=== PATIENT | female | born 1940 | race Caucasian/White ===

== ENCOUNTER → 2017-10-06 16:12 | Outpatient (CLI) | payer MEDICARE, OTHER, SELFPAY ==
[2017-10-06 17:30] LABS: Absolute Lymphocyte Count 1.69 X10^3/ul (0.83-4.51); Absolute Neutrophil Count 3.6 X10^3/uL (2.0-7.7); Basophil# 0.01 X10^3/uL; Basophil% 0.2 % (0-1); Eosinophil# 0.07 X10^3/uL; Eosinophils% 1.2 % (0-5); Hematocrit 36.6 % (37-47); Hemoglobin 11.8 g/dl (12.0-15.0); Lymphocyte # 1.69 X10^3/ul (4.0); Lymphocyte % 28.7 % (19-41); Mean Corp Hgb Conc 32.2 g/gl (32-36); Mean Corpuscular Hgb 29.9 pg (27.0-32.0); Mean Corpuscular Volume 92.9 fL (81-99); Mean Platelet Vol. 11.9 fl (6.2-12.0); Monocyte# 0.53 X10^3/uL; Neutrophil # 3.57 X10^3/uL (2.7-7.7); Neutrophil % 60.7 % (47-70); Platelet Count 210 K/mm3 (150-450); RBC Distribution Width CV 14.5 % (11.6-14.6); RBC Distribution Width SD 47.7 fl (35.1-43.9); Red Blood Count 3.94 M/mm3 (4.2-5.4); White Blood Count 5.9 K/mm3 (4.4-11.0)
[2017-10-06 17:39] LABS: POSITIVE COUNT NO; POSITIVE DIFFERENTIAL NO; POSITIVE MORPHOLOGY NO
[2017-10-06 18:29] LABS: ALB/GLOB Ratio 1.1 RATIO (0.9-2.4); AST(SGOT) 21 U/L (15-37); Alanine Aminotransfer ALT/SGPT 29 U/L (13-56); Albumin, Serum 3.9 g/dL (3.2-5.0); Alkaline Phosphatase 64 U/L (45-117); Anion Gap 10 (5-15); BUN 15 mg/dL (7-18); BUN/Creat Ratio 23.5 RATIO (10-20); Calcium,Total 8.7 mg/dL (8.5-10.1); Chloride 103 mmol/L (98-107); Cholesterol 186 mg/dL (200); Creatinine, Serum 0.64 mg/dL (0.55-1.02); EST Glomerular Filtration Rate 97 mL/min (>60); Est Glom Filt Rate - Afr Amer 117 mL/min (>60); Globulin 3.5 g/dL (2.2-4.2); Glucose 97 mg/dL (74-106); High Density Lipoprotein 33 mg/dL; Potassium 4.2 mmol/L (3.5-5.1); Protein, Total 7.4 g/dL (6.4-8.2); Sodium Level 138 mmol/L (136-145); Thyroid Stim Hormone (TSH) 1.83 uIU/mL (0.358-3.74); Triglycerides 417 mg/dL
[2017-10-06 19:58] LABS: Vitamin D,25 Hydroxy 18.4 ng/mL (19.95-100.01)
== END ==
PROVIDERS: Family Provider Family Medicine Geriatric Medicine; PCP Family Medicine Geriatric Medicine; Visit Provider Family Medicine Geriatric Medicine
DX: I10 Essential (primary) hypertension (principal); E78.4 Other hyperlipidemia; E55.9 Vitamin D deficiency, unspecified
CPT/HCPCS: 36415; 80053; 80061; 82306; 84443; 85025

== ENCOUNTER → 2017-12-08 14:32 | Outpatient (CLI) | payer MEDICARE, OTHER, SELFPAY | PROVIDERS: Family Provider Family Medicine Geriatric Medicine; PCP Family Medicine Geriatric Medicine; Visit Provider Family Medicine Geriatric Medicine | DX: R68.83 Chills (without fever) (principal) | CPT/HCPCS: 87633 ==

== ENCOUNTER → 2017-12-12 10:09 | Outpatient (CLI) | payer MEDICARE, OTHER, SELFPAY ==
--- NOTE | 2017-12-12 10:13 | ECHOD_ITS ---
Reason For Study: Aortic valve disease Procedure This was a 2D Doppler, Color Flow transthoracic echocardiogram. The exam was of adequate technical quality. Exam performed in department. Left Ventricle Normal LV size. Left ventricular systolic function is normal. The estimated ejection fraction is 60 %. Transmitral diastolic flow velocities suggest moderate (stage 2) diastolic dysfunction (pseudonormal pattern). No regional wall motion abnormalities noted. Right Ventricle Normal RV size. Normal systolic function. Atria The left atrium is mildly enlarged. Normal right atrium. No doppler evidence for ASD. Mitral Valve There is no mitral annular calcification. Mild diffuse mitral valve thickening. Trivial mitral valve insufficiency. Tricuspid Valve Normal tricuspid valve. Trivial tricuspid valve insufficiency. Right ventricular systolic pressure estimated to be 43 mmHg. Aortic Valve Trisinus/trileaflet aortic valve. Mild diffuse aortic valve thickening. Mild focal aortic valve calcification. Aortic scelerosis / mild aortic valve stenosis. Trivial aortic valve insufficiency. Pulmonic Valve The pulmonic valve is not well visualized. Trivial pulmonic valve insufficiency. Great Vessels Normal sized aortic root. Pericardium/Pleural No pericardial effusion. MMode/2D Measurements & Calculations LVIDd: 4.3 cm IVSd: 1.2 cm LVOT diam: 1.9 cm LVIDs: 2.7 cm LVPWd: 1.2 cm LVOT area: 2.9 cm2 RVDd: 3.7 cm FS: 36.5 % Ao root diam: 3.1 cm LAV(MOD-bp): 53.0 ml EDV(MOD-sp4): 77.3 ml LAV(MOD-bp) Indexed: 29.2 ml/m2 ESV(MOD-sp4): 36.4 ml LAV(MOD-sp2): 58.1 ml EF(MOD-sp4): 52.8 % LAV(MOD-sp4): 45.1 ml EDV(MOD-sp2): 65.2 ml SV(MOD-sp4): 40.8 ml SV(MOD-sp2): 32.0 ml EF(MOD-sp2): 49.1 % LA A4 area: 16.6 cm2 RA A4 area: 10.7 cm2 Doppler Measurements & Calculations MV E max deniz: 73.3 cm/sec Lat Peak E' Deniz: 6.7 cm/sec Med Peak E' Deniz: 4.4 cm/sec MV A max deniz: 92.9 cm/sec E/E' lat: 10.9 E/E' med: 16.7 MV E/A: 0.79 Ao V2 max: 153.6 cm/sec LV V1 max: 95.2 cm/sec SV(LVOT): 66.6 ml Ao max P.4 mmHg LV V1 max P.6 mmHg Ao V2 mean: 106.9 cm/sec LV V1 mean P.0 mmHg Ao mean P.1 mmHg LV V1 mean: 65.6 cm/sec Ao V2 VTI: 39.6 cm LV V1 VTI: 22.9 cm JACOBO(I,D): 1.7 cm2 JACOBO(V,D): 1.8 cm2 PA V2 max: 83.7 cm/sec TR max deniz: 315.2 cm/sec TR max P.7 mmHg Interpretation Summary Left ventricular systolic function is normal. The estimated ejection fraction is 60 %. The left atrium is mildly enlarged. Mild diffuse mitral valve thickening. Trivial mitral valve insufficiency. Trivial tricuspid valve insufficiency. Aortic scelerosis / mild aortic valve stenosis. Trivial aortic valve insufficiency. Trivial pulmonic valve insufficiency. Right ventricular systolic pressure estimated to be 43 mmHg. Transmitral diastolic flow velocities suggest diastolic dysfunction. Compared with the previous TTE of 05/24/2016 the previous small mobile echodensity on the aortic aspect of the aortic valve appearing is not visualized at this time. Ordering Physician: Huan Mathis Referring Physician: Marco Antonio Arevalo Chi Performed By: Yessi Thomas RDCS
== END ==
PROVIDERS: Family Provider Family Medicine Geriatric Medicine; PCP Family Medicine Geriatric Medicine; Visit Provider Internal Medicine Cardiovascular Disease
DX: I47.1 Supraventricular tachycardia (principal); R01.1 Cardiac murmur, unspecified; I35.8 Other nonrheumatic aortic valve disorders; I10 Essential (primary) hypertension
CPT/HCPCS: 93306

== ENCOUNTER → 2018-01-05 16:13 | Outpatient (CLI) | payer MEDICARE, OTHER, SELFPAY ==
[2018-01-05 17:47] LABS: Absolute Lymphocyte Count 1.47 X10^3/ul (0.83-4.51); Absolute Neutrophil Count 4.2 X10^3/uL (2.0-7.7); Basophil# 0.01 X10^3/uL; Basophil% 0.2 % (0-1); Eosinophil# 0.27 X10^3/uL; Eosinophils% 4.1 % (0-5); Hematocrit 36.1 % (37-47); Hemoglobin 11.6 g/dl (12.0-15.0); Lymphocyte # 1.47 X10^3/ul (4.0); Lymphocyte % 22.2 % (19-41); Mean Corp Hgb Conc 32.1 g/gl (32-36); Mean Corpuscular Hgb 30.6 pg (27.0-32.0); Mean Corpuscular Volume 95.3 fL (81-99); Mean Platelet Vol. 10.7 fl (6.2-12.0); Monocyte# 0.64 X10^3/uL; Monocyte% 9.7 % (0-10); Neutrophil # 4.22 X10^3/uL (2.7-7.7); Neutrophil % 63.6 % (47-70); POSITIVE COUNT NO; POSITIVE DIFFERENTIAL NO; POSITIVE MORPHOLOGY NO; Platelet Count 248 K/mm3 (150-450); RBC Distribution Width CV 16.7 % (11.6-14.6); Red Blood Count 3.79 M/mm3 (4.2-5.4); White Blood Count 6.6 K/mm3 (4.4-11.0)
[2018-01-05 17:54] LABS: ALB/GLOB Ratio 0.9 RATIO (0.9-2.4); AST(SGOT) 26 U/L (15-37); Alanine Aminotransfer ALT/SGPT 30 U/L (13-56); Albumin, Serum 3.5 g/dL (3.2-5.0); Alkaline Phosphatase 56 U/L (45-117); Anion Gap 6 (5-15); BUN 19 mg/dL (7-18); BUN/Creat Ratio 26.8 RATIO (10-20); Calcium,Total 8.6 mg/dL (8.5-10.1); Chloride 105 mmol/L (98-107); Cholesterol 192 mg/dL (200); Creatinine, Serum 0.71 mg/dL (0.55-1.02); EST Glomerular Filtration Rate 85 mL/min (>60); Est Glom Filt Rate - Afr Amer 103 mL/min (>60); Glucose 96 mg/dL (74-106); High Density Lipoprotein 46 mg/dL; Potassium 3.8 mmol/L (3.5-5.1); Protein, Total 7.5 g/dL (6.4-8.2); Sodium Level 140 mmol/L (136-145); Thyroid Stim Hormone (TSH) 1.47 uIU/mL (0.358-3.74); Triglycerides 161 mg/dL; Very Low Density Lipoprotein 32 mg/dL (5-40)
[2018-01-05 17:58] LABS: Vitamin D,25 Hydroxy 45.5 ng/mL (29.95-100.01)
== END ==
PROVIDERS: Family Provider Family Medicine Geriatric Medicine; PCP Family Medicine Geriatric Medicine; Visit Provider Family Medicine Geriatric Medicine
DX: I10 Essential (primary) hypertension (principal); E55.9 Vitamin D deficiency, unspecified
CPT/HCPCS: 36415; 80053; 80061; 82306; 84443; 85025

== ENCOUNTER → 2018-01-12 09:00 | Outpatient (CLI) | payer MEDICARE, OTHER, SELFPAY ==
[2018-01-12 10:40] LABS: AST(SGOT) 25 U/L (15-37); Alanine Aminotransfer ALT/SGPT 26 U/L (13-56); Albumin, Serum 3.6 g/dL (3.2-5.0); Alkaline Phosphatase 53 U/L (45-117); Bilirubin, Direct 0.09 mg/dL (0.00-0.30); Cholesterol 184 mg/dL (200); Globulin 3.8 g/dL (2.2-4.2); High Density Lipoprotein 48 mg/dL; Protein, Total 7.4 g/dL (6.4-8.2); Triglycerides 120 mg/dL
[2018-01-12 10:41] LABS: Very Low Density Lipoprotein 24 mg/dL (5-40)
== END ==
PROVIDERS: Family Provider Family Medicine Geriatric Medicine; PCP Family Medicine Geriatric Medicine; Visit Provider Physician Assistant Medical
DX: I10 Essential (primary) hypertension (principal); E78.1 Pure hyperglyceridemia
CPT/HCPCS: 36415; 80061; 80076

== ENCOUNTER → 2018-04-08 11:15 | Outpatient (CLI) | payer MEDICARE, OTHER, SELFPAY ==
[2018-04-08 12:31] LABS: Absolute Neutrophil Count 4.4 X10^3/uL (2.0-7.7); Basophil# 0.02 X10^3/uL; Basophil% 0.3 % (0-1); Eosinophil# 0.09 X10^3/uL; Eosinophils% 1.3 % (0-5); Hematocrit 38.8 % (37-47); Hemoglobin 12.2 g/dl (12.0-15.0); Lymphocyte % 25.7 % (19-41); Mean Corp Hgb Conc 31.4 g/gl (32-36); Mean Corpuscular Hgb 29.3 pg (27.0-32.0); Monocyte# 0.72 X10^3/uL; Monocyte% 10.3 % (0-10); Neutrophil # 4.37 X10^3/uL (2.7-7.7); Neutrophil % 62.3 % (47-70); Platelet Count 239 K/mm3 (150-450); RBC Distribution Width CV 15.6 % (11.6-14.6); RBC Distribution Width SD 51.2 fl (35.1-43.9); Red Blood Count 4.17 M/mm3 (4.2-5.4)
[2018-04-08 12:40] LABS: POSITIVE COUNT NO; POSITIVE DIFFERENTIAL NO; POSITIVE MORPHOLOGY NO
[2018-04-08 12:53] LABS: ALB/GLOB Ratio 1.1 RATIO (0.9-2.4); AST(SGOT) 25 U/L (15-37); Alanine Aminotransfer ALT/SGPT 33 U/L (13-56); Albumin, Serum 3.8 g/dL (3.2-5.0); Alkaline Phosphatase 54 U/L (45-117); Anion Gap 10 (5-15); BUN 19 mg/dL (7-18); BUN/Creat Ratio 24.9 RATIO (10-20); Calcium,Total 8.8 mg/dL (8.5-10.1); Chloride 105 mmol/L (98-107); Cholesterol 194 mg/dL (200); Creatinine, Serum 0.76 mg/dL (0.55-1.02); EST Glomerular Filtration Rate 78 mL/min (>60); Est Glom Filt Rate - Afr Amer 95 mL/min (>60); Globulin 3.6 g/dL (2.2-4.2); Glucose 103 mg/dL (74-106); High Density Lipoprotein 43 mg/dL; Potassium 4.4 mmol/L (3.5-5.1); Protein, Total 7.4 g/dL (6.4-8.2); Sodium Level 143 mmol/L (136-145); Thyroid Stim Hormone (TSH) 1.69 uIU/mL (0.358-3.74); Triglycerides 181 mg/dL; Very Low Density Lipoprotein 36 mg/dL (5-40)
== END ==
PROVIDERS: Family Provider Family Medicine Geriatric Medicine; PCP Family Medicine Geriatric Medicine; Visit Provider Family Medicine Geriatric Medicine
DX: E55.9 Vitamin D deficiency, unspecified (principal); E78.4 Other hyperlipidemia; I10 Essential (primary) hypertension
CPT/HCPCS: 36415; 80053; 80061; 82306; 84443; 85025

== ENCOUNTER → 2018-04-13 15:18 | Outpatient (CLI) | payer MEDICARE, OTHER, SELFPAY | PROVIDERS: Family Provider Family Medicine Geriatric Medicine; PCP Family Medicine Geriatric Medicine; Visit Provider Obstetrics & Gynecology | DX: Z12.31 Encounter for screening mammogram for malignant neoplasm of breast (principal) | CPT/HCPCS: 77063; 77067 ==

== ENCOUNTER → 2018-04-15 13:42 | Outpatient (CLI) | payer MEDICARE, OTHER, SELFPAY | PROVIDERS: Family Provider Family Medicine Geriatric Medicine; PCP Family Medicine Geriatric Medicine; Visit Provider Obstetrics & Gynecology | DX: R92.8 Other abnormal and inconclusive findings on diagnostic imaging of breast (principal) | CPT/HCPCS: 76642 ==

== ENCOUNTER → 2018-04-29 15:04 | Outpatient (CLI) | payer MEDICARE, OTHER, SELFPAY ==
--- NOTE | 2018-04-29 | IMM_PTH ---
PATIENT: ANABELA CAMARA LOC: [facility] U#:[id number] AGE/SX: 84/F ROOM: RE04/29/[address]: Dr. Terry Santana MD : 1940 BED: DIS: SPEC #: [id number] RECD: 05/01/18 11:36 STATUS: XIMENA REQ #: [id number] NIKA: 04/29/18 00:[address]: Terry Santana DEPT: IMMUNOHISTOCHEMISTRY RECD BY: Tayla Medrano ENTERED: 05/01/18 11:39 SP TYPE: IMMUNO OTHR DR: Dr. Marco Antonio Arevalo MD Tissues: Left breast, NOS Procedures: CALPONIN-1 (add) CK5-6 (add) CK8 (add) E-CAD (add) HER2 PARAG (add) KI-67 (add) P53 (add) IN (add) P40 (add) ER (initial) PHYSICIAN & INSTITUTION [facility] [id number] SPECIMEN INFORMATION: Tissue Source: Left breast Clinical Info: Abnormal mammogram left breast Specimen Number: [id number] CPT code: 46133, 10061 x6, 86506 x3 METHODOLOGY: Deparaffinized sections of prefer/formalin-fixed tissue or PAP/DQ stained slides are incubated with monoclonal/polyclonal antibodies/oligonucleotide probes. Localization is made via biotin free immunoperoxidase method. Appropriate controls are performed and reacted as expected. Results on target cell population are indicated in the following table: RESULTS: ANTIBODY / CLONE RESULT P53 (DO-7) positive, 90% Ki-67 (30-9) positive, low CK8 ([id number]) positive CK5-6 (D5 & 1684) negative Calponin-1 (EB876F) negative P40 (BC28) negative E-Cad (ECH-6) positive MORPHOMETRIC ANALYSIS ER (clone 6F11) >95% IN (clone 16/1E2) 0% Her-2Neu (clone CB11) 0 The prognostic test for HER2 is performed on formalin-fixed paraffin embedded tissue. A 3+ (positive) staining pattern is defined as intense, homogeneous, complete, circumferential membranous staining in >10% of contiguous tumor cells. A similar weak (2+) staining pattern is interpreted as equivocal. MARSHA follow-up testing is recommended for all equivocal cases. Positivity/negativity for ER/IN is reported if > or < 1% of the tumor cells are immuno- reactive, respectively. The ASCO/CAP criteria is used for scoring. Reference: Journal of Clinical Oncology, 2013; 31:9147-6264 & 2010; 16:1762-4617. Duration of fixation: 29.5 Hrs; Sample Adequate: Yes. These assays have not been validated on decalcified tissues. Results should be interpreted with caution given the likelihood of false negativity on decalcified specimens. These tests were developed and their performance characteristics determined by [facility]. They may not have been cleared or approved by the U.S. Food and Drug Administration. The FDA has determined that such clearance or approval is not necessary. INTERPRETATION: Left breast, core biopsy: Invasive ductal carcinoma, nuclear grade 2. Positive for estrogen receptors (favorable prognostic indicator). Negative for progesterone receptors (unfavorable prognostic indicator). Negative for overexpression of YMU6fdd. AM:wojciech 05/04/18
--- NOTE | 2018-04-29 13:00 | BRBX_PTH ---
PATIENT: ANABELA CAMARA LOC: [facility] U#:[id number] AGE/SX: 84/F ROOM: RE04/29/[address]: Dr. Terry Santana MD : 1940 BED: DIS: SPEC #: [id number] RECD: 04/29/18 14:48 STATUS: XIMENA MING #: [id number] NIKA: 04/29/18 13:[address]: Terry Santana DEPT: SURGICAL PATHOLOGY RECD BY: Tayla Medrano ENTERED: 04/30/18 15:40 SP TYPE: BREAST BX OTHR DR: MD Dr. Marco Antonio Johnson Chi, MD Tissues: Left breast, NOS Procedures: Surgery Specimen Level IV HEADER OPERATION: Ultrasound-guided mammotome left breast biopsy PRE-OP DIAGNOSIS: Abnormal mammogram left breast R92.8 TISSUE SUBMITTED: Mammotome biopsy left breast ISCHEMIC TIME: <1 minute FIXATION TIME: 29.5 hours MICROSCOPIC DIAGNOSIS Left breast, ultrasound-guided mammotome biopsy: Invasive ductal carcinoma. Nuclear grade ? 2/3 Maximal length ? 5 mm AM:wojciech 05/01/18 COMMENT ER/WI/Sfy5jvg studies are being performed on sections of tumor and the results from this study will be reported separately ([id number]). MICROSCOPIC DESCRIPTION Slides are reviewed. GROSS DESCRIPTION Received in fixative is one container labeled with the patient's name and designated left breast biopsy. The specimen consists of multiple elongated fragments of good-yellow fibroadipose tissue that in aggregate measure 2.5 x 1 x 0.1 cm. The entire specimen is submitted in one cassette. / SJ:wojciech 04/30/18 TC:0 CPT: 02133
== END ==
PROVIDERS: Family Provider Family Medicine Geriatric Medicine; PCP Family Medicine Geriatric Medicine; Visit Provider Surgery
DX: C50.912 Malignant neoplasm of unspecified site of left female breast (principal)
CPT/HCPCS: 88305; 88341; 88342

== ENCOUNTER 2018-05-29 09:17 | Day surgery (SDC) | payer MEDICARE, OTHER, SELFPAY ==
[2018-05-29] VITALS (10 sets, daily range): BP systolic 123–176; BP diastolic 57–78; PULSE 61–79; RESP 14–18; TEMP 36.1–36.9; O2SAT 93–99; BMI 28.8
--- NOTE | 2018-05-29 10:00 | NM_ITS ---
CLINICAL: Female, 77 years old. LEFT BREAST CANCER NUCLEAR MEDICINE LYMPHOSCINTIGRAPHY TECHNIQUE: After infiltration of the skin and subcutaneous soft tissues with 10 mL lidocaine 1% in the periareolar region, Intradermal administration of 1.1 mCi of Tc sulfur colloid, in the periareolar region in the affected breast is performed. COMPARISON STUDIES : NM - None. CR - Not available for review at this time. CT - Not available for review at this time. MR - Not available for review at this time. US - Not available for review at this time. FINDINGS: The patient was sent to the OR no images were obtained. NM/Lymph Node Injection Only IMPRESSION: Successful lymphoscintigraphy. Electronically Signed: Don Torres MD at 12:25 EDT Tel , Service support ,
[2018-05-29] MEDS: Cefazolin 2 GM in 0.9% Normal Saline 100 ML IV (11:16)
--- NOTE | 2018-05-29 11:23 | PCM.OPRPT ---
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 Z17.0 estrogen receptor positive Post-Operative Diagnosis: Same Surgery/Procedure Performed:: 1. Injection of 5 cc of Lymphazurin blue. 2. Ultrasound-guided wire localization left breast cancer. 3. Left-sided partial mastectomy. 4. Left-sided deep sentinel lymph node biopsy Type of Anesthesia:: General Anesthesiologist: Oscar Rodriguez Specimen's removed: left breast Drains: none Estimated Blood Loss (mL): < 50 cc Fluids Replaced: 600 cc lr Description of Procedure: Patient was brought into the operating room. Placed in the supine position. Under excellent LMA general anesthetic I ultrasound the left breast in the upper outer quadrant. Lesion was identified. Prepped the skin with alcohol. I placed a Kopan's wire directly through the malignancy. The breast was then cleaned off with alcohol. I injected 5 cc of Lymphazurin blue circumareolar the on the left side and massaged the breast for 5 minutes. The left breast was then sterilely prepped and draped in the usual fashion. An incision was made in the upper outer quadrant of the breast and elliptically around the previous biopsy site. I used electrocautery to do a partial upper quadrant mastectomy with the wire as my guide. The specimen was marked with the wire and skin laterally single long superiorly double long medially and double short posterior on the chest wall. I irrigated out the wound I had good hemostasis I then went along the lateral border of the pectoralis major muscle and entered the clavipectoral fascia and entered the deep axillary area I used the neoprobe identified a very hot area did gentle dissecting in this area and identified it a and extremely blue lymph node. I used the harmonic dissector and took this as well as a few lymph nodes around the area out. Readings were in the 500 intraoperatively and not quite as high with the lymph node being out. These were sent to pathology for frozen section which confirmed lymph nodes with no obvious metastatic disease. I used irrigation in this area. The wound was then brought together with deep dermal stitches of 3-0 Vicryl in a running 4-0 Monocryl. Dermabond was applied. Fluffs and a protection bra was applied. The patient tolerated the procedure well. - Admit VTE Documentation VTE Present on Admission: No VTE Mechan Device Prophylaxis: SCD's VTE Pharm Prophylaxis ordered?: No Reason prophylaxis not ordered:: Treatment Not Indicated
[2018-05-29] MEDS: Isosulfan Blue 1% 5 ML Vial (11:31)
--- NOTE | 2018-05-29 11:59 | BI_ITS ---
SURGICAL BREAST SPECIMEN RADIOGRAPH CLINICAL: Document presence of mass in biopsy specimen. FINDINGS: Specimen shows presence of spiculated mass and biopsy clip and localizing wire Pathology is pending and an addendum to the biopsy report will be performed after the final pathologic diagnosis is rendered. Electronically Signed: Don Torres MD at 13:16 EDT Tel , Service support , BI/Breast Biopsy Specimen
[2018-05-29] MEDS: Bupivacaine Mpf 0.5% 30 ML VIAL (12:28)
[2018-05-29] MEDS: oxyCODONE 5 MG Tablet PO (13:26)
[2018-05-29] MEDS: Lactated Ringers 1,000 ML 70 ML IV (18:05)
[2018-05-29] MEDS: Fenofibrate 48 MG Tablet PO (21:52)
[2018-05-29] MEDS: Cefazolin 1 GM/50 ML BAG IV (21:52)
[2018-05-29] MEDS: Metoprolol Tartrate 25 MG Tablet PO (21:52)
[2018-05-29] MEDS: Latanoprost 0.005% 1 Bottle 1 DRP EACH EYE (21:53)
[2018-05-30 02:40] VITALS: BP 113/52; PULSE 61; RESP 16; TEMP 36.6; O2SAT 97
[2018-05-30] MEDS: Cefazolin 1 GM/50 ML BAG IV (06:03)
[2018-05-30] MEDS: oxyCODONE 5 MG Tablet PO (06:06)
[2018-05-30 08:08] VITALS: BP 126/54; PULSE 55; RESP 18; TEMP 36.6; O2SAT 92
[2018-05-30] MEDS: Timolol 0.5% 5ML OPTH.BTL 1 DRP EACH EYE (08:12)
[2018-05-30] MEDS: HYDROCHLOROTHIAZIDE 12.5 MG CAPSULE PO (08:12)
[2018-05-30 09:33] VITALS: PULSE 63; O2SAT 95
[2018-05-30 09:35] VITALS: BP 126/54; PULSE 63
[2018-05-30] MEDS: Metoprolol Tartrate 25 MG Tablet PO (09:35)
[2018-05-30] MEDS: amLODIPine 5 MG Tablet PO (09:35)
[2018-05-30] MEDS: Losartan Potassium 100 MG Tablet PO (09:36)
--- NOTE | 2018-05-30 11:08 | DCINST_ITS ---
Discharge Diet: No Restrictions Discharge Activity: May Not Drive - for 2-3 days or while taking narcotic pain meds. May shower in (days): 1 Lifting Restrictions: 10 pounds for 1 week. Call your doctor if your incision/area has: Continuous Slow Oozing, Sudden In creased Bleeding Call your doctor if you observe: Fever of 101 or Higher Suture Line Care: Avoid Pulling/Pushing, Avoid Pinching/Bending Remove Dressing in (days):: 1 - Remove bulky dressing tomorrow. May leave any opsite dressing for 3-4 days. Keep dressing in place until your follow-up appointment. Additional Dressing/Incision Instructions:: Remove bulky dressing tomorrow. May leave any opsite dressing for 3-4 days. Keep dressing in place until your follow-up appointment. Allergies/Adverse Reactions: Allergies No Known Allergies Allergy (Verified 05/22/18 13:02) Medications to take at Discharge Losartan Potassium [Cozaar] 100 mg PO DAILY 11/30/13 Potassium Chloride [Klor-Con M10] 10 meq PO DAILY 11/30/13 Latanoprost 0.005% [Xalatan Opthalmic] 1 drp EACH EYE QHS 06/13/16 Timolol Maleate [Timoptic-XE 0.5%] 1 drp EACH EYE DAILY 06/13/16 hydrochlorothiazide 12.5 mg tablet 12.5 mg PO DAILY 30 Days #30 12/12/17 amlodipine 5 mg tablet 5 mg PO DAILY tab 04/21/18 metoprolol tartrate 25 mg tablet 25 mg PO BID #180 tab 05/05/18 Acetaminophen [Tylenol Arthritis] 650 mg PO DAILY 05/22/18 Aspirin E.C. [Ecotrin] 81 mg PO DAILY@0800 05/22/18 Fenofibrate,Micronized [Fenofibrate] 67 mg PO QHS 05/22/18 Oxycodone HCl/Acetaminophen [Percocet 5/325] 1 - 2 tab PO Q4H PRN PRN 5 Days #30 tab 05/30/18 The following prescriptions were given: Oxycodone HCl/Acetaminophen [Percocet 5/325] 1 - 2 tab PO Q4H PRN PRN 5 Days #30 tab PRN Reason: Pain Primary Care Physician: Marco Antonio Arevalo Chi, MD [Primary Care Provider] -
[2018-05-30 11:23] VITALS: BP 124/58; PULSE 60; RESP 18; TEMP 36.8; O2SAT 93
[2018-06-01 11:49] LABS: Bedside Glucose 122 mg/dL (70-110)
[2018-06-01 12:02] LABS: Bedside Glucose 148 mg/dL (70-110)
== END 2018-05-30 12:05 | disposition home or self-care (01) ==
LOC: SDC 09:18 → AC 09:18 → MS3 13:22
PROVIDERS: Family Provider Family Medicine Geriatric Medicine; PCP Family Medicine Geriatric Medicine; Referring Provider Surgery
PROC: (CPT 19301; principal; 2018-05-29 11:45)
DX: C50.412 Malignant neoplasm of upper-outer quadrant of left female breast (principal); Z17.0 Estrogen receptor positive status [ER+]; E78.00 Pure hypercholesterolemia, unspecified; E11.9 Type 2 diabetes mellitus without complications; I10 Essential (primary) hypertension; I27.20 Pulmonary hypertension, unspecified; Z23 Encounter for immunization
CPT/HCPCS: 00400; 19301; 38525; 38792; 76098; 82962; 88305; 88307; 88331; 88332; 88341; 88342; A9541; G0008; J7120; 90686; J2405; Q9968

== ENCOUNTER → 2018-07-08 11:43 | Outpatient (CLI) | payer MEDICARE, OTHER, SELFPAY ==
[2018-06-18 09:52] VITALS: BMI 29.3
[2018-07-08 11:05] VITALS: BMI 29.2
[2018-07-08 12:41] LABS: Absolute Lymphocyte Count 1.98 X10^3/ul (0.83-4.51); Absolute Neutrophil Count 6.9 X10^3/uL (2.0-7.7); Basophil# 0.01 X10^3/uL; Basophil% 0.1 % (0-1); Eosinophil# 0.01 X10^3/uL; Eosinophils% 0.1 % (0-5); Hematocrit 39.6 % (37-47); Hemoglobin 12.7 g/dl (12.0-15.0); Lymphocyte # 1.98 X10^3/ul (4.0); Lymphocyte % 20.3 % (19-41); Mean Corp Hgb Conc 32.1 g/gl (32-36); Mean Corpuscular Hgb 29.7 pg (27.0-32.0); Mean Corpuscular Volume 92.5 fL (81-99); Mean Platelet Vol. 11.8 fl (6.2-12.0); Monocyte# 0.82 X10^3/uL; Monocyte% 8.4 % (0-10); Neutrophil # 6.91 X10^3/uL (2.7-7.7); Neutrophil % 70.8 % (47-70); Platelet Count 264 K/mm3 (150-450); RBC Distribution Width CV 15.6 % (11.6-14.6); RBC Distribution Width SD 51.5 fl (35.1-43.9); Red Blood Count 4.28 M/mm3 (4.2-5.4); White Blood Count 9.8 K/mm3 (4.4-11.0)
[2018-07-08 12:50] LABS: POSITIVE COUNT NO; POSITIVE DIFFERENTIAL NO; POSITIVE MORPHOLOGY NO
[2018-07-08 12:56] LABS: Vitamin D,25 Hydroxy 23.1 ng/mL (29.95-100.01)
[2018-07-08 13:08] LABS: ALB/GLOB Ratio 1.1 RATIO (0.9-2.4); AST(SGOT) 23 U/L (15-37); Alanine Aminotransfer ALT/SGPT 30 U/L (13-56); Albumin, Serum 4.2 g/dL (3.2-5.0); Alkaline Phosphatase 60 U/L (45-117); Anion Gap 10 (5-15); BUN 20 mg/dL (7-18); BUN/Creat Ratio 24.4 RATIO (10-20); Calcium,Total 8.9 mg/dL (8.5-10.1); Chloride 104 mmol/L (98-107); Cholesterol 212 mg/dL (200); Creatinine, Serum 0.82 mg/dL (0.55-1.02); EST Glomerular Filtration Rate 72 mL/min (>60); Est Glom Filt Rate - Afr Amer 87 mL/min (>60); Globulin 3.7 g/dL (2.2-4.2); Glucose 93 mg/dL (74-106); High Density Lipoprotein 51 mg/dL; Potassium 4.2 mmol/L (3.5-5.1); Protein, Total 7.9 g/dL (6.4-8.2); Sodium Level 141 mmol/L (136-145); Thyroid Stim Hormone (TSH) 2.07 uIU/mL (0.358-3.74); Triglycerides 217 mg/dL; Very Low Density Lipoprotein 43 mg/dL (5-40)
== END ==
PROVIDERS: Family Provider Family Medicine Geriatric Medicine; PCP Family Medicine Geriatric Medicine; Visit Provider Family Medicine Geriatric Medicine
DX: I10 Essential (primary) hypertension (principal); E56.9 Vitamin deficiency, unspecified; R53.83 Other fatigue
CPT/HCPCS: 36415; 77387; 77412; 80053; 80061; 82306; 84443; 85025

== ENCOUNTER → 2018-07-31 11:51 | Outpatient (CLI) | payer MEDICARE, OTHER, SELFPAY ==
[2018-06-18 09:52] VITALS: BMI 29.3
[2018-07-08 11:05] VITALS: BMI 29.2
--- NOTE | 2018-07-31 11:58 | RAD_ITS ---
STUDY: X-RAY CHEST REASON FOR EXAM: Female, 77 years old. Left breast cancer. Recently finished 16 radiation treatments. Additional history of aortic valve replacement. TECHNIQUE: PA and lateral views of the chest. COMPARISON: PA and lateral chest x-ray October 20, 2014 FINDINGS: Moderate elevation of the anterior right diaphragm as well as some stable separation of the right diaphragmatic leaflets. There is minor crowding in the anterior right lung base. Chronic interstitial changes in the inferior left base unchanged. There is no demonstrated pleural abnormality. Heart size is upper normal.. Sternal cerclage wires are now present from a sternotomy in the interval since previous study. Normal mediastinum and porfirio. Normal visualized pulmonary arteries. There is stable mild atherosclerotic calcification of the aortic arch with some tortuosity of the descending thoracic segment. There are stable multilevel degenerative changes of the visualized thoracic spine. Stable rounded ossific density projecting just below the coracoid process of the right scapula on the frontal view. Otherwise, normal visualized ribs, clavicles, and shoulders. The left breast shadow is mildly smaller than the right. There is no demonstrated abnormality of the visualized soft tissue structures of the upper abdomen. RAD/Chest PA and Lateral IMPRESSION: 1. Patient has undergone median sternotomy since prior study. Heart size upper normal. No CHF. 2. Stable tortuosity of the descending thoracic aorta and mild calcification of the thoracic aortic arch. 3. Minor subsegmental volume loss in the anterior right lung base. Mild chronic interstitial change noted in the left base. Electronically Signed: Jose Angel Rhodes MD at 14:50 EST , Service support ,
== END ==
PROVIDERS: Family Provider Family Medicine Geriatric Medicine; PCP Family Medicine Geriatric Medicine; Referring Provider Internal Medicine Medical Oncology; Visit Provider Internal Medicine Medical Oncology
DX: C50.412 Malignant neoplasm of upper-outer quadrant of left female breast (principal)
CPT/HCPCS: 71046

== ENCOUNTER → 2018-09-16 07:27 | Outpatient (CLI) | payer MEDICARE, OTHER, SELFPAY ==
[2018-06-18 09:52] VITALS: BMI 29.3
[2018-08-03 10:37] VITALS: BMI 29.1
--- NOTE | 2018-09-16 07:29 | CT_ITS ---
STUDY: CT CHEST WITH CONTRAST REASON FOR EXAM: Female, 77 years old. Partial left mastectomy. Breast cancer. RADIATION DOSAGE (If Supplied By Facility): CTDIvol = ( 15.01 ) mGy, DLP = ( 1375.11 ) mGycm TECHNIQUE: Transaxial imaging was performed following intravenous administration of 100 ml of Isovue 300 contrast material. Multiplanar coronal and sagittal images were reformatted. Individualized dose optimization techniques were used for this CT. COMPARISON: None. FINDINGS: Mild enlargement of the left lobe of the thyroid gland with several hypodense nodules suggestive of goiter as change. Small hypodense nodule in the lower pole of the right thyroid lobe. Skin thickening of the left breast. Increased interstitial markings at the lung bases with areas of confluence suggestive of a bibasilar scarring. There is no demonstrated pleural abnormality. Sternal cerclage wires and vascular clips are present from a prior sternotomy and coronary artery bypass graft procedure (CABG). Normal mediastinum. Normal hilar regions. Normal enhanced pulmonary arteries. There is atherosclerotic calcification of the aortic arch with tortuosity and elongation of the aortic arch and descending thoracic aorta. There are multi-level degenerative changes of the thoracic spine. There is no demonstrated abnormality of the visualized upper abdomen. CT/Chest WITH Contrast IMPRESSION: Findings suggestive of bibasilar scarring. In homogeneous enlargement of the thyroid gland slightly worse on the left side. Electronically Signed: Bryce Graham MD at 14:39 EST , Service support ,
--- NOTE | 2018-09-16 07:29 | CT_ITS ---
STUDY: CT ABDOMEN AND PELVIS WITH CONTRAST REASON FOR EXAM: Female, 77 years old. Follow-up for breast cancer. RADIATION DOSAGE (If Supplied By Facility): CTDIvol = ( 15.01 ) mGy, DLP = ( 1375.11 ) mGycm TECHNIQUE: Transaxial images were obtained from the dome of the diaphragm to the symphysis pubis with oral contrast. 100 ml of Isovue 300 contrast was administered. Sagittal and coronal images were reconstructed. Individualized dose optimization techniques were used for this CT. COMPARISON: None. FINDINGS: The patient is status post partial left mastectomy with resultant thickening of the skin of the left breast. Mild increased markings at the lung bases suggest some mild scarring. Prior CABG. Coronary artery calcification. Normal liver. Normal gallbladder and extrahepatic biliary system. Normal spleen. Normal pancreas. Normal bilateral adrenal glands. Findings suggestive of a mild degree of bilateral hydronephrosis versus bilateral parapelvic cysts. There is a small hiatal hernia. Normal small intestine. Moderate amount of fecal material is seen in the colon. The appendix is visualized and appears normal. There is diffuse atherosclerotic calcification of the abdominal aorta, without a demonstrated aneurysm. Normal inferior vena cava. Normal retroperitoneum. Normal urinary bladder. There is absence of the uterus consistent with a prior hysterectomy. Normal abdominal wall. There are diffuse degenerative changes of the visualized lumbar spine. Prior bilateral hip replacement. CT/Abdomen/Pelvis WITH Contrast IMPRESSION: Findings suggestive of either mild bilateral hydronephrosis versus bilateral parapelvic cysts. Electronically Signed: Bryce Graham MD at 14:04 EST , Service support ,
--- OUTSIDE RECORDS SUMMARY | 2018-11-18 01:58 | XMS RPT_ITS ---
:1940 Author Organization OHIP Support Name Relationship Address Phone R Unavailable Unavailable Unavailable PATEL, AGUILAR Unavailable [address] + [place] [address] PATEL, IONA Unavailable [address] + [place] [address] R Unavailable Unavailable Unavailable PATEL, AGUILAR Unavailable [address] + [place] [address] PATEL, GALO Unavailable Unavailable + R Unavailable Unavailable Unavailable PATEL, AGUILAR Unavailable [address] + [place] [address] PATEL, GALO Unavailable Unavailable + R Unavailable Unavailable Unavailable PATEL, AGUILAR Unavailable [address] + [place] [address] PATEL, GALO Unavailable Unavailable + R Unavailable Unavailable Unavailable PATEL, AGUILAR Unavailable [address] + [place] [address] PATEL, GALO Unavailable Unavailable + [place] [address] R Unavailable Unavailable Unavailable PATEL, AGUILAR Unavailable [address] + [place] [address] PATEL, GALO Unavailable Unavailable + R Unavailable Unavailable Unavailable PATEL, AGUILAR Unavailable [address] + [place] [address] PATEL, GALO Unavailable Unavailable + R Unavailable Unavailable Unavailable PATEL, AGUILAR Unavailable [address] + [place] [address] PATEL, GALO Unavailable Unavailable + R Unavailable Unavailable Unavailable PATEL, AGUILAR Unavailable [address] + [place] [address] PATEL, GALO Unavailable Unavailable + R Unavailable Unavailable Unavailable PATEL, AGUILAR Unavailable [address] + [place] [address] PATEL, GALO Unavailable Unavailable + R Unavailable Unavailable Unavailable PTAEL, AGUILAR Unavailable [address] + [place] [address] PATEL, GALO Unavailable Unavailable + R Unavailable Unavailable Unavailable PATEL, AGUILAR Unavailable [address] + [place] [address] PATEL, GALO Unavailable Unavailable + R Unavailable Unavailable Unavailable PATEL, AGUILAR Unavailable [address] + [place] [address] PATEL, GALO Unavailable Unavailable + R Unavailable Unavailable Unavailable PATEL, AGUILAR Unavailable [address] + [place] [address] PATEL, GALO Unavailable Unavailable + R Unavailable Unavailable Unavailable PATEL, AGUILAR Unavailable [address] + [place] [address] PATEL, GALO Unavailable Unavailable + R Unavailable Unavailable Unavailable PATEL, AGUILAR Unavailable [address] + [place] [address] PATEL, GALO Unavailable Unavailable + R Unavailable Unavailable Unavailable PATEL, AGUILAR Unavailable [address] + [place] [address] PATEL, GALO Unavailable Unavailable + R Unavailable Unavailable Unavailable PATEL, AGUILAR Unavailable [address] + [place] [address] PATEL, GALO Unavailable . + [place] [address] R Unavailable Unavailable Unavailable PATEL, AGUILAR Unavailable [address] + [place] [address] PATEL, GALO Unavailable . + [place] [address] R Unavailable Unavailable Unavailable PATEL, AGUILAR Unavailable [address] + [place] [address] PATEL, GALO Unavailable Unavailable + [place] [address] R Unavailable Unavailable Unavailable PATEL, AGUILAR Unavailable [address] + [place] [address] PATEL, GALO Unavailable Unavailable + [place] [address] R Unavailable Unavailable Unavailable PATEL, AGUILAR Unavailable [address] + [place] [address] R Unavailable Unavailable Unavailable PATEL, AGUILAR Unavailable [address] + [place] [address] R Unavailable Unavailable Unavailable PATEL, AGUILAR Unavailable [address] + [place] [address] R Unavailable Unavailable Unavailable PATEL, AGUILAR Unavailable [address] + [place] [address] R Unavailable Unavailable Unavailable PATEL, AGUILAR Unavailable [address] + [place] [address] R Unavailable Unavailable Unavailable PATEL, AGUILAR Unavailable [address] + [place] [address] R Unavailable Unavailable Unavailable PATEL, AGUILAR Unavailable [address] + [place] [address] R Unavailable Unavailable Unavailable PATEL, AGUILAR Unavailable [address] + [place] [address] R Unavailable Unavailable Unavailable PATEL, AGUILAR Unavailable [address] [phone] [place] [address] R Unavailable Unavailable Unavailable PATEL, AGUILAR Unavailable [address] [phone] [place] [address] R Unavailable Unavailable Unavailable R Unavailable Unavailable Unavailable PATEL, AGUILAR Unavailable [address] [phone] [place] [address] R Unavailable Unavailable Unavailable R Unavailable Unavailable Unavailable PATEL, AGUILAR Unavailable [address] [phone] [place] [address] CAMARA, CLETIS Unavailable [address] + [place] [address] R Unavailable Unavailable Unavailable PATEL, AGUILAR Unavailable [address] [phone] [place] [address] CAMARA, CLETIS Unavailable [address] + [place] [address] R Unavailable Unavailable Unavailable PATEL, AGUILAR Unavailable [address] [phone] [place] [address] CAMARA, CLETIS Unavailable [address] + [place] [address] R Unavailable Unavailable Unavailable PATEL, AGUILAR Unavailable [address] [phone] [place] [address] CAMARA, PIPERBANDAR Unavailable [address] + [place] [address] R Unavailable Unavailable Unavailable AGUILAR PATEL Unavailable [address] [phone] [place] [address] Care Team Providers Name Role Phone Jarrod Drew Attending Unavailable [place], Terry Referring Unavailable Mickey, Marco Antonio Chi Primary Care Unavailable Jarrod Drew Consulting Unavailable Glen Diaz Attending Unavailable Esther, Terry Referring Unavailable Mickey, Marco Antonio Chi Primary Care Unavailable Jarrod Drew Consulting Unavailable Jarrod Drew Attending Unavailable Jarrod Drew Referring Unavailable Mickey, Marco Antonio Chi Primary Care Unavailable Mickey, Marco Antonio Chi Attending Unavailable Mickey, Marco Antonio Chi Primary Care Unavailable Makayla Gr Attending Unavailable Huan Mathis Attending Unavailable Mickey, Marco Antonio Chi Primary Care Unavailable Mickey, Marco Antonio Chi Attending Unavailable Mickey, Marco Antonio Chi Primary Care Unavailable Fany You Attending Unavailable Abena Artis Attending Unavailable Mickey, Marco Antonio Chi Referring Unavailable Mickey, Marco Antonio Chi Primary Care Unavailable Mickey, Marco Antonio Chi Attending Unavailable Mickey, Marco Antonio Chi Primary Care Unavailable Abena Artis Attending Unavailable Abena Artis Referring Unavailable Mickey, Marco Antonio Chi Primary Care Unavailable Mickey, Marco Antonio Chi Attending Unavailable Mickey, Marco Antonio Chi Primary Care Unavailable Gabe Matthews Attending Unavailable Gabe Matthews Referring Unavailable Mickey, Marco Antonio Chi Primary Care Unavailable Gabe Matthews Attending Unavailable Mickey, Marco Antonio Chi Primary Care Unavailable Terry Santana Attending Unavailable Gabe Matthews Referring Unavailable Mickey, Marco Antonio Chi Primary Care Unavailable Terry Santana Attending Unavailable Mickey, Marco Antonio Chi Referring Unavailable Mickey, Marco Antonio Chi Primary Care Unavailable Terry Santana Attending Unavailable Esther, Terry Referring Unavailable Mickey, Marco Antonio Chi Primary Care Unavailable Terry Santana Attending Unavailable Mickey, Marco Antonio Chi Referring Unavailable Mickey, Marco Antonio Chi Primary Care Unavailable Terry Santana Attending Unavailable Esther, Terry Referring Unavailable Mickey, Marco Antonio Chi Primary Care Unavailable Esther, Terry Referring Unavailable Mickey, Marco Antonio Chi Primary Care Unavailable SOLA DELACRUZ Attending Unavailable Terry Santana Attending Unavailable Esther, Terry Referring Unavailable Mickey, Marco Antonio Chi Primary Care Unavailable SOLA DELACRUZ Consulting Unavailable Renee Sin PA-C Attending Unavailable Mickey, Marco Antonio Chi Referring Unavailable Esther, Terry Attending Unavailable Mickey, Marco Antonio Chi Referring Unavailable Prah, Jarrod Attending Unavailable Mickey, Marco Antonio Chi Primary Care Unavailable Esther, Terry Referring Unavailable Prah, Jarrod Attending Unavailable Esther, Terry Referring Unavailable Mickey, Marco Antonio Chi Primary Care Unavailable Prah, Jarrod Consulting Unavailable Joe, Glen Attending Unavailable [place], Terry Referring Unavailable Mickey, Marco Antonio Chi Primary Care Unavailable Prah, Jarrod Consulting Unavailable Prah, Jarrod Attending Unavailable [place], Terry Referring Unavailable Mickey, Marco Antonio Chi Primary Care Unavailable Prah, Jarrod Consulting Unavailable Joe, Glen Attending Unavailable Joe, Glen Referring Unavailable Mickey, Marco Antonio Chi Attending Unavailable Mickey, Marco Antonio Chi Primary Care Unavailable Joe, Glen Attending Unavailable [place], Terry Referring Unavailable Mickey, Marco Antonio Chi Primary Care Unavailable Prah, Jarrod Consulting Unavailable Joe, Glen Attending Unavailable Esther, Terry Referring Unavailable Mickey, Marco Antonio Chi Primary Care Unavailable Prah, Jarrod Consulting Unavailable Joe, Glen Attending Unavailable Joe, Glen Referring Unavailable Joe, Glen Attending Unavailable Joe, Glen Referring Unavailable Joe, Glen Attending Unavailable Joe, Glen Referring Unavailable Joe, Glen Attending Unavailable Esther, Terry Referring Unavailable Mickey, Marco Antonio Chi Primary Care Unavailable Prah, Jarrod Consulting Unavailable Joe, Glen Attending Unavailable [place], Terry Referring Unavailable Mickey, Marco Antonio Chi Primary Care Unavailable Prah, Jarrod Consulting Unavailable Prah, Jarrod Attending Unavailable Prah, Jarrod Referring Unavailable Mickey, Marco Antonio Chi Primary Care Unavailable PROBLEMS PROBLEMS DATE TYPE CONDITION / CODE ATTENDING STATUS SOURCE 08/27/2018 Unknown C50.412 - Malignant Jarrod Drew Active [place] [facility] of [facility] of left female breast Repository / C50.412(ICD-10) 07/14/2018 Unknown C50.912 - Malignant Glen Diaz Active [place] [facility] unspecified site of Hospital left female breast / Repository C50.912(ICD-10) 06/05/2018 Unknown Z51.89 - Encounter for Esther, Active [place] other specified [facility] aftercare / Hospital Z51.89(ICD-10) Repository 06/01/2018 Unknown C50.212 - Malignant SOLA DELACRUZ Active [place] neoplasm of [facility] of left female breast Repository / C50.212(ICD-10) 05/12/2018 Unknown Z17.0 - Estrogen Esther, Active [place] receptor positive [facility] status [ER+] / Hospital Z17.0(ICD-10) Repository 04/29/2018 Unknown R92.8 - Other abnormal [place], Active [place] and inconclusive [facility] findings on diagnostic Hospital imaging of breast / Repository R92.8(ICD-10) 01/12/2018 Unknown E78.1 - Pure Artis, Active [place] hyperglyceridemia / [facility] E78.1(ICD-10) Hospital Repository 12/12/2017 Unknown I10 - Essential Artis, Active [place] (primary) hypertension [facility] / I10(ICD-10) Hospital Repository 10/07/2017 Unknown E55.9 - Vitamin D Mickey, Marco Antonio Chi Active [place] deficiency, [facility] unspecified / Hospital E55.9(ICD-10) Repository 10/07/2017 Unknown E78.4 - Other Mickey, Marco Antonio Chi Active [place] hyperlipidemia / [facility] E78.4(ICD-10) Hospital Repository PROCEDURES PROCEDURES No Procedure Records FoundRESULTS RESULTS CREATININE FINGERSTICK Collected: 09/16/2018 Status: F Source: [place] 7:47 AM [facility] [place] [facility] TYPE CODE TESTS RESULT OUT OF RANGE REFERENCE UNITS LAB L9100.0210 0.55-1.02 mg/dL Normal CREATININE WB 1.0 Performed By: #### L9100.0200 #### [facility] Point of Care [address] [employer] [facility] [place] [address] ABDOMEN/PELVIS WITH Observed: 09/16/2018 Status: F Source: [place] CONTRAST 7:29 AM [facility] [place] [facility] Imaging Services [address] [place] [address] Abdomen/Pelvis WITH Contrast MR#: [id number] Acct: [id number] Name: ANABELA CAMARA Rep #: [id number] : 1940 F 77 From: Bryce Graham MD PCP: Mickey SLAUGHTER,Marco Antonio Jacobsen Status: REG CLI Study: Abdomen/Pelvis WITH Contrast Date of Exam: 09/16/18 Exam# [id number] Ordering Dr: Jarrod Drew MD STUDY: CT ABDOMEN AND PELVIS WITH CONTRAST REASON FOR EXAM: Female, 77 years old. Follow-up for breast cancer. RADIATION DOSAGE (If Supplied By Facility): CTDIvol = ( 15.01 ) mGy, DLP = ( 1375.11 ) mGycm TECHNIQUE: Transaxial images were obtained from the dome of the diaphragm to the symphysis pubis with oral contrast. 100 ml of Isovue 300 contrast was administered. Sagittal and coronal images were reconstructed. Individualized dose optimization techniques were used for this CT. COMPARISON: None. FINDINGS: The patient is status post partial left mastectomy with resultant thickening of the skin of the left breast. Mild increased markings at the lung bases suggest some mild scarring. Prior CABG. Coronary artery calcification. Normal liver. Normal gallbladder and extrahepatic biliary system. Normal spleen. Normal pancreas. Normal bilateral adrenal glands. Findings suggestive of a mild degree of bilateral hydronephrosis versus bilateral parapelvic cysts. There is a small hiatal hernia. Normal small intestine. Moderate amount of fecal material is seen in the colon. The appendix is visualized and appears normal. There is diffuse atherosclerotic calcification of the abdominal aorta, without a demonstrated aneurysm. Normal inferior vena cava. Normal retroperitoneum. Normal urinary bladder. There is absence of the uterus consistent with a prior hysterectomy. Normal abdominal wall. There are diffuse degenerative changes of the visualized lumbar spine. Prior bilateral hip replacement. CT/Abdomen/Pelvis WITH Contrast IMPRESSION: Findings suggestive of either mild bilateral hydronephrosis versus bilateral parapelvic cysts. Electronically Signed: Bryce Graham MD at 14:04 EST , Service support , CC: Jarrod Drew MD; Marco Antonio Arevalo MD Audit Clerk: Signed CHEST WITH CONTRAST Observed: 09/16/2018 Status: F Source: [place] 7:29 AM [facility] [place] [facility] Imaging Services [address] [place] [id number] Chest WITH Contrast MR#: [id number] Acct: [id number] Name: ANABELA CAMARA Rep #: [id number] : 1940 F 77 From: Bryce Graham MD PCP: Mickey SLAUGHTER,Marco Antonio Jacobsen Status: REG CLI Study: Chest WITH Contrast Date of Exam: 09/16/18 Exam# [id number] Ordering Dr: Jarrod Drew MD STUDY: CT CHEST WITH CONTRAST REASON FOR EXAM: Female, 77 years old. Partial left mastectomy. Breast cancer. RADIATION DOSAGE (If Supplied By Facility): CTDIvol = ( 15.01 ) mGy, DLP = ( 1375.11 ) mGycm TECHNIQUE: Transaxial imaging was performed following intravenous administration of 100 ml of Isovue 300 contrast material. Multiplanar coronal and sagittal images were reformatted. Individualized dose optimization techniques were used for this CT. COMPARISON: None. FINDINGS: Mild enlargement of the left lobe of the thyroid gland with several hypodense nodules suggestive of goiter as change. Small hypodense nodule in the lower pole of the right thyroid lobe. Skin thickening of the left breast. Increased interstitial markings at the lung bases with areas of confluence suggestive of a bibasilar scarring. There is no demonstrated pleural abnormality. Sternal cerclage wires and vascular clips are present from a prior sternotomy and coronary artery bypass graft procedure (CABG). Normal mediastinum. Normal hilar regions. Normal enhanced pulmonary arteries. There is atherosclerotic calcification of the aortic arch with tortuosity and elongation of the aortic arch and descending thoracic aorta. There are multi-level degenerative changes of the thoracic spine. There is no demonstrated abnormality of the visualized upper abdomen. CT/Chest WITH Contrast IMPRESSION: Findings suggestive of bibasilar scarring. In homogeneous enlargement of the thyroid gland slightly worse on the left side. Electronically Signed: Bryce Graham MD at 14:39 EST , Service support , CC: Jarrod Drew MD; Marco Antonio Arevalo MD Audit Clerk: Signed ONCOLOGY FOLLOW-UP Observed: 08/27/2018 Status: F Source: [place] VISIT 11:30 AM [facility] [place] [facility] Medical Records Department [address] [place] [address] Oncology Follow-Up Visit 08/27/18 1120 MR#: [id number] Acct: [id number] Name: ANABELA CAMARA Rep #: [id number] : 1940 77 From: Glen Diaz DO PCP: Marco Antonio Arevalo MD, Chi Status: REG RCR Y Location: [facility] Date of Service: 06/29/18 Last Clinic Visit: 06/18/18 Diagnosis: Anabela Camara is a 77-year-old postmenopausal female diagnosed with pathologic stage IA (pT1c pN0 (sn) 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 Oncotype Dx was found to be 25 (intermediate). From 07/07/18 - 07/29/18 she received 4256 cGy in 16 fractions to the left breast. History of Present Illness: 04/13/2018: Bilateral screening mammography was performed which demonstrated evidence of a 1 x 0.9 cm ill-defined nodule in the deep upper lateral aspect of the left breast which was not seen on the prior study. Correlation with ultrasound is recommended. Stable benign-appearing bilateral axillary lymph nodes are noted. BI-RADS Category 0. 04/15/2018: Left breast ultrasound demonstrated evidence for a 7 x 4 x 4 mm hypoechoic nodule in the post with with posterior acoustic shadowing noted at the 2 o'clock position at 10 cm from the nipple which corresponds to the mammographic findings. There is also evidence of a 4 x 6 x 4 mm well-defined hypoechoic nodule with echogenic hilum at the 3 o'clock position approximately 2 cm from the nipple which most likely represent a small lymph node. BI-RADS Category 4 recommend biopsy for the 2:00 lesion. 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 pT1c N0 (sn). 06/10/2018: Patient was evaluated by medical oncology for consideration of chemotherapy and hormone therapy. Oncotype DX was ordered to make recommendations about chemotherapy. Oncotype Dx was found to be 25 (intermediate). 07/07/18 - 07/29/18: received 4256 cGy in 16 fractions to the left breast. 08/03/18: Patient elected to initiate tamoxifen after discussion with medical oncology. Radiation Treatment History: 1) 07/07/18 - 07/29/18: received 4256 cGy in 16 fractions to the left breast. Interval History: Patient returns for follow-up 1 month after completing adjuvant radiation therapy to the left breast. She reports healing very well and had mild erythema for about 1-2 weeks after treatment before this resolved and now she has residual tanning without desquamation. She also reported having increased fatigue during the last week of treatment and the following week but this has gradually improved as well. She continues to use lotion on her breast twice per day. She denies having breast pain, muscle pain, reduced arm range of motion, discharge, swelling, or arm swelling. She initiated tamoxifen about 2 weeks ago and denies having any complaints related to this. She denies headaches, double vision, ataxia, weakness/numbness, bone pain, unexpected weight loss or change in appetite. She remains active in her daily life and completes all activities of daily living without any difficulty. She denies having any other problems or concerns at this time. I have reviewed the medical, surgical, and other pertinent history in details and have updated medication and allergy information in the electronic medical record. Review of Systems: A 12-point review of systems was completed and was negative except for what is noted in the HPI/Interval History and by the nurse. Height/Weight/BMI: Height: 5 ft 4 in Weight: 170.2 lbs Vital Signs Temperature 98.9 F 08/27/18 10:49 Temperature Source Oral 08/27/18 10:49 Pulse Rate 63 08/27/18 10:49 Physical Exam: ECO [place] SCORE: 100% CONSTITUTIONAL: Well-developed, well-nourished, and in no apparent distress. HEENT: Mucous membranes moist. No evidence of thrush or lesions within the visualized oropharynx or oral cavity. No trismus. Pupils are equal, round, and reactive to light and accommodation. Extraocular movements are intact. Sclerae are anicteric. NECK: Supple,with no thyromegaly, and non-tender. Trachea midline. No cervical or supraclavicular adenopathy noted. CARDIAC: Regular rate and rhythm. Normal S1, S2. No murmurs, rubs, or gallops. PULMONARY/CHEST: Lungs are clear to auscultation and percussion bilaterally. No wheezes, rhonchi, or crackles noted. No increased work of breathing. ABDOMINAL: Abdomen soft, non-tender, non-distended. No hepatomegaly. Normoactive bowel sounds in all four quadrants. No guarding, rebound. BACK: Straight and aligned. No CVA tenderness. Axial skeleton non-tender to percussion. BREAST: Bilateral breasts were examined in the seated and supine position. Breasts appear symmetrical. There is a 5-6 cm well-healed incision in the upper outer quadrant of the left breast with some evidence of mild swelling beneath. Incision is healed without evidence of oozing or wound dehiscence. There is mild residual tanning involving the left breast. There are no palpable lesions in either breast or axilla. EXTREMITIES: Full range of motion in all four extremities, with normal strength equally and symmetrically. No evidence of edema. No clubbing. NEUROLOGICAL EXAM: Alert and oriented x 3. Cranial nerves II through XII are grossly intact. No focal neurological deficit. Speech is fluent. There is no upper or lower extremity sensory deficit or motor deficit. Muscle strength is 5/5 in all muscle groups. Gait and posture are steady. PSYCHIATRIC: Appropriate mood and affect for the clinical situation. 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 Oncotype Dx was found to be 25 (intermediate). From 07/07/18 - 07/29/18 she received 4256 cGy in 16 fractions to the left breast. Patient returns for a one-month follow-up after completing radiation therapy to the left breast. Clinically she is doing very well and all radiation related toxicity appears to have resolved other than a mild residual amount of breast tanning and a mild amount of fatigue. I reviewed the likely time course of these symptoms. I also reviewed skin care recommendations including daily lotion use and sun protection over the treated area. I also recommended pursuing breast exam every 3-4 months during the first year and resuming annual mammography in March 2019. I discussed my recommendations for a moderate exercise routine with 30 minutes of moderate exercise at least 5 days/week and also discussed the importance of a healthy well-balanced diet that is plant-based to optimize nutrition and minimize chronic disease. I discussed my recommendation to continue tamoxifen for 5-10 years. I will tentatively have her scheduled for follow-up in 3 months but she may see her surgeon in October 2018 in which case I would push our visit back to alternate with him. She was instructed to call with any further questions or concerns in the interim. Glen Diaz DO, MS Meat Service Team Member, Department of Radiation Oncology [place] [facility] 08/27/18 2064 <Electronically signed by Glen Diaz DO> Date Glen Diaz DO CC: Terry Santana MD; Jarrod Drew MD Signed ONCOLOGY VISIT REPORT Observed: 08/03/2018 Status: F Source: [place] 5:04 PM [facility] [place] [facility] [facility] [place] [address] OFFICE VISIT Date of Service: 08/03/18 1647 MR#: [id number] Acct: [id number] Name: ANABELA CAMARA Rep #: [id number] : 1940 From: Jarrod Drew MD Age/Sex: 77/F Location: [facility]MD Status: Signed Subjective - Date of Service Date of Service:: 08/03/18 - Chief Complaint F/U for Left breast cancer management. - History of Present Illness 77y.o.woman had an abnormal mammogram on 04/13/2018. Left breast ultrasound on 04/15/2018 showed suspicious nodule at 2 o'clock position. 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 She had left breast lumpectomy on left axillary sentinel node biopsy on 05/29/2018. She was referred for further management. Oncotype DX was 25, intermediate Risk so she elected Hormonal therapy. She received adjuvant Radiation to Left breast from 07/07/18 to 07/29/18. Comes in for follow up. Has erythema of the left breast. - Past Medical/Social History Past Medical History Cancer: Breast cancer Social History Social History: No changes Smoking Status Never smoker Review of Systems Constitutional:: Denies: Fever, Sweats, Weight loss, Appetite change, Chills Cardiovascular:: Denies: Chest pain, Palpitations, Dyspnea on exertion, Orthopnea, PND, Shortness of breath Respiratory: Denies: Cough, Hemoptysis, Shortness of Breath, Wheezing Gastrointestinal:: Denies: Abdominal pain, Nausea, Vomiting, Diarrhea, Constipation, Hematochezia Genitourinary: Denies: Dysuria, Hematuria, 15, Flank pain Musculoskeletal:: Denies: Back pain, Myalgia, Arthralgia Skin: Reports: - - + redness L breast.. Denies: Rash, Skin Changes, Wounds Neurological:: Denies: Headache, Dizziness, Visual changes, Tinnitus, Hearing loss Psychiatric: Denies: Anxiety, Depression, Homicidal Ideations, Suicidal Ideations Vital Signs Height 5 ft 4 in Weight: 77.02 kg Weight in Pounds 169.8 lbs BMI 29.3 Pulse Ox 98 - Physical Exam General: Alert, Oriented x3, No apparent distress Skin:: - - + erythema L breast. Laboratory Data: Laboratory Tests WBC 5.2 (4.4-11.0) K/mm3 RBC 4.13 L (4.2-5.4) M/mm3 Hgb 12.3 (12.0-15.0) g/dl Assessment and Plan Left Breast cancer stage IA (pT1c pN0(sn) M0), ER positive, CA negative, HER2 negative. S/P Left lumpectomy and axillary sentinel node biopsy. Post-menopausal. Oncotype DX recurrence score 25, intermediate Risk. Finished adjuvant Radiation therapy. Bone density on 07/09/2017 shows osteopenia. Discussed adjuvant therapy with Tamoxifen vs Anastrozole, risks, benefits and side effects. Pt elected Tamoxifen. Worried that she has metastatic disease. Plan is to start Tamoxifen 20mg PO daily. Obtain CT c/a/p, bone scan to evaluate for metastatic disease. RTC 8 weeks with CBC/CMP. Primary Care Provider: Marco Antonio Arevalo Referring Provider: Terry Santana - Problem List (1) Cancer of left breast Status: Chronic Qualifiers: Breast location: upper outer quadrant of breast Estrogen receptor status: positive Patient sex: female Qualified Code(s): C50.412 - Malignant neoplasm of upper-outer quadrant of left female breast; Z17.0 - Estrogen receptor positive status [ER+] Code Visit Office Visits / Consults: [id number] OV L4 Est 08/03/18 1704 <Electronically signed by Jarrod Drew MD> Date Jarrod Drew MD Cosigner Signature: Date (if applicable) CC: CBC W/DIFF, AUTOMATED Collected: 08/03/2018 Status: F Source: [place] 9:44 AM [facility] [place] Order Comment: Reason for Laboratory Test . TYPE CODE TESTS RESULT OUT OF RANGE REFERENCE UNITS LAB L100.1000 4.4-11.0 K/mm3 Normal WBC 5.2 LAB L100.1200 4.2-5.4 M/mm3 Low RBC 4.13 LAB L100.1300 12.0-15.0 g/dl Normal HGB 12.3 LAB L100.1400 37-47 % Normal HCT 38.2 LAB L100.1500 81-99 fL Normal MCV 92.5 LAB L100.1600 27.0-32.0 pg Normal MCH 29.8 LAB L100.1700 32-36 g/gl Normal MCHC 32.2 LAB L100.1810 11.6-14.6 % High RDW CV 15.6 LAB L100.1820 35.1-43.9 fl High RDW SD 52.2 LAB L100.1900 150-450 K/mm3 Normal PLT 194 LAB L100.2000 6.2-12.0 fl Normal MPV 10.6 LAB L100.2100 47-70 % Normal NEUT% 69.4 LAB L100.2200 19-41 % Low LY% 15.9 LAB L100.2300 0-10 % High MONO% 11.6 LAB L100.2400 0-5 % Normal EO% 2.7 LAB L100.2500 0-1 % Normal BASO% 0.2 LAB L100.2550 0.0-0.9 % Normal IM GRAN % 0.200 Result Comment: IG% - Immature Granulocytes (promyelocytes, myelocytes and metamyelocytes) > 1% indicates that a LEFT SHIFT is Present. LAB L100.2620 2.0-7.7 X10 3/uL Normal Absolute Neut 3.6 LAB L100.2720 0.83-4.51 X10 3/ul Low Absolute Lymph 0.82 Performed By: #### L100.0100 #### [facility] [address] [place], [address] COMPREHENSIVE METABOLIC Collected: 08/03/2018 Status: F Source: [facility] 9:44 AM [facility] [place] [facility] Order Comment: Reason for Laboratory Test . TYPE CODE TESTS RESULT OUT OF RANGE REFERENCE UNITS LAB L501.0100 74-106 mg/dL Normal GLU 89 Result Comment: Please note revised GLUCOSE reference range effective 2017. LAB L501.1000 7-18 mg/dL High BUN 21 LAB L501.1100 0.55-1.02 mg/dL Normal CREAT,SERUM 0.80 Result Comment: The validity of the calculated GFR AND GFRAA in patients over 70 years has not been determined. Clinical correlation is essential. LAB L501.1110 >60 mL/min Normal EST GFR 74 Result Comment: Non- GFR Calc LAB L501.1115 >60 mL/min Normal EST GFR - AA 90 Result Comment: GFR Calc LAB L501.1255 ml/min Normal Estimated CRCL 51.66 LAB L501.1300 10-20 RATIO High BUN/CRE 26.4 LAB L501.1500 6.4-8. g/dL Normal 2 T PROT 7.3 LAB L501.1800 3.2-5. g/dL Normal 0 ALB 3.6 LAB L501.1950 2.2-4. g/dL Normal 2 GLOB 3.7 LAB L501.2000 0.9-2. RATIO Normal 4 A/G 1.0 LAB L501.2200 8.5-10 mg/dL Normal .1 CA 8.9 LAB L501.4100 15-37 U/L Normal AST 22 LAB L501.4305 45-117 U/L Normal ALK P 52 LAB L501.4405 13-56 U/L Normal ALT 26 LAB L501.4600 0.20-1 mg/dL Normal .00 T BILI 0.40 LAB L501.5300 136-14 mmol/L Normal 5 NA 143 LAB L501.5600 3.5-5. mmol/L Normal 1 K 3.9 LAB L501.5900 98-107 mmol/L Normal CL 106 LAB L501.6100 21.0-3 mmol/L Normal 2.0 CO2 31.0 LAB L501.6200 5-15 Normal GAP 6 Performed By: #### L500.4050 #### [facility] [address] [facility] [place], [address] CHEST PA AND LATERAL Observed: 07/31/2018 Status: F Source: [place] 11:55 AM [facility] [place] [facility] Imaging Services [address] [place] [address] Chest PA and Lateral MR#: [id number] Acct: [id number] Name: ANABELA CAMARA Rep #: [id number] : 1940 F 77 From: Mekhi Rhodes MD PCP: Mickey SLAUGHTER,Marco Antonio Chi Status: REG CLI Study: Chest PA and Lateral Date of Exam: 07/31/18 Exam# [id number] Ordering Dr: Jarrod Drew MD STUDY: X-RAY CHEST REASON FOR EXAM: Female, 77 years old. Left breast cancer. Recently finished 16 radiation treatments. Additional history of aortic valve replacement. TECHNIQUE: PA and lateral views of the chest. COMPARISON: PA and lateral chest x-ray October 20, 2014 FINDINGS: Moderate elevation of the anterior right diaphragm as well as some stable separation of the right diaphragmatic leaflets. There is minor crowding in the anterior right lung base. Chronic interstitial changes in the inferior left base unchanged. There is no demonstrated pleural abnormality. Heart size is upper normal.. Sternal cerclage wires are now present from a sternotomy in the interval since previous study. Normal mediastinum and porfirio. Normal visualized pulmonary arteries. There is stable mild atherosclerotic calcification of the aortic arch with some tortuosity of the descending thoracic segment. There are stable multilevel degenerative changes of the visualized thoracic spine. Stable rounded ossific density projecting just below the coracoid process of the right scapula on the frontal view. Otherwise, normal visualized ribs, clavicles, and shoulders. The left breast shadow is mildly smaller than the right. There is no demonstrated abnormality of the visualized soft tissue structures of the upper abdomen. RAD/Chest PA and Lateral IMPRESSION: 1. Patient has undergone median sternotomy since prior study. Heart size upper normal. No CHF. 2. Stable tortuosity of the descending thoracic aorta and mild calcification of the thoracic aortic arch. 3. Minor subsegmental volume loss in the anterior right lung base. Mild chronic interstitial change noted in the left base. Electronically Signed: Jose Angel Rhodes MD at 14:50 EST , Service support , CC: Jarrod Drew MD; Marco Antonio Arvealo MD Audit Clerk: Signed END OF TREATMENT Observed: 07/29/2018 Status: F Source: [place] SUMMARY 4:03 PM [facility] [place] [facility] [place] [address] End of Treatment Summary Date of Service: 07/29/18 1557 MR#: [id number] Acct: [id number] Name: ANABELA CAMARA Rep #: [id number] : 1940 From: Glen Diaz DO Age/Sex: 77/F Location: OMD Status: Signed End of Treatment Summary: Diagnosis: Anabela Camara is a 77-year-old postmenopausal female diagnosed with pathologic stage IA (pT1c pN0 (sn) 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 Oncotype Dx was found to be 25 (intermediate). Oncologic History: 04/13/2018: Bilateral screening mammography was performed which demonstrated evidence of a 1 x 0.9 cm ill-defined nodule in the deep upper lateral aspect of the left breast which was not seen on the prior study. Correlation with ultrasound is recommended. Stable benign-appearing bilateral axillary lymph nodes are noted. BI-RADS Category 0. 04/15/2018: Left breast ultrasound demonstrated evidence for a 7 x 4 x 4 mm hypoechoic nodule in the post with with posterior acoustic shadowing noted at the 2 o'clock position at 10 cm from the nipple which corresponds to the mammographic findings. There is also evidence of a 4 x 6 x 4 mm well-defined hypoechoic nodule with echogenic hilum at the 3 o'clock position approximately 2 cm from the nipple which most likely represent a small lymph node. BI-RADS Category 4 recommend biopsy for the 2:00 lesion. 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 pT1c N0 (sn). 06/10/2018: Patient was evaluated by medical oncology for consideration of chemotherapy and hormone therapy. Oncotype DX was ordered to make recommendations about chemotherapy. Oncotype Dx was found to be 25 (intermediate). The patient completed a course of external beam radiotherapy in our department. This treatment was delivered for curative intent. Treatment was given according to the following parameters: ANABELA CAMARA received 4256 cGy of 6 and 10 MV photons in 16 fractions to the left breast with a 3D conformal technique consisting of LPO and VALLE hall using field in field for improved dose homogeneity. She was treated in the prone position to provide improved cardiac avoidance. The patient did not receive concurrent chemotherapy. Date of First Treatment: 07/07/18 Date of Last Treatment: 07/29/18 Total Elapsed Days (including weekend and holidays): 22 Missed Treatments: none Response and Tolerance: The patient tolerated this course of radiotherapy well overall. The following radiation related toxicities developed during the course of radiation therapy: * Grade 1 skin erythema without desquamation which was treated with Remedy lotion bid * Grade 1 fatigue Disposition: The patient tolerated the planned course of radiation therapy well without unexpected toxicity in an appropriate time course. I will have the patient follow- up in 4 weeks for a routine visit to assess resolution of radiation toxicity. The patient will maintain scheduled follow-up visits with the other providers. She will see medical oncology next week to further discuss hormone therapy. Patient was instructed to call with any further questions or concerns in the interim. If we can provide any further information on this patient's course of care, please do not hesitate to ask. We would like to thank you very much for allowing us to participate in the care of this patient. Sincerely, Glen Diaz DO, MS Meat Service Team Member, Department of Radiation Oncology [facility] 07/29/18 7677 <Electronically signed by Glen Diaz DO> Date Glen Diaz DO Cosigner Signature: Date (if applicable) CC: Terry Santana MD; Marco Antonio Arevalo MD RADIATION ONCOLOGY Observed: 07/29/2018 Status: F Source: [place] VISIT 1:29 PM [facility] [place] [facility] [place] [address] OFFICE VISIT Date of Service: 07/29/18 1327 MR#: [id number] Acct: [id number] Name: ANABELA CAMARA Rep #: [id number] : 1940 From: Glen Diaz Age/Sex: 77/F Location: OMD Status: Signed Date of Service: 07/29/18 Diagnosis: Anabela Camara is a 77-year-old postmenopausal female diagnosed with pathologic stage IA (pT1c pN0 (sn) 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 Oncotype Dx was found to be 25 (intermediate). Plan was made to complete adjuvant radiation therapy to the left breast consisting of 4256 cGy delivered in 16 fractions. Patient treated in the prone position for reduced cardiac dose. Treatment Data: Treatment Site: Left breast Current total dose/Total dose planned: 4256 cGy / 4256 cGy Fraction number: Chemotherapy: none Subjective: Tolerating radiation therapy well overall Skin: mild erythema. No rash or desquamation. using remedy bid Pain: 0 / 10 Breast: no swelling Fatigue: none Height/Weight/BMI: Height: 5 ft 4 in Weight: 170.6 lbs Vital Signs Temperature 97.8 F 07/29/18 11:09 Temperature Source Oral 07/29/18 11:09 Objective: Gen: NAD Breast: very mild erythema. No desquamation or rash Assessment: Tolerating radiation therapy well overall. All treatment related imaging has been reviewed and approved. No treatment related toxicity noted at this time. Plan: Continue treatment as planned Reviewed potential toxicities and timing Skin management reviewed Follow-up in one month or sooner if needed. Thank you for allowing me to participate in the management and care of your patient. If I may answer any questions in the interim, please do not hesitate to contact me at any time. Glen Diaz DO, MS Meat Service Team Member, Department of Radiation Oncology [facility] 07/29/18 1329 <Electronically signed by Glen Diaz DO> Date Glen Diaz DO Cosigner Signature: Date (if applicable) CC: RADIATION ONCOLOGY Observed: 07/22/2018 Status: F Source: [place] VISIT 1:15 PM [facility] [place] [facility] [address] [place] [address]. 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 Oncotype Dx was found to be 25 (intermediate). Plan was made to complete adjuvant radiation therapy to the left breast consisting of 4256 cGy delivered in 16 fractions. Patient treated in the prone position for reduced cardiac dose. Treatment Data: Treatment Site: Left breast Current total dose/Total dose planned: 2926 cGy / 4256 cGy Fraction number: Chemotherapy: none Subjective: Tolerating radiation therapy well overall Skin: no erythema, rash, or desquamation. using remedy bid Pain: 0 / 10 Breast: no swelling Fatigue: none Height/Weight/BMI: Height: 5 ft 4 in Weight: 170.6 lbs Vital Signs Temperature 98.5 F 07/22/18 12:00 Temperature Source Oral 07/22/18 12:00 Objective: Gen: NAD Breast: very mild erythema, desquamation, or rash Assessment: Tolerating radiation therapy well overall. All treatment related imaging has been reviewed and approved. No treatment related toxicity noted at this time. Plan: Continue treatment as planned Reviewed potential toxicities and timing Skin management reviewed Follow-up next week or sooner if needed. Thank you for allowing me to participate in the management and care of your patient. If I may answer any questions in the interim, please do not hesitate to contact me at any time. Glen iDaz DO, MS Meat Service Team Member, Department of Radiation Oncology [facility] 07/22/18 1315 <Electronically signed by Glen Diaz DO> Date Glen Diaz DO Cosign Signature: Date (if applicable) CC: RADIATION ONCOLOGY Observed: 07/14/2018 Status: F Source: [place] VISIT 12:16 PM [facility] [place] [facility] [address] [place] [address] OFFICE VISIT Date of Service: 07/14/18 1215 MR#: [id number] Acct: [id number] Name: ANABELA CAMARA Rep #: [id number] : 1940 From: Glen Diaz DO Age/Sex: 77/F Location: [facility] Status: Signed Date of Service: 07/14/18 Diagnosis: Anabela Camara is a 77-year-old postmenopausal female diagnosed with pathologic stage IA (pT1c pN0 (sn) 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 Oncotype Dx was found to be 25 (intermediate). Plan was made to complete adjuvant radiation therapy to the left breast consisting of 4256 cGy delivered in 16 fractions. Patient treated in the prone position for reduced cardiac dose. Treatment Data: Treatment Site: Left breast Current total dose/Total dose planned: 1862 cGy / 4256 cGy Fraction number: Chemotherapy: none Subjective: Tolerating radiation therapy well overall Skin: no erythema, rash, or desquamation. using remedy bid Pain: 0 / 10 Breast: no swelling Fatigue: none Height/Weight/BMI: Height: 5 ft 4 in Weight: 170.6 lbs Vital Signs Temperature 97.7 F L 07/14/18 11:43 Temperature Source Oral 07/14/18 11:43 Objective: Gen: NAD Breast: no erythema, desquamation, or rash Assessment: Tolerating radiation therapy well overall. All treatment related imaging has been reviewed and approved. No treatment related toxicity noted at this time. Plan: Continue treatment as planned Reviewed potential toxicities and timing Follow-up next week or sooner if needed. Thank you for allowing me to participate in the management and care of your patient. If I may answer any questions in the interim, please do not hesitate to contact me at any time. Glen Diaz DO, MS Meat Service Team Member, Department of Radiation Oncology [facility] 07/14/18 1216 <Electronically signed by Glen Diaz DO> Date Glen Diaz DO Cosigner Signature: Date (if applicable) CC: RADIATION ONCOLOGY Observed: 07/08/2018 Status: F Source: [place] VISIT 1:22 PM [facility] [place] [facility] [address] 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 Oncotype Dx was found to be 25 (intermediate). Plan was made to complete adjuvant radiation therapy to the left breast consisting of 4256 cGy delivered in 16 fractions. Patient treated in the prone position for reduced cardiac dose. Treatment Data: Treatment Site: Left breast Current total dose/Total dose planned: 532 cGy / 4256 cGy Fraction number: Chemotherapy: none Subjective: Tolerating radiation therapy well overall Skin: no erythema, rash, or desquamation Pain: 0 / 10 Breast: no swelling Fatigue: none Height/Weight/BMI: Height: 5 ft 4 in Weight: 170.6 lbs Vital Signs Temperature 97.7 F L 07/08/18 11:05 Temperature Source Oral 07/08/18 11:05 Pulse Rate 62 07/08/18 11:05 Objective: Gen: NAD Breast: no erythema, desquamation, or rash Assessment: Tolerating radiation therapy well overall. All treatment related imaging has been reviewed and approved. No treatment related toxicity noted at this time. Plan: Continue treatment as planned Reviewed potential toxicities and timing Follow-up next week or sooner if needed. Thank you for allowing me to participate in the management and care of your patient. If I may answer any questions in the interim, please do not hesitate to contact me at any time. Glen Diaz DO, MS Meat Service Team Member, Department of Radiation Oncology [facility] 07/08/18 2326 <Electronically signed by Glen Diaz DO> Date Glen Bello Signature: Date (if applicable) CC: CBC W/DIFF, AUTOMATED Collected: 07/08/2018 Status: F Source: [place] 11:45 AM [facility] [place] TYPE CODE TESTS RESULT OUT OF RANGE REFERENCE UNITS LAB L100.1000 4.4-11.0 K/mm3 Normal WBC 9.8 LAB L100.1200 4.2-5.4 M/mm3 Normal RBC 4.28 LAB L100.1300 12.0-15.0 g/dl Normal HGB 12.7 LAB L100.1400 37-47 % Normal HCT 39.6 LAB L100.1500 81-99 fL Normal MCV 92.5 LAB L100.1600 27.0-32.0 pg Normal MCH 29.7 LAB L100.1700 32-36 g/gl Normal MCHC 32.1 LAB L100.1810 11.6-14.6 % High RDW CV 15.6 LAB L100.1820 35.1-43.9 fl High RDW SD 51.5 LAB L100.1900 150-450 K/mm3 Normal PLT 264 LAB L100.2000 6.2-12.0 fl Normal MPV 11.8 LAB L100.2100 47-70 % High NEUT% 70.8 LAB L100.2200 19-41 % Normal LY% 20.3 LAB L100.2300 0-10 % Normal MONO% 8.4 LAB L100.2400 0-5 % Normal EO% 0.1 LAB L100.2500 0-1 % Normal BASO% 0.1 LAB L100.2550 0.0-0.9 % Normal IM GRAN % 0.300 Result Comment: IG% - Immature Granulocytes (promyelocytes, myelocytes and metamyelocytes) > 1% indicates that a LEFT SHIFT is Present. LAB L100.2620 2.0-7.7 X10 3/uL Normal Absolute Neut 6.9 LAB L100.2720 0.83-4.51 X10 3/ul Normal Absolute Lymph 1.98 Performed By: #### L100.0100 #### [facility] [address] [place], [address] VITAMIN D,25 HYDROXY Collected: 07/08/2018 Status: F Source: [place] 11:45 AM [facility] [place] [facility] TYPE CODE TESTS RESULT OUT OF REFERENCE UNITS RANGE LAB L506.1000 29.95-100.01 ng/mL Low Vitamin D 23.1 25-OH Result Comment: Vitamin D 25(OH) Status Range Deficiency <20 ng/mL (50nmol/L) Insuffciency 20 - 30 ng/mL (50 - 75 nmol/L) Sufficiency 30 - 100 ng/mL (75 - 250 nmol/L) Toxicity >100 ng/mL (>250 nmol/L) Performed By: #### L506.1000 #### [facility] [address] [place], [address] COMPREHENSIVE METABOLIC Collected: 07/08/2018 Status: F [facility] AM [facility] [place] [facility] TYPE CODE TESTS RESULT OUT OF RANGE REFERENCE UNITS LAB L501.0100 74-106 mg/dL Normal GLU 93 Result Comment: Please note revised GLUCOSE reference range effective 2017. LAB L501.1000 7-18 mg/dL High BUN 20 LAB L501.1100 0.55-1.02 mg/dL Normal CREAT,SERUM 0.82 Result Comment: The validity of the calculated GFR AND GFRAA in patients over 70 years has not been determined. Clinical correlation is essential. LAB L501.1110 >60 mL/min Normal EST GFR 72 Result Comment: Non- GFR Calc LAB L501.1115 >60 mL/min Normal EST GFR - AA 87 Result Comment: GFR Calc LAB L501.1300 10-20 RATIO High BUN/CRE 24.4 LAB L501.1500 6.4-8.2 g/dL T Normal PROT 7.9 LAB L501.1800 3.2-5.0 g/dL Normal ALB 4.2 LAB L501.1950 2.2-4.2 g/dL Normal GLOB 3.7 LAB L501.2000 0.9-2.4 RATIO Normal A/G 1.1 LAB L501.2200 8.5-10.1 mg/dL CA Normal 8.9 LAB L501.4100 15-37 U/L Normal AST 23 LAB L501.4305 45-117 U/L Normal ALK P 60 LAB L501.4405 13-56 U/L Normal ALT 30 LAB L501.4600 0.20-1.00 mg/dL T Normal BILI 0.60 LAB L501.5300 136-145 mmol/L NA Normal 141 LAB L501.5600 3.5-5.1 mmol/L K Normal 4.2 LAB L501.5900 98-107 mmol/L CL Normal 104 LAB L501.6100 21.0-32.0 mmol/L Normal CO2 27.0 LAB L501.6200 5-15 Normal GAP 10 Performed By: #### L500.4050, L500.4100, L501.9520 #### [facility] [address] [place], [place], [id number] LIPID PROFILE Collected: 07/08/2018 Status: F Source: [place] 11:45 AM [facility] [place] TYPE CODE TESTS RESULT OUT OF RANGE REFERENCE UNITS LAB L501.4900 200 mg/dL High CHOL 212 Result Comment: <200 mg/dL Desirable 200-240 mg/dL Borderline >240 mg/dL High Risk LAB L501.5000 mg/dL High TRIG 217 Result Comment: The drugs N-Acetylcysteine and Metamizole may falsely depress this assay. Serum Triglycerides Reference Interval Normal <150 mg/dL Borderline high 150 - 199 mg/dL High 200 - 499 mg/dL Very High > or = 500 mg/dL LAB L501.6400 mg/dL Normal HDL 51 Result Comment: The drugs N-Acetylcysteine and Metamizole may falsely depress this assay. Reference Range HDL <40 mg/dL Low HDL Cholesterol HDL >or= 60 mg/dL High HDL Cholesterol LAB L501.6500 0-130 mg/dL Normal LDL 118 LAB L501.6600 5-40 mg/dL High VLDL 43 Performed By: #### L500.4050, L500.4100, L501.9520 #### [facility] [address] [place], [place], [id number] THYROID STIM HORMONE Collected: 07/08/2018 Status: F Source: [place] ([facility]) 11:45 AM [facility] [place] TYPE CODE TESTS RESULT OUT OF RANGE REFERENCE UNITS LAB L501.9520 0.358-3.74 uIU/mL Normal TSH 2.07 Performed By: #### L500.4050, L500.4100, L501.9520 #### [facility] [address] [place], [address] ONCOLOGY VISIT REPORT Observed: 06/29/2018 Status: F Source: [place] 5:02 PM [facility] [place] [facility] [address] [place] [address] OFFICE VISIT Date of Service: 06/29/18 1133 MR#: [id number] Acct: [id number] Name: ANABELA CAMARA Rep #: [id number] : 1940 From: Jarrod Drew MD Age/Sex: 77/F Location: [place] Status: Signed Subjective - Date of Service Date of Service:: 06/29/18 - Chief Complaint Referred for Left breast cancer. - History of Present Illness 77y.o.woman had an abnormal mammogram on 04/13/2018. Left breast ultrasound on 04/15/2018 showed suspicious nodule at 2 o'clock position. 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 She had left breast lumpectomy on left axillary sentinel node biopsy on 05/29/2018. She is now referred for further management. Oncotype DX was requested. Comes in for follow up. - Past Medical/Social History Past Medical History Cancer: Breast cancer Social History Social History: No changes Smoking Status Never smoker Review of Systems Constitutional:: Denies: Fever, Sweats, Weight loss, Appetite change, Chills Cardiovascular:: Denies: Chest pain, Palpitations, Dyspnea on exertion, Orthopnea, PND, Shortness of breath Respiratory: Denies: Cough, Hemoptysis, Shortness of Breath, Wheezing Gastrointestinal:: Denies: Abdominal pain, Nausea, Vomiting, Diarrhea, Constipation, Hematochezia Genitourinary: Denies: Dysuria, Hematuria, 15, Flank pain Musculoskeletal:: Denies: Back pain, Myalgia, Arthralgia Skin: Denies: Rash, Skin Changes, Wounds Neurological:: Denies: Headache, Dizziness, Visual changes, Tinnitus, Hearing loss Psychiatric: Denies: Anxiety, Depression, Homicidal Ideations, Suicidal Ideations Vital Signs Height 5 ft 4 in Weight: 77.111 kg Weight in Pounds 170.0 lbs BMI 29.3 Pulse Ox 95 - Physical Exam General: Alert, Oriented x3, No apparent distress Breast:: - - L breast UOQ scar. Laboratory Data: Laboratory Tests WBC 8.2 (4.4-11.0) K/mm3 RBC 4.17 L (4.2-5.4) M/mm3 Hgb 12.4 (12.0-15.0) g/dl Pathology Data: 04/29/2018 biopsy reviewed, Left breast, core biopsy: Invasive ductal carcinoma, nuclear grade 2. Positive for estrogen receptors (favorable prognostic indicator). Negative for progesterone receptors (unfavorable prognostic indicator). Negative for overexpression of [id number]. 05/29/2018 L Breast lumpectomy and axillary sentinel node biopsy reviewed. MICROSCOPIC DIAGNOSIS A. 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 Please see cancer summary below. B. Left axillary sentinel lymph node tissue, biopsy: Four out of four lymph nodes, negative for metastatic carcinoma. See comment. INVASIVE BREAST CANCER SUMMARY: (Including specimen A AND B) Specimen partial breast Procedure excision with wire-guided localization Lymph node sampling sentinel lymph nodes Specimen integrity single intact specimen Specimen size 11 x 10 x 4 cm Specimen laterality - left Tumor site upper outer quadrant as per clinical information Tumor size 1.3 x 0.7 x 0.5 cm. See comment. Tumor focality single focus of invasive carcinoma Macroscopic and Microscopic extent of tumor: Skin invasive carcinoma does not invade into the dermis or epidermis. Nipple not applicable Skeletal muscle no skeletal muscle present. Ductal carcinoma in situ (DCIS) DCIS is present. Extensive intraductal component (EIC) - negative Estimated size (extent) of DCIS the DCIS comprises <5% of the total tumor volume. Number of blocks with DCIS - 2 Number of blocks examined - 10 Architectural patterns cribriform Nuclear grade grade 3 (high) Necrosis present, focal (small foci of necrosis) Lobular carcinoma in situ (LCIS) not identified Histologic type of invasive carcinoma invasive ductal carcinoma (no special type) Histologic Grade ([place] grade): Glandular/tubular differentiation - score 3 Nuclear pleomorphism - score 3 Mitotic count score 1 Overall grade - 2 (score of 7) Margins - Margins uninvolved by invasive carcinoma and ductal carcinoma in situ. Invasive carcinoma and ductal carcinoma in situ are 2 cm away from the closest posterior margin. Treatment effect: Response to presurgical (neoadjuvant) therapy - no known presurgical therapy. Lymph-Vascular invasion not identified Dermal lymph-vascular invasion - not identified Lymph nodes: Number of sentinel lymph nodes examined - 4 Total number of lymph nodes examined (sentinel and nonsentinel) - 4 Number of lymph nodes with macrometastases, micrometastases and isolated tumor cells - 0 Method of evaluation of sentinel lymph nodes - H AND E, multiple levels and IHC. Distant metastasis not applicable Additional pathologic findings skin dermal fibrosis, consistent with scar and chronic inflammation. - Fatty breast tissue with focal fibrosis. Ancillary studies - previously performed on section of tumor ([id number] / [id number]). ER positive (>95%) CA negative (0%) Her2 toby - negative (0) Microcalcifications not identified Clinical history - Please make reference to previous specimen ([id number]) left breast, ultrasound-guided mammotome biopsy with diagnosis of invasive ductal carcinoma. PATHOLOGIC STAGE: pT1c pN0(sn) Mx Oncotype DX recurrence score 25, intermediate risk. Assessment and Plan Left Breast cancer stage IA (pT1c pN0(sn) M0), ER positive, CA negative, HER2 negative. S/P Left lumpectomy and axillary sentinel node biopsy. Post-menopausal. Oncotype DX recurrence score 25, intermediate Risk. Discussed risks, benefits of adjuvant chemotherapy and hormonal therapy. Pt will prefer Hormonal therapy alone. Plan is to obtain bone density to help guide hormonal therapy. Will start Hormonal therapy after she finishes adjuvant Radiation therapy. RTC 5 weeks with CBC/CMP/CXR. Primary Care Provider: Maroc Antonio Arevalo Referring Provider: Terry Santana - Problem List (1) Cancer of left breast Status: Chronic Qualifiers: Breast location: upper outer quadrant of breast Estrogen receptor status: positive Patient sex: female Qualified Code(s): C50.412 - Malignant neoplasm of upper-outer quadrant of left female breast; Z17.0 - Estrogen receptor positive status [ER+] Code Visit Office Visits / Consults: [id number] OV L4 Est 06/29/18 1702 <Electronically signed by Jarrod Drew MD> Date [facility]rod Drew [facility] Signature: Date (if applicable) CC: ONCOLOGY FOLLOW-UP Observed: 06/29/2018 Status: F Source: [place] VISIT 1:06 PM [facility] [place] [facility] Medical Records Department [address] [place] [address] Oncology Follow-Up Visit 06/29/18 1258 MR#: [id number] Acct: [id number] Name: ANABELA CAMARA Rep #: [id number] : 1940 77 From: Glen Diaz DO PCP: Marco Antonio Arevalo MD, Chi Status: REG RCR Y Location: [facility] Date of Service: 06/29/18 Last Clinic Visit: 06/18/18 Diagnosis: Anabela Camara is a 77-year-old postmenopausal female diagnosed with pathologic stage IA (pT1c pN0 (sn) 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 Oncotype Dx was found to be 25 (intermediate). History of Present Illness: 04/13/2018: Bilateral screening mammography was performed which demonstrated evidence of a 1 x 0.9 cm ill-defined nodule in the deep upper lateral aspect of the left breast which was not seen on the prior study. Correlation with ultrasound is recommended. Stable benign-appearing bilateral axillary lymph nodes are noted. BI-RADS Category 0. 04/15/2018: Left breast ultrasound demonstrated evidence for a 7 x 4 x 4 mm hypoechoic nodule in the post with with posterior acoustic shadowing noted at the 2 o'clock position at 10 cm from the nipple which corresponds to the mammographic findings. There is also evidence of a 4 x 6 x 4 mm well-defined hypoechoic nodule with echogenic hilum at the 3 o'clock position approximately 2 cm from the nipple which most likely represent a small lymph node. BI-RADS Category 4 recommend biopsy for the 2:00 lesion. 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 pT1c N0 (sn). 06/10/2018: Patient was evaluated by medical oncology for consideration of chemotherapy and hormone therapy. Oncotype DX was ordered to make recommendations about chemotherapy. Oncotype Dx was found to be 25 (intermediate). Radiation Treatment History: No previous history of radiation therapy. No pacemaker or diagnosis of collagen vascular disease. Interval History: Patient returns to discuss Oncotype results and to further discuss radiation therapy in preparation for CT simulation. She denies having any new problems or concerns since her last visit 10 days ago. I have reviewed the medical, surgical, and other pertinent history in details and have updated medication and allergy information in the electronic medical record. Review of Systems: A 12-point review of systems was completed and was negative except for what is noted in the HPI/Interval History and by the nurse. Height/Weight/BMI: Height: 5 ft 4 in Weight: 170 lbs Vital Signs Temperature 97.7 F L 06/29/18 11:01 Temperature Source Temporal Artery 06/29/18 11:01 Physical Exam: ECO [place]AR[place]KY SCORE: 100% CONSTITUTIONAL: Well-developed, well-nourished, and in no apparent distress. HEENT: Mucous membranes moist. No evidence of thrush or lesions within the visualized oropharynx or oral cavity. No trismus. Pupils are equal, round, and reactive to light and accommodation. Extraocular movements are intact. Sclerae are anicteric. NECK: Supple,with no thyromegaly, and non-tender. Trachea midline. No cervical or supraclavicular adenopathy noted. CARDIAC: Regular rate and rhythm. Normal S1, S2. No murmurs, rubs, or gallops. PULMONARY/CHEST: Lungs are clear to auscultation and percussion bilaterally. No wheezes, rhonchi, or crackles noted. No increased work of breathing. ABDOMINAL: Abdomen soft, non-tender, non-distended. No hepatomegaly. Normoactive bowel sounds in all four quadrants. No guarding, rebound. BACK: Straight and aligned. No CVA tenderness. Axial skeleton non-tender to percussion. BREAST: Bilateral breasts are examined in the seated and supine position. Breasts appear symmetrical. There is a 5-6 cm well-healed incision in the upper outer quadrant of the left breast with some evidence of mild swelling beneath. Incision appears to be mostly well-healed without evidence of oozing or wound dehiscence. There are no palpable lesions in either breast or axilla. EXTREMITIES: Full range of motion in all four extremities, with normal strength equally and symmetrically. No evidence of edema. No clubbing. NEUROLOGICAL EXAM: Alert and oriented x 3. Cranial nerves II through XII are grossly intact. No focal neurological deficit. Speech is fluent. There is no upper or lower extremity sensory deficit or motor deficit. Muscle strength is 5/5 in all muscle groups. Gait and posture are steady. PSYCHIATRIC: Appropriate mood and affect for the clinical situation. Imaging: As per HPI Laboratory Data: no new labs to review Assessment: Anabela Camara is a 77-year-old postmenopausal female diagnosed with pathologic stage IA (pT1c pN0 (sn) 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 Oncotype Dx was found to be 25 (intermediate). Oncotype score was 25 and the patient will not receive any chemotherapy. I again discussed options of hormone therapy with or without adjuvant radiation therapy. Refer to consult dated 06/18/2018 for full discussion. Patient decided to pursue adjuvant radiation therapy to maximally reduce the risk of disease recurrence within the left breast. Following our discussion of the risks, benefits, and potential acute and chronic toxicities to radiation therapy informed consent was obtained and CT simulation was completed successfully. We will plan to initiate radiation therapy within 7-10 days and she will then start hormone therapy following radiation therapy. The patient was instructed to call with any further questions or concerns in the interim. Glen Diaz DO, MS Meat Service Team Member, Department of Radiation Oncology [facility] 06/29/18 1306 <Electronically signed by Glen Diaz DO> Date Glen Diaz DO CC: Terry Santana MD; Jarrod Drew MD Signed CBC W/DIFF, AUTOMATED Collected: 06/29/2018 Status: F Source: [place] 10:20 AM [facility] [place] Order Comment: Reason for Laboratory Test . TYPE CODE TESTS RESULT OUT OF RANGE REFERENCE UNITS LAB L100.1000 4.4-11.0 K/mm3 Normal WBC 8.2 LAB L100.1200 4.2-5.4 M/mm3 Low RBC 4.17 LAB L100.1300 12.0-15.0 g/dl Normal HGB 12.4 LAB L100.1400 37-47 % Normal HCT 38.7 LAB L100.1500 81-99 fL Normal MCV 92.8 LAB L100.1600 27.0-32.0 pg Normal MCH 29.7 LAB L100.1700 32-36 g/gl Normal MCHC 32.0 LAB L100.1810 11.6-14.6 % High RDW CV 15.8 LAB L100.1820 35.1-43.9 fl High RDW SD 53.1 LAB L100.1900 150-450 K/mm3 Normal PLT 206 LAB L100.2000 6.2-12.0 fl Normal MPV 11.0 LAB L100.2100 47-70 % Normal NEUT% 66.7 LAB L100.2200 19-41 % Normal LY% 22.4 LAB L100.2300 0-10 % Normal MONO% 8.7 LAB L100.2400 0-5 % Normal EO% 2.0 LAB L100.2500 0-1 % Normal BASO% 0.1 LAB L100.2550 0.0-0.9 % Normal IM GRAN % 0.100 Result Comment: IG% - Immature Granulocytes (promyelocytes, myelocytes and metamyelocytes) > 1% indicates that a LEFT SHIFT is Present. LAB L100.2620 2.0-7.7 X10 3/uL Normal Absolute Neut 5.5 LAB L100.2720 0.83-4.51 X10 3/ul Normal Absolute Lymph 1.83 Performed By: #### L100.0100 #### [facility] [address] [place], [address] COMPREHENSIVE METABOLIC Collected: 06/29/2018 Status: F Source: [place] [facility] 10:20 AM [facility] [place] Order Comment: Reason for Laboratory Test . TYPE CODE TESTS RESULT OUT OF RANGE REFERENCE UNITS LAB L501.0100 74-106 mg/dL Normal GLU 96 Result Comment: Please note revised GLUCOSE reference range effective 2017. LAB L501.1000 7-18 mg/dL Normal BUN 16 LAB L501.1100 0.55-1.02 mg/dL Normal CREAT,SERUM 0.72 Result Comment: The validity of the calculated GFR AND GFRAA in patients over 70 years has not been determined. Clinical correlation is essential. LAB L501.1110 >60 mL/min Normal EST GFR 84 Result Comment: Non- GFR Calc LAB L501.1115 >60 mL/min Normal EST GFR - AA 102 Result Comment: GFR Calc LAB L501.1255 ml/min Normal Estimated CRCL 41.33 LAB L501.1300 10-20 RATIO High BUN/CRE 22.3 LAB L501.1500 6.4-8. g/dL Normal 2 T PROT 7.5 LAB L501.1800 3.2-5. g/dL Normal 0 ALB 3.8 LAB L501.1950 2.2-4. g/dL Normal 2 GLOB 3.7 LAB L501.2000 0.9-2. RATIO Normal 4 A/G 1.0 LAB L501.2200 8.5-10 mg/dL Normal .1 CA 8.8 LAB L501.4100 15-37 U/L Normal AST 20 LAB L501.4305 45-117 U/L Normal ALK P 58 LAB L501.4405 13-56 U/L Normal ALT 25 LAB L501.4600 0.20-1 mg/dL Normal .00 T BILI 0.40 LAB L501.5300 136-14 mmol/L Normal 5 NA 139 LAB L501.5600 3.5-5. mmol/L Normal 1 K 3.9 LAB L501.5900 98-107 mmol/L Normal CL 105 LAB L501.6100 21.0-3 mmol/L Normal 2.0 CO2 28.0 LAB L501.6200 5-15 Normal GAP 6 Performed By: #### L500.4050 #### [facility] [address] [place], [address] CONSULTATION Observed: 06/18/2018 Status: F Source: [place] 1:24 PM [facility] [place] [facility] Medical Records Department [address] [place] [address] Consultation 06/18/18 1055 MR#: [id number] Acct: [id number] Name: ANABELA CAMARA Rep #: [id number] : 1940 77 From: Glen Diaz DO PCP: Marco Antonio Arevalo MD, Chi Status: REG RCR Y Location: [facility] Date of Service: 06/18/18 Referring Provider: Jarrod Drew Diagnosis: Anabela Camara is a 77-year-old postmenopausal female diagnosed with pathologic stage IA (pT1c pN0 (sn) 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 History of Present Illness: 04/13/2018: Bilateral screening mammography was performed which demonstrated evidence of a 1 x 0.9 cm ill-defined nodule in the deep upper lateral aspect of the left breast which was not seen on the prior study. Correlation with ultrasound is recommended. Stable benign-appearing bilateral axillary lymph nodes are noted. BI-RADS Category 0. 04/15/2018: Left breast ultrasound demonstrated evidence for a 7 x 4 x 4 mm hypoechoic nodule in the post with with posterior acoustic shadowing noted at the 2 o'clock position at 10 cm from the nipple which corresponds to the mammographic findings. There is also evidence of a 4 x 6 x 4 mm well-defined hypoechoic nodule with echogenic hilum at the 3 o'clock position approximately 2 cm from the nipple which most likely represent a small lymph node. BI-RADS Category 4 recommend biopsy for the 2:00 lesion. 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 pT1c N0 (sn). 06/10/2018: Patient was evaluated by medical oncology for consideration of chemotherapy and hormone therapy. Oncotype DX was ordered in order to make recommendations about chemotherapy. Radiation Treatment History: No previous history of radiation therapy. Denies having a pacemaker or diagnosis of collagen vascular disease. Interval History: Patient presents for initial consultation. Patient reports that she was not able to palpate any lesions in her left breast. She denied having any skin erythema, bruising, breast information, or nipple discharge at diagnosis. Since completing surgery she reports healing very well denies having any pain. She reports a normal range of motion and denies any new swelling in her breast or axilla/arm. Patient had a aortic valve replacement in September 2016 and she denies having any shortness of breath on exertion, chest pain, or cough. She remains active at home and is able to complete all activities of daily living without any difficulty. She was previously diagnosed with diabetes but has this very well controlled with no medications. She denies headaches, nausea/vomiting, bone pain, change in appetite, unexpected weight loss, fatigue, or other problems at this time. Family History (Last Reviewed 06/18/18 @ 09:51 by Anette Rangel) Brother CAD (coronary artery disease) Brother Diabetes Mother Diabetes Hypertension Father Hypertension CVA (cerebral vascular accident) Sister Breast cancer Medical History (Last Reviewed 06/18/18 @ 09:51 by Anette Rangel) Cardiac murmur (Chronic) Pulmonary hypertension (Chronic) Abnormal findings on diagnostic imaging of heart and coronary circulation (Chronic) Aortic valve disease (Chronic) Paroxysmal supraventricular tachycardia by electrocardiogram (ECG) (Chronic) H/O: hysterectomy (Resolved) 10/10/2014 Supraventricular tachycardia (Chronic) Acquired left ventricular hypertrophy (Chronic) Hypertension (Chronic) Diabetes 1.5, managed as type 2 (Chronic) Breast cancer, left (Acute) Surgical History (Last Reviewed 06/18/18 @ 09:51 by Anette Rangel) H/O aortic valve replacement (Resolved) 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 History of hip replacement (Resolved) right THR 2013, left hip 2016 Status post left breast lumpectomy (Acute) 06/11 Social History - Tobacco Smoking Status Never smoker Smokeless tobacco usage: Never Passive smoke exposure: No Social History - Substance Drug use: No Caffeine use [drinks/day]: 2 Alcohol use: No Social History - Living Arrangements Patients Living Arrangements With Significant Other Home Medications Medication Instructions Recorded Allergy/AdvReac Type Severity Reaction Status Date / Time Gynecological History Age at first period: 15 Hx Age of Menopause 53 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 Hx Control No Hx Hormone Therapy No Obstetrical History Number of pregnancies: 3 Number of children: 3 Have you ever breastfed in the No past? Breast Health Monthly breast self-exams Yes performed? Do you have regular clinical Yes breast examinations? Date of last mammogram: 04/13/18 Have you ever had an abnormal Yes mammogram? Health Maintenance Do you regularly see your Yes primary care physician? Have you ever had a Yes colonoscopy? Date of last colonoscopy: 08/25/14 I have reviewed the medical, surgical, and other pertinent history in details and have updated medication and allergy information in the electronic medical record. Review of Systems: A 12-point review of systems was completed and was negative except for what is noted in the HPI/Interval History and by the nurse. Height/Weight/BMI: Height: 5 ft 4 in Weight: 77.655 kg BMI: 29.3 Vital Signs Temperature 97.8 F 06/18/18 09:52 Temperature Source Oral 06/18/18 09:52 Physical Exam: ECO KARNOFSKY SCORE: 90% CONSTITUTIONAL: Well-developed, well-nourished, and in no apparent distress. HEENT: Mucous membranes moist. No evidence of thrush or lesions within the visualized oropharynx or oral cavity. No trismus. Pupils are equal, round, and reactive to light and accommodation. Extraocular movements are intact. Sclerae are anicteric. NECK: Supple,with no thyromegaly, and non-tender. Trachea midline. No cervical or supraclavicular adenopathy noted. CARDIAC: Regular rate and rhythm. Normal S1, S2. No murmurs, rubs, or gallops. PULMONARY/CHEST: Lungs are clear to auscultation and percussion bilaterally. No wheezes, rhonchi, or crackles noted. No increased work of breathing. ABDOMINAL: Abdomen soft, non-tender, non-distended. No hepatomegaly. Normoactive bowel sounds in all four quadrants. No guarding, rebound. BREAST: Bilateral breasts are examined in the seated and supine position. Breasts appear symmetrical. There is a 5-6 cm well-healed incision in the upper outer quadrant of the left breast with some evidence of mild swelling beneath. Incision appears to be mostly well-healed without evidence of oozing or wound dehiscence. There are no palpable lesions in either breast or axilla. BACK: Straight and aligned. No CVA tenderness. Axial skeleton non-tender to percussion. EXTREMITIES: Full range of motion in all four extremities, with normal strength equally and symmetrically. No evidence of edema. No clubbing. NEUROLOGICAL EXAM: Alert and oriented x 3. Cranial nerves II through XII are grossly intact. No focal neurological deficit. Speech is fluent. There is no upper or lower extremity sensory deficit or motor deficit. Muscle strength is 5/5 in all muscle groups. Gait and posture are steady. PSYCHIATRIC: Appropriate mood and affect for the clinical situation. Imaging: As per HPI Laboratory Data: no recent labs to review Assessment: Anabela Camara is a 77-year-old postmenopausal female diagnosed with pathologic stage IA (pT1c pN0 (sn) 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 Clinically the patient is a very high functioning 77-year-old with very few comorbidities and has a high performance status. I had a detailed discussion with the patient about the diagnosis of early stage breast cancer and treatment options. I explained to her that in general, based on meta-analysis data, the general 5-yr risk of a local recurrence is on the order of 26% and that radiation reduces this risk to around 7%. I also explained to her that the magnitude of this risk reduction translates into an overall survival benefit at 15 yrs. However, we also fully discussed that risks of recurrence may be lower in certain subgroups of women, particularly those that are older and have more favorable pathologic features. The CALGB 9343 study randomized women 70 yrs or older with clinical T1 tumors and clinically negative axilla to lumpectomy alone versus lumpectomy+radiation (the majority of women received anti- endocrine therapy in that group). Risks of local recurrence at 10 yrs were approximately 2% in the radiation group and 8% in the lumpectomy alone group. Furthermore, the (PRIME-2) examined the exact same question in women that were 65 years or older with pathologic stage I- II (up to 3 cm), ER+, pathologically node negative (on SLNBx) invasive breast cancers. This study has shorter follow-up (5 yrs), but shows that the risk of local recurrence is 1.3% with radiation and 4.1% with lumpectomy alone this data is very similar to the 5 yr data from the CALGB 9343 study. In both studies, there was no difference in overall survival between the two groups. Therefore, while radiation significantly reduces the risk of a local recurrence, the absolute risk of recurrence in this population of women (older women, smaller tumors, ER+) is much lower than the general risk for younger women or those with higher risk features, and there is no survival advantage. I explained that if she decided to complete adjuvant radiation therapy that it would consist of a hypofractionated course of 4256 cGy in 16 fractions without a lumpectomy cavity boost. I also introduced the idea of completing accelerated partial breast irradiation which would allow treatment to be given twice per day over 5 days and that this has a similar control to whole breast radiation for select groups of patients. I explained what a course of breast radiation entails. Radiation proceeds over several week times and is delivered Friday through Friday, 5 days per week. The process for planning a radiation course including the need for CT simulation, placement of tattoos, generation of a virtual 3 dimensional conformal radiation therapy plan from the acquired CT images, and the need for verification of the computer generated plan prior to beginning treatment was explained. I discussed the rationale, risks and benefits of radiation therapy with the patient. The acute risks include, but are not limited to: fatigue, skin irritation including desquamation particularly along skin folds, breast pain or discomfort, and breast swelling. The long-term risks include, but are not limited to: residual hyperpigmentation or hypopigmentation (10%); skin telangectasias; radiation pneumonitis (<0.5%); lung scarring/fibrosis; breast fibrosis and change in breast contour with a 15-20% risk of poor cosmetic outcome; radiation-induced heart disease, particularly for left-sided breast cancers; shoulder stiffness or reduced ROM; lymphedema (1-2% increased risk above surgical risk); rib fracture (<1%); remote-risk of radiation-induced malignancy. I discussed that we would pursue options to maximally reduce heart dose including prone positioning and potentially DIBH if needed. At the end of the discussion, the patient had many questions all of which were thoroughly answered. Patient still waiting for her Oncotype score to return to make final determination about chemotherapy. After our full discussion regarding the risks and benefits she would like to complete adjuvant radiation therapy. I will have her return for CT simulation once a decision about chemotherapy is finalized with a goal to initiate adjuvant XRT by 8 weeks post op. The patient was in agreement with our plan and instructed to call with any further questions or concerns in the interim. Thank you for allowing me to participate in the management and care of your patient. If I may answer any questions in the interim, please do not hesitate to contact me at any time. Glen Diaz DO, MS Meat Service Team Member, Department of Radiation Oncology [facility] 06/18/18 0825 <Electronically signed by Glen Diaz DO> Date Glen Diaz DO Cosigner Signature (if applicable): Date CC: Terry Santana MD; Jarrod Drew MD; Marco Antonio Arevalo MD Signed ONCOLOGY CONSULTATION Observed: 06/10/2018 Status: F Source: [place] 3:44 PM [facility] [address] [place] [id number] Oncology Consultation Date of Service: 06/10/18 1439 MR#: [id number] Acct: [id number] Name: ANABELA CAMARA Rep #: [id number] : 1940 From: Jarrod Drew MD Age/Sex: 77/F Location: [facility] Status: Signed Consult Referring Physician: Dr. Reinaldo Santana Consult Results: Left Breast Cancer. Subjective Date of Service:: 06/10/18 Chief Complaint: Referred for Left breast cancer. History of Present Illness: 77y.o.woman had an abnormal mammogram on 04/13/2018. Left breast ultrasound on 04/15/2018 showed suspicious nodule at 2 o'clock position. 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 She had left breast lumpectomy on left axillary sentinel node biopsy on 05/29/2018. She is now referred for further management. Power of Consumer Services Consultant: Yes Living Will: Yes Health History: Past Medical History Cancer: Breast cancer Past Medical History (Last Reviewed 06/10/18 @ 14:16 by Anette Rangel) Cardiac murmur (Chronic) Pulmonary hypertension (Chronic) Abnormal findings on diagnostic imaging of heart and coronary circulation (Chronic) Aortic valve disease (Chronic) Paroxysmal supraventricular tachycardia by electrocardiogram (ECG) (Chronic) H/O: hysterectomy (Resolved) Supraventricular tachycardia (Chronic) Acquired left ventricular hypertrophy (Chronic) Hypertension (Chronic) Diabetes 1.5, managed as type 2 (Chronic) Breast cancer, left (Acute) Past Surgical History (Last Reviewed 06/10/18 @ 14:16 by Anette Rangel) H/O aortic valve replacement (Resolved) History of hip replacement (Resolved) Status post left breast lumpectomy (Acute) Family History (Last Reviewed 06/10/18 @ 14:16 by Anette Rangel) Brother CAD (coronary artery disease) Brother Diabetes Mother Diabetes Hypertension Father Hypertension CVA (cerebral vascular accident) Sister Breast cancer Allergies/Adverse Reactions: Allergy/AdvReac Type Severity Reaction Status Date / Time Review of Systems Constitutional:: Denies: Fever, Sweats, Weight loss, Appetite change, Chills Cardiovascular:: Denies: Chest pain, Palpitations, Dyspnea on exertion, Orthopnea, PND, Shortness of breath Respiratory: Denies: Cough, Hemoptysis, Shortness of Breath, Wheezing Gastrointestinal:: Denies: Abdominal pain, Nausea, Vomiting, Diarrhea, Constipation, Hematochezia Genitourinary: Denies: Dysuria, Hematuria, 15, Flank pain Musculoskeletal:: Denies: Back pain, Myalgia, Arthralgia Skin: Denies: Rash, Skin Changes, Wounds Neurological:: Denies: Headache, Dizziness, Visual changes, Tinnitus, Hearing loss Psychiatric: Denies: Anxiety, Depression, Homicidal Ideations, Suicidal Ideations Vital Signs Height 5 ft 4 in Weight: 77.02 kg Weight in Pounds 169.8 lbs Pulse Ox 95 - Physical Exam General: Alert, Oriented x3, No apparent distress HEENT: Atraumatic, PERRLA, EOMI, Normocephalic Oropharynx:: Dry mucosa Neck:: Supple, Trachea midline. Negative for: JVD, bilateral Cardiac:: Regular rate, Regular rhythm, Normal S1, Normal S2. Negative for: Murmur Lungs: Clear to auscultation, Excusion symmetrical. Negative for: Rhonchi, Wheezes Abdomen:: Bowel sounds x 4, Soft, Non-tender, Non-distended. Negative for: Hepatosplenomegaly Extremities:: Negative for: Cyanosis, Edema Neurological: Neuro grossly intact Skin:: Negative for: Lesions, Rash, Petechiae, Ecchymosis Psychiatric:: Appropriate affect, Euthymic Lymphatics:: Negative for: Cervical lymphadenopathy, Supraclavicular lymphadenopathy, Axillary lymphadenopathy Breast:: - - Left Breast-scar UO quadrant. Pathology Data: 04/29/2018 biopsy reviewed, Left breast, core biopsy: Invasive ductal carcinoma, nuclear grade 2. Positive for estrogen receptors (favorable prognostic indicator). Negative for progesterone receptors (unfavorable prognostic indicator). Negative for overexpression of PIT6pak. 05/29/2018 L Breast lumpectomy and axillary sentinel node biopsy reviewed. MICROSCOPIC DIAGNOSIS A. 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 Please see cancer summary below. B. Left axillary sentinel lymph node tissue, biopsy: Four out of four lymph nodes, negative for metastatic carcinoma. See comment. INVASIVE BREAST CANCER SUMMARY: (Including specimen A AND B) Specimen partial breast Procedure excision with wire-guided localization Lymph node sampling sentinel lymph nodes Specimen integrity single intact specimen Specimen size 11 x 10 x 4 cm Specimen laterality - left Tumor site upper outer quadrant as per clinical information Tumor size 1.3 x 0.7 x 0.5 cm. See comment. Tumor focality single focus of invasive carcinoma Macroscopic and Microscopic extent of tumor: Skin invasive carcinoma does not invade into the dermis or epidermis. Nipple not applicable Skeletal muscle no skeletal muscle present. Ductal carcinoma in situ (DCIS) DCIS is present. Extensive intraductal component (EIC) - negative Estimated size (extent) of DCIS the DCIS comprises <5% of the total tumor volume. Number of blocks with DCIS - 2 Number of blocks examined - 10 Architectural patterns cribriform Nuclear grade grade 3 (high) Necrosis present, focal (small foci of necrosis) Lobular carcinoma in situ (LCIS) not identified Histologic type of invasive carcinoma invasive ductal carcinoma (no special type) Histologic Grade (Chuck grade): Glandular/tubular differentiation - score 3 Nuclear pleomorphism - score 3 Mitotic count score 1 Overall grade - 2 (score of 7) Margins - Margins uninvolved by invasive carcinoma and ductal carcinoma in situ. Invasive carcinoma and ductal carcinoma in situ are 2 cm away from the closest posterior margin. Treatment effect: Response to presurgical (neoadjuvant) therapy - no known presurgical therapy. Lymph-Vascular invasion not identified Dermal lymph-vascular invasion - not identified Lymph nodes: Number of sentinel lymph nodes examined - 4 Total number of lymph nodes examined (sentinel and nonsentinel) - 4 Number of lymph nodes with macrometastases, micrometastases and isolated tumor cells - 0 Method of evaluation of sentinel lymph nodes - H AND E, multiple levels and IHC. Distant metastasis not applicable Additional pathologic findings skin dermal fibrosis, consistent with scar and chronic inflammation. - Fatty breast tissue with focal fibrosis. Ancillary studies - previously performed on section of tumor ([id number] / [id number]). ER positive (>95%) CA negative (0%) Her2 toby - negative (0) Microcalcifications not identified Clinical history - Please make reference to previous specimen ([id number]) left breast, ultrasound-guided mammotome biopsy with diagnosis of invasive ductal carcinoma. PATHOLOGIC STAGE: pT1c pN0(sn) Mx Assessment and Plan Left Breast cancer stage IA (pT1c pN0(sn) M0), ER positive, CA negative, HER2 negative. S/P Left lumpectomy and axillary sentinel node biopsy. Post-menopausal. Discussed disease status, the need for adjuvant therapy to decrease recurrence and distant metastases, role of Oncotype DX in determining the type of systemic therapy to use. Pt agrees to proceed. Plan is to obtain Oncotype DX. RTC 2-3 weeks with CBC/CMP. Primary Care Provider: Marco Antonio Arevalo Referring Provider: Terry Santana - Problem List (1) Cancer of left breast Status: Chronic Qualifiers: Breast location: upper outer quadrant of breast Estrogen receptor status: positive Patient sex: female Qualified Code(s): C50.412 - Malignant neoplasm of upper-outer quadrant of left female breast; Z17.0 - Estrogen receptor positive status [ER+] Code Visit Office Visits / Consults: [id number] OP Consult L5 06/10/18 1544 <Electronically signed by Jarrod Drew MD> Date Jarrod Drew MD Cosigner Signature: Date (if applicable) CC: Terry Santana MD; Marco Antonio Arevalo MD SURGERY VISIT REPORT Observed: 06/05/2018 Status: F Source: [place] 9:26 AM [facility] [address] [place] [address] [address] [place] [address] OFFICE VISIT Date of Service: 06/05/18 MR#: [id number] Acct: [id number] Name: ANABELA CAMARA Rep #: [id number] : 1940 Provider: Terry Santana MD Age/Sex: 77/F Location: [facility] Status: Signed Intake Intake Visit Reasons: Lumpectomy 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 Required: No Is patient in pain?: No Allergies acetaminophen [From Percocet] Allergy (Mild, Verified 06/05/18 09:19) Itching oxycodone [From Percocet] Allergy (Mild, Verified 06/05/18 09:19) Itching Medications Losartan Potassium [Cozaar] 100 mg PO DAILY 11/30/13 [History Confirmed 06/05/18] Potassium Chloride [Klor-Con M10] 10 meq PO DAILY 11/30/13 [History Confirmed 06/05/18] Latanoprost 0.005% [Xalatan Opthalmic] 1 drp EACH EYE QHS 06/13/16 [History Confirmed 06/05/18] Timolol Maleate [Timoptic-XE 0.5%] 1 drp EACH EYE DAILY 06/13/16 [History Confirmed 06/05/18] hydrochlorothiazide 12.5 mg tablet 12.5 mg PO DAILY 30 Days #30 12/12/17 [History Confirmed 06/05/18] amlodipine 5 mg tablet 5 mg PO DAILY tab 04/21/18 [History Confirmed 06/05/18] metoprolol tartrate 25 mg tablet 25 mg PO BID #180 tab 05/05/18 [Rx Confirmed 06/05/18] Acetaminophen [Tylenol Arthritis] 650 mg PO DAILY 05/22/18 [History Confirmed 06/05/18] Aspirin E.C. [Ecotrin] 81 mg PO DAILY@0800 05/22/18 [History Confirmed 06/05/18] Fenofibrate,Micronized [Fenofibrate] 67 mg PO QHS 05/22/18 [History Confirmed 06/05/18] Subjective Details: Patient is status post a left-sided lumpectomy and sentinel lymph node biopsy on 05/29/2018. Patient was noted to have an infiltrating ductal carcinoma measuring 1.3 cm in greatest diameter. I took 4 lymph nodes out all of which were negative. Her ER receptors were positive her CA receptors were negative her HER-2/toby was negative. Her pathologic stage was T1c, N0, MX. Objective Details: Incision is healing nicely there is no signs of any. There is no signs of any infections Assessment AND Plan Problems 1. Aftercare Z51.89 Plan We will refer the patient onto oncology. I will see her back when her radiation cycle is completed Coding Level of Care Code Global Post Op Diagnoses Aftercare Z51.89 06/05/18 09 <Electronically signed by Terry Santana MD> Date Terry López Signature: Date (if applicable) CC: Gabe Matthews MD; Marco Antonio Arevalo MD SURGERY VISIT REPORT Observed: 06/03/2018 Status: F Source: [place] 10:13 AM [facility] 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 Required: No Is patient in pain?: No Allergies acetaminophen [From Percocet] Allergy (Mild, Verified 06/03/18 08:48) Itching oxycodone [From Percocet] Allergy (Mild, Verified 06/03/18 08:48) Itching Medications Losartan Potassium [Cozaar] 100 mg PO DAILY 11/30/13 [History Confirmed 06/03/18] Potassium Chloride [Klor-Con M10] 10 meq PO DAILY 11/30/13 [History Confirmed 06/03/18] Latanoprost 0.005% [Xalatan Opthalmic] 1 drp EACH EYE QHS 06/13/16 [History Confirmed 06/03/18] Timolol Maleate [Timoptic-XE 0.5%] 1 drp EACH EYE DAILY 06/13/16 [History Confirmed 06/03/18] hydrochlorothiazide 12.5 mg tablet 12.5 mg PO DAILY 30 Days #30 12/12/17 [History Confirmed 06/03/18] amlodipine 5 mg tablet 5 mg PO DAILY tab 04/21/18 [History Confirmed 06/03/18] metoprolol tartrate 25 mg tablet 25 mg PO BID #180 tab 05/05/18 [Rx Confirmed 06/03/18] Acetaminophen [Tylenol Arthritis] 650 mg PO DAILY 05/22/18 [History Confirmed 06/03/18] Aspirin E.C. [Ecotrin] 81 mg PO DAILY@0800 05/22/18 [History Confirmed 06/03/18] Fenofibrate,Micronized [Fenofibrate] 67 mg PO QHS 05/22/18 [History Confirmed 06/03/18] Subjective Details: Patient is a 77 y/o female I am following for left breast cancer. Dr. Santana performed a left partial mastectomy and sentinel lymph node biopsy on 05/29/2018. Pathology is pending. Patient tolerated the procedure well. Patient denies nausea, vomiting. Patient denies pain/discomfort. She notes bruising at the incision site and most of the lateral portion of her breast. Objective Details: Left breast- incision c/d/i. Moderate amount of ecchymosis. minimal amount of swelling noted. Assessment AND Plan Problems 1. Malignant neoplasm of upper-outer quadrant of left breast in female, estrogen receptor positive C50.412 Plan - May drive at 1 week - Follow-up on Friday with Dr. Santana for pathology results. Coding Level of Care Code Global Post Op Diagnoses Malignant neoplasm of upper-outer quadrant of left breast in female, estrogen receptor positive C50.412 Estrogen receptor status: positive 06/03/18 1013 <Electronically signed by Renee Sin PA-C> Date Renee Sin PA-C Cosigner Signature: Date (if applicable) CC: DISCHARGE INSTRUCTION Observed: 05/30/2018 Status: F Source: [place] 11:08 AM [facility] Medical Records Department [address] [place] [address] Instructions for Home/Discharge Instructions 05/30/18 1107 MR#: [id number] Acct: [id number] Name: ANABELA CAMARA Rep #: [id number] : 1940 77 From: Terry Santana MD PCP: Mickey SLAUGHTER,Marco Antonio Jacobsen Status: [facility] Discharge Diet: No Restrictions Discharge Activity: May Not Drive - for 2-3 days or while taking narcotic pain meds. May shower in (days): 1 Lifting Restrictions: 10 pounds for 1 week. Call your doctor if your incision/area has: Continuous Slow Oozing, Sudden Increased Bleeding Call your doctor if you observe: Fever of 101 or Higher Suture Line Care: Avoid Pulling/Pushing, Avoid Pinching/Bending Remove Dressing in (days):: 1 - Remove bulky dressing tomorrow. May leave any opsite dressing for 3-4 days[address] Keep dressing in place until your follow-up appointment. Additional Dressing/Incision Instructions:: Remove bulky dressing tomorrow. May leave any opsite dressing for 3-4 days. Keep dressing in place until your follow-up appointment. Allergies/Adverse Reactions: Allergies No Known Allergies Allergy (Verified 05/22/18 13:02) Medications to take at Discharge Losartan Potassium [Cozaar] 100 mg PO DAILY 11/30/13 Potassium Chloride [Klor-Con M10] 10 meq PO DAILY 11/30/13 Latanoprost 0.005% [Xalatan Opthalmic] 1 drp EACH EYE QHS 06/13/16 Timolol Maleate [Timoptic-XE 0.5%] 1 drp EACH EYE DAILY 06/13/16 hydrochlorothiazide 12.5 mg tablet 12.5 mg PO DAILY 30 Days #30 12/12/17 amlodipine 5 mg tablet 5 mg PO DAILY tab 04/21/18 metoprolol tartrate 25 mg tablet 25 mg PO BID #180 tab 05/05/18 Acetaminophen [Tylenol Arthritis] 650 mg PO DAILY 05/22/18 Aspirin E.C. [Ecotrin] 81 mg PO DAILY@0800 05/22/18 Fenofibrate,Micronized [Fenofibrate] 67 mg PO QHS 05/22/18 Oxycodone HCl/Acetaminophen [Percocet 5/325] 1 - 2 tab PO Q4H PRN PRN 5 Days #30 tab 05/30/18 The following prescriptions were given: Oxycodone HCl/Acetaminophen [Percocet 5/325] 1 - 2 tab PO Q4H PRN PRN 5 Days #30 tab PRN Reason: Pain Primary Care Physician: Marco Antonio Arevalo Chi, MD [Primary Care Provider] - 05/30/18 1108 <Electronically signed by Terry Santana MD> Date Terry Santana MD CC: Marco Antonio Arevalo MD BEDSIDE GLUCOSE Collected: 05/29/2018 Status: F Source: [place] 4:19 PM [facility] Order Comment: ENTERED AND RESULTED MANUALLY DUE TO INVALID PROVIDER MNEMONIC TYPE CODE TESTS RESULT OUT OF REFERENCE UNITS RANGE LAB L501.080 70-110 mg/dL High BEDSIDE GLU 148 Result Comment: MANAGEMENT OF PATIENT CARE PER NURSING PROTOCOL Performed By: #### L501.080 #### [facility] Point of Care [address] [place] [address] OPERATIVE REPORT Observed: 05/29/2018 Status: F Source: [place] 1:58 PM [facility] Medical Records Department [address] [place] [address] Operative Report 05/29/18 1123 MR#: [id number] Acct: [id number] Name: ANABELA CAMARA Rep #: [id number] : 1940 77 From: Terry Santana MD PCP: Marco Antonio Arevalo MD, Chi Status: [facility] Y Location: [place] [address] 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 Z17.0 estrogen receptor positive Post-Operative Diagnosis: Same Surgery/Procedure Performed:: 1. Injection of 5 cc of Lymphazurin blue. 2. Ultrasound-guided wire localization left breast cancer. 3. Left-sided partial mastectomy. 4. Left-sided deep sentinel lymph node biopsy Type of Anesthesia:: General Anesthesiologist: Oscar Rodriguez Specimen's removed: left breast Drains: none Estimated Blood Loss (mL): < 50 cc Fluids Replaced: 600 cc lr Description of Procedure: Patient was brought into the operating room. Placed in the supine position. Under excellent LMA general anesthetic I ultrasound the left breast in the upper outer quadrant. Lesion was identified. Prepped the skin with alcohol. I placed a Kopan's wire directly through the malignancy. The breast was then cleaned off with alcohol. I injected 5 cc of Lymphazurin blue circumareolar the on the left side and massaged the breast for 5 minutes. The left breast was then sterilely prepped and draped in the usual fashion. An incision was made in the upper outer quadrant of the breast and elliptically around the previous biopsy site. I used electrocautery to do a partial upper quadrant mastectomy with the wire as my guide. The specimen was marked with the wire and skin laterally single long superiorly double long medially and double short posterior on the chest wall. I irrigated out the wound I had good hemostasis I then went along the lateral border of the pectoralis major muscle and entered the clavipectoral fascia and entered the deep axillary area I used the neoprobe identified a very hot area did gentle dissecting in this area and identified it a and extremely blue lymph node. I used the harmonic dissector and took this as well as a few lymph nodes around the area out. Readings were in the 500 intraoperatively and not quite as high with the lymph node being out. These were sent to pathology for frozen section which confirmed lymph nodes with no obvious metastatic disease. I used irrigation in this area. The wound was then brought together with deep dermal stitches of 3-0 Vicryl in a running 4-0 Monocryl. Dermabond was applied. Fluffs and a protection bra was applied. The patient tolerated the procedure well. - Admit VTE Documentation VTE Present on Admission: No VTE Mechan Device Prophylaxis: SCD's VTE Pharm Prophylaxis ordered?: No Reason prophylaxis not ordered:: Treatment Not Indicated 05/29/18 7864 <Electronically signed by Terry Santana MD> Date Terry Santana MD CC: Terry Santana MD; Gabe Matthews MD; Marco Antonio Arevalo MD Signed BEDSIDE GLUCOSE Collected: 05/29/2018 Status: F Source: [place] 1:07 PM [facility] [place] [facility] Order Comment: ENTERED AND RESULTED MANUALLY DUE TO INVALID PROVIDER MNEMONIC TYPE CODE TESTS RESULT OUT OF REFERENCE UNITS RANGE LAB L501.080 70-110 mg/dL High BEDSIDE GLU 122 Result Comment: MANAGEMENT OF PATIENT CARE PER NURSING PROTOCOL Performed By: #### L501.080 #### [facility] Point of Care [address] [facility] [address] [place] [address] BREAST BIOPSY Observed: 05/29/2018 Status: F Source: [place] SPECIMEN 11:59 AM [facility] [place] [facility] Imaging Services [address] [place] [address] Breast Biopsy Specimen MR#: [id number] Acct: [id number] Name: JAXANABELA S Rep #: [id number] : 1940 F 77 From: Don Torres MD PCP: Mickey SLAUGHTER,Marco Antonio Jacobsen Status: [facility] Study: Breast Biopsy Specimen Date of Exam: 05/29/18 Exam# [id number] Ordering Dr: Terry Santana MD SURGICAL BREAST SPECIMEN RADIOGRAPH CLINICAL: Document presence of mass in biopsy specimen. FINDINGS: Specimen shows presence of spiculated mass and biopsy clip and localizing wire Pathology is pending and an addendum to the biopsy report will be performed after the final pathologic diagnosis is rendered. Electronically Signed: Don Torres MD at 13:16 EDT Tel , Service support , BI/Breast Biopsy Specimen CC: Terry Santana MD; Marco Antonio Arevalo MD Audit Clerk: Signed LYMPH NODE INJECTION Observed: 05/29/2018 Status: F Source: [place] ONLY 8:19 AM [facility] [place] [facility] Imaging Services [address] [place] [address] Lymph Node Injection Only MR#: [id number] Acct: [id number] Name: ANABELA CAMARA Rep #: [id number] : 1940 F 77 From: Don Torres MD PCP: Marco Antonio Arevalo MD, Chi Status: REG [facility] Study: Lymph Node Injection Only Date of Exam: 05/29/18 Exam# [id number] Ordering Dr: Terry Santana MD CLINICAL: Female, 77 years old. LEFT BREAST CANCER NUCLEAR MEDICINE LYMPHOSCINTIGRAPHY TECHNIQUE: After infiltration of the skin and subcutaneous soft tissues with 10 mL lidocaine 1% in the periareolar region, Intradermal administration of 1.1 mCi of Tc sulfur colloid, in the periareolar region in the affected breast is performed. COMPARISON STUDIES : NM - None. CR - Not available for review at this time. CT - Not available for review at this time. MR - Not available for review at this time. US - Not available for review at this time. FINDINGS: The patient was sent to the OR no images were obtained. NM/Lymph Node Injection Only IMPRESSION: Successful lymphoscintigraphy. Electronically Signed: Don Torres MD at 12:25 EDT Tel , Service support , CC: Terry Santana MD; OUT OF TOWN DOCTOR; Marco Antonio Arevalo MD Audit Clerk: Signed BREAST BIOPSY Observed: 05/29/2018 Status: F Source: [place] (CHOOSE SITE) 12:00 AM [facility] [place] [facility] Patient: ANABELA CAMARA : 1940 (77/F) Acct Num: [id number] Phys: OUT OF TOWN DOCTOR Unit Num: [id number] Loc: [facility] Specimen: [id number] Received: 05/29/18 - 1206 Spec Type: BREAST BX TISSUES 1 TISSUES: A. Left breast, NOS B. Axillary lymph node, NOS ADDENDUM Addendum Number 1 An order for Oncotype testing was received from Dr. Drew. This necessitated case review, block and slide selection by pathologist at [facility]. Breast Cancer Recurrence Score = 25 Results of the complete Oncotype testing (Foods You Can report) are viewable in EMR under: Reports - Pathology - Lab Pathology Report, Scanned. Addendum Signed Tony Petersonin 06/24/18 <signature on file> COMMENT A. The tumor size is greater than grossly measured size. Tumor is measured microscopically. B. The lymph nodes are negative for metastatic carcinoma on multiple H AND E levels and immunohisto-chemical stains for cytokeratins ([id number]). FROZEN SECTION DIAGNOSIS B. Left axillary sentinel lymph node tissue, biopsy: Four out of four lymph nodes, negative for metastatic carcinoma. SJ:wojciech 05/29/18 GROSS DESCRIPTION A - Received fresh for intraoperative consultation labeled with the patient's name is a specimen designated left breast lumpectomy tissue. The specimen consists of a piece of fibroadipose tissue with wire localization measuring 11 x 10 x 4 cm. Skin is noted measuring 1 x 0.3 cm. The specimen is oriented as follows: single stitch - superior, double short stitch - posterior on chest wall, double stitch - medial. The specimen is inked as follows: anterior - yellow, posterior - black, superior - blue, inferior - green, medial - red and lateral - orange. The specimen is serially sectioned from superior to inferior margin. Sections reveal a good, indurated tumor mass measuring 1 x 0.5 x 0.5 cm. This mass is 2 cm away from the closest posterior margin. Sections of the rest of the specimen reveal good-yellow adipose cut surfaces with scant fibrous areas. The distance of the tumor from the closest margin is conveyed to the surgeon in person. Steel Tester sections are submitted in 10 cassettes as follows: 1 - skin, perpendicular superior, inferior and lateral margins, 2 - perpendicular anterior margin, posterior margin and medial margin, 3 AND 4 - entire tumor with surrounding tissue, 5 AND 6 - professional healthcare representative sections adjacent to the tissue, 7-10 - professional healthcare representative sections away from the tumor. Sections are submitted after additional fixation. / :rg 06/01/18 B - Received fresh for frozen section diagnosis labeled with the patient's name is a specimen designated left axillary sentinel lymph node tissue. The specimen consists of two pieces of yellow adipose tissue containing nodule consistent with lymph node that in aggregate measure 4.5 x 4 x 2 cm. A smaller detached piece of tissue also contains a lymph node measuring 1 cm in greatest dimension. The largest piece of tissue shows three lymph nodes measuring 0.3 to 2 cm in greatest dimension. The lymph nodes are submitted in entirety for frozen section diagnosis as follows: 1 - one lymph node, bisected, present in the separate piece of tissue, 2 AND 3 - each cassette containing one bisected lymph node, 4 - one lymph node (1-4 - frozen section). 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 MICROSCOPIC DIAGNOSIS A. 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 Please see cancer summary below. B. Left axillary sentinel lymph node tissue, biopsy: Four out of four lymph nodes, negative for metastatic carcinoma. See comment. INVASIVE BREAST CANCER SUMMARY: (Including specimen A AND B) Specimen - partial breast Procedure - excision with wire-guided localization Lymph node sampling - sentinel lymph nodes Specimen integrity - single intact specimen Specimen size - 11 x 10 x 4 cm Specimen laterality - left Tumor site - upper outer quadrant as per clinical information Tumor size - 1.3 x 0.7 x 0.5 cm. See comment. Tumor focality - single focus of invasive carcinoma Macroscopic and Microscopic extent of tumor: Skin - invasive carcinoma does not invade into the dermis or epidermis. Nipple - not applicable Skeletal muscle - no skeletal muscle present. Ductal carcinoma in situ (DCIS) - DCIS is present. Extensive intraductal component (EIC) - negative Estimated size (extent) of DCIS - the DCIS comprises <5% of the total tumor volume. Number of blocks with DCIS - 2 Number of blocks examined - 10 Architectural patterns - cribriform Nuclear grade - grade 3 (high) Necrosis - present, focal (small foci of necrosis) Lobular carcinoma in situ (LCIS) - not identified Histologic type of invasive carcinoma - invasive ductal carcinoma (no special type) Histologic Grade ([place] grade): Glandular/tubular differentiation - score 3 Nuclear pleomorphism - score 3 Mitotic count - score 1 Overall grade - 2 (score of 7) Margins - Margins uninvolved by invasive carcinoma and ductal carcinoma in situ. Invasive carcinoma and ductal carcinoma in situ are 2 cm away from the closest posterior margin. Treatment effect: Response to presurgical (neoadjuvant) therapy - no known presurgical therapy. Lymph-Vascular invasion - not identified Dermal lymph-vascular invasion - not identified Lymph nodes: Number of sentinel lymph nodes examined - 4 Total number of lymph nodes examined (sentinel and nonsentinel) - 4 Number of lymph nodes with macrometastases, micrometastases and isolated tumor cells - 0 Method of evaluation of sentinel lymph nodes - H AND E, multiple levels and IHC. Distant metastasis - not applicable Additional pathologic findings - skin dermal fibrosis, consistent with scar and chronic inflammation. - Fatty breast tissue with focal fibrosis. Ancillary studies - previously performed on section of tumor ([id number] / [id number]). ER - positive (>95%) CA - negative (0%) Her2 toby - negative (0) Microcalcifications - not identified Clinical history - Please make reference to previous specimen ([id number]) left breast, ultrasound-guided mammotome biopsy with diagnosis of invasive ductal carcinoma. PATHOLOGIC STAGE: pT1c pN0(sn) Mx The above summary is in compliance with [employer] [place] [employer] (CAP) Cancer Protocols Checklist and [place] Joint Committee on Cancer (AJCC), Staging Manual, 8th Ed. SJ:wojciech 06/03/18 Signed Tony Guzmán 06/03/18 <signature on file> Performed By: #### PBRBX #### [facility] [address] [place], [address] IMMUNOHISTOCHEMISTRY Observed: 05/29/2018 Status: F Source: [place] 12:00 AM [facility] [place] [facility] Patient: ANABELA CAMARA : 1940 (77/F) Acct Num: [id number] Phys: OUT OF TOWN DOCTOR Unit Num: [id number] Loc: [facility] [place] Specimen: [id number] Received: 06/03/18 - 1316 Spec Type: IMMUNO TISSUES 1 TISSUES: B. Axillary lymph node, NOS - 1-4 SPECIMEN INFORMATION: Tissue Source: B - Left axillary sentinel lymph node tissue Clinical Info: Malignant neoplasm Specimen Number: [id number] B1-4 CPT code: 32832, 78822 x7 METHODOLOGY: Deparaffinized sections of prefer/formalin-fixed tissue or PAP/DQ stained slides are incubated with monoclonal/polyclonal antibodies/oligonucleotide probes. Localization is made via biotin free immunoperoxidase method. Appropriate controls are performed and reacted as expected. Results on target cell population are indicated in the following table: RESULTS: ANTIBODY / CLONE RESULT Block B1 AE1-3 (AE1/AE3/PCK26) negative CK7 (OV-TL12/30) negative Block B2 AE1-3 (AE1/AE3/PCK26) negative CK7 (OV-TL12/30) negative Block B3 AE1-3 (AE1/AE3/PCK26) negative CK7 (OV-TL12/30) negative Block B4 AE1-3 (AE1/AE3/PCK26) negative CK7 (OV-TL12/30) negative These tests were developed and their performance characteristics determined by [facility]. They may not have been cleared or approved by the U.S. Food and Drug Administration. The FDA has determined that such clearance or approval is not necessary. INTERPRETATION: B. Left axillary sentinel lymph node tissue, biopsy: Four out of four lymph nodes, negative for metastatic carcinoma. SJ:wojciech 06/03/18 [facility] [address] [address] Signed Tony Guzmán 06/03/18 <signature on file> Performed By: #### PIMM #### [facility] [address] [place], [address] SURGERY VISIT REPORT Observed: 05/12/2018 Status: F Source: [place] 8:23 AM [facility] [place] [facility] [address] [place] [address] OFFICE VISIT Date of Service: 05/12/18 MR#: [id number] Acct: [id number] Name: ANABELA CAMARA Rep #: [id number] : 1940 Provider: Terry Santana MD Age/Sex: 77/F Location: [facility] Status: Signed Intake Intake Visit Reasons: 1 WK FU Discuss surgery options Chief Complaint: LT ANTERIOR TOTAL HIP Clipper Machine Required: No Is patient in pain?: No Allergies No Known Allergies Allergy (Verified 05/12/18 08:04) Medications Losartan Potassium [Cozaar] 100 mg PO DAILY 11/30/13 [History Confirmed 05/12/18] Potassium Chloride [Klor-Con M10] 10 meq PO DAILY 11/30/13 [History Confirmed 05/12/18] Latanoprost 0.005% [Xalatan Opthalmic] 1 drp EACH EYE QHS 06/13/16 [History Confirmed 05/12/18] Timolol Maleate [Timoptic-XE 0.5%] 1 drp EACH EYE DAILY 06/13/16 [History Confirmed 05/12/18] aspirin 325 mg tablet 81 mg PO QDAY tab 12/12/17 [History Confirmed 05/12/18] hydrochlorothiazide 12.5 mg tablet PO 30 Days #30 12/12/17 [History Confirmed 05/12/18] amlodipine 5 mg tablet 5 mg PO DAILY tab 04/21/18 [History Confirmed 05/12/18] ergocalciferol (vitamin D2) 50,000 unit capsule 50,000 unit PO QWEEK 04/21/18 [History Confirmed 05/12/18] metoprolol tartrate 25 mg tablet 25 mg PO BID #180 tab 05/05/18 [Rx Confirmed 05/12/18] PFSH Medical History Cardiac murmur (Chronic) Pulmonary hypertension (Chronic) Abnormal findings on diagnostic imaging of heart and coronary circulation (Chronic) Aortic valve disease (Chronic) Paroxysmal supraventricular tachycardia by electrocardiogram (ECG) (Chronic) Supraventricular tachycardia (Chronic) Acquired left ventricular hypertrophy (Chronic) Hypertension (Chronic) Diabetes 1.5, managed as type 2 (Chronic) Breast cancer, left (Acute) Surgical History H/O aortic valve replacement (Resolved) H/O: hysterectomy (Resolved) History of hip replacement (Resolved) Family History Brother CAD (coronary artery disease) Brother Diabetes Mother Diabetes Hypertension Father Hypertension CVA (cerebral vascular accident) Sister Breast cancer Social History Smoking Status: Never smoker alcohol intake: never substance use type: does not use caffeine: Yes Type: coffee Number of servings: 1 what type of physical activity do you participate in: none seatbelt use: always do you feel safe at home: Yes HPI HPI HPI: ANABELA CAMARA, is a 77 F who presents to the office today for discussion after an ultrasound-guided hand-held mammotome breast biopsy of her left breast on 04/29/2018. This was done in the upper outer quadrant of her left breast. Pathology report came back as invasive ductal carcinoma ER receptors were positive CA receptors were negative and HER-2/toby was 0. We sat down and had a discussion with regards to her pathology report treatment options. All of her questions that were asked were answered. She is electing to undergo a ultrasound-guided wire localization left breast lumpectomy and sentinel lymph node biopsy. Exam Const General: well developed, no acute distress, well hydrated Orientation: oriented to person, oriented to place, oriented to time [facility] Head: normocephalic, atraumatic Ears: external ears normal Mouth: moist mucous membranes Eyes Sclera: sclerae normal Pupils: normal by confrontation Neck Neck: no lymphadenopathy noted Neck mass: No Thyroid: symmetrical, thyroid normal Chest Chest palpation AND inspection: normal inspection of the chest Breast inspection: normal inspection of the breasts Breast Palpation: No change in skin, Yes normal palpation of the breasts, Yes normal palpation of the axillae Other: Palpation of the left breast reveals moderate amount of bruising in the upper outer quadrant of her breast.. Axillary exam demonstrates no suspicious masses in either the left or right axilla. Resp Effort AND Inspection: normal respiratory effort Auscultation: clear to auscultation bilaterally Percussion: percussion normal Cardio Rate: regular rate Rhythm: regular rhythm GI Palpation: soft, nontender, no masses, no hepatosplenomegaly Rectal Exam: other Other: Rectal exam deferred. Extrem General: no clubbing, cyanosis or edema, normal to inspection Assessment AND Plan Problems 1. Malignant neoplasm of upper-outer quadrant of left breast in female, estrogen receptor positive C50.412; Z17.0 Plan I have given the patient options for initial surgical treatment. Options are the following: lumpectomy followed by radiation therapy vs. mastectomy vs. mastectomy followed by immediate reconstruction. I have described the procedures to the patient. I have described the advantages and disadvantages of the options, but I have told the patient that among the options, the survival rate for breast cancer is the same. I have told the patient that with all the surgeries that a sentinel lymph node biopsy is required. I have described the procedure of sentinel lymph node biopsy to the patient. I have told the patient that if the biopsy is positive for metastatic disease, then a full axillary lymph node dissection is required. I have told the patient that adjuvant chemotherapy will be required should the lymph nodes reveal metastatic disease. Also, a full lymph node dissection will increase the risk for lymphedema, especially if there are 4 or more lymph nodes positive for metastatic disease and radiation to the axilla is also required. I have told the patient the risks of surgery, including but not limited to: infection, bleeding, scar tissue, seroma and persistent seroma, lymph leak, injury to any blood vessels, injury to any nerves (particularly the long thoracic, the thoracodorsal, and the second intercostal brachial and the resultant sequelae), lymphedema, cosmetic deformity, dysesthesias, wound infections, further surgery (especially if margins are not clear), complications of anesthesia, etc. the patient understands. The patient will think about the options and discuss it further with the family. The patient will contact me in the next few days when she decides what the patient wishes to do. I have answered all the patient s questions at this point to her satisfaction and she has no further questions. Patient is electing an ultrasound-guided wire localization left breast lumpectomy with sentinel lymph node biopsy. Coding Level of Care Code Off vis,est,level 3 Diagnoses Malignant neoplasm of upper-outer quadrant of left breast in female, estrogen receptor positive C50.412; Z17.0 Breast location: upper outer quadrant of breast Estrogen receptor status: positive Patient sex: female Laterality: left 05/12/18 0823 <Electronically signed by Terry Santana MD> Date Terry Santana MD Cosigner Signature: Date (if applicable) CC: Gabe Matthews MD; Marco Antonio Arevalo MD SURGERY VISIT REPORT Observed: 05/06/2018 Status: F Source: [place] 8:14 AM [facility] [address] [place] [address] [address] [place] [address] OFFICE VISIT Date of Service: 05/06/18 MR#: [id number] Acct: [id number] Name: ANABELA CAMARA Rep #: [id number] : 1940 Provider: Terry Santana MD Age/Sex: 77/F Location: [facility] Status: Signed Intake Intake Visit Reasons: 1 WK FU US Guided Mammotone Bx Lt Breast Chief Complaint: LT ANTERIOR TOTAL HIP Is patient in pain?: No Allergies No Known Allergies Allergy (Verified 05/06/18 07:51) Medications Losartan Potassium [Cozaar] 100 mg PO DAILY 11/30/13 [History Confirmed 05/06/18] Potassium Chloride [Klor-Con M10] 10 meq PO DAILY 11/30/13 [History Confirmed 05/06/18] Latanoprost 0.005% [Xalatan Opthalmic] 1 drp EACH EYE QHS 06/13/16 [History Confirmed 05/06/18] Timolol Maleate [Timoptic-XE 0.5%] 1 drp EACH EYE DAILY 06/13/16 [History Confirmed 05/06/18] aspirin 325 mg tablet 81 mg PO QDAY tab 12/12/17 [History Confirmed 05/06/18] hydrochlorothiazide 12.5 mg tablet PO 30 Days #30 12/12/17 [History Confirmed 05/06/18] amlodipine 5 mg tablet 5 mg PO DAILY tab 04/21/18 [History Confirmed 05/06/18] ergocalciferol (vitamin D2) 50,000 unit capsule 50,000 unit PO QWEEK 04/21/18 [History Confirmed 05/06/18] metoprolol tartrate 25 mg tablet 25 mg PO BID #180 tab 05/05/18 [Rx Confirmed 05/06/18] PFSH Medical History Cardiac murmur (Chronic) Pulmonary hypertension (Chronic) Abnormal findings on diagnostic imaging of heart and coronary circulation (Chronic) Aortic valve disease (Chronic) Paroxysmal supraventricular tachycardia by electrocardiogram (ECG) (Chronic) Supraventricular tachycardia (Chronic) Acquired left ventricular hypertrophy (Chronic) Hypertension (Chronic) Diabetes 1.5, managed as type 2 (Chronic) Breast cancer, left (Acute) Surgical History H/O aortic valve replacement (Resolved) H/O: hysterectomy (Resolved) History of hip replacement (Resolved) Family History Brother CAD (coronary artery disease) Brother Diabetes Mother Diabetes Hypertension Father Hypertension CVA (cerebral vascular accident) Sister Breast cancer Social History Smoking Status: Never smoker alcohol intake: never substance use type: does not use caffeine: Yes Type: coffee Number of servings: 1 what type of physical activity do you participate in: none seatbelt use: always do you feel safe at home: Yes HPI HPI HPI: ANABELA CAMARA, is a 77 F who presents to the office today for from an ultrasound-guided hand-held left breast biopsy on 04/29/2018. She underwent the procedure the pathology came back as invasive ductal carcinoma ER receptors were positive and CA receptors were negative HER-2/toby was 0. Exam Skin Other: Patchy side in the upper outer quadrant is clean moderate amount of bruising is identified no signs of cellulitis Assessment AND Plan Problems 1. Malignant neoplasm of upper-outer quadrant of left breast in female, estrogen receptor positive C50.412; Z17.0 Plan I said down I discussed the pathology report with her I gave her a copy of her path report as well. We discussed using either breast conserving therapy with a wire local lumpectomy and sentinel lymph node biopsy versus a mastectomy and sentinel lymph node biopsy. Patient is going to go home to do her due diligence and then make a follow- up appointment scheduled surgery. Coding Level of Care Code Off vis,est,level 2 Diagnoses Malignant neoplasm of upper-outer quadrant of left breast in female, estrogen receptor positive C50.412; Z17.0 Breast location: upper outer quadrant of breast Estrogen receptor status: positive Patient sex: female Laterality: left 05/06/18813 <Electronically signed by Terry Santana MD> Date Terry Santana MD Cosigner Signature: Date (if applicable) CC: Gabe Matthews MD; Marco Antonio Arevalo MD SURGERY VISIT REPORT Observed: 05/06/2018 Status: F Source: [place] 8:05 AM [facility] [address] [place] [address] [address] [place] [address] OFFICE VISIT Date of Service: 04/29/18 MR#: [id number] Acct: [id number] Name: ANABELA CAMARA Rep #: [id number] : 1940 Provider: Terry Santana MD Age/Sex: 77/F Location: [facility] Status: Signed Intake Intake Visit Reasons: US Guided Mammotone Bx Lt Breast Clipper Machine Required: No Is patient in pain?: No Allergies No Known Allergies Allergy (Verified 05/06/18 07:51) Medications Losartan Potassium [Cozaar] 100 mg PO DAILY 11/30/13 [History Confirmed 05/06/18] Potassium Chloride [Klor-Con M10] 10 meq PO DAILY 11/30/13 [History Confirmed 05/06/18] Latanoprost 0.005% [Xalatan Opthalmic] 1 drp EACH EYE QHS 06/13/16 [History Confirmed 05/06/18] Timolol Maleate [Timoptic-XE 0.5%] 1 drp EACH EYE DAILY 06/13/16 [History Confirmed 05/06/18] aspirin 325 mg tablet 81 mg PO QDAY tab 12/12/17 [History Confirmed 05/06/18] hydrochlorothiazide 12.5 mg tablet PO 30 Days #30 12/12/17 [History Confirmed 05/06/18] amlodipine 5 mg tablet 5 mg PO DAILY tab 04/21/18 [History Confirmed 05/06/18] ergocalciferol (vitamin D2) 50,000 unit capsule 50,000 unit PO QWEEK 04/21/18 [History Confirmed 05/06/18] metoprolol tartrate 25 mg tablet 25 mg PO BID #180 tab 05/05/18 [Rx Confirmed 05/06/18] PFSH Medical History Cardiac murmur (Chronic) Pulmonary hypertension (Chronic) Abnormal findings on diagnostic imaging of heart and coronary circulation (Chronic) Aortic valve disease (Chronic) Paroxysmal supraventricular tachycardia by electrocardiogram (ECG) (Chronic) Supraventricular tachycardia (Chronic) Acquired left ventricular hypertrophy (Chronic) Hypertension (Chronic) Diabetes 1.5, managed as type 2 (Chronic) Surgical History H/O aortic valve replacement (Resolved) H/O: hysterectomy (Resolved) History of hip replacement (Resolved) Family History Brother CAD (coronary artery disease) Brother Diabetes Mother Diabetes Hypertension Father Hypertension CVA (cerebral vascular accident) Sister Breast cancer Social History Smoking Status: Never smoker alcohol intake: never substance use type: does not use caffeine: Yes Type: coffee Number of servings: 1 what type of physical activity do you participate in: none seatbelt use: always do you feel safe at home: Yes HPI HPI HPI: ANABELA CAMARA, is a 77 F who presents to the office today for Office Procedures Biopsy Provider Documentation Preoperative diagnosis: Abnormal mammogram/ultrasound to the left breast Postoperative diagnosis: The same Procedure: Ultrasound-guided hand-held mammotome needle core biopsy of left breast Surgeon: Esther Procedure: Breast was ultrasound of the upper outer quadrant of the breast. Lesion was identified. The skin was prepped with Betadine. 1% lidocaine plain was injected. Local was injected posterior to the lesion. Skin narinder was made. Under ultrasound guidance the needle was directed posterior to the lesion. Numerous biopsies were obtained. Under ultrasound guidance a small titanium clip was placed. Sterile dressings were applied. The patient tolerated the procedure Alert Manny Yes Biopsy Breast Biopsy: 05546 US Guidance Procedure Time Out Time Out Informed consent given: Yes Consent signed: Yes Time out checklist: patient, procedure, site marked/identified, positioning of patient, supplies available, allergies confirmed, team agrees on procedure Time out staff in room: Yes Time out verified: Yes Time out date: 04/29/18 Time out time: 12:55 Assessment AND Plan Orders Orders: Medications Discontinued: Coding Level of Care Code Attention Director Of Hemophilia Additional Codes Biopsy - Breast Biopsy: 76049 US Guidance (29169) 05/06/18 0805 <Electronically signed by Terry Santana MD> Date Terry Santana MD Cosigner Signature: Date (if applicable) CC: BREAST BIOPSY Observed: 04/29/2018 Status: F Source: [place] ([place]OO[place]) 1:00 PM [facility] [place] [facility] Patient: ANABELA CAMARA : 1940 (77/F) Acct Num: [id number] Phys: Terry Santana MD Unit Num: [id number] Loc: [facility]SPEC Specimen: [id number] Received: 04/29/18 1445 Spec Type: BREAST BX TISSUES TISSUES: Left breast, NOS COMMENT ER/CA/Nfq2mib studies are being performed on sections of tumor and the results from this study will be reported separately ([id number]). GROSS DESCRIPTION Received in fixative is one container labeled with the patient's name and designated left breast biopsy. The specimen consists of multiple elongated fragments of good-yellow fibroadipose tissue that in aggregate measure 2.5 x 1 x 0.1 cm. The entire specimen is submitted in one cassette. / SJ:wojciech 04/30/18 TC: 0 CPT: 99031 HEADER OPERATION: Ultrasound-guided mammotome left breast biopsy PRE-OP DIAGNOSIS: Abnormal mammogram left breast R92.8 TISSUE SUBMITTED: Mammotome biopsy left breast ISCHEMIC TIME: <1 minute FIXATION TIME: 29.5 hours MICROSCOPIC DESCRIPTION Slides are reviewed. 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 [place], [address] IMMUNOHISTOCHEMISTRY Observed: 04/29/2018 Status: F Source: [place] 12:00 AM [facility] [place] [facility] Patient: ANABELA CAMARA : 1940 (77/F) Acct Num: [id number] Phys: Terry Santana MD Unit Num: [id number] Loc: LABSPEC Specimen: [id number] Received: 05/01/18 - 1136 Spec Type: IMMUNO TISSUES TISSUES: Left breast, NOS SPECIMEN INFORMATION: Tissue Source: Left breast Clinical Info: Abnormal mammogram left breast Specimen Number: [id number] CPT code: 45046, 06939 x6, 59271 x3 METHODOLOGY: Deparaffinized sections of prefer/formalin-fixed tissue or PAP/DQ stained slides are incubated with monoclonal/polyclonal antibodies/oligonucleotide probes. Localization is made via biotin free immunoperoxidase method. Appropriate controls are performed and reacted as expected. Results on target cell population are indicated in the following table: RESULTS: ANTIBODY / CLONE RESULT P53 (DO-7) positive, 90% Ki-67 (30-9) positive, low CK8 (99brbxJ45) positive CK5-6 (D5 AND 1684) negative Calponin-1 (QJ257S) negative P40 (BC28) negative E-Cad (ECH-6) positive MORPHOMETRIC ANALYSIS ER (clone 6F11) >95% CA (clone 16/1E2) 0% Her-2Neu (clone CB11) 0 The prognostic test for HER2 is performed on formalin-fixed paraffin embedded tissue. A 3+ (positive) staining pattern is defined as intense, homogeneous, complete, circumferential membranous staining in >10% of contiguous tumor cells. A similar weak (2+) staining pattern is interpreted as equivocal. MARSHA follow- up testing is recommended for all equivocal cases. Positivity/negativity for ER/ CA is reported if > or < 1% of the tumor cells are immuno- reactive, respectively. The ASCO/CAP criteria is used for scoring. Reference: Journal of Clinical Oncology, 2013; 31:5610-9538 AND 2010; 16:2784- 2795. Duration of fixation : 29.5 Hrs; Sample Adequate: Yes. These assays have not been validated on decalcified tissues. Results should be interpreted with caution given the likelihood of false negativity on decalcified specimens. These tests were developed and their performance characteristics determined by [facility]. They may not have been cleared or approved by the U.S. Food and Drug Administration. The FDA has determined that such clearance or approval is not necessary. INTERPRETATION: Left breast, core biopsy: Invasive ductal carcinoma, nuclear grade 2. Positive for estrogen receptors (favorable prognostic indicator). Negative for progesterone receptors (unfavorable prognostic indicator). Negative for overexpression of HMH7fuw. AM:wojciech 05/04/18 PHYSICIAN AND INSTITUTION [address] [address] Signed [facility] 05/04/18 <signature on file> Performed By: #### PIMM #### [facility] [address] [place] [address], [id number] SURGERY VISIT REPORT Observed: 04/21/2018 Status: F Source: [place] 9:05 AM [facility] [place] [facility] [address] [place] [address] [address] [place] [address] OFFICE VISIT Date of Service: 04/21/18 MR#: [id number] Acct: [id number] Name: ANABELA CAMARA Rep #: [id number] : 1940 Provider: Terry Santana MD Age/Sex: 77/F Location: [facility] Status: Signed Intake Vital Signs04/21/18 Height 5 ft 4 in 04/21/18 Weight: 170 lb Intake Visit Reasons: Irregular Nodule Lt Breat US 04/15 Mammo 04/13 Chief Complaint: LT ANTERIOR TOTAL HIP Allergies No Known Allergies Allergy (Verified 04/21/18 09:01) Medications Losartan Potassium [Cozaar] 100 mg PO DAILY 11/30/13 [History Confirmed 12/12/17] Potassium Chloride [Klor-Con M10] 10 meq PO DAILY 11/30/13 [History Confirmed 12/12/17] Latanoprost 0.005% [Xalatan Opthalmic] 1 drp EACH EYE QHS 06/13/16 [History Confirmed 12/12/17] Timolol Maleate [Timoptic-XE 0.5%] 1 drp EACH EYE DAILY 06/13/16 [History Confirmed 12/12/17] Metoprolol Tartrate [Lopressor (beta sheila)] 25 mg PO BID 07/01/17 [History Confirmed 12/12/17] Famotidine [Pepcid] 20 mg PO DAILY #30 tab 07/17/17 [Rx Confirmed 12/12/17] aspirin 325 mg tablet 81 mg PO QDAY tab 12/12/17 [History] fenofibrate micronized 67 mg capsule 67 mg PO QPM #90 cap 12/12/17 [Rx Confirmed 12/12/17] hydrochlorothiazide 12.5 mg tablet PO 30 Days #30 12/12/17 [History Confirmed 12/12/17] amlodipine 5 mg tablet 5 mg PO DAILY tab 04/21/18 [History Confirmed 04/21/18] ergocalciferol (vitamin D2) 50,000 unit capsule 50,000 unit PO QWEEK 04/21/18 [History Confirmed 04/21/18] [facility] Medical History Cardiac murmur (Chronic) Pulmonary hypertension (Chronic) Abnormal findings on diagnostic imaging of heart and coronary circulation (Chronic) Aortic valve disease (Chronic) Paroxysmal supraventricular tachycardia by electrocardiogram (ECG) (Chronic) Supraventricular tachycardia (Chronic) Acquired left ventricular hypertrophy (Chronic) Hypertension (Chronic) Diabetes 1.5, managed as type 2 (Chronic) Surgical History H/O aortic valve replacement (Resolved) H/O: hysterectomy (Resolved) History of hip replacement (Resolved) Family History Brother CAD (coronary artery disease) Brother Diabetes Mother Diabetes Hypertension Father Hypertension CVA (cerebral vascular accident) Sister Breast cancer Social History Smoking Status: Never smoker alcohol intake: never substance use type: does not use caffeine: Yes Type: coffee Number of servings: 1 what type of physical activity do you participate in: none seatbelt use: always do you feel safe at home: Yes HPI HPI HPI: ANABELA CAMARA, is a 77 F who presents to the office today for evaluation of an abnormal mammogram and ultrasound done to her left breast. Patient had a mammogram and ultrasound completed at [facility] on 04/15/2018. This showed at the 2 o'clock position approximately 10 cm from the nipple there to be a 7 mm hypoechoic irregular density with posterior acoustic shadowing. Patient has not felt this herself. She has had no breast pain. She has had no trauma to the breast. ROS General General: No weight change, appetite, fatigue, colon cancer, breast cancer or weakness HEENT HEENT: No difficulty swallowing, eye injury, eye surgery, swollen glands or hoarseness Endo Endocrine: Yes diabetes mellitus; no thyroid disease, thyroid cancer, Hair loss, heat intolerance or cold intolerance Skin Skin: No rash or changing moles Breast Breast: No left breast lump, right breast lump, nipple discharge, breast pain, abnormal mammogram, abnormal US or breast enlargement Musc Musculoskeletal: Yes arthritis; no back problems, rheumatoid arthritis, gout or joint pain Cardio Cardiovascular: Yes murmur and high blood pressure; no pacemaker, heart disease, atrial fibrillation, heart attack, heart stent, palpitations, shortness of breat with exertion or chest pain Psych Psychiatric: No depression, anxiety or hearing voices Resp Respiratory: No shortness of breath, No sleep apnea, No cough, No COPD, No asthma, No emphysema, No wheezing Gastro Gastrointestinal: No abdominal pain, No nausea or vomiting, No diarrhea, No constipation, No blood in stool, No acid reflux, No hemorrhoids, No ulcers, No gallbladder problem, No black,tarry stools Jean Hematologic: No blood thinners, No blood disorders, No bleeding, No anemia, No blood clots Neuro Neurologic: No system reviewed and no additional complaints, except as docu, No as per HPI, No abnormal walking, No abnormal hearing, No abnormal movements, No abnormal speech, No behavioral changes, No burning sensations, No confusion, No seizure-like activity, No unsteadiness, No dizziness, No localized weakness, No frequent falls, No headache(s), No lack of coordination, No loss of vision, No memory loss, No numbness, No other visual disturbances, No radiating pain, No restless legs, No sensory deficit, No fainting, No tingling, No tremor(s), No weakness, No other Exam HENMT Head: normal to inspection, normocephalic, atraumatic Mouth: moist mucous membranes, oropharynx normal Eyes General: appearance normal, both eyes and all related structures Sclera: sclerae normal Neck Neck: no lymphadenopathy noted, trachea midline Neck mass: No Thyroid: thyroid normal Lymphatic: no lymphadenopathy noted Chest Breast inspection: normal inspection of the breasts Breast Palpation: No nipple discharge Other: No hard palpable nodules are identified. She has very lumpy bumpy breast symmetrically bilaterally in the upper outer quadrant. Resp Other: Respiratory Exam: Deferred Cardio Heart Sounds: murmur Other: Cardiac Exam: Deferred GI Other: GI Exam: Deferred Other: Rectal Exam: Deferred Extrem Other: Extremity Exam: Deferred Assessment AND Plan Problems 1. Abnormal mammogram of left breast R92.8 Plan I have discussed above with the patient. I have recommended ultrasound guided needle core breast biopsy with vacuum assistance. I have described the procedure to the patient. I have discussed with the patient that sometimes the ultrasound lesion may be artifact and is user dependent and therefore prior to undergoing the procedure, the patient will have a definitive US to ensure that the lesion is truly present and is not artifact. A marker clip will be placed to identify the location. Patient has been counseled to the risks/benefits of the procedure. I have explained the risks of the surgery, including but not limited to: infection, bleeding, injury to any blood vessels/nerves, scar tissue, missing the lesion, further surgery, etc. - the patient understands and agrees to proceed. I have answered all of the patient's questions to her satisfaction and she has no further questions. Coding Level of Care Code Off vis,new,level 3 Diagnoses Abnormal mammogram of left breast R92.8 04/21/18 0905 <Electronically signed by Terry Santana MD> Date Terry Santana MD Cosigner Signature: Date (if applicable) CC: Gabe Matthews MD; Marco Antonio Arevalo MD BREAST LIMITED Observed: 04/15/2018 Status: F Source: [place] 1:44 PM [facility] [place] [facility] Imaging Services [address] [place] [address] Breast Limited Unilateral MR#: [id number] Acct: [id number] Name: ANABELA CAMARA Rep #: [id number] : 1940 F 77 From: Bryce Graham MD PCP: Marco Antonio Arevalo MD, Chi Status: REG CLI Study: Breast Limited Unilateral Date of Exam: 04/15/18 Exam# [id number] Ordering Dr: Gabe Matthews MD STUDY: ULTRASOUND BREAST - LEFT REASON FOR EXAM: Female, 77 years old. Abnormal screening mammogram. TECHNIQUE: Axial and longitudinal images of the LEFT breast were performed with a high resolution ultrasound transducer. COMPARISON: Comparison is made with prior mammogram dated April 13, 2018. FINDINGS: LEFT Breast: There is a 7 mm x 4 mm x 4 mm hypoechoic irregular nodular density with posterior acoustical shadowing. This is at the 2:00 position breast at 10 cm from nipple. This corresponds to the mammographic findings. A biopsy is recommended for further evaluation. There is also evidence of a 4 mm x 6 mm x 4 mm well-defined hypoechoic nodule with echogenic hilum at the 3:00 position approximately 2 cm from the nipple. This most likely presents a small lymph node. US/Breast Limited Unilateral IMPRESSION: Suspicious 7 mm x 4 mm x 4 mm hypoechoic irregular nodule at the 2:00 position breast at 10 cm from nipple. A biopsy is recommended. ASSESSMENT CATEGORY: BIRADS Category 4: Suspicious - Biopsy Should Be Considered. A letter regarding these results will be sent to the patient by the facility within 30 days. Electronically Signed: Bryce Graham MD at 15:32 EDT Tel [phone], Service support , CC: Gabe Matthews MD; Marco Antonio Arevalo MD Audit Clerk: Signed SCREENING MAMM (CAD), Observed: 04/13/2018 Status: F Source: [facility] 3:21 PM [facility] [place] [facility] Imaging Services [address] [place] [address] SCREENING MAMM (CAD), BILAT MR#: [id number] Acct: [id number] Name: ANABELA CAMARA Rep #: [id number] : 1940 F 77 From: Bryce Graham MD PCP: Marco Antonio Arevalo MD, Chi Status: REG CL Study: SCREENING MAMM (CAD), BILAT Date of Exam: 04/13/18 Exam# [id number] Ordering Dr: Gabe Matthews MD MAMMOGRAPHY - BILATERAL SCREENING REASON FOR EXAM: Female, 77 years old. Routine annual screening examination. PERTINENT HISTORY: Sisters with breast cancer. TECHNIQUE: Digital bilateral breast jimmy (3D mammographic acquisition) in the CC and MLO projections. 2-D mediolateral oblique (MLO) and craniocaudad (CC) views of both breasts were obtained. CAD: Full Field Digital Mammography with Computer Added Detection was performed. COMPARISON: Comparison is made with prior study dated September 20, 2015 and March 16, 2015. FINDINGS: Breast Composition: There are scattered areas of fibroglandular density. There now is evidence of a 1 cm x 0.9 cm ill-defined nodule in the deep upper lateral aspect of the left breast. This was not seen on prior study. Correlation with ultrasound is recommended. Stable benign-appearing bilateral axillary lymph nodes. No other significant abnormalities are identified. BI/SCREENING MAMM (CAD), BILAT IMPRESSION: New 1 cm x 0.9 cm ill-defined nodule in the deep upper lateral aspect of the left breast as described. Correlation with ultrasound is recommended. ASSESSMENT CATEGORY: BIRADS Category 0: Incomplete. Need additional imaging evaluation. A letter regarding these results will be sent to the patient by the facility within 30 days. Approximately 10% of breast cancers are not detected by mammography. A normal mammogram should not delay biopsy of a clinically suspicious abnormality. [id number] Electronically Signed: Bryce Graham MD at 8:42 EDT Tel [phone], Service support , CC: Gabe Matthews MD; Marco Antonio Arevalo MD Audit Clerk: Signed CBC W/DIFF, AUTOMATED Collected: 04/08/2018 Status: F Source: [place] 11:16 AM [facility] [place] [facility] TYPE CODE TESTS RESULT OUT OF RANGE REFERENCE UNITS LAB L100.1000 4.4-11.0 K/mm3 Normal WBC 7.0 LAB L100.1200 4.2-5.4 M/mm3 Low RBC 4.17 LAB L100.1300 12.0-15.0 g/dl Normal HGB 12.2 LAB L100.1400 37-47 % Normal HCT 38.8 LAB L100.1500 81-99 fL Normal MCV 93.0 LAB L100.1600 27.0-32.0 pg Normal MCH 29.3 LAB L100.1700 32-36 g/gl Low MCHC 31.4 LAB L100.1810 11.6-14.6 % High RDW CV 15.6 LAB L100.1820 35.1-43.9 fl High RDW SD 51.2 LAB L100.1900 150-450 K/mm3 Normal PLT 239 LAB L100.2000 6.2-12.0 fl Normal MPV 11.0 LAB L100.2100 47-70 % Normal NEUT% 62.3 LAB L100.2200 19-41 % Normal LY% 25.7 LAB L100.2300 0-10 % High MONO% 10.3 LAB L100.2400 0-5 % Normal EO% 1.3 LAB L100.2500 0-1 % Normal BASO% 0.3 LAB L100.2550 0.0-0.9 % Normal IM GRAN % 0.100 Result Comment: IG% - Immature Granulocytes (promyelocytes, myelocytes and metamyelocytes) > 1% indicates that a LEFT SHIFT is Present. LAB L100.2620 2.0-7.7 X10 3/uL Normal Absolute Neut 4.4 LAB L100.2720 0.83-4.51 X10 3/ul Normal Absolute Lymph 1.80 Performed By: #### L100.0100 #### [facility] [address] [place], [place], [address] VITAMIN D,25 HYDROXY Collected: 04/08/2018 Status: F Source: [place] 11:16 AM [facility] [place] [facility] TYPE CODE TESTS RESULT OUT OF RANGE REFERENCE UNITS LAB L506.1000 29.95-100.01 ng/mL Normal Vitamin D 52.0 25-OH Result Comment: Vitamin D 25(OH) Status Range Deficiency <20 ng/mL (50nmol/L) Insuffciency 20 - 30 ng/mL (50 - 75 nmol/L) Sufficiency 30 - 100 ng/mL (75 - 250 nmol/L) Toxicity >100 ng/mL (>250 nmol/L) Performed By: #### L506.1000 #### [facility] [address] [place], [address] COMPREHENSIVE METABOLIC Collected: 04/08/2018 Status: F Source: [place] 11:16 AM [facility] [place] [facility] TYPE CODE TESTS RESULT OUT OF RANGE REFERENCE UNITS LAB L501.0100 74-106 mg/dL Normal GLU 103 Result Comment: Fasting Glucose result from 100 to 125 mg/dL suggests IMPAIRED HOMEOSTASIS per A.D.A. criteria. Please note revised GLUCOSE reference range effective 2017. LAB L501.1000 7-18 mg/dL High BUN 19 LAB L501.1100 0.55-1.02 mg/dL Normal CREAT,SERUM 0.76 Result Comment: The validity of the calculated GFR AND GFRAA in patients over 70 years has not been determined. Clinical correlation is essential. LAB L501.1110 >60 mL/min Normal EST GFR 78 Result Comment: Non- GFR Calc LAB L501.1115 >60 mL/min Normal EST GFR - AA 95 Result Comment: GFR Calc LAB L501.1300 10-20 RATIO High BUN/CRE 24.9 LAB L501.1500 6.4-8.2 g/dL T Normal PROT 7.4 LAB L501.1800 3.2-5.0 g/dL Normal ALB 3.8 LAB L501.1950 2.2-4.2 g/dL Normal GLOB 3.6 LAB L501.2000 0.9-2.4 RATIO Normal A/G 1.1 LAB L501.2200 8.5-10.1 mg/dL CA Normal 8.8 LAB L501.4100 15-37 U/L Normal AST 25 LAB L501.4305 45-117 U/L Normal ALK P 54 LAB L501.4405 13-56 U/L Normal ALT 33 LAB L501.4600 0.20-1.00 mg/dL T Normal BILI 0.50 LAB L501.5300 136-145 mmol/L NA Normal 143 LAB L501.5600 3.5-5.1 mmol/L K Normal 4.4 LAB L501.5900 98-107 mmol/L CL Normal 105 LAB L501.6100 21.0-32.0 mmol/L Normal CO2 28.0 LAB L501.6200 5-15 Normal GAP 10 Performed By: #### L500.4050, L500.4100, L501.9520 #### [facility] [address] [place], [place], [address] LIPID PROFILE Collected: 04/08/2018 Status: F Source: [place] 11:16 AM [facility] [place] [facility] TYPE CODE TESTS RESULT OUT OF RANGE REFERENCE UNITS LAB L501.4900 200 mg/dL Normal CHOL 194 Result Comment: <200 mg/dL Desirable 200-240 mg/dL Borderline >240 mg/dL High Risk LAB L501.5000 mg/dL Normal TRIG 181 Result Comment: The drugs N-Acetylcysteine and Metamizole may falsely depress this assay. Serum Triglycerides Reference Interval Normal <150 mg/dL Borderline high 150 - 199 mg/dL High 200 - 499 mg/dL Very High > or = 500 mg/dL LAB L501.6400 mg/dL Normal HDL 43 Result Comment: The drugs N-Acetylcysteine and Metamizole may falsely depress this assay. Reference Range HDL <40 mg/dL Low HDL Cholesterol HDL >or= 60 mg/dL High HDL Cholesterol LAB L501.6500 0-130 mg/dL Normal LDL 115 LAB L501.6600 5-40 mg/dL Normal VLDL 36 Performed By: #### L500.4050, L500.4100, L501.9520 #### [facility] [address] [place], [place], [address] THYROID STIM HORMONE Collected: 04/08/2018 Status: F Source: [place] (TSH) 11:16 AM [facility] [place] TYPE CODE TESTS RESULT OUT OF RANGE REFERENCE UNITS LAB L501.9520 0.358-3.74 uIU/mL Normal TSH 1.69 Performed By: #### L500.4050, L500.4100, L501.9520 #### [facility] [address] [place], [place], [address] LIVER PROFILE Collected: 01/12/2018 Status: F Source: [place] 9:06 AM [facility] [place] TYPE CODE TESTS RESULT OUT OF RANGE REFERENCE UNITS LAB L501.1500 6.4-8.2 g/dL Normal T PROT 7.4 LAB L501.1800 3.2-5.0 g/dL Normal ALB 3.6 LAB L501.1950 2.2-4.2 g/dL Normal GLOB 3.8 LAB L501.4100 15-37 U/L Normal AST 25 LAB L501.4305 45-117 U/L Normal ALK P 53 LAB L501.4405 13-56 U/L Normal ALT 26 LAB L501.4600 0.20-1.00 mg/dL Normal T BILI 0.40 LAB L501.4700 0.00-0.30 mg/dL Normal D BILI 0.09 Performed By: #### L500.3400, L500.4100 #### [facility] [address] [place], [place], [address] LIPID PROFILE Collected: 01/12/2018 Status: F Source: [place] 9:06 AM [facility] [place] TYPE CODE TESTS RESULT OUT OF RANGE REFERENCE UNITS LAB L501.4900 200 mg/dL Normal CHOL 184 Result Comment: <200 mg/dL Desirable 200-240 mg/dL Borderline >240 mg/dL High Risk LAB L501.5000 mg/dL Normal TRIG 120 Result Comment: The drugs N-Acetylcysteine and Metamizole may falsely depress this assay. Serum Triglycerides Reference Interval Normal <150 mg/dL Borderline high 150 - 199 mg/dL High 200 - 499 mg/dL Very High > or = 500 mg/dL LAB L501.6400 mg/dL Normal HDL 48 Result Comment: The drugs N-Acetylcysteine and Metamizole may falsely depress this assay. Reference Range HDL <40 mg/dL Low HDL Cholesterol HDL >or= 60 mg/dL High HDL Cholesterol LAB L501.6500 0-130 mg/dL Normal LDL 112 LAB L501.6600 5-40 mg/dL Normal VLDL 24 Performed By: #### L500.3400, L500.4100 #### [facility] [address] [place], [place], [id number] CBC W/DIFF, AUTOMATED Collected: 01/05/2018 Status: F Source: [place] 4:21 PM [facility] [place] TYPE CODE TESTS RESULT OUT OF RANGE REFERENCE UNITS LAB L100.1000 4.4-11.0 K/mm3 Normal WBC 6.6 LAB L100.1200 4.2-5.4 M/mm3 Low RBC 3.79 LAB L100.1300 12.0-15.0 g/dl Low HGB 11.6 LAB L100.1400 37-47 % Low HCT 36.1 LAB L100.1500 81-99 fL Normal MCV 95.3 LAB L100.1600 27.0-32.0 pg Normal MCH 30.6 LAB L100.1700 32-36 g/gl Normal MCHC 32.1 LAB L100.1810 11.6-14.6 % High RDW CV 16.7 LAB L100.1820 35.1-43.9 fl High RDW SD 56.0 LAB L100.1900 150-450 K/mm3 Normal PLT 248 LAB L100.2000 6.2-12.0 fl Normal MPV 10.7 LAB L100.2100 47-70 % Normal NEUT% 63.6 LAB L100.2200 19-41 % Normal LY% 22.2 LAB L100.2300 0-10 % Normal MONO% 9.7 LAB L100.2400 0-5 % Normal EO% 4.1 LAB L100.2500 0-1 % Normal BASO% 0.2 LAB L100.2550 0.0-0.9 % Normal IM GRAN % 0.200 Result Comment: IG% - Immature Granulocytes (promyelocytes, myelocytes and metamyelocytes) > 1% indicates that a LEFT SHIFT is Present. LAB L100.2620 2.0-7.7 X10 3/uL Normal Absolute Neut 4.2 LAB L100.2720 0.83-4.51 X10 3/ul Normal Absolute Lymph 1.47 Performed By: #### L100.0100 #### [facility] [place], [address] COMPREHENSIVE METABOLIC Collected: 01/05/2018 Status: F Source: [facility] 4:21 PM [facility] [place] TYPE CODE TESTS RESULT OUT OF RANGE REFERENCE UNITS LAB L501.0100 74-106 mg/dL Normal GLU 96 Result Comment: Please note revised GLUCOSE reference range effective 2017. LAB L501.1000 7-18 mg/dL High BUN 19 LAB L501.1100 0.55-1.02 mg/dL Normal CREAT,SERUM 0.71 Result Comment: The validity of the calculated GFR AND GFRAA in patients over 70 years has not been determined. Clinical correlation is essential. LAB L501.1110 >60 mL/min Normal EST GFR 85 Result Comment: Non- GFR Calc LAB L501.1115 >60 mL/min Normal EST GFR - AA 103 Result Comment: GFR Calc LAB L501.1300 10-20 RATIO High BUN/CRE 26.8 LAB L501.1500 6.4-8.2 g/dL T Normal PROT 7.5 LAB L501.1800 3.2-5.0 g/dL Normal ALB 3.5 LAB L501.1950 2.2-4.2 g/dL Normal GLOB 4.0 LAB L501.2000 0.9-2.4 RATIO Normal A/G 0.9 LAB L501.2200 8.5-10.1 mg/dL CA Normal 8.6 LAB L501.4100 15-37 U/L Normal AST 26 LAB L501.4305 45-117 U/L Normal ALK P 56 LAB L501.4405 13-56 U/L Normal ALT 30 LAB L501.4600 0.20-1.00 mg/dL T Normal BILI 0.30 LAB L501.5300 136-145 mmol/L NA Normal 140 LAB L501.5600 3.5-5.1 mmol/L K Normal 3.8 LAB L501.5900 98-107 mmol/L CL Normal 105 LAB L501.6100 21.0-32.0 mmol/L Normal CO2 29.0 LAB L501.6200 5-15 Normal GAP 6 Performed By: #### L500.4050, L500.4100, L501.9520 #### [facility] [address] [place], [address] LIPID PROFILE Collected: 01/05/2018 Status: F Source: [place] 4:21 PM [facility] [place] TYPE CODE TESTS RESULT OUT OF RANGE REFERENCE UNITS LAB L501.4900 200 mg/dL Normal CHOL 192 Result Comment: <200 mg/dL Desirable 200-240 mg/dL Borderline >240 mg/dL High Risk LAB L501.5000 mg/dL Normal TRIG 161 Result Comment: The drugs N-Acetylcysteine and Metamizole may falsely depress this assay. Serum Triglycerides Reference Interval Normal <150 mg/dL Borderline high 150 - 199 mg/dL High 200 - 499 mg/dL Very High > or = 500 mg/dL LAB L501.6400 mg/dL Normal HDL 46 Result Comment: The drugs N-Acetylcysteine and Metamizole may falsely depress this assay. Reference Range HDL <40 mg/dL Low HDL Cholesterol HDL >or= 60 mg/dL High HDL Cholesterol LAB L501.6500 0-130 mg/dL Normal LDL 114 LAB L501.6600 5-40 mg/dL Normal VLDL 32 Performed By: #### L500.4050, L500.4100, L501.9520 #### [facility] [address] [place], [address] THYROID STIM HORMONE Collected: 01/05/2018 Status: F Source: [place] (TSH) 4:21 PM [facility] [place] TYPE CODE TESTS RESULT OUT OF RANGE REFERENCE UNITS LAB L501.9520 0.358-3.74 uIU/mL Normal TSH 1.47 Performed By: #### L500.4050, L500.4100, L501.9520 #### [facility] [address] [place], [address] VITAMIN D,25 HYDROXY Collected: 01/05/2018 Status: F Source: [place] 4:21 PM [facility] [place] TYPE CODE TESTS RESULT OUT OF RANGE REFERENCE UNITS LAB L506.1000 29.95-100.01 ng/mL Normal Vitamin D 45.5 25-OH Result Comment: Vitamin D 25(OH) Status Range Deficiency <20 ng/mL (50nmol/L) Insuffciency 20 - 30 ng/mL (50 - 75 nmol/L) Sufficiency 30 - 100 ng/mL (75 - 250 nmol/L) Toxicity >100 ng/mL (>250 nmol/L) Performed By: #### L506.1000 #### [facility] [address] [place], [address] ECHOCARDIOGRAM COMPLETE Observed: 12/12/2017 Status: F Source: [place] 3:29 PM [facility] [place] [facility] Cardiovascular Services [address] [place] [address] Echo Complete 12/12/17 [facility] MR#: [id number] Acct: [id number] Name: ANABELA CAMARA Rep #: [id number] : 1940 77 From: Huan Mathis MD Attending Dr: Huan Mathis MD Status: REG CLI Ordering Dr: Huan Mathis MD Date: 12/12/17 Location: [facility] Sex: F C Admitted: Reason For Study: Aortic valve disease Procedure This was a 2D Doppler, Color Flow transthoracic echocardiogram. The exam was of adequate technical quality. Exam performed in department. Left Ventricle Normal LV size. Left ventricular systolic function is normal. The estimated ejection fraction is 60 %. Transmitral diastolic flow velocities suggest moderate (stage 2) diastolic dysfunction (pseudonormal pattern). No regional wall motion abnormalities noted. Right Ventricle Normal RV size. Normal systolic function. Atria The left atrium is mildly enlarged. Normal right atrium. No doppler evidence for ASD. Mitral Valve There is no mitral annular calcification. Mild diffuse mitral valve thickening. Trivial mitral valve insufficiency. Tricuspid Valve Normal tricuspid valve. Trivial tricuspid valve insufficiency. Right ventricular systolic pressure estimated to be 43 mmHg. Aortic Valve Trisinus/trileaflet aortic valve. Mild diffuse aortic valve thickening. Mild focal aortic valve calcification. Aortic scelerosis / mild aortic valve stenosis. Trivial aortic valve insufficiency. Pulmonic Valve The pulmonic valve is not well visualized. Trivial pulmonic valve insufficiency. Great Vessels Normal sized aortic root. Pericardium/Pleural No pericardial effusion. MMode/2D Measurements AND Calculations LVIDd: 4.3 cm IVSd: 1.2 cm LVOT diam: 1.9 cm LVIDs: 2.7 cm LVPWd: 1.2 cm LVOT area: 2.9 cm2 RVDd: 3.7 cm FS: 36.5 % Ao root diam: 3.1 cm LAV(MOD-bp): 53.0 ml EDV(MOD-sp4): 77.3 ml LAV(MOD-bp) Indexed: 29.2 ml/m2 ESV(MOD-sp4): 36.4 ml LAV(MOD-sp2): 58.1 ml EF(MOD-sp4): 52.8 % LAV(MOD-sp4): 45.1 ml EDV(MOD-sp2): 65.2 ml SV(MOD-sp4): 40.8 ml SV(MOD-sp2): 32.0 ml EF(MOD-sp2): 49.1 % LA A4 area: 16.6 cm2 RA A4 area: 10.7 cm2 Doppler Measurements AND Calculations MV E max deniz: 73.3 cm/sec Lat Peak E' Deniz: 6.7 cm/sec Med Peak E' Deniz: 4.4 cm/sec MV A max deniz: 92.9 cm/sec E/E' lat: 10.9 E/E' med: 16.7 MV E/A: 0.79 Ao V2 max: 153.6 cm/sec LV V1 max: 95.2 cm/sec SV(LVOT): 66.6 ml Ao max P.4 mmHg LV V1 max P.6 mmHg Ao V2 mean: 106.9 cm/sec LV V1 mean P.0 mmHg Ao mean P.1 mmHg LV V1 mean: 65.6 cm/sec Ao V2 VTI: 39.6 cm LV V1 VTI: 22.9 cm JACOBO(I,D): 1.7 cm2 JACOBO(V,D): 1.8 cm2 PA V2 max: 83.7 cm/sec TR max deniz: 315.2 cm/sec TR max P.7 mmHg Interpretation Summary Left ventricular systolic function is normal. The estimated ejection fraction is 60 %. The left atrium is mildly enlarged. Mild diffuse mitral valve thickening. Trivial mitral valve insufficiency. Trivial tricuspid valve insufficiency. Aortic scelerosis / mild aortic valve stenosis. Trivial aortic valve insufficiency. Trivial pulmonic valve insufficiency. Right ventricular systolic pressure estimated to be 43 mmHg. Transmitral diastolic flow velocities suggest diastolic dysfunction. Compared with the previous TTE of 05/24/2016 the previous small mobile echodensity on the aortic aspect of the aortic valve appearing is not visualized at this time. Ordering Physician: Huan Mathis Referring Physician: Marco Antonio Arevalo Chi Performed By: Yessi Thomas RDCS 12/12/17 1528 Date Huan Mathis MD CC: Huan Mathis MD; Marco Antonio Arevalo MD Date Dictated: 12/12/17 1016 Date Transcribed: 12/12/17 1528 Audit Clerk: Signed CARDIOLOGY VISIT Observed: 12/12/2017 Status: F Source: [place] REPORT 11:00 AM [facility] [place] [facility] [address] [place] [address] OFFICE VISIT Date of Service: 12/12/17 MR#: [id number] Acct: [id number] Name: ANABELA CAMARA Rep #: [id number] : 1940 Provider: Abena Artis Age/Sex: 77/F Location: [facility] Status: Signed HPI HPI Details: ANABELA CAMARA, is a 77 F who presents to the office today for for cardiovascular follow-up. 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 She also has a history of PSVT and hypertension. From a cardiac standpoint, patient is doing well. She does not have any chest discomfort/heaviness/tightness. Her exercise tolerance is stable for her age. She does not have any worsening symptoms of shortness of breath. She does not have any orthopnea. She denies PND. She does not have any symptoms of congestive heart failure. She does not have any palpitations that she is aware of. She does not have any lightheadedness or dizziness. She does not have any near-syncope or syncope. She does not have any lower extremity edema. She does not have any symptoms of claudication. Intake Vital Signs12/12/17 Height 5 ft 4 in 12/12/17 Weight: 168 lb 12/12/17 Body Mass Index (BMI) 28.8 12/12/17 Blood Pressure 142/84 Intake Visit Reasons: 6 M Clipper Machine Required: No Accompanied by: none Is patient in pain?: No Allergies No Known Allergies Allergy (Verified 12/12/17 09:38) Medications Amlodipine [Norvasc] 2.5 mg PO DAILY 11/30/13 [History Confirmed 12/12/17] Losartan Potassium [Cozaar] 100 mg PO DAILY 11/30/13 [History Confirmed 12/12/17] Potassium Chloride [Klor-Con M10] 10 meq PO DAILY 11/30/13 [History Confirmed 12/12/17] Latanoprost 0.005% [Xalatan Opthalmic] 1 drp EACH EYE QHS 06/13/16 [History Confirmed 12/12/17] Timolol Maleate [Timoptic-XE 0.5%] 1 drp EACH EYE DAILY 06/13/16 [History Confirmed 12/12/17] Metoprolol Tartrate [Lopressor (beta sheila)] 25 mg PO BID 07/01/17 [History Confirmed 12/12/17] Famotidine [Pepcid] 20 mg PO DAILY #30 tab 07/17/17 [Rx Confirmed 12/12/17] aspirin 325 mg tablet 81 mg PO QDAY tab 12/12/17 [History] fenofibrate micronized 67 mg capsule 67 mg PO QPM #90 cap 12/12/17 [Rx Confirmed 12/12/17] hydrochlorothiazide 12.5 mg tablet PO 30 Days #30 12/12/17 [History Confirmed 12/12/17] hydrocodone 5 mg-acetaminophen 325 mg tablet PO 8 Days #60 12/12/17 [History Confirmed 12/12/17] PFSH Medical History Pulmonary hypertension (Chronic) Aortic valve disease (Chronic) Paroxysmal supraventricular tachycardia by electrocardiogram (ECG) (Chronic) Hypertension (Chronic) Diabetes 1.5, managed as type 2 (Chronic) Surgical History H/O aortic valve replacement (Resolved) H/O: hysterectomy (Resolved) History of hip replacement (Resolved) Family History Brother CAD (coronary artery disease) Brother Diabetes Mother Diabetes Hypertension Father Hypertension Social History Smoking Status: Never smoker alcohol intake: never substance use type: does not use caffeine: Yes Type: coffee Number of servings: 1 what type of physical activity do you participate in: none seatbelt use: always do you feel safe at home: Yes ROS Const Const: Negative for weakness, fatigue, fever(s) or headache(s) Eyes Eyes: Negative for blind spots, loss of peripheral vision or transient loss of vision ENT ENT: Negative for headache(s), dizziness, tinnitus or Nosebleed/epistaxis Cardio Chest Pain: No Palpitations: No Edema: None Muscle aches with walking: None Resp Respiratory: Negative for SOB with activity, SOB at rest, SOB orthopnea\SOB lying down or Cough GI GI: Negative nausea, vomiting, heartburn or vomiting blood/hematemesis : Negative for hematuria Musc Musc: Negative for muscle aches/ myalgia Neuro Neuro: Negative for weakness, headache(s), dizziness, near syncope, syncope, lightheadedness or orthostatic symptoms Jean Hematologic/Lymphatic: Negative for easy bleeding Endo Endo: Negative for fatigue Cardiology Exam Const Appearance: cooperative, no acute distress and well developed Orientation: alert, awake and oriented x3 Head Head: normocephalic and atraumatic Mouth: moist mucous membranes Eyes General: appearance normal, both eyes and all related structures Conjunctivae: conjunctivae normal Pupils: PERRL EOM: EOM intact bilaterally Neck Neck: normal visual inspection, no lymphadenopathy and no JVD Carotids: Negative bruit Neck Mass: Negative Neck mass Chest Chest inspection: normal inspection of the chest and symmetric chest movement Auscultation: Bilateral: Clear to Auscultation Cardio Palpation: normal PMI Rate: regular rate Rhythm: regular rhythm Heart sounds: S1 normal and S2 normal; negative rub, gallop or murmur GI GI: normal to inspection, soft, no hepatosplenomegaly and bowel sounds present; negative tender Neuro General: alert, awake, oriented x3, CN's II-XI intact bilaterally and moves all extremities Extremities Pulses: Normal: Right Posterior Tibial Pulse, Left Posterior Tibial Pulse, Right Radial Pulse, Left Radial Pulse Lower Extremity Edema: None: Bilateral Psych Psychological: normal affect Assessment AND Plan 1. Aortic valve disease I35.9 Plan Stable, will continue to monitor aortic valve repair with echocardiograms as deemed appropriate. 2. Paroxysmal supraventricular tachycardia by electrocardiogram (ECG) I47.1 Plan Patient has not had any further symptoms. We will continue to monitor. 3. Essential hypertension I10 Plan Blood pressure is well controlled on current medications, we do not recommend any changes at this time. Orders Orders: 4. Hypertriglyceridemia E78.1 Plan Recent lipid profile demonstrates a total cholesterol of 186, HDL 33 unable to calculate LDL due to triglycerides being elevated. Will start patient on TriCor. She will repeat her blood work in 6-8 weeks. We will continue to monitor. Orders Orders: Plan Detail Other Medications New: Discontinued: acetaminophen Discontinued Reason: Updating EMR/Pt no l1,000 mg (2 x 500 mg) PO Q8 onger on Additional Comments Thank you for allowing us to participate in patient's plan of care, if you have any questions please do not hesitate to call. This note was generated using a voice recognition system and there may be incorrect words, spelling or punctuation errors that were not noted when reviewing the office note prior to saving. Follow Up 9 Months (PFM) Coding Level of Care Code Off vis,est,level 3 Diagnoses Aortic valve disease I35.9 Paroxysmal supraventricular tachycardia by electrocardiogram (ECG) I47.1 Essential hypertension I10 Hypertension type: essential hypertension Hypertriglyceridemia E78.1 Coding Level of Care Code Off vis,est,level 3 Diagnoses Aortic valve disease I35.9 Paroxysmal supraventricular tachycardia by electrocardiogram (ECG) I47.1 Essential hypertension I10 Hypertension type: essential hypertension Hypertriglyceridemia E78.1 12/12/17 1100 <Electronically signed by Abena WHITE> Date Abena WHITE Cosigner Signature: Date (if applicable) CC: Marco Antonio Arevalo MD Observed: 12/08/2017 Status: F Source: [place] RESPIRATORY PANEL 2:37 PM [facility] [place] [facility] RP PANEL Normal Reference Range = Not Detected Copy of report sent to Infection Control Printer [id number] 12/09/17 8754 [place]. RESULTS CALLED TO NURSE LINE 12/09/17 7422 Alexandra Arana. ADENOVIRUS Not Detected HUMAN METAPHNEUMO Positive for HUMAN METAPHNEUMO VIRUS by NAAT technology INFLUENZA A Not Detected INFLUENZA A (SUBTYPE H1) Not Detected INFLUENZA A (SUBTYPE H3) Not Detected INFLUENZA B Not Detected PARAINFLUENZA 1 Not Detected PARAINFLUENZA 2 Not Detected PARAINFLUENZA 3 Not Detected PARAINFLUENZA 4 Not Detected RHINOVIRUS Not Detected RSV A Not Detected RSV B Not Detected NAAT METHOD Testing was performed using nucleic acid amplification ORGANISM 1: HUMAN META Performed By: #### M100.638 #### [facility] [address] [place], [place], [id number] CBC W/DIFF, AUTOMATED Collected: 10/06/2017 Status: F Source: [place] 4:14 PM [facility] [place] TYPE CODE TESTS RESULT OUT OF RANGE REFERENCE UNITS LAB L100.1000 4.4-11.0 K/mm3 Normal WBC 5.9 LAB L100.1200 4.2-5.4 M/mm3 Low RBC 3.94 LAB L100.1300 12.0-15.0 g/dl Low HGB 11.8 LAB L100.1400 37-47 % Low HCT 36.6 LAB L100.1500 81-99 fL Normal MCV 92.9 LAB L100.1600 27.0-32.0 pg Normal MCH 29.9 LAB L100.1700 32-36 g/gl Normal MCHC 32.2 LAB L100.1810 11.6-14.6 % Normal RDW CV 14.5 LAB L100.1820 35.1-43.9 fl High RDW SD 47.7 LAB L100.1900 150-450 K/mm3 Normal PLT 210 LAB L100.2000 6.2-12.0 fl Normal MPV 11.9 LAB L100.2100 47-70 % Normal NEUT% 60.7 LAB L100.2200 19-41 % Normal LY% 28.7 LAB L100.2300 0-10 % Normal MONO% 9.0 LAB L100.2400 0-5 % Normal EO% 1.2 LAB L100.2500 0-1 % Normal BASO% 0.2 LAB L100.2550 0.0-0.9 % Normal IM GRAN % 0.200 Result Comment: IG% - Immature Granulocytes (promyelocytes, myelocytes and metamyelocytes) > 1% indicates that a LEFT SHIFT is Present. LAB L100.2620 2.0-7.7 X10 3/uL Normal Absolute Neut 3.6 LAB L100.2720 0.83-4.51 X10 3/ul Normal Absolute Lymph 1.69 Performed By: #### L100.0100 #### [facility] [address] [place], [place], [address] COMPREHENSIVE METABOLIC Collected: 10/06/2017 Status: F Source: [place] [facility] 4:14 PM [facility] [place] TYPE CODE TESTS RESULT OUT OF RANGE REFERENCE UNITS LAB L501.0100 74-106 mg/dL Normal GLU 97 Result Comment: Please note revised GLUCOSE reference range effective 2017. LAB L501.1000 7-18 mg/dL Normal BUN 15 LAB L501.1100 0.55-1.02 mg/dL Normal CREAT,SERUM 0.64 Result Comment: The validity of the calculated GFR AND GFRAA in patients over 70 years has not been determined. Clinical correlation is essential. LAB L501.1110 >60 mL/min Normal EST GFR 97 Result Comment: Non- GFR Calc LAB L501.1115 >60 mL/min Normal EST GFR - AA 117 Result Comment: GFR Calc LAB L501.1300 10-20 [place] High BUN/CRE 23.5 LAB L501.1500 6.4-8.2 g/dL T Normal PROT 7.4 LAB L501.1800 3.2-5.0 g/dL Normal ALB 3.9 LAB L501.1950 2.2-4.2 g/dL Normal GLOB 3.5 LAB L501.2000 0.9-2.4 RATIO Normal A/G 1.1 LAB L501.2200 8.5-10.1 mg/dL CA Normal 8.7 LAB L501.4100 15-37 U/L Normal AST 21 LAB L501.4305 45-117 U/L Normal ALK P 64 LAB L501.4405 13-56 U/L Normal ALT 29 Result Comment: Please note revised ALT reference range effective 2017. LAB L501.4600 0.20-1.00 mg/dL Normal T BILI 0.40 LAB L501.5300 136-145 mmol/L Normal NA 138 LAB L501.5600 3.5-5.1 mmol/L Normal K 4.2 LAB L501.5900 98-107 mmol/L Normal CL 103 LAB L501.6100 21.0-32.0 mmol/L Normal CO2 25.0 LAB L501.6200 5-15 Normal GAP 10 Performed By: #### L500.4050, L500.4100, L501.9520 #### [facility] [address] [place], [address] LIPID PROFILE Collected: 10/06/2017 Status: F Source: [place] 4:14 PM [facility] [place] TYPE CODE TESTS RESULT OUT OF RANGE REFERENCE UNITS LAB L501.4900 200 mg/dL Normal CHOL 186 Result Comment: <200 mg/dL Desirable 200-240 mg/dL Borderline >240 mg/dL High Risk LAB L501.5000 mg/dL High TRIG 417 Result Comment: The drugs N-Acetylcysteine and Metamizole may falsely depress this assay. TRIGLYCERIDE IS GREATER THAN 400 mg/dL. LDL RESULT IS INVALID AND WILL NOT BE REPORTED. Serum Triglycerides Reference Interval Normal <150 mg/dL Borderline high 150 - 199 mg/dL High 200 - 499 mg/dL Very High > or = 500 mg/dL LAB L501.6400 mg/dL Low HDL 33 Result Comment: The drugs N-Acetylcysteine and Metamizole may falsely depress this assay. Reference Range HDL <40 mg/dL Low HDL Cholesterol HDL >or= 60 mg/dL High HDL Cholesterol LAB L501.6500 0-130 mg/dL Test Normal not performed LDL LAB L501.6600 5-40 mg/dL Test Normal not performed VLDL Performed By: #### L500.4050, L500.4100, L501.9520 #### [facility] [address] [place], [place], [id number] THYROID STIM HORMONE Collected: 10/06/2017 Status: F Source: [place] (TSH) 4:14 PM [facility] [place] TYPE CODE TESTS RESULT OUT OF RANGE REFERENCE UNITS LAB L501.9520 0.358-3.74 uIU/mL Normal TSH 1.83 Performed By: #### L500.4050, L500.4100, L501.9520 #### [facility] [address] [place], [address] VITAMIN D,25 HYDROXY Collected: 10/06/2017 Status: F Source: [place] 4:14 PM [facility] [place] TYPE CODE TESTS RESULT OUT OF REFERENCE UNITS RANGE LAB L506.1000 19.95-100.01 ng/mL Low Vitamin D 18.4 25-OH Result Comment: Vitamin D 25(OH) Status Range Deficiency <20 ng/mL (50nmol/L) Insuffciency 20 - 30 ng/mL (50 - 75 nmol/L) Sufficiency 30 - 100 ng/mL (75 - 250 nmol/L) Toxicity >100 ng/mL (>250 nmol/L) Performed By: #### L506.1000 #### [facility] [address] [place], [address] ALLERGIES ALLERGIES DATE TYPE / CODE NAME / CODE REACTION SEVERITY SOURCE 08/27/2018 Drug oxycodone/F00 Itching [facility] Allergy/4160 [id number]([facility] [address](SNOMED M) Repository CT) 08/27/2018 Drug acetaminophen Itching [facility] Allergy/4160 /[id number]( Hospital 13319(SNOMED XNORM) Repository CT) 05/22/2018 Drug No Known Unknown [facility] Allergy/4160 Allergies/F00 Hospital 50746(SNOMED [id number](RXNOR Repository CT) M) ENCOUNTERS ENCOUNTERS ADMIT/DISCHARGE ACCOUNT ADMITTING ENCOUNTER LOCATION SOURCE NUMBER CLASS 09/16/2018 [id number] Ambulatory [address] ing:CT Repository 08/27/2018 [id number] Ambulatory BMSBuilding:B [place] 4 [place] Repository 08/27/2018 [id number] Ambulatory [address] ing:OMD Repository 08/03/2018 [id number] Ambulatory BMSBuilding:B [place] 0 [place] Repository 07/31/2018 [id number] Ambulatory [address] ing:RAD Repository 07/29/2018 [id number] Ambulatory BMSBuilding:B [place] 3 [facility] Repository 07/22/2018 [id number] Ambulatory BMSBuilding:B [place] 9 [facility] Repository 07/14/2018 [id number] Ambulatory BMSBuilding:B [place] 1 [facility] Repository 07/08/2018 [id number] Ambulatory [address] ing:POLAB3 Repository 07/08/2018 [id number] Ambulatory BMSBuilding:B [place] 2 [facility] Repository 07/06/2018 [id number] Ambulatory BMSBuilding:W [place] 5 [facility] Repository 07/03/2018 [id number] Ambulatory BMSBuilding:W [place] 2 [facility] Hospital Repository 07/02/2018 [id number] Ambulatory BMSBuilding:W [place] 8 [facility] Hospital Repository 06/29/2018 [id number] Ambulatory BMSBuilding:B [place] 6 [facility] Repository 06/29/2018 [id number] Ambulatory BMSBuilding:[place] [facility] Repository 06/18/2018 [id number] Ambulatory BMSBuilding:B [place] 7 [facility] Repository 06/10/2018 [id number] Ambulatory BMSBuilding:B [place] 5 [facility] Repository 06/05/2018/ [id number] Ambulatory BMSBuilding:B [place] 8 9 [facility] Repository 06/03/2018/ [id number] Ambulatory BMSBuilding:B [place] 8 2 [facility] Repository 05/29/2018 [id number] Ambulatory BMSBuilding:B [place] 0 [facility] Repository 05/29/2018/ [id number] Ambulatory [place] 8 9 [facility] ing:SDCRoom: Repository MS323 05/12/2018/ [id number] Ambulatory BMSBuilding:B [place] 8 3 [facility] Hospital Repository 05/06/2018/ [id number] Ambulatory BMSBuilding:B [place] 8 1 [facility] Hospital Repository 04/29/2018 [id number] Ambulatory [place] 3 [facility] ing:LABSPEC Repository 04/29/2018/ [id number] Ambulatory BMSBuilding:B [place] 8 8 [facility] Hospital Repository 04/21/2018/ [id number] Ambulatory BMSBuilding:B [place] 8 3 [facility] Repository 04/15/2018 [id number] Ambulatory [place] 0 [facility] Hospital ing:OPUS Repository 04/13/2018 [id number] Ambulatory [place] [address] [facility] ing:OPBI Repository 04/08/2018 [id number] Ambulatory [place] 7 [facility] ing:POLAB3 Repository 01/12/2018 [id number] Ambulatory [place] [address] [facility] ing:MTLAB Repository 01/05/2018 [id number] Ambulatory [place] [address] [facility] ing:POLAB3 Repository 12/12/2017 [id number] Ambulatory [place] [address] [facility] ing:CVS Repository 12/12/2017/ [id number] Ambulatory BMSBuilding:B [place] 8 2 [facility] Repository 12/09/2017 [id number] Ambulatory BMS [place] 4 [facility] Repository 12/08/2017 [id number] Ambulatory [place] [address] [facility] ing:PSN Repository 12/05/2017 [id number] Ambulatory BMSBuilding:B [place] 0 [facility] Repository 10/06/2017 [id number] Ambulatory [place] [address] [facility] ing:POLAB3 Repository PAYERS PAYERS ENCOUNTER GUARANTOR PAYER SUBSCRIBER SOURCE 09/16/2018 ANABELA S Primary ANABELA S [place] [id number] Insurance:HUMANA ADKINSDOB: Community [facility] PPOPolicy [id number] Number[place] Repository [address]Nko: (046) [id number] [phone] () Date:7301-50-34EI [address] [place] [address]PO: 09/16/2018 Secondary ANABELA S [place] Insurance:MEDICAL ADKINSDOB: [facility] [id number] Hospital Number: Repository [id number] Date:4242-52-77LN [address] [place] [address]QO: 09/16/2018 Tertiary NOT GIVENUNK [place] Insurance:SELF PAY [facility] Number: Effective Repository Date:2018-08-03 08/27/2018 ANABELA S Primary ANABELA S [place] [id number] Insurance:HUMANA ADKINSDOB: Community [facility] PPOPolicy [id number] Number: Repository [address]Dmt: (330 [id number] [phone] (HP) Date:9503-30-08HT [address] [address]MU: 08/27/2018 Secondary ANABELA S [place] Insurance:MEDICAL ADKINSDOB: [facility] [id number] Hospital Number: Repository [id number] Date:9300-02-93CN [address] [address]SU: 08/27/2018 Tertiary NOT GIVENUNK [place] Insurance:SELF PAY [facility] Number: Effective Repository Date:2018-08-27 08/27/2018 ANABELA S Primary ANABELA S [place] [id number] Insurance:HUMANA ADKINSDOB: Community [facility] PPOPolicy [id number] [place] Number[place] Repository [address]Xjf: (330 [id number] [phone] (HP) Date:3097-11-77QO [address] [address]VS: 08/27/2018 Secondary ANABELA S [place] Insurance:MEDICAL ADKINSDOB: [facility] [id number] Hospital Number: Repository [id number] Date:7299-44-27OM [address] [address]EU: 08/27/2018 Tertiary NOT GIVENUNK [place] Insurance:SELF PAY [facility] Number: Effective Repository Date:2018-06-09 08/03/2018 ANABELA S Primary ANABELA S [place] [id number] Insurance:HUMANA ADKINSDOB: Community [facility] PPOPolicy [id number] [place] Number: Repository [address]Gco: (330 [id number] [phone] (HP) Date:5453-57-42IK [address] [address]HP: 08/03/2018 Secondary ANABELA S [place] Insurance:MEDICAL ADKINSDOB: [facility] [id number] Hospital Number: Repository [id number] Date:9673-85-54ZD [address] [place] [address]LA: 08/03/2018 Tertiary NOT GIVENUNK [place] Insurance:SELF PAY [facility] Number: Effective Repository Date:2018-08-03 07/31/2018 ANABELA S Primary ANABELA S [place] [id number] Insurance:HUMANA ADKINSDOB: Community [facility] PPOPolicy [id number] [place] Number: Repository [address]Qta: 330 [id number] [phone] () Date:6015-66-73SX [address] [address]WE: 07/31/2018 Secondary ANABELA S [place] Insurance:MEDICAL ADKINSDOB: [facility] [id number] Hospital Number: Repository [id number] Date:0835-96-78FB[address] [address]BH: 07/31/2018 Tertiary NOT GIVENUNK [place] Insurance:SELF PAY [facility] Number: Effective Repository Date:2018-07-31 07/29/2018 ANABELA S Primary ANABELA S [place] [id number] Insurance:HUMANA ADKINSDOB: Community [facility] PPOPolicy [id number] [place] Number[place] Repository [address]Wym: 330 [id number] [phone] (HP) Date:9758-00-40HQ [address] [place] [address]NR: 07/29/2018 Secondary ANABELA S [place] Insurance:MEDICAL ADKINSDOB: [facility] [id number] Hospital Number: Repository [id number] Date:5675-08-41WZ [address] [address]PY: 07/29/2018 Tertiary NOT GIVENUNK [place] Insurance:SELF PAY [facility] Number: Effective Repository Date:2018-07-29 07/22/2018 ANABELA S Primary ANAEBLA S [place] [id number] Insurance:HUMANA ADKINSDOB: [facility] OPolicy [id number] [place] Number: Repository [address]Haz: 330 [id number] [phone] () Date:8061-65-95YF [address] [place] [address]YE: 07/22/2018 Secondary ANABELA S [place] Insurance:MEDICAL ADKINSDOB: [facility] [id number] Hospital Number: Repository [id number] Date:3792-20-40WN[address] [address]DJ: 07/22/2018 Tertiary NOT GIVENUNK [place] Insurance:SELF PAY [facility] Hospital Number: Effective Repository Date:2018-07-22 07/14/2018 ANABELA S Primary ANABELA S [place] [id number] Insurance:HUMANA ADKINSDOB: [facility] MEDICARE OPolicy [id number] [place] Number: Repository [address]Ibc: 330 [id number] [phone] () Date:9557-69-13ET[address] [address]RZ: 07/14/2018 Secondary ANABELA S [place] Insurance:MEDICAL ADKINSDOB: [facility] [id number] Hospital Number: Repository [id number] Date:2792-07-85CV[address] [address]CF: 07/14/2018 Tertiary NOT GIVENUNK [place] Insurance:SELF PAY [facility] Hospital Number: Effective Repository Date:2018-07-14 07/08/2018 ANABELA S Primary ANABELA S [place] [id number] Insurance:HUMANA ADKINSDOB: [facility] PPOPolicy [id number] [place] Number: Repository 330[address]Zhl: 330 [id number] [phone] (HP) Date:6239-53-79SX [address] [address]SD: 07/08/2018 Secondary ANABELA S [place] Insurance:MEDICAL ADKINSDOB: [facility] [id number] Hospital Number: Repository [id number] Date:7667-51-40YV [address] [address]GK: 07/08/2018 Tertiary NOT GIVENUNK [place] Insurance:SELF PAY [facility] Number: Effective Repository Date:2018-07-08 07/08/2018 ANABELA S Primary ANABELA S [place] [id number] Insurance:HUMANA ADKINSDOB: Community [facility] PPOPolicy [id number] [place] Repository [address]Afz: (330 [id number] [phone] (HP) Date:3748-01-44ZM [address] [address]GF: 07/08/2018 Secondary ANABELA S [place] Insurance:MEDICAL ADKINSDOB: [facility] [id number] Hospital Number: Repository [id number] Date:7215-01-80TV [address] [address]UD: 07/08/2018 Tertiary NOT GIVENUNK [place] Insurance:SELF PAY [facility] Number: Effective Repository Date:2018-07-08 07/06/2018 ANABELA S Primary ANABELA S [place] [id number] Insurance:HUMANA ADKINSDOB: Community [facility] MED[facility] PPOPolicy [id number] [place] Number: Repository [address]Wpy: 330 [id number] [phone] (HP) Date:6094-81-07RY [address] [address]GI: 07/06/2018 Secondary ANABELA S [place] Insurance:MEDICAL ADKINSDOB: [facility] [id number] Hospital Number: Repository [id number] Date:4625-54-40AA [address] [place] [address]JH: 07/06/2018 Tertiary NOT GIVENUNK [place] Insurance:SELF PAY [facility] Number: Effective Repository Date:2018-07-06 07/03/2018 ANBAELA S Primary ANABELA S [place] [id number] Insurance:HUMANA ADKINSDOB: Community [facility] MED[facility] PPOPolicy [id number] Repository [address]Pij: 330 [id number] [phone] () Date:9608-84-93XD [address] [address]PG: 07/03/2018 Secondary ANABELA S [place] Insurance:MEDICAL ADKINSDOB: [facility] [id number] Hospital Number: Repository [id number] Date:6696-53-13ZJ [address] [address]RN: 07/03/2018 Tertiary NOT GIVENUNK [place] Insurance:SELF PAY [facility] Number: Effective Repository Date:2018-07-03 07/02/2018 ANABELA S Primary ANABELA S [place] [id number] Insurance:HUMANA ADKINSDOB: Community [facility] MEDIC[facility] PPOPolicy [id number] [place] Number: Repository 36[address]Xqj: 330 [id number] [phone] (HP) Date:0669-74-46EQ [address] [place] [address]WJ: 07/02/2018 Secondary ANABELA S [place] Insurance:MEDICAL ADKINSDOB: [facility] [id number] Hospital Number: Repository [id number] Date:2725-93-57LN [address] [address]PQ: 07/02/2018 Tertiary NOT GIVENUNK [place] Insurance:SELF PAY [facility] Number: Effective Repository Date:2018-07-02 06/29/2018 ANABELA S Primary ANABELA S [place] [id number] Insurance:HUMANA ADKINSDOB: [facility] MEDICARE [facility] [id number] [place] Number: Repository [address]Euu: 330 [id number] [phone] () Date:1654-35-55QQ [address] [place] [address]HK: 06/29/2018 Secondary ANABELA S [place] Insurance:MEDICAL ADKINSDOB: [facility] [id number] Hospital Number: Repository [id number] Date:8983-17-50RI[address] [address]EQ: 06/29/2018 Tertiary NOT GIVENUNK [place] Insurance:SELF PAY [facility] Number: Effective Repository Date:2018-06-29 06/29/2018 ANABELA S Primary ANABELA S [place] [id number] Insurance:HUMANA ADKINSDOB: Community [facility] MEDIC[facility] PPOPolicy [id number] [place] Number[place] Repository [address]Hil: 330 [id number] [phone] () Date:3216-68-60HD[address] [address]XL: 06/29/2018 Secondary ANABELA S [place] Insurance:MEDICAL ADKINSDOB: [facility] [id number] Hospital Number: Repository [id number] Date:3444-32-38UA[address] [address]RQ: 06/29/2018 Tertiary NOT GIVENUNK [place] Insurance:SELF PAY [facility] Number: Effective Repository Date:2018-06-29 06/18/2018 ANABELA S Primary ANABELA S [place] [id number] Insurance:HUMANA ADKINSDOB: [facility] PPOPolicy [id number] [place] Repository [address]Sfj: 330 [id number] [phone] (HP) Date:1752-64-55BT[address] [address]CK: 06/18/2018 Secondary ANABELA S [place] Insurance:MEDICAL ADKINSDOB: [facility] [id number] Hospital Number: Repository [id number] Date:7706-38-41LD[address] [address]JU: 06/18/2018 Tertiary NOT GIVENUNK [place] Insurance:SELF PAY [facility] Number: Effective Repository Date:2018-06-18 06/10/2018 ANABELA S Primary ANABELA S [place] [id number] Insurance:HUMANA ADKINSDOB: Community [facility] MED[facility] PPOPolicy [id number] [place] Repository [address]Aeo: (330 [id number] [phone] (HP) Date:6663-42-20YM[address] [address]IU: 06/10/2018 Secondary ANABELA S [place] Insurance:MEDICAL ADKINSDOB: [facility] [id number] Hospital Number: Repository [id number] Date:3118-15-47UN[address] [address]SW: 06/10/2018 Tertiary NOT GIVENUNK [place] Insurance:SELF PAY [facility] Number: Effective Repository Date:2018-06-10 06/05/2018 ANABELA S Primary ANABELA S [place] [id number] Insurance:HUMANA ADKINSDOB: [facility] PPOPolicy [id number] [place]ository [address]Kfy: (330 [id number] [phone] (HP) Date:8371-56-30RM[address] [address]UO: 06/05/2018 Secondary ANABELA S [place] Insurance:MEDICAL ADKINSDOB: [facility] [id number] Hospital Number: Repository [id number] Date:4618-60-34CR[address] [address]KM: 06/05/2018 Tertiary NOT GIVENUNK [place] Insurance:SELF PAY [facility] Hospital Number: Effective Repository Date:2018-06-05 06/03/2018 ANABELA S Primary ANABELA S [place] [id number] Insurance:HUMANA ADKINSDOB: Community [facility] MEDIC[facility] PPOPolicy [id number] Repository [address]Oxy: 330 [id number] [phone] () Date:9056-75-76AJ [address] [address]XE: 06/03/2018 Secondary ANABELA S [place] Insurance:MEDICAL ADKINSDOB: [facility] [id number] Hospital Number: Repository [id number] Date:4367-67-97FH[address] [address]PS: 06/03/2018 Tertiary NOT GIVENUNK [place] Insurance:SELF PAY [facility] Number: Effective Repository Date:2018-06-03 05/29/2018 ANABELA S Primary ANABELA S [place] [id number] Insurance:HUMANA ADKINSDOB: Community [facility] MED[facility] PPOPolicy [id number] [place] Number[place] Repository [address]Urr: (330 [id number] [phone] () Date:6220-04-43JJ [address] [address]FM: 05/29/2018 Secondary ANABELA S [place] Insurance:MEDICAL ADKINSDOB: [facility] [id number] Hospital Number: Repository [id number] Date:1578-68-49KL[address] [address]PN: 05/29/2018 Tertiary NOT GIVENUNK [place] Insurance:SELF PAY [facility] Hospital Number: Effective Repository Date:2018-05-29 05/29/2018 ANABELA S Primary ANABELA S [place] [id number] Insurance:HUMANA ADKINSDOB: [facility] PPOPolicy [id number] [place] Number: Repository [address]Yta: 330 [id number] [phone] () Date:7684-04-28JH[address] [address]UX: 05/29/2018 Secondary ANABELA S [place] Insurance:MEDICAL ADKINSDOB: [facility] [id number] Hospital Number: Repository [id number] Date:1144-15-85TW[address] [address]HK: 05/29/2018 Tertiary NOT GIVENUNK [place] Insurance:SELF PAY [facility] Number: Effective Repository Date:2018-05-13 05/12/2018 ANABELA S Primary ANABELA S [place] [id number] Insurance:HUMANA ADKINSDOB: Community [facility] MEDIC[facility] PPOPolicy [id number] [place]ository [address]Ory: 330 [id number] [phone] () Date:3350-90-26VJ [address] [address]GM: 05/12/2018 Secondary ANABELA S [place] Insurance:MEDICAL ADKINSDOB: [facility] [id number] Hospital Number: Repository [id number] Date:3668-73-80TB [address] [address]PE: 05/12/2018 Tertiary NOT GIVENUNK [place] Insurance:SELF PAY [facility] Number: Effective Repository Date:2018-05-06 05/06/2018 ANABELA S Primary ANABELA S [place] [id number] Insurance:HUMANA ADKINSDOB: [facility] PPOPolicy [id number] [place]ository [address]Yyb: (330 [id number] [phone]) Date:3048-13-11RK [address] [address]TB: 05/06/2018 Secondary ANABELA S [place] Insurance:MEDICAL ADKINSDOB: [facility] [id number] Hospital Number: Repository [id number] Date:6623-06-28PH [address] [address]FP: 05/06/2018 Tertiary NOT GIVENUNK [place] Insurance:SELF PAY [facility] Hospital Number: Effective Repository Date:2018-05-06 04/29/2018 ANABELA S Primary ANABELA S [place] [id number] Insurance:HUMANA ADKINSDOB: Community [facility] MEDICARE PPOPolicy [id number] [place]ository [address]Onl: (330 [id number] [phone] Date:6940-49-87OE [address]4601WP: 04/29/2018 Secondary ANABELA S [place] Insurance:MEDICAL ADKINSDOB: [facility] [id number] Hospital Number: Repository [id number] Date:2666-41-51AV [address] [address]YR: 04/29/2018 Tertiary NOT GIVENUNK [place] Insurance:SELF PAY [facility] Hospital Number: Effective Repository Date:2018-04-29 04/29/2018 ANABELA S Primary ANABELA S [place] [id number] Insurance:HUMANA ADKINSDOB: Community [facility] MEDICARE PPOPolicy [id number] [place]ository [id number]: (330 [id number] [phone]) Date:8173-41-56XG [address] [address]HD: 04/29/2018 Secondary ANABELA S [place] Insurance:MEDICAL ADKINSDOB: [facility] [id number] Hospital Number: Repository [id number] Date:9621-86-05FV [address] [place] [address]IT: 04/29/2018 Tertiary NOT GIVENUNK [place] Insurance:SELF PAY [facility] Number: Effective Repository Date:2018-04-29 04/21/2018 ANABELA S Primary ANABELA S [place] [id number] Insurance:HUMANA ADKINSDOB: Community [facility] MEDIC[facility] PPOPolicy [id number] [place] Number[place]ository [address]Dbd: 330 [id number] [phone] () Date:2392-65-96GC [address] [place] [address]SA: 04/21/2018 Secondary ANABELA S [place] Insurance:MEDICAL ADKINSDOB: [facility] [id number] Hospital Number: Repository [id number] Date:5687-27-13SI [address] [address]PR: 04/21/2018 Tertiary NOT GIVENUNK [place] Insurance:SELF PAY [facility] Number: Effective Repository Date:2018-04-16 04/15/2018 ANABELA S Primary ANABELA S [place] [id number] Insurance:HUMANA ADKINSDOB: Community [facility] MED[facility] PPOPolicy [id number] [place]ository [address]Ubw: 330 [id number] [phone] () Date:5229-75-63WX [address] [place] [address]HG: 04/15/2018 Secondary ANABELA S [place] Insurance:MEDICAL ADKINSDOB: [facility] [id number] Hospital Number: Repository [id number] Date:6894-20-57TO [address] [address]ZD: 04/15/2018 Tertiary NOT GIVENUNK [place] Insurance:SELF PAY [facility] Number: Effective Repository Date:2018-04-14 04/13/2018 ANABELA S Primary ANABELA S [place] [id number] Insurance:HUMANA ADKINSDOB: Community [facility] MED[facility] PPOPolicy [id number] [place]ository [address]Ync: 330 [id number] [phone] (HP) Date:7476-53-48MD [address] [place] [address]DG: 04/13/2018 Secondary ANABELA S [place] Insurance:MEDICAL ADKINSDOB: [facility] [id number] Hospital Number: Repository [id number] Date:6794-84-45KX [address] [place] [address]VO: 04/13/2018 Tertiary NOT GIVENUNK [place] Insurance:SELF PAY [facility] Number: Effective Repository Date:2018-03-27 04/08/2018 ANABELA S Primary ANABELA S [place] [id number] Insurance:HUMANA ADKINSDOB: [facility] MEDIC[facility] PPOPolicy [id number] [place] Number[place] Repository [address]Cpu: 330 [id number] [phone] () Date:[id number] [address] [place] [id number]: 04/08/2018 Secondary ANABELA S [place] Insurance:MEDICAL ADKINSDOB: [facility] [id number] Number: Repository [id number] Date:[id number] [address] [id number]: 04/08/2018 Tertiary NOT GIVENUNK [place] Insurance:SELF PAY [facility] Number: Effective Repository Date:2018-04-08 01/12/2018 ANABELA S Primary ANABELA S [place] [id number] Insurance:HUMANA ADKINSDOB: Community [facility] PPOPolicy [id number]: Repository [id number]: [id number] [phone] Date:6934-32-04YS [address] (HP) [id number] [place] [address]WQ: 01/12/2018 Secondary ANABELA S [place] Insurance:MEDICAL ADKINSDOB: [facility] [id number] Hospital Number: Repository [id number] Date:1565-43-07PZ [address] [place] [address]OG: 01/12/2018 Tertiary NOT GIVENUNK [place] Insurance:SELF PAY [facility] Number: Effective Repository Date:2018-01-12 01/05/2018 ANABELA S Primary ANABELA S [place] [id number] Insurance:HUMANA ADKINSDOB: [facility] MEDICARE PPOPolicy [id number] Number[place] Repository [id number]: [id number] [phone] Date:8239-82-16OY [address] -[address] () [address] [place] [address]NQ: 01/05/2018 Secondary ANABELA S [place] Insurance:MEDICAL ADKINSDOB: [facility] 1993-06-15MPW Hospital Number: Repository [id number] Date:4992-25-14VE [address] [address]ZH: 01/05/2018 Tertiary NOT GIVENUNK [place] Insurance:SELF PAY [facility] Number: Effective Repository Date:2018-01-05 12/12/2017 ANABELA S Primary ANABELA S [place] [id number] Insurance:HUMANA ADKINSDOB: [facility] MEDICARE PPOPolicy [id number] Number[place] Repository [id number]: [id number] [phone] Date:5400-23-03UU [address] (HP) [id number] [place] [address]TY: 12/12/2017 Secondary ANABELA S [place] Insurance:MEDICAL ADKINSDOB: [facility] [id number] Hospital Number: Repository [id number] Date:0421-60-64NL [address] [address]KU: 12/12/2017 Tertiary NOT GIVENUNK [place] Insurance:SELF PAY [facility] Number: Effective Repository Date:2017-06-13 12/12/2017 ANABELA S Primary ANABELA S [place] [id number] Insurance:HUMANA ADKINSDOB: [facility] MEDICARE PPOPolicy [id number] Repository [id number]: [id number] [phone] Date:8235-76-18RG B[address] -[address] () [address] [place] [address]WS: 12/12/2017 Secondary ANABELA S [place] Insurance:MEDICAL ADKINSDOB: [facility] [id number] Hospital Number: Repository [id number] Date:9960-05-49FB[address] [address]TS: 12/12/2017 Tertiary NOT GIVENUNK [place] Insurance:SELF PAY [facility] Number: Effective Repository Date:2017-08-04 12/09/2017 Anabela S Primary Anabela S [place] [id number] Insurance:HUMANA AdkinsDOB: [facility] MEDICARE PPOPolicy [id number] Number[place] Repository [address]Ntw: [id number] [phone] Date:7773-13-40YN B[address] -[address] () [id number] [place] [address]TI: 12/09/2017 Secondary Anabela S [place] Insurance:MEDICAL AdkinsDOB: [facility] [id number] Hospital Number: Repository [id number] Date:3399-14-77TM [address] [address]TG: 12/09/2017 Tertiary NOT GIVENUNK [place] Insurance:SELF PAY [facility] Number: Effective Repository Date:2017-12-09 12/08/2017 Anabela S Primary Anabela S [place] [id number] Insurance:HUMANA AdkinsDOB: [facility] MEDICARE PPOPolicy [id number] Number[place] Repository [id number]: [id number] [phone] Date:9318-36-91VX B[address] -[address] () [address] [place] [address]TE: 12/08/2017 Secondary Anabela S [place] Insurance:MEDICAL AdkinsDOB: [facility] [id number] Hospital Number: Repository [id number] Date:8472-03-20VO [address] [address]OS: 12/08/2017 Tertiary NOT GIVENUNK [place] Insurance:SELF PAY [facility] Number: Effective Repository Date:2017-12-08 12/05/2017 Anabela S Primary Anabela S [place] [id number] Insurance:HUMANA AdkinsDOB: [facility] MEDICARE PPOPolicy [id number] Number: Repository [id number]: [id number] [phone] Date:7831-66-84ST B[address] -[address] () [address] [place] [address]XR: 12/05/2017 Secondary Anabela S [place] Insurance:MEDICAL AdkinsDOB: [facility] [id number] Hospital Number: Repository [id number] Date:1031-38-66PN [address] [address]ZE: 12/05/2017 Tertiary NOT GIVENUNK [place] Insurance:SELF PAY [facility] Number: Effective Repository Date:2017-12-05 10/06/2017 Anabela S Primary Anabela S [place] [id number] Insurance:HUMANA AdkinsDOB: [facility] MEDICARE PPOPolicy [id number] Number[place] Repository [phone]: [id number] [phone] Date:4853-29-60YT B[address] -[address] ) [place], [place] [address]AD: 10/06/2017 Secondary Anabela S [place] Insurance:MEDICAL AdkinsDOB: [facility] [id number] Hospital Number: Repository [id number] Date:5717-97-50[address], [place] [address]AD: 10/06/2017 Tertiary NOT GIVENUNK [place] Insurance:SELF PAY [facility] Number: Effective Repository Date:2017-10-06
== END ==
PROVIDERS: Family Provider Family Medicine Geriatric Medicine; PCP Family Medicine Geriatric Medicine; Referring Provider Internal Medicine Medical Oncology; Visit Provider Internal Medicine Medical Oncology
DX: Z01.812 Encounter for preprocedural laboratory examination (principal); C50.412 Malignant neoplasm of upper-outer quadrant of left female breast
CPT/HCPCS: 71260; 74177; Q9967

== ENCOUNTER → 2018-09-23 07:58 | Outpatient (CLI) | payer MEDICARE, OTHER, SELFPAY ==
[2018-06-18 09:52] VITALS: BMI 29.3
[2018-08-03 10:37] VITALS: BMI 29.1
--- NOTE | 2018-09-23 07:59 | NM_ITS ---
CLINICAL: 77-year-old female with reported history of carcinoma of the breast. WHOLE BODY 99m Tc MDP RADIONUCLIDE BONE SCINTIGRAPHY COMPARISON: CT of the chest, abdomen and pelvis reports 09/16/2018 FINDINGS: Following the intravenous administration of 25.6 mCi of 99m Tc MDP, whole body bone images reveal: 1. Increased radiopharmaceutical concentration is identified in the 12th thoracic vertebra posteriorly, mid cervical spine posteriorly on the right, lower cervical spine posteriorly on the left, seventh thoracic vertebra posteriorly on the left and right, left elbow, second-fifth lumbar vertebra, left wrist, bilateral hands, the knees bilaterally, the left midfoot and right forefoot. 3. The remaining skeletal structures are scintigraphically unremarkable with normal-appearing renal images and urinary bladder activity identified. An increase in tracer concentration appears evident in the trochanteric and distal femoral components of the bilateral (L > R) presumably asymptomatic hip arthroplasties, most consistent with normal postsurgical change. NM/Bone Scan Whole Body IMPRESSION: 1. The increase in radiopharmaceutical concentration identified in the cervical, thoracic and lumbar spine, left elbow, left wrist, right-left hands, both the articulations, the left midfoot and right forefoot. 2. There is no definitive typical scintigraphic evidence of skeletal metastatic disease on the current examination. Electronically Signed: Clement Peters DO at 10:20 EST Tel , Service support ,
== END ==
PROVIDERS: Family Provider Family Medicine Geriatric Medicine; PCP Family Medicine Geriatric Medicine; Referring Provider Internal Medicine Medical Oncology; Visit Provider Internal Medicine Medical Oncology
DX: C50.412 Malignant neoplasm of upper-outer quadrant of left female breast (principal)
CPT/HCPCS: 78306

== ENCOUNTER → 2018-10-06 07:08 | Outpatient (CLI) | payer MEDICARE, OTHER, SELFPAY ==
[2018-06-18 09:52] VITALS: BMI 29.3
[2018-09-28 10:25] VITALS: BMI 29.2
--- NOTE | 2018-10-06 07:09 | CT_ITS ---
STUDY: CT ABDOMEN AND PELVIS WITH CONTRAST REASON FOR EXAM: Female, 77 years old. Hydronephrosis versus peripelvic cysts RADIATION DOSAGE (If Supplied By Facility): CTDIvol = ( 15.62 ) mGy, DLP = ( 990.59 ) mGycm TECHNIQUE: Transaxial images were obtained from the dome of the diaphragm to the symphysis pubis without oral contrast, and without intravenous contrast. Sagittal and coronal images were reconstructed. Individualized dose optimization techniques were used for this CT. COMPARISON: Previous study of 09/16/2018 FINDINGS: The visualized lung bases are unremarkable. The heart size is within normal limits. Cardiac valvular calcifications are noted. Normal liver. Normal gallbladder and extrahepatic biliary system. Normal spleen. Normal pancreas. Normal bilateral adrenal glands. There again appears to be bilateral parapelvic cysts versus (less likely) mild hydronephroses. Apparently delayed images of the kidneys were not obtained, which would clearly differentiate the difference. Normal visualized stomach. Normal small intestine. There is colonic diverticulosis with no evidence of associated diverticulitis. The appendix is visualized and appears normal. There are calcified plaques of the abdominal aorta. Normal inferior vena cava. Normal retroperitoneum. Evaluation of pelvic anatomy is limited due to scanning artifact caused by bilateral hip implants. There is absence of the uterus consistent with a prior hysterectomy. Normal abdominal wall. Total bilateral hip replacements are noted. There are severe degenerative changes of the visualized thoracolumbar spine. Status post sternotomy changes are seen. There are status post surgical and/or radiation changes of the left breast with diffuse left breast skin thickening and diffusely increased density of the left breast parenchyma relative to the right. There is a probable seroma of the deep lateral aspect of the left breast measuring 3.[address]/Abdomen/Pelvis W IV Cont ONLY IMPRESSION: 1. There again appear to be bilateral renal parapelvic cysts versus (less likely) mild hydronephrosis. Unfortunately it appears that delayed images of the kidneys were not obtained, which would have confirmed the diagnosis. The study appears similar to the previous one of 09/16/2018. 2. Colonic diverticulosis with no evidence of associated diverticulitis. 3. Evaluation of pelvic anatomy is limited due to scanning artifact caused by bilateral hip implants. 4. Status post hysterectomy. 5. Severe degenerative changes of the visualized thoracolumbar spine. 6. Status post surgical and/or radiation changes of the left breast with diffuse left breast skin thickening and diffusely increased density of the left breast parenchyma relative to the right. 7. There is a probable seroma of the deep lateral aspect of left breast measuring 3.5 x 1.3 cm. This was not seen on the previous study. Electronically Signed: Arjun Manuel MD at 23:58 EST , Service support ,
== END ==
PROVIDERS: Family Provider Family Medicine Geriatric Medicine; PCP Family Medicine Geriatric Medicine; Referring Provider Urology; Visit Provider Urology
DX: N13.30 Unspecified hydronephrosis (principal)
CPT/HCPCS: 74177; Q9967

== ENCOUNTER → 2018-10-09 12:42 | Outpatient (CLI) | payer SELFPAY ==
[2018-06-18 09:52] VITALS: BMI 29.3
[2018-09-28 10:25] VITALS: BMI 29.2
--- NOTE | 2018-10-09 12:49 | CT_ITS ---
STUDY: CT ABDOMEN AND PELVIS WITH CONTRAST REASON FOR EXAM: Female, 77 years old. Assessment for possible hydronephrosis or parapelvic cysts. RADIATION DOSAGE (If Supplied By Facility): CTDIvol = ( 23.82 ) mGy, DLP = ( 1121.86 ) mGycm TECHNIQUE: Transaxial images were obtained from the dome of the diaphragm to the symphysis pubis without oral contrast. Isovue 300 100 IV was administered. Sagittal and coronal images were reconstructed. Individualized dose optimization techniques were used for this CT. COMPARISON: Comparison is made with prior study dated July 06, 2019 and 2018. FINDINGS: There is evidence of bilateral parapelvic renal cysts. Bilateral extrarenal pelves. CT/Abdomen/Pelvis WITH Contrast IMPRESSION: Bilateral parapelvic cysts and extrarenal pelves. Electronically Signed: Bryce Graham MD at 14:25 EST , Service support ,
== END ==
PROVIDERS: Family Provider Family Medicine Geriatric Medicine; PCP Family Medicine Geriatric Medicine; Referring Provider Urology; Visit Provider Urology
DX: N94.89 Other specified conditions associated with female genital organs and menstrual cycle (principal)
CPT/HCPCS: 74177

== ENCOUNTER → 2019-01-07 11:12 | Outpatient (CLI) | payer MEDICARE, OTHER, SELFPAY ==
[2018-06-18 09:52] VITALS: BMI 29.3
[2018-11-23 13:34] VITALS: BMI 29.5
[2019-01-07 12:46] LABS: Absolute Lymphocyte Count 1.55 X10^3/ul (0.83-4.51); Absolute Neutrophil Count 3.8 X10^3/uL (2.0-7.7); Basophil# 0.02 X10^3/uL; Basophil% 0.3 % (0-1); Eosinophils% 1.6 % (0-5); Hematocrit 37.7 % (37-47); Lymphocyte # 1.55 X10^3/ul (4.0); Lymphocyte % 25.4 % (19-41); Mean Corp Hgb Conc 31.8 g/gl (32-36); Mean Corpuscular Hgb 29.7 pg (27.0-32.0); Mean Corpuscular Volume 93.3 fL (81-99); Mean Platelet Vol. 11.4 fl (6.2-12.0); Monocyte# 0.59 X10^3/uL; Monocyte% 9.7 % (0-10); Neutrophil # 3.83 X10^3/uL (2.7-7.7); Neutrophil % 62.7 % (47-70); POSITIVE COUNT NO; POSITIVE DIFFERENTIAL NO; POSITIVE MORPHOLOGY NO; Platelet Count 220 K/mm3 (150-450); RBC Distribution Width CV 15.1 % (11.6-14.6); RBC Distribution Width SD 50.2 fl (35.1-43.9); Red Blood Count 4.04 M/mm3 (4.2-5.4); White Blood Count 6.1 K/mm3 (4.4-11.0)
[2019-01-07 13:03] LABS: Vitamin D,25 Hydroxy 23.4 ng/mL (29.95-100.01)
[2019-01-07 13:13] LABS: ALB/GLOB Ratio 1.1 RATIO (0.9-2.4); AST(SGOT) 27 U/L (15-37); Alanine Aminotransfer ALT/SGPT 30 U/L (13-56); Albumin, Serum 3.9 g/dL (3.2-5.0); Alkaline Phosphatase 40 U/L (45-117); Anion Gap 5 (5-15); BUN 14 mg/dL (7-18); BUN/Creat Ratio 17.8 RATIO (10-20); Calcium,Total 8.9 mg/dL (8.5-10.1); Chloride 107 mmol/L (98-107); Cholesterol 171 mg/dL (200); Creatinine, Serum 0.79 mg/dL (0.55-1.02); EST Glomerular Filtration Rate 75 mL/min (>60); Est Glom Filt Rate - Afr Amer 91 mL/min (>60); Globulin 3.5 g/dL (2.2-4.2); Glucose 84 mg/dL (74-106); High Density Lipoprotein 40 mg/dL; Potassium 3.9 mmol/L (3.5-5.1); Protein, Total 7.4 g/dL (6.4-8.2); Sodium Level 140 mmol/L (136-145); Thyroid Stim Hormone (TSH) 2.53 uIU/mL (0.358-3.74); Triglycerides 210 mg/dL; Very Low Density Lipoprotein 42 mg/dL (5-40)
== END ==
PROVIDERS: Family Provider Family Medicine Geriatric Medicine; PCP Family Medicine Geriatric Medicine; Visit Provider Family Medicine Geriatric Medicine
DX: E55.9 Vitamin D deficiency, unspecified (principal); I10 Essential (primary) hypertension; E78.5 Hyperlipidemia, unspecified
CPT/HCPCS: 36415; 80053; 80061; 82306; 84443; 85025

== ENCOUNTER → 2019-04-14 09:46 | Outpatient (CLI) | payer MEDICARE, OTHER, SELFPAY ==
[2018-06-18 09:52] VITALS: BMI 29.3
[2019-02-08 10:55] VITALS: BMI 29.8
--- NOTE | 2019-04-14 09:54 | BI_ITS ---
MAMMOGRAPHY - BILATERAL SCREENING 3-D TOMOSYNTHESIS REASON FOR EXAM: Female, 78 years old. Bilateral Screening 3-D tomosynthesis PERTINENT HISTORY: 2 sisters with breast cancer.. TECHNIQUE: 2-D mammograms and 3-D Tomosynthesis of the breast (s) were performed. CAD was performed. COMPARISON: 05/29/2018, 04/15/2018, 04/13/2018, 09/20/2015. FINDINGS: The breast composition is composed of scattered fibroglandular density. A focal prominence is noted on the right along the upper outer quadrant, about 5.9 cm from the nipple on the MLO view, with mild spiculated appearance. Further assessment of this focus with spot compression mammogram and if persistent with sonogram is recommended as follow-up. Scattered benign calcifications are seen. No other focus of dense spiculated masses or suspicious microcalcifications are identified. No architectural distortion is identified. There is no skin thickening or retraction. BI/SCREEN MAMM (CAD) W/CARLIE BILAT IMPRESSION: A focal prominence is noted on the right along the upper outer quadrant, about 5.9 cm from the nipple on the MLO view, with mild spiculated appearance. Further assessment of this focus with spot compression mammogram and if persistent with sonogram is recommended as follow-up. ASSESSMENT CATEGORY: BIRADS Category 0: Incomplete. Need additional imaging evaluation as above. A letter regarding these results will be sent to the patient by the facility within 30 days. FOLLOW UP RECOMMENDATION: Additional imaging recommended as above. (E) Approximately 10% of breast cancers are not detected by mammography. A normal mammogram should not delay biopsy of a clinically suspicious abnormality. Electronically Signed: Fredrick Mars MD at 16:08 EDT Tel [phone], Service support ,
== END ==
PROVIDERS: Family Provider Family Medicine Geriatric Medicine; PCP Family Medicine Geriatric Medicine; Referring Provider Internal Medicine Medical Oncology; Visit Provider Internal Medicine Medical Oncology
DX: Z12.31 Encounter for screening mammogram for malignant neoplasm of breast (principal); Z80.3 Family history of malignant neoplasm of breast
CPT/HCPCS: 77063; 77067

== ENCOUNTER → 2019-04-20 13:58 | Outpatient (CLI) | payer MEDICARE, OTHER, SELFPAY ==
[2018-06-18 09:52] VITALS: BMI 29.3
[2019-02-08 10:55] VITALS: BMI 29.8
--- NOTE | 2019-04-20 14:03 | BI_ITS ---
MAMMOGRAPHY - UNILATERAL DIAGNOSTIC: RIGHT BREAST REASON FOR EXAM: Female, 78 years old. Abnormal screening mammogram. PERTINENT HISTORY: Personal history of breast cancer. TECHNIQUE: Compression spot views of the right breast were obtained in the mediolateral oblique and craniocaudad views. CAD: Full Field Digital Mammography with Computer Added Detection was performed. COMPARISON: Comparison is made with prior examination dated April 14, 2019. FINDINGS: Breast Composition: There are scattered areas of fibroglandular density. Persistent area of architectural distortion is seen in the upper central portion of the right breast. Correlation with ultrasound is recommended. No other significant abnormalities are identified. BI/DIAG MAMM W/CAD, UNILAT IMPRESSION: Persistent architectural distortion in the breast as described. Ultrasound is recommended for further evaluation. ASSESSMENT CATEGORY: BIRADS Category 0: Incomplete. Need additional imaging evaluation. A letter regarding these results will be sent to the patient by the facility within 30 days. Approximately 10% of breast cancers are not detected by mammography. A normal mammogram should not delay biopsy of a clinically suspicious abnormality. Electronically Signed: Bryce Graham, at 15:15 EDT , Service support ,
--- NOTE | 2019-04-20 14:04 | US_ITS ---
STUDY: ULTRASOUND BREAST - RIGHT REASON FOR EXAM: Female, 78 years old. Abnormal screening mammogram. History of prior left breast carcinoma and lumpectomy. TECHNIQUE: Axial and longitudinal images of the RIGHT breast were performed with a high resolution ultrasound transducer. COMPARISON: Comparison is made with prior mammogram done earlier in the day as well as April 14, 2019. FINDINGS: RIGHT Breast: The mammographic abnormality corresponds to a 1.3 cm x 1.2 cm x 2 cm spiculated nodule with posterior acoustical shadowing. This is at the 12:00 position of the breast at 4 cm from the nipple a biopsy is recommended for further evaluation. US/Breast Limited Unilateral IMPRESSION: 1.3 cm x 1.2 cm x 2 signed a spiculated nodule at the 12:00 position of the breast at 4 cm from the nipple. A biopsy recommended. ASSESSMENT CATEGORY: BIRADS Category 4: Suspicious - Biopsy Should Be Considered. A letter regarding these results will be sent to the patient by the facility within 30 days. Electronically Signed: Bryce Graham, at 15:10 EDT , Service support ,
== END ==
PROVIDERS: Family Provider Family Medicine Geriatric Medicine; PCP Family Medicine Geriatric Medicine; Referring Provider Internal Medicine Medical Oncology; Visit Provider Internal Medicine Medical Oncology
DX: R92.8 Other abnormal and inconclusive findings on diagnostic imaging of breast (principal)
CPT/HCPCS: 76642; 77065

== ENCOUNTER → 2019-04-27 15:38 | Outpatient (CLI) | payer MEDICARE, OTHER, SELFPAY ==
[2018-06-18 09:52] VITALS: BMI 29.3
--- NOTE | 2019-04-27 | IMM_PTH ---
PATIENT: ANABELA CAMARA LOC: [facility] U#:[id number] AGE/SX: 84/F ROOM: RE04/27/[address]: Dr. Terry Santana MD : 1940 BED: DIS: SPEC #: [id number] RECD: 04/29/19 10:28 STATUS: XIMENA REQ #: [id number] NIKA: 04/27/19 00:[address]: Terry Santana DEPT: IMMUNOHISTOCHEMISTRY RECD BY: Tayla Medrano ENTERED: 04/29/19 10:29 SP TYPE: IMMUNO OTHR DR: Dr. Marco Antonio Arevalo MD Tissues: Right breast, NOS Procedures: CALPONIN-1 (add) CK5-6 (add) CK8 (add) E-CAD (add) HER2 PARAG (add) KI-67 (add) P53 (add) SD (add) P40 (add) ER (initial) PHYSICIAN & INSTITUTION [address] [address] SPECIMEN INFORMATION: Tissue Source: Right breast Clinical Info: Abnormal mammogram; let breast cancer Specimen Number: [id number] CPT code: 47300, 35246 x6, 74578 x3 METHODOLOGY: Deparaffinized sections of prefer/formalin-fixed tissue or PAP/DQ stained slides are incubated with monoclonal/polyclonal antibodies/oligonucleotide probes. Localization is made via biotin free immunoperoxidase method. Appropriate controls are performed and reacted as expected. Results on target cell population are indicated in the following table: RESULTS: ANTIBODY / CLONE RESULT P53 (DO-7) positive, 5% dim Ki-67 (30-9) positive, low CK8 (02yozhQ58) positive CK5-6 (D5 & 1684) negative Calponin-1 (XH678F) negative P40 (BC28) negative E-Cad (ECH-6) positive MORPHOMETRIC ANALYSIS ER (clone 6F11) >95%, strong intensity SD (clone 16/1E2) >95%, strong intensity Her-2Neu (clone CB11) 0 The prognostic test for HER2 is performed on formalin-fixed paraffin embedded tissue. A 3+ (positive) staining pattern is defined as intense, homogeneous, complete, circumferential membranous staining in >10% of contiguous tumor cells. A similar weak (2+) staining pattern is interpreted as equivocal. MARSHA follow-up testing is recommended for all equivocal cases. Positivity/negativity for ER/SD is reported if > or < 1% of the tumor cells are immuno- reactive, respectively. The ASCO/CAP criteria is used for scoring. Reference: Journal of Clinical Oncology, 2013; 31:2470-7399 & 2010; 16:9101-9952. Duration of fixation: 28 Hrs; Sample Adequate: Yes. These assays have not been validated on decalcified tissues. Results should be interpreted with caution given the likelihood of false negativity on decalcified specimens. These tests were developed and their performance characteristics determined by [facility]. They may not have been cleared or approved by the U.S. Food and Drug Administration. The FDA has determined that such clearance or approval is not necessary. INTERPRETATION: Right breast, ultrasound-guided needle core biopsy: Invasive ductal carcinoma, nuclear grade I. Positive for estrogen receptors (favorable prognostic indicator). Positive for progesterone receptors (favorable prognostic indicator). Negative for overexpression of CHM2gje. AM:wojciech 04/29/19
[2019-04-27 15:02] VITALS: BMI 29.8
--- NOTE | 2019-04-27 15:10 | BRBX_PTH ---
PATIENT: ANABELA CAMARA LOC: [facility] U#:[id number] AGE/SX: 84/F ROOM: RE04/27/[address]: Dr. Terry Santana MD : 1940 BED: DIS: SPEC #: [id number] RECD: 04/27/19 15:30 STATUS: XIMENA REDarion #: [id number] NIKA: 04/27/19 15:[address]: Terry Santana DEPT: SURGICAL PATHOLOGY RECD BY: Laurel Mitchell ENTERED: 04/28/19 11:11 SP TYPE: BREAST BX OTHR DR: MD Dr. Marco Antonio Monae Chi, MD Tissues: Right breast, NOS Procedures: Surgery Specimen Level IV HEADER OPERATION: Ultrasound guided needle core biopsy right breast PRE-OP DIAGNOSIS: Abnormal mammogram R92.8, previous left breast cancer TISSUE SUBMITTED: Right breast biopsy ISCHEMIC TIME: >1 minute FIXATION TIME: 28 hours MICROSCOPIC DIAGNOSIS Right breast, ultrasound-guided core biopsy: Invasive ductal carcinoma with the following characteristics: Maximal length - 7 mm Nuclear grade - 08/27 AM:wojciech 04/29/19 COMMENT ER/RI/Swl6eym studies are being performed on sections of tumor and the results from this study will be reported separately ([id number]). Case has been reviewed in consultation with Dr. Guzmán who concurs with the above diagnosis. IDC:SJ MICROSCOPIC DESCRIPTION Slides are reviewed. GROSS DESCRIPTION Received in fixative is one container labeled with the patient's name and designated right breast biopsy. The specimen consists of multiple irregular and elongated fragments of good-yellow soft tissue that in aggregate measure 1.2 x 0.5 x <0.1 cm. The specimen is submitted in its entirety in one cassette. / AM:wojciech 04/28/19 TC:0 CPT: 89127
== END ==
PROVIDERS: Family Provider Family Medicine Geriatric Medicine; PCP Family Medicine Geriatric Medicine; Referring Provider Surgery; Visit Provider Surgery
DX: C50.911 Malignant neoplasm of unspecified site of right female breast (principal); R92.8 Other abnormal and inconclusive findings on diagnostic imaging of breast; Z85.3 Personal history of malignant neoplasm of breast
CPT/HCPCS: 88305; 88341; 88342

== ENCOUNTER 2019-05-07 09:20 | Day surgery (SDC) | payer MEDICARE, OTHER, SELFPAY ==
[2018-06-18 09:52] VITALS: BMI 29.3
[2019-05-04 09:02] VITALS: BMI 29.8
[2019-05-07] VITALS (14 sets, daily range): BP systolic 128–145; BP diastolic 54–72; PULSE 16–73; RESP 16; TEMP 36.1–36.9; O2SAT 88–100; BMI 28.6; BMI 28.9
--- NOTE | 2019-05-07 | IMM_PTH ---
PATIENT: ANABELA CAMARA [place] [facility] [place][id number] AGE/SX: 78/F ROOM: RE05/07/[address]: Dr. Terry Santana MD : 1940 BED: DIS: 05/08/2019 SPEC #: [id number] RECD: 05/13/19 13:57 STATUS: XIMENA REQ #: [id number] NIKA: 05/07/19 00:[address]: Terry Santana DEPT: IMMUNOHISTOCHEMISTRY RECD BY: Tayla Medrano ENTERED: 05/13/19 13:58 SP TYPE: IMMUNO OTHR DR: Dr. Marco Antonio Arevalo MD Tissues: A - Axillary lymph node, NOS Procedures: CK7 (add) Pankeratin (initial) Pankeratin (add) PHYSICIAN & INSTITUTION [place] [id number] SPECIMEN INFORMATION: Tissue Source: A - Right maxillary sentinel lymph nodes Clinical Info: Malignant neoplasm of upper outer quadrant right breast, ER positive Specimen Number: [id number] A1-A4 CPT code: 68032, 08634 x7 METHODOLOGY: Deparaffinized sections of prefer/formalin-fixed tissue or PAP/DQ stained slides are incubated with monoclonal/polyclonal antibodies/oligonucleotide probes. Localization is made via biotin free immunoperoxidase method. Appropriate controls are performed and reacted as expected. Results on target cell population are indicated in the following table: RESULTS: ANTIBODY / CLONE RESULT Block A1 AE1-3 (AE1/AE3/PCK26) negative CK7 (OV-TL12/30) negative Block A2 AE1-3 (AE1/AE3/PCK26) negative CK7 (OV-TL12/30) negative Block A3 AE1-3 (AE1/AE3/PCK26) negative CK7 (OV-TL12/30) negative Block A4 AE1-3 (AE1/AE3/PCK26) negative CK7 (OV-TL12/30) negative These tests were developed and their performance characteristics determined by [facility]. They may not have been cleared or approved by the U.S. Food and Drug Administration. The FDA has determined that such clearance or approval is not necessary. INTERPRETATION: A. Right maxillary sentinel lymph nodes, biopsy: Four out of four lymph nodes, negative for metastatic carcinoma. SJ:wojciech 05/14/19
--- NOTE | 2019-05-07 | AXNB_PTH ---
PATIENT: ANABELA CAMARA [place] [facility] [place][id number] AGE/SX: 78/F ROOM: RE05/07/[address]: Dr. Terry Santana MD : 1940 BED: DIS: 05/08/2019 SPEC #: [id number] RECD: 05/07/19 12:58 STATUS: XIMENA REDarion #: [id number] NIKA: 05/07/19 00:[address]: Terry Santana DEPT: SURGICAL PATHOLOGY RECD BY: Tayla Medrano ENTERED: 05/07/19 13:28 SP TYPE: AX NODE BX OTHR DR: Dr. Marco Antonio Arevalo MD Tissues: A - Axillary lymph node, NOS B - Right breast, NOS Procedures: Frozen Section (charge) Surgery Specimen Level IV Surgery Specimen Level V HEADER OPERATION: Ultrasound-guided wire localization lumpectomy with sentinel lymph node biopsy PRE-OP DIAGNOSIS: Malignant neoplasm of upper outer quadrant right breast; ER positive TISSUE SUBMITTED: A - Right axillary sentinel lymph nodes, frozen section, B - Right breast tissue, double long suture - medial, single long suture - inferior, double short suture - cephalad, blue dye anterior to skin FROZEN SECTION DIAGNOSIS A. [place] lymph nodes, right axillary: Four out of four lymph nodes, negative for metastatic carcinoma. SJ: 05/07/19 MICROSCOPIC DIAGNOSIS A. [place] lymph nodes, right axillary, biopsy: Four out of four lymph nodes, negative for metastatic carcinoma. See comment. B. Right breast tissue, lumpectomy: Invasive ductal carcinoma. See cancer summary below. SJ: 05/13/19 INVASIVE BREAST CANCER SUMMARY: Specimen - partial breast Procedure - excision with wire-guided localization Lymph node sampling - sentinel lymph nodes Specimen integrity - single intact specimen Specimen size - 7 x 7 x 3 cm Specimen laterality - right Tumor site - upper outer quadrant as per clinical information Tumor size - 1.3 x 1.2 x 0.5 cm. See comment. Tumor focality - single focus of invasive carcinoma Macroscopic and Microscopic extent of tumor: Skin - invasive carcinoma does not invade into the dermis or epidermis. 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 Number of blocks with DCIS - 2 Number of blocks examined - 12 Architectural patterns - cribriform pattern Nuclear grade - grade 2 Necrosis - not identified Histologic Grade (Dickens grade): Glandular/tubular differentiation - score 2 Nuclear pleomorphism - score 2 Mitotic count - score 2 Overall grade - 2 (score of 6) Margins - Margins uninvolved by invasive carcinoma and ductal carcinoma in situ. Both DCIS and invasive is 0.5 cm away from the closest superior margin. Treatment effect: Response to presurgical (neoadjuvant) therapy - no known presurgical therapy. Lymph-Vascular invasion - not identified Dermal lymph-vascular invasion - not identified Lymph nodes: Number of sentinel lymph nodes examined - 4 Total number of lymph nodes examined (sentinel and nonsentinel) - 4 Number of lymph nodes with macrometastases, micrometastases and isolated tumor cells - 0 Method of evaluation of sentinel lymph nodes - H & E, multiple levels and IHC. Additional pathologic findings - hyalinized fibroadenoma (0.7 cm in greatest dimension). - Fibrocystic changes, adenosis and focal intraductal hyperplasia with focal atypia. Ancillary studies - previously performed on section of tumor ([id number] / [id number]). ER - positive (>95%, strong intensity) FL - positive (>95%, strong intensity) Her2 toby - negative (0) Microcalcifications - not identified Clinical history - Please make reference to previous specimen([id number]) right breast, ultrasound-guided core biopsy with diagnosis of invasive ductal carcinoma. PATHOLOGIC STAGE: pT1c pN0(sn) Mx The above summary is in compliance with [employer] [place] [employer] (CAP) Cancer Protocols Checklist and [place] Joint Committee on Cancer (AJCC), Staging Manual, 8th Ed. COMMENT A. The lymph nodes are negative for metastatic carcinoma on multiple H & E levels and immunohisto-chemical stains for cytokeratins ([id number]). B. The tumor size is slightly larger than the grossly measured size. Please make reference to previous specimen ([id number]) left breast, lumpectomy with wire-guided localization with diagnosis of invasive ductal carcinoma and ductal carcinoma in situ. Case has been reviewed in consultation with Dr. Morse who concurs with the above diagnosis. IDC:AM MICROSCOPIC DESCRIPTION Slides are reviewed. GROSS DESCRIPTION A - Received fresh for frozen section diagnosis labeled with the patient's name is a specimen designated sentinel node right axillary. The specimen consists of three pieces of adipose tissue containing nodules measuring in aggregate 4.5 x 3.5 x 2 cm. Four lymph nodes are identified measuring 1 to 2 cm in greatest dimension. The lymph nodes are submitted in entirety for frozen section diagnosis as follows: 1?- one bisected lymph node, 2 - one lymph node, 3 - one bisected lymph node, 4 - one bisected lymph node. / SJ:rg 05/10/19 B - Received fresh for intraoperative consultation labeled with the patient's name is a specimen designated right breast tissue. The specimen consists of a piece of fibroadipose tissue with needle localization measuring 7 x 7 x 3 cm. A small piece of skin is noted anteriorly measuring 0.8 x 0.3 cm. The specimen is oriented as follows: double long suture - medial, single long suture - inferior, double short suture - cephalad. The specimen is inked as follows: anterior - yellow, posterior - black, superior - blue, inferior - green, medial - red and lateral - orange. Serial sections reveal a good, indurated tumor mass measuring 1 x 1 x 0.5 cm and is 0.5 cm away from the closest superior margin. This information was conveyed to the surgeon intraoperatively. Sections of the rest of the specimen reveal good-yellow adipose cut surfaces mixed with scant fibrous area. Direct Care Worker sections are submitted in 12 cassettes as follows: 1 - perpendicular inferior margin, posterior margin, anterior margin and skin, entirely submitted, 2 - perpendicular medial, lateral and superior margins, 3-6 - tumor with surrounding tissue, 7 - admissions representative sections adjacent to the tumor, 8-12 - admissions representative sections away from the tumor. The specimen is submitted after additional fixation. / SERENITY:wojciech 05/10/19 TC:0 CPT: 94542, 13351, 74713, 23521
--- NOTE | 2019-05-07 09:38 | NM_ITS ---
PROCEDURE: NUCLEAR MEDICINE Injection [place] Node - RIGHT breast(s). REASON FOR EXAM: Female, 78 years old. Right breast cancer. TECHNIQUE: [place] node localization using radionuclide methods of the RIGHT breast(s) was performed following subcutaneous administration of 1.1 mCi of of sulfur colloid Tc-99m. FINDINGS: 1.1 mCi of technetium labeled sulfur colloid was injected in 4 equal aliquots in the midportion of the right breast. NM/Lymph Node Injection Only IMPRESSION: 1.1 mCi was injected subcutaneously in 4 equal aliquots. Electronically Signed: Bryce Graham, at 12:32 EDT , Service support ,
[2019-05-07 10:01] LABS: Bedside Glucose 103 mg/dL (70-110)
[2019-05-07] MEDS: Lactated Ringers 1,000 ML 100 ML IV ×2 (10:17→13:47)
--- NOTE | 2019-05-07 11:38 | HP.PCM_ITS ---
Problem List (1) 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 Status: Acute Qualifiers: Breast location: upper outer quadrant of breast Estrogen receptor status: positive Laterality: right Qualified Code(s): C50.411 - Malignant neoplasm of upper-outer quadrant of right female breast; Z17.0 - Estrogen receptor positive status [ER+] History of Present Illness Date of Admission: 05/07/19 The patient is a 78 year old F surgery for a positive breast cancer in the upper outer quadrant of her right breast. Patient underwent an ultrasound-guided needle core biopsy of her right breast which came back as invasive ductal adenocarcinoma. It was estrogen receptor positive. It was HER-2/toby negative. She presents today for a ultrasound-guided wire local lumpectomy with sentinel lymph node biopsy. 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) Aortic valve disease (Chronic) Paroxysmal supraventricular tachycardia by electrocardiogram (ECG) (Chronic) Supraventricular tachycardia (Chronic) Acquired left ventricular hypertrophy (Chronic) Diabetes 1.5, managed as type 2 (Chronic) Medical History: Medical History (Last Reviewed 05/07/19 @ 11:39 by Terry Santana MD) Essential hypertension (Chronic) I10 Cardiac murmur (Chronic) R01.1 Pulmonary hypertension (Chronic) I27.20 Abnormal findings on diagnostic imaging of heart and coronary circulation (Chronic) R93.1 Aortic valve disease (Chronic) I35.9 Paroxysmal supraventricular tachycardia by electrocardiogram (ECG) (Chronic) I47.1 Supraventricular tachycardia (Chronic) I47.1 Acquired left ventricular hypertrophy (Chronic) I51.7 Diabetes 1.5, managed as type 2 (Chronic) E13.9 Breast cancer, right C50.911 Breast cancer, left C50.912 Hypertension (Inactive) I10 Allergies oxycodone [From Percocet] Allergy (Mild, Verified 05/05/19 14:40) Itching Home Medications: Ambulatory Orders Medication Instructions Recorded Losartan Potassium [Cozaar] 100 mg PO DAILY 11/30/13 Potassium Chloride [Klor-Con M10] 10 meq PO DAILY 11/30/13 Latanoprost 0.005% [Xalatan 1 drp EACH EYE QHS 06/13/16 Opthalmic] Timolol Maleate [Timoptic-XE 0.5%] 1 drp EACH EYE DAILY 06/13/16 hydrochlorothiazide 12.5 mg tablet 12.5 mg PO DAILY 30 Days #30 12/12/17 amlodipine 5 mg tablet 5 mg PO QHS tab 04/21/18 metoprolol tartrate 25 mg tablet 25 mg PO BID #180 tab 05/05/18 Acetaminophen [Tylenol Arthritis] 650 mg PO DAILY PRN 05/22/18 Tamoxifen Citrate [Nolvadex] 20 mg PO DAILY #90 tab 08/03/18 Fenofibrate 160 mg PO QHS 05/05/19 Surgical History: Surgical History (Last Reviewed 05/07/19 @ 11:39 by Terry Santana MD) History of aortic valve repair (Resolved) Onset Date: ~09/27/16 Z98.890, Z86.79 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 09/27/16 History of hysterectomy Onset Date: ~10/10/14 Z90.710 History of total left hip replacement Z96.642 History of total right hip replacement Z96.641 Status post left breast lumpectomy Z98.890 06/11 H/O aortic valve replacement (Inactive) Z95.2 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 Surgical History: hysterectomy, total hip arthroplasty, - EMERGENCY DEPARTMENT TECHNICIAN History: No pertinent EMERGENCY DEPARTMENT TECHNICIAN history Smoking Status: Never smoker Tobacco Use: Non-smoker - *Family History Maternal Family History: Family History (Last Reviewed 05/04/19 @ 08:53 by Alexandra French) Brother CAD (coronary artery disease) Brother Diabetes Mother Diabetes Hypertension Father Hypertension CVA (cerebral vascular accident) Sister Breast cancer History Items: No pertinent history Review of Systems Constitutional: Denies: Chills, Fever, Weight Change Cardiovascular: Denies: Chest Pain, Chest Pressure, Chest Tightness, Palpitations Respiratory: Denies: Cough, Hemoptysis, Shortness of breath at rest, Shortness of breath upon exertion, Wheezing Gastrointestinal: Denies: Abdominal Pain, Constipation, Diarrhea, Hematemesis, Nausea, Melena, Vomiting VTE Information - Inpt Only VTE Present on Admission: No VTE Mechan Device Prophylaxis: SCD's VTE Pharm Prophylaxis ordered?: No Reason prophylaxis not ordered:: Treatment Not Indicated Patient Problems: Active and Suspected Problems (Last Reviewed 05/07/19 @ 11:39 by Terry Santana MD) 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 (Acute) - Physical Exam General: Alert, Oriented x3 Lungs: Clear to auscultation Cardiovascular: Regular rate, Regular Rhythm, No murmurs Abdomen: Bowel Sounds Present, Soft, Non Tender, Non-Distended Vital Signs Temp Pulse Resp BP Pulse Ox 98.5 F 64 16 142/72 H 96 05/07/19 09:46 05/07/19 09:46 05/07/19 09:46 05/07/19 09:46 05/07/19 09:46 Oxygen Delivery Method Room Air Weight: 166 lb 14.239 oz Body Mass Index (BMI) 28.6 Finger Stick Blood Glucose 122 POC Glucose 05/07/19 09:54 POC Glucose 103 Assessment/Plan All Active Problems (Last Reviewed 05/07/19 @ 11:39 by Terry Santana MD) 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 (Acute) History of aortic valve repair (Resolved ~09/27/16) Malignant neoplasm of upper-outer quadrant of left female breast (Acute) Plan is to perform a ultrasound-guided wire localization lumpectomy with sentinel lymph node biopsy on the right side. Risk benefits have been reviewed and the patient agrees to proceed. I have discussed the fact that bleeding and infection are most likely potential postoperative complications in addition she understands that heart attacks pneumonia strokes are also in the differential. She is willing to proceed.
[2019-05-07] MEDS: Cefazolin 2 GM in 0.9% Normal Saline 100 ML IV (12:06)
[2019-05-07] MEDS: Isosulfan Blue 1% 5 ML Vial OPERA.SITE (12:24)
--- NOTE | 2019-05-07 12:47 | BI_ITS ---
SURGICAL BREAST SPECIMEN RADIOGRAPH CLINICAL: Document presence of tissue clip marker in biopsy specimen. FINDINGS: Specimen shows presence of tissue clip marker. Electronically Signed: Bryce Graham, at 13:39 EDT , Service support , BI/Breast Biopsy Specimen
--- NOTE | 2019-05-07 13:05 | PCM.OPRPT ---
Problem List (1) 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 Status: Acute Qualifiers: Breast location: upper outer quadrant of breast Estrogen receptor status: positive Laterality: right Qualified Code(s): C50.411 - Malignant neoplasm of upper-outer quadrant of right female breast; Z17.0 - Estrogen receptor positive status [ER+] Report of Operation Date of Procedure: 05/07/19 Pre-Operative Diagnosis: Male breast cancer upper outer quadrant of right breast Post-Operative Diagnosis: Same Surgery/Procedure Performed:: 1. Ultrasound-guided wire localization of breast cancer to upper outer quadrant of right breast. 2. Injection of 5 cc of Lymphazurin blue. 3. Wire localization partial mastectomy on right breast. 4. Right sentinel lymph node biopsy Type of Anesthesia:: General Anesthesiologist: Oscar Rodriguez Specimen's removed: Right breast lump. Right breast sentinel lymph nodes Estimated Blood Loss (mL): < 25 cc Fluids Replaced: 1 L of lactated Ringer's Description of Procedure: Patient was brought into the operating room. Placed in the supine position. Under excellent general anesthetic right breast was ultrasound lesion was identified in the upper outer quadrant. I prepped the skin with alcohol. Kopan's wire was placed directly through the lesion. Clean the skin off with alcohol I injected 5 cc of Lymphazurin blue circumareolar Floyd around the right nipple. The breast was massaged for 5 minutes. It was then sterilely prepped and draped in the usual fashion. Incision was made in the upper outer quadrant elliptically around the previous biopsy site. Electrocautery was used to gain access completely around the tumor. I brought the tumor out and marked it with double long medial, single long inferior, double short cephalad and the wire and the blue dye came out anterior to the skin. Local was injected in the axilla. Dissection was carried down through the clavipectoral fascia into the axillary area. Blue dye was identified. The neoprobe only lit up to 73. I remove the blue lymph nodes and sent them to pathology for a quick frozen section. This came back positive for lymph nodes. I irrigated out the axilla. I brought the wound together with deep layers of 2-0 Vicryl deep dermals with 3-0 Vicryl then running 4-0 Monocryl. Breast cavity was irrigated out it was brought together with subcu of 2-0 Vicryl deep dermis with 3-0 Vicryl then a running 4-0 Monocryl. Dermabond was applied sterile dressings were applied and the patient tolerated the procedure well. - Admit VTE Documentation VTE Present on Admission: No VTE Mechan Device Prophylaxis: SCD's VTE Pharm Prophylaxis ordered?: No Reason prophylaxis not ordered:: Treatment Not Indicated
[2019-05-07] MEDS: Bupivacaine Mpf 0.5% 30 ML VIAL (13:11)
[2019-05-07 13:45] LABS: Bedside Glucose 85 mg/dL (70-110)
[2019-05-07] MEDS: Lactated Ringers 1,000 ML 60 ML IV (14:29)
[2019-05-07] MEDS: HYDROcodone Bitartrate/Apap 5/325 Tablet PO (16:00)
[2019-05-07] MEDS: Fenofibrate 145 MG Tablet PO (22:08)
[2019-05-07] MEDS: Metoprolol Tartrate 25 MG Tablet PO (22:09)
[2019-05-07] MEDS: Latanoprost 0.005% 1 Bottle 1 DRP EACH EYE (22:09)
[2019-05-07] MEDS: amLODIPine 5 MG Tablet PO (22:09)
[2019-05-08 04:06] VITALS: BP 109/64; PULSE 72; RESP 16; TEMP 36.9; O2SAT 96
[2019-05-08 08:15] VITALS: BP 140/69; PULSE 63; RESP 14; TEMP 36.4; O2SAT 96
--- NOTE | 2019-05-08 08:16 | NURSING ---
am meds given at this time as pt takes at home
[2019-05-08] MEDS: Losartan Potassium 100 MG Tablet PO ×2 (08:17→08:18)
[2019-05-08] MEDS: hydroCHLOROthiazide 12.5mg 12.5 MG PO (08:18)
[2019-05-08] MEDS: Timolol 0.5% 5ML OPTH.BTL 1 DRP EACH EYE (08:19)
[2019-05-08 08:20] VITALS: PULSE 63
[2019-05-08] MEDS: Tamoxifen 10 MG Tablet 20 MG PO (08:20)
[2019-05-08] MEDS: Metoprolol Tartrate 25 MG Tablet PO (08:20)
--- NOTE | 2019-05-08 08:54 | DCINST_ITS ---
Discharge Diet: No Restrictions Discharge Activity: May Not Drive - for 2-3 days or while taking narcotic pain meds. May shower in (days): 1 Lifting Restrictions: 10 pounds for 1 week. Call your doctor if your incision/area has: Continuous Slow Oozing, Sudden In creased Bleeding Call your doctor if you observe: Fever of 101 or Higher Suture Line Care: Avoid Pulling/Pushing, Avoid Pinching/Bending Remove Dressing in (days):: 1 - Remove bulky dressing tomorrow. May leave any opsite dressing for 3-4 days. Keep dressing in place until your follow-up appointment. Additional Dressing/Incision Instructions:: Remove bulky dressing tomorrow. May leave any opsite dressing for 3-4 days. Keep dressing in place until your follow-up appointment. Allergies/Adverse Reactions: Allergies oxycodone [From Percocet] Allergy (Mild, Verified 05/05/19 14:40) Itching Medications to take at Discharge Losartan Potassium [Cozaar] 100 mg PO DAILY 11/30/13 Potassium Chloride [Klor-Con M10] 10 meq PO DAILY 11/30/13 Latanoprost 0.005% [Xalatan Opthalmic] 1 drp EACH EYE QHS 06/13/16 Timolol Maleate [Timoptic-XE 0.5%] 1 drp EACH EYE DAILY 06/13/16 hydrochlorothiazide 12.5 mg tablet 12.5 mg PO DAILY 30 Days #30 12/12/17 amlodipine 5 mg tablet 5 mg PO QHS tab 04/21/18 metoprolol tartrate 25 mg tablet 25 mg PO BID #180 tab 05/05/18 Acetaminophen [Tylenol Arthritis] 650 mg PO DAILY PRN 05/22/18 Tamoxifen Citrate [Nolvadex] 20 mg PO DAILY #90 tab 08/03/18 Fenofibrate 160 mg PO QHS 05/05/19 Primary Care Physician: Marco Antonio Arevalo Chi, MD [Primary Care Provider] -
--- NOTE | 2019-05-08 08:55 | PCM.PN.SRG ---
Patient Problems: Active and Suspected Problems (Last Reviewed 05/07/19 @ 11:39 by Terry Santana MD) 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 (Acute) Subjective: Patient not complaining of any pain. Objective: Dressings are dry. - Physical Exam Vital Signs Temp Pulse Resp BP Pulse Ox 97.6 F L 63 14 140/69 H 96 05/08/19 08:15 05/08/19 08:20 05/08/19 08:15 05/08/19 08:15 05/08/19 08:15 Oxygen Flow Rate (L/min) 2 Oxygen Delivery Method Room Air Weight: 168 lb 10.458 oz Body Mass Index (BMI) 28.9 Finger Stick Blood Glucose 85 Intake and Output for Last 24 Hours 05/06/19 05/07/19 05/08/19 23:59 23:59 23:59 Intake Total 2910 / 2910 1048 / 1048 Output Total 600 / 600 400 / 400 Balance 2310 / 2310 648 / 648 POC Glucose 05/07/19 05/07/19 13:43 09:54 POC Glucose 85 103 Medical Necessity - Tobacco Use Smoking Status: Never smoker Tobacco Use: Non-smoker Assessment/Plan All Active Problems (Last Reviewed 05/07/19 @ 11:39 by Terry Santana MD) 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 (Acute) 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 She can use her normal [id number] medications for any discomfort.
[2019-05-08 11:27] VITALS: O2SAT 95
--- NOTE | 2019-05-08 12:56 | NURSING ---
page out for dr oleary for f/u time
== END 2019-05-08 13:09 | disposition home or self-care (01) ==
LOC: SDC 09:21 → AC 09:21 → MS3 13:11
PROVIDERS: Family Provider Family Medicine Geriatric Medicine; PCP Family Medicine Geriatric Medicine; Referring Provider Surgery; Visit Provider Surgery
PROC: (CPT 19301; principal; 2019-05-07 11:45)
DX: C50.411 Malignant neoplasm of upper-outer quadrant of right female breast (principal); C50.412 Malignant neoplasm of upper-outer quadrant of left female breast; Z17.0 Estrogen receptor positive status [ER+]; I10 Essential (primary) hypertension; I27.20 Pulmonary hypertension, unspecified; E11.9 Type 2 diabetes mellitus without complications; I47.1 Supraventricular tachycardia; Z82.3 Family history of stroke; Z82.49 Family history of ischemic heart disease and other diseases of the circulatory system; Z85.3 Personal history of malignant neoplasm of breast; Z88.5 Allergy status to narcotic agent; Z96.643 Presence of artificial hip joint, bilateral; Z90.710 Acquired absence of both cervix and uterus
CPT/HCPCS: 19285; 19301; 38525; 38792; 76098; 82962; 88305; 88307; 88331; 88341; 88342; A9541; J7120; J2405; Q9968

== ENCOUNTER → 2019-07-29 09:28 | Outpatient (CLI) | payer MEDICARE, OTHER, SELFPAY ==
[2019-05-17 09:04] VITALS: BMI 29.3
[2019-07-27 13:04] VITALS: BMI 29.0
--- NOTE | 2019-07-29 09:36 | BD_ITS ---
STUDY: DUAL ENERGY X-RAY ABSORPTIOMETRY / DXA REASON FOR EXAM: Female, 78 years old. The patient is postmenopausal. Loss of height. TECHNIQUE: Bone Mineral Density (BMD) measurements of lumbar spine and left forearm were obtained. The patient has a history of bilateral hip replacement. COMPARISON: Comparison is made with prior study dated July 09, 2017. FINDINGS: Lumbar Spine (L1-L4): g/cm2 (1.301) / T-score (1.1) / Z-score (2.9) Findings are suggestive of normal bone density with a low fracture risk. Left Forearm: g/cm2 (0.653) / T-score (-2.5) / Z-score (-0.1) The T-Scores on the most recent prior examination were: Lumbar Spine (L1-L4): There has been worsening of bone density since the previous examination. BD/Dexa Bone Density Study IMPRESSION: The patient is considered osteoporotic as outlined below according to World Zack Organization (WHO) criteria with a high fracture risk. There has been worsening of bone density since the previous examination. Reference Information: The T-score is the number of standard deviations above or below the standard which is normal for young adults at their peak bone mineral density. The World Health Organization (WHO) interprets the T-scores as follows: Above -1 Normal bone density Between -1 and -2.5 Osteopenia Equal to / or below -2.5 Osteoporosis As a practical clinical guideline, osteopenia may be graded as follows: Mild -1 through -1.5 Moderate -1.6 through -2.0 Severe -2.1 through -2.4 The Z-score is the number of standard deviations above or below age-matched controls. A Z-score of less than -1.5 would be considered abnormal. References: 1. NIH Osteoporosis and Related Bone Diseases http://www.osteo.org 2. International Society for Clinical Densitometry http://www.iscd.org 3. National Osteoporosis Foundation http://www.nof.org Electronically Signed: Bryce Graham, at 11:43 EST , Service support ,
== END ==
PROVIDERS: Family Provider Family Medicine Geriatric Medicine; PCP Family Medicine Geriatric Medicine; Referring Provider Internal Medicine Medical Oncology; Visit Provider Internal Medicine Medical Oncology
DX: Z13.820 Encounter for screening for osteoporosis (principal); Z78.0 Asymptomatic menopausal state
CPT/HCPCS: 77080

== ENCOUNTER → 2019-10-13 | Outpatient (CLI) | payer MEDICARE, OTHER, SELFPAY ==
[2019-05-17 09:04] VITALS: BMI 29.3
[2019-09-13 10:53] VITALS: BMI 29.5
--- NOTE | 2019-10-13 09:30 | TISS_PTH ---
PATIENT: ANABELA CAMARA LOC: [facility] U#:[id number] AGE/SX: 78/F ROOM: RE10/13/[address]: Dr. Marco Antonio Arevalo MD : 1940 BED: DIS: 10/13/2019 SPEC #: [id number] RECD: 10/13/19 12:30 STATUS: XIMENA MING #: [id number] NIKA: 10/13/19 09:[address]: Marco Antonio Arevalo Chi DEPT: SURGICAL PATHOLOGY RECD BY: Laurel Mitchell Tissues: Skin of arm Procedures: Surgery Specimen Level IV HEADER OPERATION: Not noted PRE-OP DIAGNOSIS: L98.9 TISSUE SUBMITTED: Left arm tissue MICROSCOPIC DIAGNOSIS Skin lesion of left arm, shave biopsy: Invasive well differentiated squamous cell carcinoma, keratoacanthomatous type. See comment. AM:wojciech 10/14/19 COMMENT The lesion extends to the deep margin of excision. Clinical correlation is necessary. Case has been reviewed in consultation with Dr. Guzmán who concurs with the above diagnosis. IDC:SJ MICROSCOPIC DESCRIPTION Slides are reviewed. GROSS DESCRIPTION Received is one container labeled with the patient's name and not further designated. The specimen consists of a discoid fragment of white-good skin measuring 1.5 x 1.5 x 0.2 cm. The specimen is inked, serially sectioned and totally submitted in one cassette. / AM:wojciech 10/13/19 TC:0 CPT: 03050
== END | disposition home or self-care (01) ==
LOC: LABSPEC 11:13
PROVIDERS: PCP Family Medicine Geriatric Medicine; Visit Provider Family Medicine Geriatric Medicine
DX: L98.9 Disorder of the skin and subcutaneous tissue, unspecified (principal)
CPT/HCPCS: 88305

== ENCOUNTER → 2020-01-11 11:46 | Outpatient (CLI) | payer MEDICARE, OTHER, SELFPAY ==
[2019-05-17 09:04] VITALS: BMI 29.3
[2019-12-13 10:58] VITALS: BMI 29.2
[2020-01-11 12:47] LABS: Absolute Lymphocyte Count 1.48 X10^3/uL (0.83-4.51); Absolute Neutrophil Count 4.6 X10^3/uL (2.0-7.7); Basophil# 0.03 X10^3/uL; Basophil% 0.4 % (0-1); Eosinophil# 0.17 X10^3/uL; Eosinophils% 2.4 % (0-5); Hematocrit 37.3 % (37-47); Hemoglobin 11.5 g/dL (12.0-15.0); Lymphocyte # 1.48 X10^3/ul (4.0); Lymphocyte % 21.1 % (19-41); Mean Corp Hgb Conc 30.8 g/dL (32-36); Mean Corpuscular Volume 94.2 fL (81-99); Mean Platelet Vol. 11.6 fl (6.2-12.0); Monocyte# 0.74 X10^3/uL; Monocyte% 10.6 % (0-10); NRBC Flagged by Analyzer 0 % (0-5); Neutrophil # 4.56 X10^3/uL (2.7-7.7); Neutrophil % 65.2 % (47-70); Platelet Count 278 K/mm3 (150-450); RBC Distribution Width CV 15.7 % (11.6-14.6); Red Blood Count 3.96 M/mm3 (4.2-5.4)
[2020-01-11 12:56] LABS: Vitamin D,25 Hydroxy 32.5 ng/mL
[2020-01-11 13:11] LABS: ALB/GLOB Ratio 1.1 RATIO (0.9-2.4); AST(SGOT) 28 U/L (15-37); Alanine Aminotransfer ALT/SGPT 34 U/L (13-56); Albumin, Serum 4.1 g/dL (3.2-5.0); Alkaline Phosphatase 13 U/L (45-117); Anion Gap 9 (5-15); BUN 26 mg/dL (7-18); BUN/Creat Ratio 31.4 RATIO (10-20); Calcium,Total 9.2 mg/dL (8.5-10.1); Chloride 104 mmol/L (98-107); Cholesterol 167 mg/dL (200); Creatinine, Serum 0.83 mg/dL (0.55-1.02); EST Glomerular Filtration Rate 71 mL/min (>60); Est Glom Filt Rate - Afr Amer 86 mL/min (>60); Globulin 3.6 g/dL (2.2-4.2); Glucose 91 mg/dL (74-106); High Density Lipoprotein 45 mg/dL; Protein, Total 7.7 g/dL (6.4-8.2); Sodium Level 138 mmol/L (136-145); Triglycerides 177 mg/dL; Very Low Density Lipoprotein 35 mg/dL (5-40)
== END ==
PROVIDERS: PCP Family Medicine Geriatric Medicine; Visit Provider Family Medicine Geriatric Medicine
DX: E55.9 Vitamin D deficiency, unspecified (principal); E78.5 Hyperlipidemia, unspecified; I10 Essential (primary) hypertension
CPT/HCPCS: 36415; 80053; 80061; 82306; 84443; 85025

== ENCOUNTER → 2020-02-15 09:41 | Outpatient (CLI) | payer MEDICARE, OTHER, SELFPAY ==
[2019-05-17 09:04] VITALS: BMI 29.3
[2019-12-13 10:58] VITALS: BMI 29.2
--- NOTE | 2020-02-15 09:42 | ECHOD_ITS ---
Procedure This was a 2D Doppler, Color Flow transthoracic echocardiogram. The exam was of adequate technical quality. Exam performed in department. Left Ventricle Normal LV size. Left ventricular systolic function is normal. The estimated ejection fraction is 60 %. No evidence for diastolic dysfunction. No regional wall motion abnormalities noted. Right Ventricle Normal RV size. Normal systolic function. Atria The left atrium is mildly enlarged. Normal right atrium. No doppler evidence for ASD. Mitral Valve There is no mitral annular calcification. Mild focal mitral valve calcification of the posterior leaflet. Mild (1+) mitral valve insufficiency. Tricuspid Valve Normal tricuspid valve. Trivial tricuspid valve insufficiency. Right ventricular systolic pressure estimated to be 31 mmHg. Aortic Valve Trisinus/trileaflet aortic valve. Mild diffuse aortic valve thickening. Mild focal aortic valve calcification. Mild aortic stenosis. Trivial aortic valve insufficiency. Pulmonic Valve The pulmonic valve is not well visualized. Trivial pulmonic valve insufficiency. Great Vessels Normal sized aortic root. Calcified aortic root. Pericardium/Pleural No pericardial effusion. MMode/2D Measurements & Calculations LVIDd: 4.5 cm IVSd: 0.91 cm LVOT diam: 1.9 cm LVIDs: 2.7 cm LVPWd: 0.91 cm LVOT area: 2.9 cm2 RVDd: 3.8 cm FS: 39.4 % Ao root diam: 3.2 cm LAV(MOD-bp): 61.4 ml LVAd ap4: 24.9 cm2 LAV(MOD-bp) Indexed: 33.3 ml/m2 EDV(MOD-sp4): 69.4 ml LAV(MOD-sp2): 57.6 ml EDV(sp4-el): 73.3 ml LAV(MOD-sp4): 53.3 ml LVAs ap4: 14.1 cm2 ESV(MOD-sp4): 28.2 ml ESV(sp4-el): 29.0 ml EF(MOD-sp4): 59.4 % EF(sp4-el): 60.4 % SV(MOD-sp4): 41.2 ml SV(sp4-el): 44.3 ml LA A4 area: 18.1 cm2 LA dimension(2D): 4.4 cm RA A4 area: 14.8 cm2 Time Measurements MV dec time: 0.19 sec Doppler Measurements & Calculations MV E max deniz: 85.8 cm/sec Lat Peak E' Deniz: 10.9 cm/sec Med Peak E' Deniz: 8.6 cm/sec MV A max deniz: 105.3 cm/sec E/E' lat: 7.9 E/E' med: 10.0 MV E/A: 0.82 Ao V2 max: 158.3 cm/sec LV V1 max: 89.4 cm/sec SV(LVOT): 65.7 ml Ao max P.1 mmHg LV V1 max P.2 mmHg Ao V2 mean: 107.4 cm/sec LV V1 mean P.9 mmHg Ao mean P.1 mmHg LV V1 mean: 65.3 cm/sec Ao V2 VTI: 37.6 cm LV V1 VTI: 22.4 cm JACOBO(I,D): 1.7 cm2 JACOBO(V,D): 1.7 cm2 PA V2 max: 83.6 cm/sec TR max deniz: 265.0 cm/sec TR max P.1 mmHg Interpretation Summary Left ventricular systolic function is normal. The estimated ejection fraction is 60 %. The left atrium is mildly enlarged. Mild focal mitral valve calcification of the posterior leaflet. Mild (1+) mitral valve insufficiency. Trivial tricuspid valve insufficiency. Mild aortic stenosis. Trivial aortic valve insufficiency. Trivial pulmonic valve insufficiency. Calcified aortic root. Right ventricular systolic pressure estimated to be 31 mmHg. No evidence for diastolic dysfunction. Compared with the previous TTE of 05/24/2016 the previous small mobile echodensity on the aortic aspect of the aortic valve appearing is not visualized at this time. Ordering Physician: Huan Mathis Referring Physician: Huan Mathis
== END ==
PROVIDERS: PCP Family Medicine Geriatric Medicine; Referring Provider Internal Medicine Cardiovascular Disease; Visit Provider Internal Medicine Cardiovascular Disease
DX: Z95.2 Presence of prosthetic heart valve (principal); Z86.79 Personal history of other diseases of the circulatory system
CPT/HCPCS: 93306

== ENCOUNTER → 2020-04-17 10:23 | Outpatient (CLI) | payer MEDICARE, OTHER, SELFPAY ==
[2019-05-17 09:04] VITALS: BMI 29.3
[2020-03-13 11:09] VITALS: BMI 29.7
[2020-03-30 14:59] VITALS: BMI 29.3
--- NOTE | 2020-04-17 10:23 | BI_ITS ---
MAMMOGRAPHY - BILATERAL SCREENING REASON FOR EXAM: Female, 79 years old. Routine annual screening examination. PERTINENT HISTORY: Personal history of breast cancer. Prior bilateral lumpectomy. Sisters with breast cancer. TECHNIQUE: Digital bilateral breast carlie (3D mammographic acquisition) in the CC and MLO projections. 2-D mediolateral oblique (MLO) and craniocaudad (CC) views of both breasts were obtained. CAD: Full Field Digital Mammography with Computer Added Detection was performed. COMPARISON: Comparison is made with prior study dated 04/14/2019 and 04/13/2018. FINDINGS: Breast Composition: There are scattered areas of fibroglandular density. There are no dominant masses or suspicious calcifications. The patient is status post lumpectomy in the deep upper lateral portion of the left breast with resultant architectural distortion and skin thickening. The patient underwent a lumpectomy in the upper outer quadrant of the right breast as compared to prior study with resultant postoperative changes and skin thickening. No other significant abnormalities are identified. BI/SCREEN MAMM (CAD) W/CARLIE BILAT IMPRESSION: Stable bilateral screening mammogram. Yearly follow-up mammogram recommended. (A) ASSESSMENT CATEGORY: BIRADS Category 2: Benign. A letter regarding these results will be sent to the patient by the facility within 30 days. Approximately 10% of breast cancers are not detected by mammography. A normal mammogram should not delay biopsy of a clinically suspicious abnormality. [id number] Electronically Signed: Bryce Graham, at 12:11 EDT , Service support ,
== END ==
PROVIDERS: PCP Family Medicine Geriatric Medicine; Referring Provider Internal Medicine Medical Oncology; Visit Provider Internal Medicine Medical Oncology
DX: Z12.31 Encounter for screening mammogram for malignant neoplasm of breast (principal); Z85.3 Personal history of malignant neoplasm of breast; Z80.3 Family history of malignant neoplasm of breast
CPT/HCPCS: 77063; 77067

== ENCOUNTER → 2020-07-18 10:02 | Outpatient (CLI) | payer MEDICARE, OTHER, SELFPAY ==
[2019-05-17 09:04] VITALS: BMI 29.3
[2020-03-30 14:59] VITALS: BMI 29.3
[2020-07-18 10:26] LABS: Absolute Lymphocyte Count 1.36 X10^3/uL (0.83-4.51); Absolute Neutrophil Count 4.2 X10^3/uL (2.0-7.7); Basophil# 0.02 X10^3/uL; Basophil% 0.3 % (0-1); Eosinophil# 0.12 X10^3/uL; Eosinophils% 1.9 % (0-5); Lymphocyte # 1.36 X10^3/ul (4.0); Lymphocyte % 21.6 % (19-41); Mean Corp Hgb Conc 32.4 g/dL (32-36); Mean Corpuscular Hgb 30.7 pg (27.0-32.0); Mean Corpuscular Volume 94.6 fL (81-99); Monocyte# 0.56 X10^3/uL; Monocyte% 8.9 % (0-10); NRBC Flagged by Analyzer 0 % (0-5); Neutrophil # 4.22 X10^3/uL (2.7-7.7); Platelet Count 253 K/mm3 (150-450); RBC Distribution Width CV 15.2 % (11.6-14.6); RBC Distribution Width SD 52.5 fl (35.1-43.9); Red Blood Count 3.91 M/mm3 (4.2-5.4); White Blood Count 6.3 K/mm3 (4.4-11.0)
[2020-07-18 10:48] LABS: Vitamin D,25 Hydroxy 36.6 ng/mL
[2020-07-18 11:02] LABS: ALB/GLOB Ratio 1.2 RATIO (0.9-2.4); AST(SGOT) 26 U/L (15-37); Alanine Aminotransfer ALT/SGPT 30 U/L (13-56); Alkaline Phosphatase 25 U/L (45-117); Anion Gap 5 (5-15); BUN 25 mg/dL (7-18); BUN/Creat Ratio 30.3 RATIO (10-20); Calcium,Total 8.8 mg/dL (8.5-10.1); Chloride 108 mmol/L (98-107); Creatinine, Serum 0.83 mg/dL (0.55-1.02); EST Glomerular Filtration Rate 71 mL/min (>60); Est Glom Filt Rate - Afr Amer 86 mL/min (>60); Globulin 3.4 g/dL (2.2-4.2); Glucose 95 mg/dL (74-106); Potassium 4.2 mmol/L (3.5-5.1); Protein, Total 7.4 g/dL (6.4-8.2); Sodium Level 139 mmol/L (136-145); Thyroid Stim Hormone (TSH) 2.58 uIU/mL (0.358-3.74)
== END ==
PROVIDERS: PCP Family Medicine Geriatric Medicine; Visit Provider Family Medicine Geriatric Medicine
DX: I10 Essential (primary) hypertension (principal); E55.9 Vitamin D deficiency, unspecified; E78.5 Hyperlipidemia, unspecified
CPT/HCPCS: 36415; 80053; 82306; 84443; 85025

== ENCOUNTER → 2020-08-22 10:07 | Outpatient (CLI) | payer MEDICARE, OTHER, SELFPAY ==
[2019-05-17 09:04] VITALS: BMI 29.3
[2020-03-30 14:59] VITALS: BMI 29.3
[2020-08-22 12:12] LABS: Absolute Lymphocyte Count 1.32 X10^3/uL (0.83-4.51); Absolute Neutrophil Count 4.7 X10^3/uL (2.0-7.7); Basophil# 0.03 X10^3/uL; Basophil% 0.4 % (0-1); Eosinophils% 1.5 % (0-5); Hematocrit 38.6 % (37-47); Hemoglobin 12.3 g/dL (12.0-15.0); Lymphocyte # 1.32 X10^3/ul (4.0); Lymphocyte % 19.4 % (19-41); Mean Corp Hgb Conc 31.9 g/dL (32-36); Mean Corpuscular Hgb 30.4 pg (27.0-32.0); Mean Corpuscular Volume 95.3 fL (81-99); Mean Platelet Vol. 11.6 fl (6.2-12.0); Monocyte# 0.61 X10^3/uL; NRBC Flagged by Analyzer 0 % (0-5); Neutrophil % 69.3 % (47-70); Platelet Count 249 K/mm3 (150-450); RBC Distribution Width CV 15.5 % (11.6-14.6); RBC Distribution Width SD 53.1 fl (35.1-43.9); Red Blood Count 4.05 M/mm3 (4.2-5.4); White Blood Count 6.8 K/mm3 (4.4-11.0)
[2020-08-22 12:23] LABS: ALB/GLOB Ratio 1.2 RATIO (0.9-2.4); AST(SGOT) 29 U/L (15-37); Alanine Aminotransfer ALT/SGPT 35 U/L (13-56); Albumin, Serum 4.1 g/dL (3.2-5.0); Alkaline Phosphatase 27 U/L (45-117); Anion Gap 8 (5-15); BUN 22 mg/dL (7-18); BUN/Creat Ratio 25.9 RATIO (10-20); Chloride 108 mmol/L (98-107); Creatinine, Serum 0.85 mg/dL (0.55-1.02); EST Glomerular Filtration Rate 69 mL/min (>60); Est Glom Filt Rate - Afr Amer 83 mL/min (>60); Globulin 3.4 g/dL (2.2-4.2); Glucose 103 mg/dL (74-106); Potassium 3.9 mmol/L (3.5-5.1); Protein, Total 7.5 g/dL (6.4-8.2); Sodium Level 142 mmol/L (136-145)
== END ==
PROVIDERS: PCP Family Medicine Geriatric Medicine; Visit Provider Family Medicine Geriatric Medicine
DX: R53.83 Other fatigue (principal)
CPT/HCPCS: 36415; 80053; 85025

== ENCOUNTER 2020-09-22 14:19 | Outpatient (RCR) | payer MEDICARE, OTHER, SELFPAY ==
[2019-05-17 09:04] VITALS: BMI 29.3
[2020-08-28 12:27] VITALS: BMI 29.2
== END 2020-09-22 23:59 ==
LOC: IMMUN 14:19
PROVIDERS: PCP Family Medicine Geriatric Medicine; Visit Provider Family Medicine
DX: Z23 Encounter for immunization (principal)
CPT/HCPCS: 0011A; 0012A; 91301

== ENCOUNTER → 2021-01-16 09:55 | Outpatient (CLI) | payer MEDICARE, SELFPAY ==
[2019-05-17 09:04] VITALS: BMI 29.3
[2020-08-28 12:27] VITALS: BMI 29.2
[2021-01-16 12:22] LABS: Absolute Lymphocyte Count 1.75 X10^3/uL (0.83-4.51); Absolute Neutrophil Count 5.1 X10^3/uL (2.0-7.7); Basophil# 0.04 X10^3/uL; Basophil% 0.5 % (0-1); Eosinophil# 0.21 X10^3/uL; Eosinophils% 2.6 % (0-5); Hematocrit 39.6 % (37-47); Hemoglobin 12.5 g/dL (12.0-15.0); Lymphocyte # 1.75 X10^3/ul (0.83-4.51); Mean Corp Hgb Conc 31.6 g/dL (32-36); Mean Corpuscular Hgb 29.9 pg (27.0-32.0); Mean Corpuscular Volume 94.7 fL (81-99); Mean Platelet Vol. 11.7 fl (6.2-12.0); Monocyte% 10.1 % (0-10); NRBC Flagged by Analyzer 0 % (0-5); Neutrophil # 5.11 X10^3/uL (2.7-7.7); Neutrophil % 64.4 % (47-70); Platelet Count 268 K/mm3 (150-450); RBC Distribution Width CV 15.8 % (11.6-14.6); RBC Distribution Width SD 54.4 fl (35.1-43.9); Red Blood Count 4.18 M/mm3 (4.2-5.4); White Blood Count 7.9 K/mm3 (4.4-11.0)
[2021-01-16 12:52] LABS: ALB/GLOB Ratio 1.1 RATIO (0.9-2.4); AST(SGOT) 26 U/L (15-37); Alanine Aminotransfer ALT/SGPT 35 U/L (13-56); Alkaline Phosphatase 25 U/L (45-117); Anion Gap 6 (5-15); BUN 22 mg/dL (7-18); BUN/Creat Ratio 27.8 RATIO (10-20); Calcium,Total 9.1 mg/dL (8.5-10.1); Chloride 105 mmol/L (98-107); Cholesterol 178 mg/dL (200); Creatinine, Serum 0.79 mg/dL (0.55-1.02); EST Glomerular Filtration Rate 74 mL/min (>60); Est Glom Filt Rate - Afr Amer 90 mL/min (>60); Globulin 3.7 g/dL (2.2-4.2); Glucose 100 mg/dL (74-106); High Density Lipoprotein 49 mg/dL; Potassium 4.1 mmol/L (3.5-5.1); Protein, Total 7.7 g/dL (6.4-8.2); Sodium Level 140 mmol/L (136-145); Thyroid Stim Hormone (TSH) 3.36 uIU/mL (0.358-3.74); Triglycerides 129 mg/dL; Very Low Density Lipoprotein 26 mg/dL (5-40)
[2021-01-18 12:43] LABS: Vitamin D,25 Hydroxy 30.1 ng/mL
== END ==
PROVIDERS: PCP Family Medicine Geriatric Medicine; Visit Provider Family Medicine Geriatric Medicine
DX: E78.5 Hyperlipidemia, unspecified (principal); E55.9 Vitamin D deficiency, unspecified; I10 Essential (primary) hypertension
CPT/HCPCS: 36415; 80053; 80061; 82306; 84443; 85025

== ENCOUNTER → 2021-04-18 09:58 | Outpatient (CLI) | payer MEDICARE, OTHER, SELFPAY ==
[2019-05-17 09:04] VITALS: BMI 29.3
[2021-02-27 11:02] VITALS: BMI 30.2
--- NOTE | 2021-04-18 09:59 | BI_ITS ---
MAMMOGRAPHY - BILATERAL SCREENING REASON FOR EXAM: Female, 80 years old. Routine annual screening examination. PERTINENT HISTORY: Personal history of breast cancer. Prior right lumpectomy. Prior left lumpectomy with radiation therapy. Sisters with breast cancer. TECHNIQUE: Digital bilateral breast carlie (3D mammographic acquisition) in the CC and MLO projections. 2-D mediolateral oblique (MLO) and craniocaudad (CC) views of both breasts were obtained. CAD: Full Field Digital Mammography with Computer Added Detection was performed. COMPARISON: Comparison is made with prior study dated 04/17/2020 and 05/07/2019. FINDINGS: Breast Composition: There are scattered areas of fibroglandular density. There are no dominant masses or suspicious calcifications. The patient is status post lumpectomy in the upper outer quadrant of both breasts with resultant postoperative scarring and deformity. Stable skin thickening of both breasts more prominent on the left side. No other significant abnormalities are identified. There has been no significant change since the prior study. BI/SCRN MAMM (CAD)W/CARLIE BILAT IMPRESSION: Stable bilateral screening mammogram. Yearly follow-up mammogram recommended. (A) ASSESSMENT CATEGORY: BIRADS Category 2: Benign. A letter regarding these results will be sent to the patient by the facility within 30 days. Approximately 10% of breast cancers are not detected by mammography. A normal mammogram should not delay biopsy of a clinically suspicious abnormality. [id number] Electronically Signed: Bryce Graham MD at 11:06 EDT , Service support ,
== END ==
PROVIDERS: PCP Family Medicine Geriatric Medicine; Referring Provider Internal Medicine Medical Oncology; Visit Provider Internal Medicine Medical Oncology
DX: Z12.31 Encounter for screening mammogram for malignant neoplasm of breast (principal)
CPT/HCPCS: 77063; 77067

== ENCOUNTER → 2021-05-23 11:56 | Outpatient (CLI) | payer MEDICARE, OTHER, SELFPAY ==
[2019-05-17 09:04] VITALS: BMI 29.3
--- NOTE | 2021-05-23 12:42 | CT_ITS ---
STUDY: CT SCAN LOWER EXTREMITY RIGHT REASON FOR EXAM: Female, 80 years old. DEFORMITY RADIATION DOSAGE (If Supplied By Facility): CTDIvol = ( 18.37 ) mGy, DLP = ( 1196.34 ) mGycm. Individualized dose optimization techniques were used for this CT.? TECHNIQUE: Multiple axial tomographic images of the right lower extremity were obtained without intravenous contrast demonstration. Sagittal and coronal reconstructions obtained as well. COMPARISON: None. FINDINGS: Imaging of the right hip joint was obtained. The patient is status post right total hip replacement. There is good alignment. No significant abnormality is seen. Imaging of the right knee joint was performed. There is a marked degree of joint space narrowing with degenerative changes of the medial compartment of the knee joint. Degenerative spurring is seen along the medial femoral condyle and medial tibial plateau. There is also evidence of a moderate degree of joint space narrowing and degenerative spur formation along the lateral compartment of knee joint. Moderate degree of joint space narrowing with the anterior spur formation of the distal femur at the level of the patellofemoral joint. Imaging of the ankle joint was obtained. Mild degree of the nature of the changes at the talotibial tibial joint. CT/Extremity Lower without Contra IMPRESSION: Moderate degree of joint space narrowing with degenerative changes along the medial compartment knee joint. Moderate degree of degenerative changes of the lateral compartment of knee joint and patellofemoral joint. Electronically Signed: Bryce Graham MD at 13:14 EDT , Service support ,
== END ==
PROVIDERS: PCP Family Medicine Geriatric Medicine; Referring Provider Specialist; Visit Provider Specialist
DX: M21.161 Varus deformity, not elsewhere classified, right knee (principal); M17.11 Unilateral primary osteoarthritis, right knee
CPT/HCPCS: 73700

== ENCOUNTER 2021-06-06 07:23 | Observation (INO) | payer MEDICARE, OTHER, SELFPAY ==
[2019-05-17 09:04] VITALS: BMI 29.3
--- NOTE | 2021-05-23 12:40 | RAD_ITS ---
HISTORY: PRE-OP EXAMINATION/TECHNIQUE: XR Chest 2 Views: 2 views COMPARISON: 07/31/18 FINDINGS: LINES/DEVICES: None. LUNGS: Stable bibasilar coarsened interstitial markings without pulmonary consolidation, mass, or edema. No pleural effusion or pneumothorax. MEDIASTINUM AND CARDIOVASCULAR STRUCTURES: Cardiac silhouette not enlarged stable changes from median sternotomy.. Central airways and mediastinal contour are unremarkable. BONES AND SOFT TISSUES: No acute bony abnormalities. RAD/Chest PA and Lateral IMPRESSION: No radiographic evidence of acute cardiopulmonary disease. at 1705 Reported and signed by: Walter Carroll MD Electronically Signed: Walter Carroll MD at 17:04 EDT Tel , Service support ,
[2021-05-23 12:59] LABS: Absolute Lymphocyte Count 1.65 X10^3/uL (0.83-4.51); Absolute Neutrophil Count 4.1 X10^3/uL (2.0-7.7); Basophil# 0.02 X10^3/uL; Basophil% 0.3 % (0-1); Eosinophil# 0.11 X10^3/uL; Eosinophils% 1.7 % (0-5); Hematocrit 38.6 % (37-47); Hemoglobin 12.3 g/dL (12.0-15.0); Lymphocyte # 1.65 X10^3/ul (0.83-4.51); Lymphocyte % 25.9 % (19-41); Mean Corp Hgb Conc 31.9 g/dL (32-36); Mean Corpuscular Hgb 30.4 pg (27.0-32.0); Mean Corpuscular Volume 95.3 fL (81-99); Mean Platelet Vol. 11.4 fl (6.2-12.0); Monocyte# 0.51 X10^3/uL; NRBC Flagged by Analyzer 0 % (0-5); Neutrophil # 4.06 X10^3/uL (2.7-7.7); Neutrophil % 63.8 % (47-70); Platelet Count 254 K/mm3 (150-450); RBC Distribution Width CV 15.5 % (11.6-14.6); RBC Distribution Width SD 53.4 fl (35.1-43.9); Red Blood Count 4.05 M/mm3 (4.2-5.4); White Blood Count 6.4 K/mm3 (4.4-11.0)
[2021-05-23 13:18] LABS: Magnesium 2.1 mg/dL (1.6-2.6)
[2021-05-23 13:27] LABS: Hemoglobin A1c 5.8 % (3.8-5.6)
[2021-05-23 13:31] LABS: Anion Gap 7 (5-15); BUN 26 mg/dL (7-18); BUN/Creat Ratio 34.1 RATIO (10-20); Calcium,Total 8.9 mg/dL (8.5-10.1); Chloride 105 mmol/L (98-107); Creatinine, Serum 0.76 mg/dL (0.55-1.02); EST Glomerular Filtration Rate 78 mL/min (>60); Est Glom Filt Rate - Afr Amer 94 mL/min (>60); Glucose 119 mg/dL (74-106); Potassium 3.8 mmol/L (3.5-5.1); Sodium Level 139 mmol/L (136-145)
--- NOTE | 2021-05-24 12:37 | EKG12_ITS ---
Test Reason : PRE OP Blood Pressure : / mmHG Vent. Rate : 066 BPM Atrial Rate : 066 BPM P-R Int : 218 ms QRS Dur : 088 ms QT Int : 424 ms P-R-T Axes : 048 011 046 degrees QTc Int : 444 ms Sinus rhythm with marked sinus arrhythmia with 1st degree A-V block Low voltage QRS Septal infarct , age undetermined Abnormal ECG Confirmed by LA SLAUGHTER, PEDRITO ([id number]), image editor GORDY CARPENTER ([id number]) on 05/24/2021 12:38:22 PM Referred By: Dillan Schmidt Confirmed By:PEDRITO TOVAR MD
[2021-06-06] VITALS (16 sets, daily range): BP systolic 110–150; BP diastolic 51–81; PULSE 59–70; RESP 16–18; TEMP 36.2–36.4; O2SAT 93–99; BMI 29.0
--- NOTE | 2021-06-06 07:24 | RAD_ITS ---
STUDY: X-RAY - RIGHT KNEE REASON FOR EXAM: Female, 80 years old. Post op -- AP and Lateral xray of operative knee in PACU TECHNIQUE: 2 view(s) of the knee. COMPARISON: None. FINDINGS: Normal visualized distal femur. Normal visualized proximal tibia and fibula. Normal proximal tibiofibular articulation. The patient is status post right total knee replacement. There is good alignment. Postoperative soft tissue changes. RAD/Knee 1 or 2 Views IMPRESSION: Status post total knee replacement. There is good alignment. Postoperative soft tissue changes. Electronically Signed: Bryce Garham MD at 12:59 EDT , Service support ,
--- NOTE | 2021-06-06 07:27 | PCM.OPRPT ---
Report of Operation Date of Procedure: 06/06/21 Pre-Operative Diagnosis: Right knee primary osteoarthritis Post-Operative Diagnosis: Right knee primary osteoarthritis Surgery/Procedure Performed:: Right minimally invasive robotic total knee replacement Description of Surgical Findings:: Stable knee with good patella tracking Surgeon: Dillan Schmidt body artist: Cirilo Ritchie Type of Anesthesia: General Anesthesiologist: Luis Matthews Special Medications: 2 g Ancef, 1 g TXA at incision, 1 g TXA closure, 10 mg Decadron, joint cocktail (5 mg Duramorph, 30 mL of 0.5% Ropivicaine, 1000 units of epinephrine, 30 mg of Toradol) Specimen's removed: Bony cuts Estimated Blood Loss (mL): 50 Fluids Replaced: 1000 mL crystalloid Description of Procedure: Implants used: 1. Whitehouse size 3 triathlon cruciate retaining distal femoral press-fit component 2. Whitehouse size 3 press-fit tritanium tibial baseplate 3. Whitehouse X3 9 mm CS polyethylene 4. Lasha X3 29 mm asymmetric patella Brief history operative indications: 80-year-old f with history of right knee osteoarthritis with radiographic findings with loss of joint space, osteophyte formation and subchondral sclerosis. Failed conservative measures as mentioned in the H&P. Discussion of total knee arthroplasty as well as risk and benefits were discussed the patient including but not limited to blood loss, DVTs, PEs, neurovascular damage, general risk of anesthesia including loss of life, and stiffness or instability were discussed with patient. Patient demonstrated understanding and was able to sign informed consent. Procedure: On the date of procedure patient's right lower extremity was marked in the preoperative area. The patient was then taken back to the operating room where the patient was placed on the table in the supine position. All bony prominences were identified a well-padded. Anesthesia assumed control of the C-spine and airway and remained controlled throughout the remainder of the procedure. A tourniquet was placed on the right upper thigh and the leg was prepped in a sterile fashion. The surgeon then scrubbed at this time .Upon reentering the room right lower extremity was draped in a standard orthopedic fashion. A timeout was then called and everyone agreed upon the side, the site, the procedure to be performed, patient's identity and antibiotics given. Esmarch bandage was used to exsanguinate the extremity and the tourniquet was placed up to 250 mmHg with the knee in flexion. A midline skin incision was made and sharp dissection was taken down through skin subcutaneous tissue and fat. The standard medial parapatellar incision was made and the patella was subluxed laterally. An Appropriate deep MCL release was done and the fat pad was resected. Our attention was then directed to the patella. The patella was everted and a flat resection was made. The knee was then flexed up in 2 femoral pins were placed inside the incision and 2 tibial pins were placed outside the incision in the medial tibia bicortically. Once this was completed the 2 checkpoints in the femur and tibia were placed. Knee was then flexed up and the bony landmarks were registered. Once this was completed knee was taken through range of motion and manually stressed allowing us to a plan for an appropriate tibial cut. The robotic arm was brought into the field sterilely and checkpoint and saw were registered. Based on the patient's deformity the tibial cut was made in 3 degrees of varus. At this time the tensioner was then placed in the joint and ligament tension was checked at 90 degrees and full extension. Based on the patient's ligamentous tension appropriate adjustments were made to the operative plan and ligament releases were done. Once we were happy with our operative plan with balanced flexion and extension gaps our attention was directed to the femur. The robot was brought into the field sterilely and registered. Posterior condylar cuts, anterior chamfer cuts and anterior cuts were appropriately made for a size 3 femur. When these were completed the saws were switched out in the distal femoral and posterior chamfer cuts were made. Protecting the soft tissue throughout this time. A size 3 tibial base plate was selected. the knee was flexed to 90 degrees and the soft tissues and posterior osteophytes were removed from the joint. 40 cc of the periarticular injection was injected into the posterior medial corner of the joint. The appropriate trials were then placed on the femur and tibia. A trial polyethylene was trialed to ensure proper balancing and stability of the knee. The appropriate tibial internal rotation was then marked with a bovie. Our attention was then directed to the patella. The lug holes were drilled and the patella trial was placed. Patellar tracking was checked and deemed appropriate. Once we were happy lug holes were drilled for the femur and trial components were removed. the tibia was subluxed and pinned into place and the keel was punched and drilled appropriately. Final components were verified and opened, and cement was mixed in a vacuum. [employer] Simplex cement was used. The wound was copiously irrigated with normal saline. When the cement was ready the components were impacted into place starting with the tibia, femur and finally cementing the patella. The trial poly component was placed and the knee was placed in full extension. All excess cement was removed in the process. Once the cement had cured the tracking, alignment and balance were verified and a size 9 mm CS polyethylene component was placed. Once the final components were placed a 3-minute dilute Betadine lavage was performed followed by an Irrisept lavage was performed and the wound was copiously irrigated with normal saline solution and the periarticular injection was given. The wound was closed in a layer bethea fashion using #1 vicryl interrupted sutures for the arthrotomy, 2-0 interrupted Vicryl suture for the subcuticular layer and bryson for final skin closure. A sterile compressive dressing was then placed. The patient was then awakened from anesthesia, transferred to the rstevens and transferred to the PACU for recovery. Post op plan DVT ppx: ASA 81mg BID, thigh high compression stockings Follow up: in office in 2 weeks for wound check PT: to start POD #0 at hospital, outpatient PT should be arranged. My physician marketing assistant retail division was a vital part of this case. He was important in appropriate retraction during the case, and protection of soft tissues during bony cuts. His intimate knowledge of the case and my steps aided in safe and expedient completion of the procedure as well as appropriate position of the leg during the case. He was also vital in assisting with closure under my direct supervision. Due to the complexity of this case robotic arm was used to assist in the surgery to improve accuracy and clinical outcomes. Complications No intraoperative complications Admit VTE Documentation VTE Present on Admission: No VTE Mechan Device Prophylaxis: SCD's and Thigh High CALVIN Hose VTE Pharm Prophylaxis ordered?: Yes
[2021-06-06] MEDS: Lactated Ringers 1,000 ML 100 ML IV ×2 (08:10→10:46)
[2021-06-06] MEDS: Acetaminophen 500 MG Tablet 1000 MG PO ×3 (08:22→21:27)
[2021-06-06] MEDS: Celecoxib 200 MG Capsule 400 MG PO (08:22)
[2021-06-06] MEDS: Gabapentin 600 MG Tablet PO (08:23)
[2021-06-06] MEDS: Cefazolin 2 GM in 0.9% Normal Saline 100 ML IV (10:05)
[2021-06-06 10:11] LABS: Bedside Glucose 106 mg/dL (70-110)
[2021-06-06 12:21] LABS: Bedside Glucose 162 mg/dL (70-110)
[2021-06-06] MEDS: Lactated Ringers 1,000 ML 999 ML IV (12:27)
--- NOTE | 2021-06-06 14:56 | PN.HOSP_ITS ---
Subjective Subjective This is a 80-year-old female who underwent a minimally invasive robotic right total knee replacement. Patient has some pain in her knee but otherwise feels well. Objective Data Objective Data Vital Signs: Vital Signs Temp Pulse Resp BP Pulse Ox 36.4 C L 60 16 131/59 H 93 06/06/21 14:28 06/06/21 14:28 06/06/21 14:28 06/06/21 14:28 06/06/21 14:28 Oxygen Flow Rate (L/min) 6 Oxygen Delivery Method Room Air Weight: 76.748 kg Body Mass Index (BMI) 29.0 Intake & Output: Intake and Output for Last 24 Hours 06/04/21 06/05/21 06/06/21 23:59 23:59 23:59 Intake Total 2434.5 / 2434.5 Output Total 565 / 565 Balance 1869.5 / 1869.5 Lab / Micro Data Result Diagrams: 05/23/21 12:02 05/23/21 12:02 Labs: Laboratory Results - last 24 hr 06/06/21 08:15: POC Glucose 106 06/06/21 12:11: POC Glucose 162 H Micro: Microbiology 05/23/21 12:02 Swab (Method) Nasal Screen MRSA/MSSA - Final Radiography Diagnostic Testing: Radiology Impression Knee X-Ray 06/06/21 07:24 IMPRESSION: Status post total knee replacement. There is good alignment. Postoperative soft tissue changes. Electronically Signed: Bryce Graham MD at 12:59 EDT , Service support , Physical Exam Const alert and no apparent distress HEENT Head and Scalp: normocephalic Resp normal respiratory effort, no retractions, no use of accessory muscles and clear to auscultation bilaterally Cardio regular rate, regular rhythm, S1 normal heart sound and S2 normal heart sound GI normal to inspection, nondistended, normoactive bowel sounds, soft to palpation, non-tender and non-distended Extremity Extremity Narrative: Right knee wrapped and ice pack on top. Did not remove. 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 Hypertension * Controlled currently * Continue amlodipine, HCTZ, metoprolol and losartan 2. Diet controlled diabetes * Blood sugar was 169 * Will put the patient on sliding scale insulin during this hospitalization. * Discussed with the patient that her blood sugars may right high given the physiologic stress from the knee replacement. I told her that I do not anticipate her being discharged with any insulin. 3. Breast cancer * On anastrozole * Follow-up with oncology 4. Status post right total knee replacement * Management per orthopedics 5. VTE prophylaxis * As prescribed by orthopedics: Aspirin 81 mg twice daily. Thank you the consult. The hospital service will continue to follow along during this patient's hospitalization. Charges/Coding Visit Charges Inpatient E&M: 14870 Subs Hosp L2
[2021-06-06] MEDS: Lactated Ringers 1,000 ML 125 ML IV (15:48)
[2021-06-06] MEDS: Famotidine 20 MG Tablet PO (15:48)
[2021-06-06] MEDS: Potassium Chloride Oral Tablet 10 MEQ PO (15:49)
[2021-06-06] MEDS: hydroCHLOROthiazide 12.5mg 12.5 MG PO (15:49)
--- NOTE | 2021-06-06 16:07 | PCS.PANDOC ---
PANDEMIC DOCUMENTATION INITIATED: Date: 04/09/2021 Time: 190
[2021-06-06 16:16] LABS: Bedside Glucose 135 mg/dL (70-110)
[2021-06-06] MEDS: Aspirin 81 MG TAB.CHEW PO (16:23)
[2021-06-06] MEDS: Cefazolin 1 GM/50 ML BAG IV (18:18)
[2021-06-06] MEDS: Timolol 0.5% 5ML OPTH.BTL 1 DRP EACH EYE (21:25)
[2021-06-06] MEDS: Fenofibrate 145 MG Tablet PO (21:27)
[2021-06-06] MEDS: Senna/Docusate Sodium 1 Tablet 2 TABLET PO (21:27)
[2021-06-06] MEDS: amLODIPine 5 MG Tablet PO (21:28)
[2021-06-06] MEDS: Metoprolol Tartrate 25 MG Tablet PO (21:28)
[2021-06-06 22:40] LABS: Bedside Glucose 152 mg/dL (70-110)
[2021-06-07 02:29] VITALS: BP 125/59; PULSE 64; RESP 16; TEMP 36.6; O2SAT 94
[2021-06-07] MEDS: Cefazolin 1 GM/50 ML BAG IV (02:31)
[2021-06-07 06:06] LABS: Hematocrit 30.6 % (37-47); Mean Corp Hgb Conc 32.7 g/dL (32-36); Mean Corpuscular Hgb 30.7 pg (27.0-32.0); Mean Corpuscular Volume 93.9 fL (81-99); Mean Platelet Vol. 10.9 fl (6.2-12.0); Platelet Count 203 K/mm3 (150-450); RBC Distribution Width SD 51.6 fl (35.1-43.9); Red Blood Count 3.26 M/mm3 (4.2-5.4); White Blood Count 9.9 K/mm3 (4.4-11.0)
[2021-06-07 06:26] LABS: Anion Gap 7 (5-15); BUN 17 mg/dL (7-18); BUN/Creat Ratio 25.1 RATIO (10-20); Calcium,Total 8.1 mg/dL (8.5-10.1); Chloride 105 mmol/L (98-107); Creatinine, Serum 0.68 mg/dL (0.55-1.02); EST Glomerular Filtration Rate 89 mL/min (>60); Est Glom Filt Rate - Afr Amer 108 mL/min (>60); Estimated Creatinine Clearance 39.39 ml/min; Glucose 110 mg/dL (74-106); Potassium 3.6 mmol/L (3.5-5.1); Sodium Level 139 mmol/L (136-145)
[2021-06-07 06:47] VITALS: BP 132/65; PULSE 72; RESP 18; TEMP 36.6; O2SAT 100
[2021-06-07] MEDS: traMADol 50 MG Tablet PO (06:49)
[2021-06-07 06:56] LABS: Bedside Glucose 109 mg/dL (70-110)
[2021-06-07] MEDS: Acetaminophen 500 MG Tablet 1000 MG PO ×2 (07:20→13:48)
--- NOTE | 2021-06-07 08:40 | NURSING ---
pt up in chair this am with no c/o n/v when up or any rt knee pain at this time. pt in good spirits and doing well this am.
[2021-06-07] MEDS: Potassium Chloride Oral Tablet 10 MEQ PO (08:48)
[2021-06-07] MEDS: Aspirin 81 MG TAB.CHEW PO (08:48)
[2021-06-07] MEDS: Ensure Surgery 237 ML LIQUID PO (08:49)
--- NOTE | 2021-06-07 09:42 | PN.ORTHO_ITS ---
Subjective Subjective The patient was sitting in bedside chair upon examination. Patient denies any chest pain, shortness of breath, dizziness, lightheadedness, nausea or vomiting, or calf pain. Pain is controlled on medications. No adverse overnight events. Overall patient is doing very well this morning. She has been up walking t olerating it very well. Patient is currently on anastrozole from previous breast cancer. She denies any active cancer or malignancy. Objective Data Objective Data Vital Signs: Vital Signs Temp Pulse Resp BP Pulse Ox 97.9 F 72 18 132/65 H 100 06/07/21 06:47 06/07/21 06:47 06/07/21 06:47 06/07/21 06:47 06/07/21 06:47 Oxygen Flow Rate (L/min) 6 Oxygen Delivery Method Room Air Weight: 76.748 kg Body Mass Index (BMI) 29.0 Intake & Output: Intake and Output for Last 24 Hours 06/05/21 06/06/21 06/07/21 23:59 23:59 23:59 Intake Total 4505.33 / 4505.33 133.5 / 133.5 Output Total 1015 / 1015 Balance 3490.33 / 3490.33 133.5 / 133.5 Lab / Micro Data Result Diagrams: 06/07/21 05:45 06/07/21 05:45 Labs: Laboratory Results - last 24 hr 06/06/21 08:15: POC Glucose 106 06/06/21 12:11: POC Glucose 162 H 06/06/21 16:06: POC Glucose 135 H 06/06/21 22:21: POC Glucose 152 H 06/07/21 05:45: WBC 9.9, RBC 3.26 L, Hgb 10.0 L, Hct 30.6 L, MCV 93.9, MCH 30.7, MCHC 32.7, RDW Std Deviation 51.6 H, RDW Coeff of Clara 15.0 H, Plt Count 203, MPV 10.9 06/07/21 05:45: Sodium 139, Potassium 3.6, Chloride 105, Carbon Dioxide 27.0, Anion Gap 7, BUN 17, Creatinine 0.68, Estim Creat Clear Calc 39.39, Est GFR (MDRD) Af Amer 108, Est GFR (MDRD) Non-Af 89, BUN/Creatinine Ratio 25.1 H, Glucose 110 H, Calcium 8.1 L 06/07/21 06:44: POC Glucose 109 Micro: Microbiology 05/23/21 12:02 Swab (Method) Nasal Screen MRSA/MSSA - Final Radiography Diagnostic Testing: Radiology Impression Knee X-Ray 06/06/21 07:24 IMPRESSION: Status post total knee replacement. There is good alignment. Postoperative soft tissue changes. Electronically Signed: Bryce Graham MD at 12:59 EDT , Service support , Physical Exam Narrative Vital signs stable and afebrile. Patient is able to plantarflex and dorsiflex actively. Sensation is intact to light touch to saphenous, sural, superficial and deep peroneal, and tibial distribution. Main dressing is clean dry and intact. Minimal drainage over the proximal and distal pin site. Negative Homans bilaterally, negative signs and symptoms of DVT. Const alert, oriented x3 and no apparent distress Assessment & Plan Assessment/Plan (1) Status post total right knee replacement: PLAN: 1. S/P right total knee arthroplasty POD #1 2. Continue Pain Medications: Tylenol, Celebrex, tramadol as needed 3. DVT Prophylaxis: Take 81 mg aspirin twice daily for 4 weeks postoperatively for DVT prophylaxis. Case was discussed with Dr. Dillan Schmidt. Also discussed with the patient. She has no active malignancy. She is on a estrogen sheila anastrozole. Patient had previous surgeries and treated for DVT prophylaxis with aspirin and tolerated well. 4. PT/OT: Weightbearing as tolerated with walker 5. H & H: 10.0/30.6, asymptomatic. Postoperative anemia secondary to acute blood loss from surgery without any intra operative complications. 6. Continue postoperative medical management per medicine 7. Encouraged Incentive Spirometry 8. Disposition: Plan will be for probable discharge home today as long as patient is medically stable, pain is well controlled, and tolerates physical therapy. Patient has Tylenol, aspirin, and senna at home that she will continue with. She takes Celebrex on her own in which she will continue. Prescription for tramadol and famotidine will be placed on chart. She will only get the tramadol filled if needed. Patient has outpatient physical therapy established. She will follow-up per postop instructions. I have reviewed the [place] Automated Rx Reporting System (OARRS) report for this patient for refill pattern and other prescriber involvement as part of the appropriate surveillance for the provision of acute and chronic controlled medications. The report was requested and reviewed on the date of this entry and was considered in the prescribing process.
--- NOTE | 2021-06-07 09:47 | DCINST_ITS ---
Discharge Instructions Diet Discharge Diet: No restrictions Activity Discharge Activity: May Not Drive (while taking narcotic pain medications.) May shower in (days): 1 (Please turn dressing away from water. Okay to get wet as long as dressing is intact to skin.) Ice area for (Minutes): 20 (Every 1-2 hours while awake. Please place barrier between the skin and ice pack.) Weight Bearing Status: Weight bearing as tolerated Keep extremity elevated above heart level: Operative Extremity Additional Activity Instructions:: No driving for 6 weeks postoperatively Dressing / Incision Call your doctor if your incision/area has: Continuous Slow Oozing, Sudden Increased Bleeding, Increased Pain/ Swelling, Increased Redness and Foul Smelling Discharge Call your doctor if you observe: Fever of 101 or Higher, Coldness, Increased Pain, Numbness or Tingling, Change in Color, Shortness of breath, Chest pain, Calf discomfort and Uncontrolled pain Remove Dressing in: 4 days (Okay to remove dressing on June 11, 2021) Additional Dressing/Incision Instructions:: Follow [facility] Post-op Instructions. Once postoperative dressing has been removed only use gentle soap and water over the incision. Do not use any ointments, Neosporin, salves, alcohol pads over the incision for 6 weeks postoperatively. Do not submerge underwater for 6 weeks postoperatively. Continue with CALVIN hose/elastic stockings for 2 weeks postoperatively. May remove at nighttime but needs to be placed back on the leg during the day. Do NOT use alcohol with narcotic pain medication. Do NOT make important decisions while taking narcotic medication. If you have problems with taking your medication (rash, itching, nausea, etc.) call the office at once. Follow Up Care Test Results: Test results from this visit will be discussed in further detail at your follow-up appointment, if applicable. Discharge Plan Admission Admit Date/Time: 06/06/21 07:23 Attending Provider: Jaen-Claude Mccartney Primary Care Provider: Marco Antonio Arevalo Chi Consulting Providers: Abdias hPam Discharge Orders/Prescriptions Prescriptions: No Action hydrochlorothiazide 12.5 mg tablet 12.5 mg PO DAILY 30 Days Qty: 30 RF: 0 celecoxib [Celebrex] 200 mg capsule 200 mg PO DAILY PRN PRN (Reason: Pain) RF: 0 cholecalciferol (vitamin D3) 25 mcg (1,000 unit) capsule 25 mcg PO DAILY RF: 0 anastrozole 1 mg tablet 1 mg PO DAILY 90 Days Qty: 90 RF: 3 amlodipine 5 mg tablet 5 mg PO QHS RF: 0 timolol maleate 1 DROP gel forming solution 1 drp EACH EYE BID RF: 0 acetaminophen 650 MG tablet extended release 650 mg PO DAILY PRN (Reason: Pain/Inflammation) RF: 0 losartan 100 MG tablet 100 mg PO DAILY RF: 0 potassium chloride 10 MEQ tablet 10 meq PO DAILY RF: 0 metoprolol tartrate 25 MG tablet 25 mg PO BID RF: 0 fenofibrate 160 mg tablet See Rx Instructions .ROUTE .COMPLEX Qty: 90 RF: 3 Referrals / Follow Up: Physical,Therapy [Other] - 06/08/21 11:00 am Marco Antonio Arevalo Chi, MD [Primary Care Provider] - Cirilo Ritchie PA-C [PHYSICIAN MAINTENANCE SUPERVISOR MECHANICAL] - 06/21/21 1:15 pm Disposition Disposition (needs filled in before D/C Order can be placed): Home, Self Care
[2021-06-07 10:45] VITALS: BP 110/45; PULSE 73; RESP 18; TEMP 36.6; O2SAT 97
[2021-06-07] MEDS: Anastrozole 1 MG TABLET PO (10:46)
[2021-06-07 10:47] VITALS: BP 110/45; PULSE 73
[2021-06-07] MEDS: Cholecalciferol (VIT D3) 25 MCG TABLET (1,000 UNITS) PO (10:47)
[2021-06-07] MEDS: Metoprolol Tartrate 25 MG Tablet PO (10:47)
[2021-06-07] MEDS: Famotidine 20 MG Tablet PO (10:47)
[2021-06-07] MEDS: Senna/Docusate Sodium 1 Tablet 2 TABLET PO (10:47)
[2021-06-07] MEDS: Timolol 0.5% 5ML OPTH.BTL 1 DRP EACH EYE (10:47)
--- NOTE | 2021-06-07 11:10 | CASEMGMT ---
ALBERTO GRANT Face to Face with patient for initial transition planning/care coordination assessment. RN JUANITA introduced self and role at [facility]. Patient lying in bed, alert and oriented. Patient willing to participate in assessment and is able to answer all questions appropriately. Care providers, pharmacy, and demographics verified. Patient wishes to discharge home and is setup with outpatient therapy at [facility]. Patient states she has no further needs or concerns at this time. CM to follow for discharge planning needs that may arise. PCP: Mickey Specialists: cordell Schmidt; Delfina, offline cutter Preferred Pharmacy: [facility] retail at discharge Insurance: [employer] Prescription Benefit: yes Living Will/HPOA: yes, son Chintan Mendez LNOK: Living Arrangements: Patient lives with in a single story home with 1 step and 2 grab bars to enter. Patient states she was independent at home prior to surgery. Transportation: neighbor DME/C: Patient states she has shower chair, raised toilet, cane, walker, and grab bars at home. Patient is setup with [facility] for outpatient therapy starting tomorrow. Disposition Plan: Patient to discharge home with outpatient therapy, family support, and follow-up plans in place. Letty MILLER, RN, CM
--- NOTE | 2021-06-07 11:45 | CASEMGMT ---
ALBERTO GRANT in to discuss GRIMALDO form with patient. RN JUANITA explained GRIMALDO for to patient, patient voiced understanding. Patient signed GRIMALDO form and filed in chart. Patient provided with copy of signed GRIMALDO form. Patient had no further questions or concerns at this time.
[2021-06-07] MEDS: Losartan Potassium 100 MG Tablet PO (11:59)
[2021-06-07] MEDS: hydroCHLOROthiazide 12.5mg 12.5 MG PO (11:59)
[2021-06-07 12:21] LABS: Bedside Glucose 114 mg/dL (70-110)
[2021-06-07 13:56] VITALS: BP 132/59; PULSE 65; RESP 16; TEMP 36.6; O2SAT 96
--- NOTE | 2021-06-07 14:00 | CASEMGMT ---
Social Work Note Per recycling or rubbish collector questions, pt has completed HCPOA and LW and provided documents to [facility]. SW reviewed chart, both HCPOA and LW are on file. SW printed off documents and placed on pt's chart. Letty Miller TRAIN ATTENDANT, OLD COIN DEALER
--- NOTE | 2021-06-07 17:34 | PCM.PN.HOSP ---
Subjective Subjective Patient was seen and examined today, she does not complain of any shortness of breath or chest discomfort to this examiner. Objective Data Objective Data Vital Signs: Vital Signs Temp Pulse Resp BP Pulse Ox 97.9 F 65 16 132/59 H 96 06/07/21 13:56 06/07/21 13:56 06/07/21 13:56 06/07/21 13:56 06/07/21 13:56 Oxygen Flow Rate (L/min) 6 Oxygen Delivery Method Room Air Weight: 76.748 kg Body Mass Index (BMI) 29.0 Intake & Output: Intake and Output for Last 24 Hours 06/05/21 06/06/21 06/07/21 23:59 23:59 23:59 Intake Total 4505.33 / 4505.33 553.5 / 553.5 Output Total 1015 / 1015 Balance 3490.33 / 3490.33 553.5 / 553.5 Lab / Micro Data Result Diagrams: 06/07/21 05:45 06/07/21 05:45 Labs: Laboratory Results - last 24 hr 06/06/21 22:21: POC Glucose 152 H 06/07/21 05:45: WBC 9.9, RBC 3.26 L, Hgb 10.0 L, Hct 30.6 L, MCV 93.9, MCH 30.7, MCHC 32.7, RDW Std Deviation 51.6 H, RDW Coeff of Clara 15.0 H, Plt Count 203, MPV 10.9 06/07/21 05:45: Sodium 139, Potassium 3.6, Chloride 105, Carbon Dioxide 27.0, Anion Gap 7, BUN 17, Creatinine 0.68, Estim Creat Clear Calc 39.39, Est GFR (MDRD) Af Amer 108, Est GFR (MDRD) Non-Af 89, BUN/Creatinine Ratio 25.1 H, Glucose 110 H, Calcium 8.1 L 06/07/21 06:44: POC Glucose 109 06/07/21 11:55: POC Glucose 114 H Micro: Microbiology 05/23/21 12:02 Swab (Method) Nasal Screen MRSA/MSSA - Final Physical Exam Const alert, oriented x3, no apparent distress and healthy appearing General Appearance: cooperative, well kempt and well developed Orientation / Consciousness: awake, oriented to person, oriented to place and oriented to time HEENT normocephalic, head/scalp atraumatic and moist oral mucous membranes Head and Scalp: normocephalic Eyes PERRL, EOMs intact bilaterally and conjunctivae normal Neck nuchal rigidity, supple, no JVD, thyroid normal and no carotid bruits General: trachea midline Resp normal respiratory effort, no retractions, no use of accessory muscles and clear to auscultation bilaterally Auscultation: Negative for rales, rhonchi or wheezes Cardio regular rate, regular rhythm, S1 normal heart sound, S2 normal heart sound, no murmurs, no rub and no gallops GI normal to inspection, nondistended, normoactive bowel sounds, soft to palpation, non-tender and non-distended Skin no rashes or lesions noted General Skin Exam: no breakdown Neuro oriented x3, CN's II-XII intact bilaterally, no focal motor deficits and no sensory deficits noted Sensorium / Orientation: awake and alert Speech: speech normal Psych thought process normal and affect normal Assessment & Plan Assessment/Plan (1) Status post total right knee replacement: PLAN: 1. Type 2 diabetes #2 essential hypertension #3 Osteoarthritis of the right knee #4 status post total right knee replacement-postop day #1 Patient appears medically stable at this time Charges/Coding Visit Charges Inpatient E&M: 40365 Subs Hosp L2
== END 2021-06-07 14:06 | disposition home or self-care (01) ==
LOC: SDC 13:10 → MS2 13:10
PROVIDERS: Anesthesiology; Admitting Provider Specialist; PCP Family Medicine Geriatric Medicine; Referring Provider Specialist; Visit Provider Internal Medicine
PROC: 0SRC0JZ Replacement of Right Knee Joint with Synthetic Substitute, Open Approach (ICD-10-PCS; CPT 27447; principal; 2021-06-06 09:30)
DX: M17.11 Unilateral primary osteoarthritis, right knee (principal); I10 Essential (primary) hypertension; E11.9 Type 2 diabetes mellitus without complications; C50.919 Malignant neoplasm of unspecified site of unspecified female breast; I27.20 Pulmonary hypertension, unspecified; E78.1 Pure hyperglyceridemia; R94.31 Abnormal electrocardiogram [ECG] [EKG]; I44.0 Atrioventricular block, first degree; Z79.811 Long term (current) use of aromatase inhibitors; Z79.899 Other long term (current) drug therapy
CPT/HCPCS: 01402; 27447; 64447; S2900; 36415; 71046; 73560; 80048; 82962; 83036; 83735; 85025; 85027; 87081; 93005; 96365; 96366; 97162; 97166; 97530; 97535; 99218; 99251; C1776; J7120; G0378; G0463; J2405

== ENCOUNTER → 2021-08-01 10:12 | Outpatient (CLI) | payer MEDICARE, OTHER, SELFPAY ==
[2019-05-17 09:04] VITALS: BMI 29.3
[2021-08-01 12:37] LABS: Absolute Lymphocyte Count 1.39 X10^3/uL (0.83-4.51); Absolute Neutrophil Count 3.9 X10^3/uL (2.0-7.7); Basophil# 0.03 X10^3/uL; Basophil% 0.5 % (0-1); Eosinophil# 0.17 X10^3/uL; Eosinophils% 2.8 % (0-5); Hematocrit 36.6 % (37-47); Hemoglobin 11.8 g/dL (12.0-15.0); Lymphocyte # 1.39 X10^3/ul (0.83-4.51); Lymphocyte % 22.6 % (19-41); Mean Corp Hgb Conc 32.2 g/dL (32-36); Mean Corpuscular Hgb 30.9 pg (27.0-32.0); Mean Corpuscular Volume 95.8 fL (81-99); Mean Platelet Vol. 11.4 fl (6.2-12.0); Monocyte# 0.64 X10^3/uL; Monocyte% 10.4 % (0-10); NRBC Flagged by Analyzer 0 % (0-5); Neutrophil # 3.91 X10^3/uL (2.7-7.7); Neutrophil % 63.4 % (47-70); Platelet Count 251 K/mm3 (150-450); RBC Distribution Width SD 51.8 fl (35.1-43.9); Red Blood Count 3.82 M/mm3 (4.2-5.4); White Blood Count 6.2 K/mm3 (4.4-11.0)
[2021-08-01 12:50] LABS: Vitamin D,25 Hydroxy 30.7 ng/mL
[2021-08-01 13:00] LABS: ALB/GLOB Ratio 1.1 RATIO (0.9-2.4); AST(SGOT) 24 U/L (15-37); Alanine Aminotransfer ALT/SGPT 34 U/L (13-56); Albumin, Serum 3.9 g/dL (3.2-5.0); Alkaline Phosphatase 36 U/L (45-117); Anion Gap 8 (5-15); BUN 23 mg/dL (7-18); BUN/Creat Ratio 28.9 RATIO (10-20); Calcium,Total 9.3 mg/dL (8.5-10.1); Chloride 107 mmol/L (98-107); Cholesterol 160 mg/dL (200); EST Glomerular Filtration Rate 74 mL/min (>60); Est Glom Filt Rate - Afr Amer 89 mL/min (>60); Globulin 3.4 g/dL (2.2-4.2); Glucose 98 mg/dL (74-106); High Density Lipoprotein 43 mg/dL; Protein, Total 7.3 g/dL (6.4-8.2); Sodium Level 141 mmol/L (136-145); Thyroid Stim Hormone (TSH) 2.16 uIU/mL (0.358-3.74); Triglycerides 134 mg/dL; Very Low Density Lipoprotein 27 mg/dL (5-40)
== END ==
PROVIDERS: PCP Family Medicine Geriatric Medicine; Visit Provider Family Medicine Geriatric Medicine
DX: E78.5 Hyperlipidemia, unspecified (principal); I10 Essential (primary) hypertension; E55.9 Vitamin D deficiency, unspecified
CPT/HCPCS: 36415; 80053; 80061; 82306; 84443; 85025

== ENCOUNTER → 2022-01-30 | Outpatient (CLI) | payer MEDICARE, SELFPAY ==
[2019-05-17 09:04] VITALS: BMI 29.3
[2022-01-30 12:03] LABS: Absolute Lymphocyte Count 2.31 X10^3/uL (0.83-4.51); Absolute Neutrophil Count 6.6 X10^3/uL (2.0-7.7); Basophil# 0.01 X10^3/uL; Basophil% 0.1 % (0-1); Eosinophil# 0.06 X10^3/uL; Eosinophils% 0.6 % (0-5); Hematocrit 36.6 % (37-47); Hemoglobin 11.9 g/dL (12.0-15.0); Lymphocyte # 2.31 X10^3/ul (0.83-4.51); Lymphocyte % 23.4 % (19-41); Mean Corp Hgb Conc 32.5 g/dL (32-36); Mean Corpuscular Hgb 30.4 pg (27.0-32.0); Mean Corpuscular Volume 93.6 fL (81-99); Mean Platelet Vol. 11.6 fl (6.2-12.0); Monocyte# 0.87 X10^3/uL; Monocyte% 8.8 % (0-10); NRBC Flagged by Analyzer 0.2 % (0-5); Neutrophil # 6.58 X10^3/uL (2.7-7.7); Neutrophil % 66.6 % (47-70); Platelet Count 230 K/mm3 (150-450); RBC Distribution Width CV 15.1 % (11.6-14.6); RBC Distribution Width SD 51.3 fl (35.1-43.9); Red Blood Count 3.91 M/mm3 (4.2-5.4); White Blood Count 9.9 K/mm3 (4.4-11.0)
[2022-01-30 12:20] LABS: Vitamin D,25 Hydroxy 30.5 ng/mL
[2022-01-30 12:29] LABS: ALB/GLOB Ratio 1.2 RATIO (0.9-2.4); AST(SGOT) 21 U/L (15-37); Alanine Aminotransfer ALT/SGPT 31 U/L (13-56); Albumin, Serum 4.1 g/dL (3.2-5.0); Alkaline Phosphatase 32 U/L (45-117); Anion Gap 7 (5-15); BUN 23 mg/dL (7-18); BUN/Creat Ratio 31.6 RATIO (10-20); Calcium,Total 9.1 mg/dL (8.5-10.1); Chloride 107 mmol/L (98-107); Cholesterol 200 mg/dL (200); Creatinine, Serum 0.73 mg/dL (0.55-1.02); EST Glomerular Filtration Rate 82 mL/min (>60); Est Glom Filt Rate - Afr Amer 99 mL/min (>60); Globulin 3.3 g/dL (2.2-4.2); Glucose 109 mg/dL (74-106); High Density Lipoprotein 49 mg/dL; Protein, Total 7.4 g/dL (6.4-8.2); Sodium Level 141 mmol/L (136-145); Thyroid Stim Hormone (TSH) 0.98 uIU/mL (0.358-3.74); Triglycerides 149 mg/dL; Very Low Density Lipoprotein 30 mg/dL (5-40)
== END | disposition home or self-care (01) ==
LOC: POLAB3 09:11
PROVIDERS: PCP Family Medicine Geriatric Medicine; Visit Provider Family Medicine Geriatric Medicine
DX: E78.5 Hyperlipidemia, unspecified (principal); I10 Essential (primary) hypertension; E55.9 Vitamin D deficiency, unspecified
CPT/HCPCS: 36415; 80053; 80061; 82306; 84443; 85025

== ENCOUNTER → 2022-02-19 | Outpatient (CLI) | payer MEDICARE, SELFPAY ==
[2019-05-17 09:04] VITALS: BMI 29.3
--- NOTE | 2022-02-19 09:52 | ECHOD_ITS ---
Reason For Study: AV Disorder Procedure This was a 2D Doppler, Color Flow transthoracic echocardiogram. The study was technically difficult. Exam performed in department. Left Ventricle Normal LV size. Left ventricular systolic function is normal. The estimated ejection fraction is 60 %. No evidence for diastolic dysfunction. No regional wall motion abnormalities noted. Right Ventricle Normal RV size. Normal systolic function. Atria The left atrium is mildly enlarged. Normal right atrium. No doppler evidence for ASD. Mitral Valve There is no mitral annular calcification. Mild focal mitral valve calcification of the anterior leaflet. Trivial mitral valve insufficiency. Tricuspid Valve Normal tricuspid valve. Trivial tricuspid valve insufficiency. Unable to estimate RV systolic pressure/pulmonary artery pressure due to technically difficult study. Aortic Valve Trisinus/trileaflet aortic valve. Mild focal aortic valve thickening. Mild focal aortic valve calcification. Pulmonic Valve The pulmonic valve is not well visualized. Great Vessels Normal sized aortic root. Pericardium/Pleural No pericardial effusion. MMode/2D Measurements & Calculations LVIDd: 4.2 cm IVSd: 1.0 cm LVOT diam: 1.9 cm LVIDs: 2.5 cm LVPWd: 1.1 cm LVOT area: 2.8 cm2 FS: 40.9 % Ao root diam: 3.4 cm LAV(MOD-bp): 55.4 ml LA A4 area: 20.1 cm2 LA dimension: 5.0 cm LAV(MOD-bp) Indexed: 29.8 ml/m2 LAV(MOD-sp2): 53.2 ml LAV(MOD-sp4): 56.6 ml Time Measurements MV dec time: 0.20 sec Doppler Measurements & Calculations MV E max meryl: 83.1 cm/sec MV V2 max: 105.8 cm/sec MV P1/2t max meryl: 85.4 cm/sec MV A max meryl: 99.0 cm/sec MV max P.5 mmHg MV P1/2t: 86.2 msec MV E/A: 0.84 MV V2 mean: 59.7 cm/sec MV dec slope: 290.3 cm/sec2 MV mean P.7 mmHg MVA(P1/2t): 2.6 cm2 MV V2 VTI: 33.2 cm Ao V2 max: 110.9 cm/sec LV V1 max: 88.6 cm/sec PA V2 max: 70.6 cm/sec Ao max P.9 mmHg LV V1 max P.1 mmHg JACOBO(V,D): 2.2 cm2 ECHO/Echo Complete Interpretation Summary The study was technically difficult. Left ventricular systolic function is normal. The estimated ejection fraction is 60 %. The left atrium is mildly enlarged. Mild focal mitral valve calcification of the anterior leaflet. Trivial mitral valve insufficiency. Trivial tricuspid valve insufficiency. Mild focal aortic valve thickening. Mild focal aortic valve calcification. Unable to estimate RV systolic pressure/pulmonary artery pressure due to techni estrella difficult study. No evidence for diastolic dysfunction. Comment: Compared to the previous TTE of 05-24-2016 the previous small mobile ec hodensity on the aortic aspect of the aortic valve is not visualized at this time. Ordering Physician: Huan Mathis Referring Physician: Marco Antonio Arevalo Chi Performed By: Aime Marsh RCS
== END | disposition home or self-care (01) ==
LOC: CVS 09:51
PROVIDERS: PCP Family Medicine Geriatric Medicine; Referring Provider Internal Medicine Cardiovascular Disease; Visit Provider Internal Medicine Cardiovascular Disease
DX: I51.7 Cardiomegaly (principal); I47.1 Supraventricular tachycardia; I10 Essential (primary) hypertension; E78.1 Pure hyperglyceridemia; Z98.890 Other specified postprocedural states; Z86.79 Personal history of other diseases of the circulatory system
CPT/HCPCS: 93306

== ENCOUNTER → 2022-04-19 | Outpatient (CLI) | payer MEDICARE, SELFPAY ==
[2019-05-17 09:04] VITALS: BMI 29.3
--- NOTE | 2022-04-19 08:59 | BI_ITS ---
MAMMOGRAPHY - BILATERAL SCREENING REASON FOR EXAM: Female, 81 years old. Routine annual screening examination. PERTINENT HISTORY: Personal history of breast cancer. Prior right lumpectomy. Prior left lumpectomy with radiation. Sisters with breast cancers. TECHNIQUE: Digital bilateral breast carlie (3D mammographic acquisition) in the CC and MLO projections. 2-D mediolateral oblique (MLO) and craniocaudad (CC) views of both breasts were obtained. CAD: Full Field Digital Mammography with Computer Added Detection was performed. COMPARISON: Comparison is made with prior study dated 04/18/2021 and 04/17/2020. FINDINGS: Breast Composition: There are scattered areas of fibroglandular density. There are no dominant masses or suspicious calcifications. Once again, the patient is status post lumpectomy in the upper lateral aspects of both breasts. Postoperative scarring and deformity is seen. Stable skin thickening bilaterally. No other significant abnormalities are identified. There has been no significant change since the prior study. BI/SCRN MAMM (CAD)W/CARLIE BILAT IMPRESSION: Stable bilateral screening mammogram. Yearly follow-up mammogram recommended. (A) ASSESSMENT CATEGORY: BIRADS Category 2: Benign. A letter regarding these results will be sent to the patient by the facility within 30 days. Approximately 10% of breast cancers are not detected by mammography. A normal mammogram should not delay biopsy of a clinically suspicious abnormality. [id number] Electronically Signed: Bryce Graham MD at 9:50 EDT ,
== END | disposition home or self-care (01) ==
LOC: OPBI 08:58
PROVIDERS: PCP Family Medicine Geriatric Medicine; Visit Provider Student in an Organized Health Care Education/Training Program
DX: Z12.31 Encounter for screening mammogram for malignant neoplasm of breast (principal); Z85.3 Personal history of malignant neoplasm of breast; Z80.3 Family history of malignant neoplasm of breast
CPT/HCPCS: 77063; 77067

== ENCOUNTER → 2022-06-04 | Outpatient (CLI) | payer MEDICARE, SELFPAY ==
[2019-05-17 09:04] VITALS: BMI 29.3
== END | disposition home or self-care (01) ==
LOC: PSN 08:40
PROVIDERS: PCP Family Medicine Geriatric Medicine; Referring Provider Family Medicine Geriatric Medicine; Visit Provider Family Medicine Geriatric Medicine
DX: R68.83 Chills (without fever) (principal)
CPT/HCPCS: 87635; 87804; 87807; C9803; U0003; U0005

== ENCOUNTER → 2022-08-05 | Outpatient (CLI) | payer MEDICARE, SELFPAY ==
[2019-05-17 09:04] VITALS: BMI 29.3
[2022-08-05 12:46] LABS: Absolute Lymphocyte Count 1.61 X10^3/uL (0.83-4.51); Basophil# 0.03 X10^3/uL; Basophil% 0.5 % (0-1); Eosinophil# 0.18 X10^3/uL; Eosinophils% 2.8 % (0-5); Hematocrit 39.2 % (37-47); Hemoglobin 12.7 g/dL (12.0-15.0); Lymphocyte # 1.61 X10^3/ul (0.83-4.51); Lymphocyte % 25.1 % (19-41); Mean Corp Hgb Conc 32.4 g/dL (32-36); Mean Corpuscular Volume 92.5 fL (81-99); Mean Platelet Vol. 11.1 fl (6.2-12.0); Monocyte# 0.59 X10^3/uL; Monocyte% 9.2 % (0-10); NRBC Flagged by Analyzer 0 % (0-5); Neutrophil # 3.98 X10^3/uL (2.7-7.7); Neutrophil % 62.1 % (47-70); Platelet Count 275 K/mm3 (150-450); RBC Distribution Width SD 54.4 fl (35.1-43.9); Red Blood Count 4.24 M/mm3 (4.2-5.4); White Blood Count 6.4 K/mm3 (4.4-11.0)
[2022-08-05 13:01] LABS: Vitamin D,25 Hydroxy 29.1 ng/mL
[2022-08-05 13:46] LABS: ALB/GLOB Ratio 1.1 RATIO (0.9-2.4); AST(SGOT) 20 U/L (15-37); Alanine Aminotransfer ALT/SGPT 28 U/L (13-56); Alkaline Phosphatase 32 U/L (45-117); Anion Gap 7 (5-15); BUN 20 mg/dL (7-18); BUN/Creat Ratio 27.5 RATIO (10-20); Calcium,Total 9.1 mg/dL (8.5-10.1); Chloride 107 mmol/L (98-107); Cholesterol 182 mg/dL (200); Creatinine, Serum 0.73 mg/dL (0.55-1.02); EST Glomerular Filtration Rate 82 mL/min (>60); Est Glom Filt Rate - Afr Amer 99 mL/min (>60); Globulin 3.5 g/dL (2.2-4.2); Glucose 105 mg/dL (74-106); High Density Lipoprotein 46 mg/dL; Potassium 3.8 mmol/L (3.5-5.1); Protein, Total 7.5 g/dL (6.4-8.2); Sodium Level 140 mmol/L (136-145); Thyroid Stim Hormone (TSH) 2.29 uIU/mL (0.358-3.74); Triglycerides 172 mg/dL; Very Low Density Lipoprotein 34 mg/dL (5-40)
== END | disposition home or self-care (01) ==
LOC: POLAB3 08:57
PROVIDERS: PCP Family Medicine Geriatric Medicine; Visit Provider Family Medicine Geriatric Medicine
DX: E55.9 Vitamin D deficiency, unspecified (principal); I10 Essential (primary) hypertension
CPT/HCPCS: 36415; 80053; 80061; 82306; 84443; 85025

== ENCOUNTER → 2022-08-28 | Outpatient (CLI) | payer MEDICARE, SELFPAY ==
[2019-05-17 09:04] VITALS: BMI 29.3
--- NOTE | 2022-08-28 12:53 | MRI_ITS ---
EXAM: MR LEFT LOWER EXTREMITY WITHOUT INTRAVENOUS CONTRAST, FOOT CLINICAL INDICATION: CAPSULITIS NEUROMA BILATERAL FOREFOOT TECHNIQUE: Multiplanar and multisequence MR images of the left foot without intravenous contrast. This report was created using [employer] report generation technology. COMPARISON: None. FINDINGS: LIGAMENTS: MEDIAL COLLATERAL: Unremarkable. Intact. LATERAL COLLATERAL: Unremarkable. Intact. LISFRANC: Unremarkable. Intact. TENDONS: FLEXOR: Unremarkable. Intact. EXTENSOR: Unremarkable. Intact. PERONEAL: Unremarkable. Intact. TIBIALIS ANTERIOR: Unremarkable. Intact. TIBIALIS POSTERIOR: Unremarkable. Intact. MUSCLES: Significant muscle atrophy. FLUID: Unremarkable. No joint effusion. PLANTAR FASCIA: Unremarkable. Intact. BONES/JOINTS: Degenerative changes of the spine. Normal forefoot alignment. No fracture. No bone marrow edema. No joint effusion. EXAM: MR LEFT LOWER EXTREMITY WITHOUT INTRAVENOUS CONTRAST, FOOT CLINICAL INDICATION: CAPSULITIS NEUROMA BILATERAL FOREFOOT TECHNIQUE: Multiplanar and multisequence MR images of the left foot without intravenous contrast. This report was created using [employer] report [place] technology. COMPARISON: None. FINDINGS: LIGAMENTS: MEDIAL COLLATERAL: Unremarkable. Intact. LATERAL COLLATERAL: Unremarkable. Intact. LISFRANC: Unremarkable. Intact. TENDONS: FLEXOR: Unremarkable. Intact. EXTENSOR: Unremarkable. Intact. PERONEAL: Unremarkable. Intact. TIBIALIS ANTERIOR: Unremarkable. Intact. TIBIALIS POSTERIOR: Unremarkable. Intact. MUSCLES: Significant muscle atrophy. FLUID: Unremarkable. No joint effusion. PLANTAR FASCIA: Unremarkable. Intact. BONES/JOINTS: Degenerative changes of the spine. Normal forefoot alignment. No fracture. No bone marrow edema. No joint effusion. OTHER SOFT TISSUES: Unremarkable. TUBES, LINES AND DEVICES: Tarsal-metatarsal articulation can lead to osteoarthrosis. OTHER FINDINGS: Intact plantar aponeurosis. IMPRESSION: No acute findings in the left foot. EXAM: MR LEFT LOWER EXTREMITY WITHOUT INTRAVENOUS CONTRAST, FOOT CLINICAL INDICATION: CAPSULITIS NEUROMA BILATERAL FOREFOOT TECHNIQUE: Multiplanar and multisequence MR images of the left foot without intravenous contrast. This report was created using [employer] report generation technology. COMPARISON: None. FINDINGS: LIGAMENTS: MEDIAL COLLATERAL: Unremarkable. Intact. LATERAL COLLATERAL: Unremarkable. Intact. LISFRANC: Unremarkable. Intact. TENDONS: FLEXOR: Unremarkable. Intact. EXTENSOR: Unremarkable. Intact. PERONEAL: Unremarkable. Intact. TIBIALIS ANTERIOR: Unremarkable. Intact. TIBIALIS POSTERIOR: Unremarkable. Intact. MUSCLES: Significant muscle atrophy. FLUID: Unremarkable. No joint effusion. PLANTAR FASCIA: Unremarkable. Intact. Moderate osteonecrosis involving the first carpometacarpal joint. BONES/JOINTS: Degenerative changes of the spine. Normal forefoot alignment. No fracture. No bone marrow edema. No joint effusion. OTHER SOFT TISSUES: Unremarkable. TUBES, LINES AND DEVICES: Tarsal-metatarsal articulation can lead to osteoarthrosis. Mild to moderate degenerative changes are also seen involving the third and fourth distal interphalangeal joints. OTHER FINDINGS: Intact plantar aponeurosis. Moderate osteoarthrosis involving the first metatarsophalangeal joint. IMPRESSION: No acute findings in the left foot. MRI/Lower Ext/No Jt/w/o IMPRESSION: No acute findings in the left foot. Electronically Signed: Sly Conley MD at 3:55 EST ,
--- NOTE | 2022-08-28 12:54 | MRI_ITS ---
EXAM: MR RIGHT LOWER EXTREMITY WITHOUT INTRAVENOUS CONTRAST, FOOT CLINICAL INDICATION: CAPSULITIS NEUROMA BILATERAL FOREFOOT TECHNIQUE: Multiplanar and multisequence MR images of the right foot without intravenous contrast. This report was created using [employer] report [employer] technology. COMPARISON: None. FINDINGS: LIGAMENTS: MEDIAL COLLATERAL: Unremarkable. Intact. LATERAL COLLATERAL: Unremarkable. Intact. LISFRANC: Unremarkable. Intact. TENDONS: FLEXOR: Unremarkable. Intact. EXTENSOR: Unremarkable. Intact. PERONEAL: Unremarkable. Intact. TIBIALIS ANTERIOR: Unremarkable. Intact. TIBIALIS POSTERIOR: Unremarkable. Intact. MUSCLES: Significant muscle atrophy. FLUID: Unremarkable. No joint effusion. PLANTAR FASCIA: Unremarkable. Intact. BONES/JOINTS: No bone marrow signal alterations. Normal forefoot alignment. No fracture. No joint effusion. OTHER SOFT TISSUES: Unremarkable. OTHER FINDINGS: Intact plantar aponeurosis. No phlegmon or abscess. MRI/Lower Ext/No Jt/w/o IMPRESSION: No convincing evidence for an abnormal neuroma. Electronically Signed: Sly Conley MD at 4:00 [facility] ,
== END | disposition home or self-care (01) ==
PROVIDERS: PCP Family Medicine Geriatric Medicine; Referring Provider Podiatrist; Visit Provider Podiatrist
DX: M77.8 Other enthesopathies, not elsewhere classified (principal); G57.63 Lesion of plantar nerve, bilateral lower limbs
CPT/HCPCS: 73718

== ENCOUNTER → 2023-01-27 | Outpatient (CLI) | payer MEDICARE, SELFPAY ==
[2019-05-17 09:04] VITALS: BMI 29.3
[2023-01-27 11:07] LABS: Absolute Lymphocyte Count 1.73 X10^3/uL (0.83-4.51); Absolute Neutrophil Count 4.6 X10^3/uL (2.0-7.7); Basophil# 0.04 X10^3/uL; Basophil% 0.6 % (0-1); Eosinophil# 0.15 X10^3/uL; Eosinophils% 2.1 % (0-5); Hematocrit 43.1 % (37-47); Lymphocyte # 1.73 X10^3/ul (0.83-4.51); Lymphocyte % 23.9 % (19-41); Mean Corp Hgb Conc 30.2 g/dL (32-36); Mean Corpuscular Hgb 29.7 pg (27.0-32.0); Mean Corpuscular Volume 98.4 fL (81-99); Mean Platelet Vol. 11.1 fl (6.2-12.0); Monocyte# 0.74 X10^3/uL; Monocyte% 10.2 % (0-10); NRBC Flagged by Analyzer 0 % (0-5); Neutrophil # 4.56 X10^3/uL (2.7-7.7); Neutrophil % 62.8 % (47-70); Platelet Count 282 K/mm3 (150-450); RBC Distribution Width CV 15.3 % (11.6-14.6); RBC Distribution Width SD 54.5 fl (35.1-43.9); Red Blood Count 4.38 M/mm3 (4.2-5.4); White Blood Count 7.3 K/mm3 (4.4-11.0)
[2023-01-27 11:47] LABS: Vitamin D,25 Hydroxy 36.9 ng/mL
[2023-01-27 11:50] LABS: ALB/GLOB Ratio 1.2 RATIO (0.9-2.4); AST(SGOT) 31 U/L (15-37); Alanine Aminotransfer ALT/SGPT 31 U/L (13-56); Albumin, Serum 4.1 g/dL (3.2-5.0); Alkaline Phosphatase 30 U/L (45-117); Anion Gap 0 (5-15); BUN 25 mg/dL (7-18); BUN/Creat Ratio 31.5 RATIO (10-20); Calcium,Total 9.3 mg/dL (8.5-10.1); Chloride 109 mmol/L (98-107); Cholesterol 183 mg/dL (200); Creatinine, Serum 0.79 mg/dL (0.55-1.02); EST Glomerular Filtration Rate 74 mL/min (>60); Est Glom Filt Rate - Afr Amer 89 mL/min (>60); Globulin 3.4 g/dL (2.2-4.2); Glucose 108 mg/dL (74-106); High Density Lipoprotein 47 mg/dL; Potassium 4.3 mmol/L (3.5-5.1); Protein, Total 7.5 g/dL (6.4-8.2); Sodium Level 136 mmol/L (136-145); Thyroid Stim Hormone (TSH) 2.13 uIU/mL (0.358-3.74); Triglycerides 146 mg/dL; Very Low Density Lipoprotein 29 mg/dL (5-40)
== END | disposition home or self-care (01) ==
LOC: LAB 10:00
PROVIDERS: PCP Family Medicine Geriatric Medicine; Referring Provider Family Medicine Geriatric Medicine; Visit Provider Family Medicine Geriatric Medicine
DX: I10 Essential (primary) hypertension (principal); E55.9 Vitamin D deficiency, unspecified
CPT/HCPCS: 36415; 80053; 80061; 82306; 84443; 85025

== ENCOUNTER → 2023-04-21 | Outpatient (CLI) | payer MEDICARE, SELFPAY ==
[2019-05-17 09:04] VITALS: BMI 29.3
--- NOTE | 2023-04-21 11:00 | BI_ITS ---
MAMMOGRAPHY - BILATERAL SCREENING REASON FOR EXAM: Female, 82 years old. Routine annual screening examination. PERTINENT HISTORY: Personal history of breast cancer. Bilateral lumpectomies and radiation therapy. Sisters with breast cancer. TECHNIQUE: Digital bilateral breast carlie (3D mammographic acquisition) in the CC and MLO projections. 2-D mediolateral oblique (MLO) and craniocaudad (CC) views of both breasts were obtained. CAD: Full Field Digital Mammography with Computer Added Detection was performed. COMPARISON: Comparison is made with prior study dated April 19, 2022 and April 18, 2021. FINDINGS: Breast Composition: There are scattered areas of fibroglandular density. There are no dominant masses or suspicious calcifications. The patient is status post lumpectomy in the upper lateral aspects of both breasts with resultant postoperative scarring. Once again, there is evidence of skin thickening of both breasts likely worse on the left side. Stable calcification in the deep inferior medial aspect of the left breast. No other significant abnormalities are identified. There has been no significant change since the prior study. BI/SCRN MAMM (CAD)W/CARLIE BILAT IMPRESSION: Stable bilateral screening mammogram. Yearly follow-up mammogram recommended. (A) ASSESSMENT CATEGORY: BIRADS Category 2: Benign. A letter regarding these results will be sent to the patient by the facility within 30 days. Approximately 10% of breast cancers are not detected by mammography. A normal mammogram should not delay biopsy of a clinically suspicious abnormality. [id number] Electronically Signed: Bryce Graham MD at 13:25 EDT ,
== END | disposition home or self-care (01) ==
LOC: OPBI 10:40
PROVIDERS: PCP Family Medicine Geriatric Medicine; Referring Provider Internal Medicine Medical Oncology; Visit Provider Internal Medicine Medical Oncology
DX: Z12.31 Encounter for screening mammogram for malignant neoplasm of breast (principal); Z85.3 Personal history of malignant neoplasm of breast; Z80.3 Family history of malignant neoplasm of breast
CPT/HCPCS: 77063; 77067

== ENCOUNTER → 2023-06-21 | Outpatient (CLI) | payer MEDICARE, SELFPAY ==
[2019-05-17 09:04] VITALS: BMI 29.3
[2023-06-21 08:11] LABS: Hematocrit 37.8 % (37-47); Mean Corp Hgb Conc 31.7 g/dL (32-36); Mean Corpuscular Hgb 29.6 pg (27.0-32.0); Mean Corpuscular Volume 93.3 fL (81-99); Platelet Count 257 K/mm3 (150-450); RBC Distribution Width CV 15.3 % (11.6-14.6); RBC Distribution Width SD 51.9 fl (35.1-43.9); Red Blood Count 4.05 M/mm3 (4.2-5.4); White Blood Count 8.9 K/mm3 (4.4-11.0)
[2023-06-21 09:24] LABS: ALB/GLOB Ratio 1.1 RATIO (0.9-2.4); AST(SGOT) 15 U/L (15-37); Alanine Aminotransfer ALT/SGPT 26 U/L (13-56); Albumin, Serum 3.7 g/dL (3.2-5.0); Alkaline Phosphatase 27 U/L (45-117); Anion Gap 5 (5-15); BUN 23 mg/dL (7-18); BUN/Creat Ratio 31.2 RATIO (10-20); Calcium,Total 8.7 mg/dL (8.5-10.1); Chloride 110 mmol/L (98-107); Creatinine, Serum 0.74 mg/dL (0.55-1.02); EST Glomerular Filtration Rate 80 mL/min (>60); Est Glom Filt Rate - Afr Amer 97 mL/min (>60); Globulin 3.4 g/dL (2.2-4.2); Glucose 104 mg/dL (74-106); Potassium 3.6 mmol/L (3.5-5.1); Protein, Total 7.1 g/dL (6.4-8.2); Sodium Level 140 mmol/L (136-145); Thyroid Stim Hormone (TSH) 2.77 uIU/mL (0.358-3.74)
[2023-06-23 12:06] LABS: Vitamin B12 182 pg/mL (211-911)
[2023-06-25 21:07] LABS: Free Kappa Light Chains 28.5 mg/L (3.3-19.4); Free Lambda Light Chains 18.8 mg/L (5.7-26.3); Vitamin B1, Thiamine 137.8 nmol/L (66.5-200.0)
== END | disposition home or self-care (01) ==
LOC: LAB 07:16
PROVIDERS: PCP Family Medicine Geriatric Medicine; Referring Provider Psychiatry & Neurology Neurology; Visit Provider Psychiatry & Neurology Neurology
DX: E13.42 Other specified diabetes mellitus with diabetic polyneuropathy (principal); M54.50 Low back pain, unspecified; G62.9 Polyneuropathy, unspecified
CPT/HCPCS: 36415; 80053; 82607; 82746; 83036; 83883; 84425; 84443; 85027

== ENCOUNTER → 2023-07-07 | Outpatient (CLI) | payer MEDICARE, SELFPAY ==
[2019-05-17 09:04] VITALS: BMI 29.3
--- NOTE | 2023-07-07 07:33 | MRI_ITS ---
INDICATION: low back pain; bilateral foot drop; lumbar radiculopathy EXAMINATION: MRI - MR Spine Lumbar W/O Contrast TECHNIQUE: Multiplanar and multisequence MR images of the lumbar spine. IV Contrast Dosage and Agent: None. COMPARISON: None. FINDINGS: VERTEBRAE: Vertebral body heights are preserved. No acute fracture or pathologic marrow replacement. VERTEBRAL ALIGNMENT: No spondylolisthesis. There is preservation of the normal lumbar lordosis. CORD: Normal position and signal intensity of the conus medullaris. T11/T12: Circumferential annular bulge producing mild central and moderate bilateral foraminal stenosis. L1/L2: Loss of disc height. Circumferential annular bulge and facet joint hypertrophy produce mild central and bilateral foraminal stenosis. L2/L3: Loss of disc height. Circumferential annular bulge produces moderate central and mild bilateral foraminal stenosis, left more severe than right. L3/L4: Circumferential annular bulge and posterior element hypertrophy produce moderately severe central and bilateral foraminal stenosis. L4/L5: Loss of disc height. Circumferential annular bulge with posterior element hypertrophy produce severe central and moderate bilateral foraminal stenosis. L5/S1: Loss of disc height. Posterior element hypertrophy and circumferential annular bulge produce bilateral moderate foraminal stenosis. No significant central stenosis. SOFT TISSUES: Bilateral parapelvic renal cysts. MRI/Spine Lumbar (Routine) IMPRESSION: Multilevel degenerative disc disease with central and foraminal stenoses as above. Most severe findings at L3-4 and L4-5. Electronically Signed: Walter Carroll MD at 0:25 EST ,
== END | disposition home or self-care (01) ==
PROVIDERS: PCP Family Medicine Geriatric Medicine; Referring Provider Psychiatry & Neurology Neurology; Visit Provider Psychiatry & Neurology Neurology
DX: M54.50 Low back pain, unspecified (principal)
CPT/HCPCS: 72148

== ENCOUNTER → 2023-07-24 | Outpatient (CLI) | payer MEDICARE, SELFPAY ==
[2019-05-17 09:04] VITALS: BMI 29.3
--- NOTE | 2023-07-24 08:04 | NEURO_ITS ---
NCS and/or EMG Patient Report Ordering Doctor: Pancho Caruso DATE OF SERVICE: 07/24/23 Clinical Summary: 82 year old female patient presenting with complaints of numbness/tingling and weakness in the distal lower extremities. This EMG/NCS was performed to evaluate for peripheral polyneuropathy, peroneal mononeuropathies, and lumbosacral radiculopathies. Nerve Conduction Studies Summary: All SNAP's were absent bilaterally. The right tibial-AH CMAP distal latency was prolonged. Peroneal and tibial motor conduction velocities were reduced diffusely, bilaterally. Needle Examination Summary: Needle examination demonstrated increased insertional activity and spontaneous activity (positive sharp waves) in the bilateral medial gastrocnemius muscles. There was a higher proportion of motor unit action potentials with reduced recruitment, increased amplitude, increased duration, and polyphasia in the bilateral tensor fascia ronald, bilateral biceps femoris (long head), right vastus lateralis, bilateral tibialis anterior, bilateral peroneus longus, and bilateral medial gastrocnemius muscles. Impression: There is electrodiagnostic evidence of the following - 1) Predominantly axonal, length-dependent, peripheral polyneuropathy, with active denervation 2) Chronic, right L4 to S1 polyradiculopathy 3) Chronic, left L5 to S1 polyradiculopathy There is no electrodiagnostic evidence of a right or left peroneal monon europathy. Multi Select Codes Neurology Neurology Interp Codes: 64311-33 Musc test done w/n test comp (interp) (2) and 59337-40 Nrv cndj test 9-10 studies (interp)
== END | disposition home or self-care (01) ==
PROVIDERS: PCP Family Medicine Geriatric Medicine; Referring Provider Psychiatry & Neurology Neurology; Visit Provider Psychiatry & Neurology Neurology
DX: M21.372 Foot drop, left foot (principal); M21.371 Foot drop, right foot; G62.9 Polyneuropathy, unspecified; M54.16 Radiculopathy, lumbar region; M54.50 Low back pain, unspecified
CPT/HCPCS: 95886; 95911

== ENCOUNTER → 2023-08-11 | Outpatient (CLI) | payer MEDICARE, SELFPAY ==
[2019-05-17 09:04] VITALS: BMI 29.3
[2023-08-11 11:22] LABS: Absolute Lymphocyte Count 1.37 X10^3/uL (0.83-4.51); Absolute Neutrophil Count 5.7 X10^3/uL (2.0-7.7); Basophil# 0.03 X10^3/uL; Basophil% 0.4 % (0-1); Eosinophil# 0.19 X10^3/uL; Eosinophils% 2.4 % (0-5); Lymphocyte # 1.37 X10^3/ul (0.83-4.51); Lymphocyte % 17.1 % (19-41); Mean Corp Hgb Conc 31.6 g/dL (32-36); Mean Corpuscular Hgb 29.9 pg (27.0-32.0); Mean Corpuscular Volume 94.5 fL (81-99); Mean Platelet Vol. 11.3 fl (6.2-12.0); Monocyte# 0.67 X10^3/uL; Monocyte% 8.4 % (0-10); NRBC Flagged by Analyzer 0 % (0-5); Neutrophil # 5.71 X10^3/uL (2.7-7.7); Neutrophil % 71.4 % (47-70); Platelet Count 297 K/mm3 (150-450); RBC Distribution Width CV 15.5 % (11.6-14.6); RBC Distribution Width SD 53.2 fl (35.1-43.9); Red Blood Count 4.02 M/mm3 (4.2-5.4)
[2023-08-11 11:36] LABS: Vitamin D,25 Hydroxy 38.3 ng/mL
[2023-08-11 11:44] LABS: ALB/GLOB Ratio 1.1 RATIO (0.9-2.4); AST(SGOT) 29 U/L (15-37); Alanine Aminotransfer ALT/SGPT 31 U/L (13-56); Albumin, Serum 3.9 g/dL (3.2-5.0); Alkaline Phosphatase 31 U/L (45-117); Anion Gap 8 (5-15); BUN 24 mg/dL (7-18); BUN/Creat Ratio 31.5 RATIO (10-20); Chloride 109 mmol/L (98-107); Cholesterol 161 mg/dL (200); Creatinine, Serum 0.76 mg/dL (0.55-1.02); EST Glomerular Filtration Rate 77 mL/min (>60); Est Glom Filt Rate - Afr Amer 93 mL/min (>60); Globulin 3.7 g/dL (2.2-4.2); Glucose 118 mg/dL (74-106); High Density Lipoprotein 45 mg/dL; Protein, Total 7.6 g/dL (6.4-8.2); Sodium Level 142 mmol/L (136-145); Thyroid Stim Hormone (TSH) 2.18 uIU/mL (0.358-3.74); Triglycerides 194 mg/dL; Very Low Density Lipoprotein 39 mg/dL (5-40)
== END | disposition home or self-care (01) ==
LOC: POLAB3 09:12
PROVIDERS: PCP Family Medicine Geriatric Medicine; Visit Provider Family Medicine Geriatric Medicine
DX: I10 Essential (primary) hypertension (principal); E55.9 Vitamin D deficiency, unspecified; E78.5 Hyperlipidemia, unspecified
CPT/HCPCS: 36415; 80053; 80061; 82306; 84443; 85025

== ENCOUNTER → 2023-10-21 | Outpatient (CLI) | payer MEDICARE, SELFPAY ==
[2019-05-17 09:04] VITALS: BMI 29.3
[2023-10-23 11:09] LABS: Alpha-1-Globulins 0.2 g/dL (0.0-0.4); Alpha-2-Globulins 0.8 g/dL (0.4-1.0); Gamma Globulin 0.9 g/dL (0.4-1.8); Immunoglobulin A 325 mg/dL (64-422); Immunoglobulin G 958 mg/dL (586-1602); Immunoglobulin M 64 mg/dL (26-217)
== END | disposition home or self-care (01) ==
LOC: MTLAB 10:15
PROVIDERS: PCP Family Medicine Geriatric Medicine; Referring Provider Psychiatry & Neurology Neurology; Visit Provider Psychiatry & Neurology Neurology
DX: G62.9 Polyneuropathy, unspecified (principal)
CPT/HCPCS: 36415; 82784; 84165; 86334; 86335

== ENCOUNTER 2024-02-02 11:30 | Outpatient (RCR) | payer MEDICARE, SELFPAY ==
[2019-05-17 09:04] VITALS: BMI 29.3
--- NOTE | 2023-12-25 12:36 | HP.PTEVAL_ITS ---
Patient's Visit Information Visit Information Visit Information: ANABELA CAMARA is a 83 year old F referred to Physical Therapy by Dr. Pancho Caruso MD with a diagnosis of gait abnormality, low back pain, polyneuropathy, and lumbar radiculopathy. Date of Evaluation: 12/25/23 Physical Therapist: Robert Krueger DPT Visit Plan Frequency: 2x /Week Duration: 6 Weeks Plan: 1) start with neutral spine core stability and L DF strength. Add in BLE strengthening as well. 2) static and dynamic balance activities in varying bases of support. 3) gait progression with SPC, Pt. would like to progress to no AD, but might not be practical. See how she progresses Work on neutral spine stability to reduce radicular symptoms, DF to increase safety with gait and balance to reduce risk for future falls. Subjective Subjective: Pt. is here today for her initial evaluation with diagnosis of gait abnormality, low back pain, polyneuropathy, and lumbar radiculopathy. Pt. reports having increased pain and N/T in her back an legs over the past 2 years. Pt. has started some meloxicam, possible injection in her back in the future. Pt. reports that her feet go numb with static standing, ie at sink or in lines. She does better with consistent movement while standing. Sitting relieves her symptoms. She fell ~1 year ago, but has not fallen since. She has been using a SPC since falling. She is hopeful to get away from using the cane, but also wants to increase her strength and balance. She is currently not driving due to her LE issues. PMH: B hip replacement, R TKE, lumbar spinal stenosis. Pain Low back: Pain Intensity (Out of 10): 8 Pain Intensity Range: 0 and 8 Comment: with standing Objective Objective: PALPATION: No pain with palpation of BLEs POSTURE: Pt. has slight FH posture, increased trunk flexion in stance. Wide CARL noted. NEURO: normal sensation in BLEs. ROM: Lumbar spine: flexion min loss NE, ext mod max loss NE, SB mod loss B NE, rotation mod/max loss NE. Pt. has tight B HS and tight B calves. Normal B hip ROM without issues. MMT: RLE ankle: DF 15.8#, PF: 32.2#; knee: ext 33.1#, flexion 20.5#; hip: 14.3#, abd 10.7#. LLE: ankle: DF 7.9#, PF: 28.8#; knee: ext 32.0#, flexion 15.3#; hip: flexion 14.2#, abd 12.5# GAIT: Pt ambulates with decent stability with SPC, but has marked decreased tempo with gait. She also have difficulty with L eccentric DF during initial contact with gait. She has good foot clearance, but marked audible (foot slap) with initial contact. STAIRS: Pt. is able to complete with SPC and 1 HR, but step to pattern noted. Cautious pattern noted. Balance/Special Test Scores CATSIB Score (Max score 120 seconds): 20 Oswestry Low Back Score: 25 TUG Test Time Seconds: 18.8 30 Second Chair Rise Test Seconds: 7 Goals Goal 1:: LTG: Pt. to be I with HEP for balance and BLE strengthening. Goal Time Frame: 4-6 Weeks Goal 2:: LTG: Pt. to have increased L ankle DF symmetrical to R side allowing for increased safety with gait. Goal Time Frame: 4-6 Weeks Goal 3:: LTG: Pt. to have improved TUG time to less than 10 sec indicating increased functional stability. Goal Time Frame: 4-6 Weeks Goal 4:: LTG: Pt. to be able to stand statically for 10+ minute without BLE numbness and tingling. Goal Time Frame: 4-6 Weeks Goal 5:: LTG: Pt. to have increased core strength to fair allowing for increased stability in stance and to reduce stress to spine with all standing activities. Goal Time Frame: 4-6 Weeks Rehabilitation Potential Physical Therapy Diagnosis: Pt. has signs and symptoms consistent with gait abnormality, low back pain, polyneuropathy, and lumbar radiculopathy. Pt. has marked DF loss on L side. Pt. has increased difficulty with gait and balance. Pt. would benefit from PT to address the above issues progressing back to all household and community activities without limitations. Rehabilitation Potential: Good Anticipated Interventions Patient/Client Instruction: Educate patient on: Condition, Plan of Care, Risk Factors and Benefits of Fitness Program For the Purpose of:: To foster healthy habits, To improve decision making, To facilitate caregiver knowledge, To improve self management, To prevent re- injury, To improve ability to perform tasks related to life management and To improve tolerance to ADL's Therapeutic Exercise to Include: Strength training, Power training, Endurance training, Balance training, Body mechanics, Postural training, Flexibilty training, Gait and locomotor training and Neuromotor development For the Purpose of:: To decrease pain, To increase ROM, To improve nutrient delivery to tissue, To increase oxygenation perfusion, To improve ability to perform ADL's, To increase tolerance to activity/condition/position, To improve gait and locomotor functions, To improve health of tissue, To decrease soft tissue restriction, To increase flexibility/ROM, To improve endurance and To improve balance Text: Thank you for the opportunity to evaluate your patient. For Medicare and Medicare HMO plans, please review the plan of care and approve it. It will need to be FAXED BACK to us at [phone] for Medicare purposes. For Medicare only, by signing this I certify the plan of care. Please let me know if there are questions or concerns regarding this plan of care. Physician Signature: Date:
== END 2024-02-02 19:00 | disposition home or self-care (01) ==
LOC: PT 11:30
PROVIDERS: PCP Family Medicine Geriatric Medicine; Referring Provider Psychiatry & Neurology Neurology; Visit Provider Psychiatry & Neurology Neurology
DX: M54.50 Low back pain, unspecified (principal); M54.16 Radiculopathy, lumbar region; G62.9 Polyneuropathy, unspecified; R26.9 Unspecified abnormalities of gait and mobility
CPT/HCPCS: 97110; 97116; 97161

== ENCOUNTER → 2024-02-19 | Outpatient (CLI) | payer MEDICARE, SELFPAY ==
[2019-05-17 09:04] VITALS: BMI 29.3
[2024-02-19 10:09] LABS: Absolute Lymphocyte Count 1.74 X10^3/uL (0.83-4.51); Absolute Neutrophil Count 4.2 X10^3/uL (2.0-7.7); Basophil# 0.02 X10^3/uL; Basophil% 0.3 % (0-1); Eosinophil# 0.21 X10^3/uL; Eosinophils% 3.1 % (0-5); Hematocrit 32.2 % (37-47); Hemoglobin 9.7 g/dL (12.0-15.0); Lymphocyte # 1.74 X10^3/ul (0.83-4.51); Lymphocyte % 25.4 % (19-41); Mean Corp Hgb Conc 30.1 g/dL (32-36); Mean Corpuscular Hgb 24.8 pg (27.0-32.0); Mean Corpuscular Volume 82.4 fL (81-99); Mean Platelet Vol. 11.3 fl (6.2-12.0); Monocyte# 0.68 X10^3/uL; Monocyte% 9.9 % (0-10); NRBC Flagged by Analyzer 0 % (0-5); Neutrophil # 4.19 X10^3/uL (2.7-7.7); Platelet Count 334 K/mm3 (150-450); RBC Distribution Width SD 49.7 fl (35.1-43.9); Red Blood Count 3.91 M/mm3 (4.2-5.4); White Blood Count 6.9 K/mm3 (4.4-11.0)
[2024-02-19 10:33] LABS: Vitamin D,25 Hydroxy 30.1 ng/mL
[2024-02-19 10:37] LABS: ALB/GLOB Ratio 1.1 RATIO (0.9-2.4); AST(SGOT) 22 U/L (15-37); Alanine Aminotransfer ALT/SGPT 21 U/L (13-56); Albumin, Serum 3.8 g/dL (3.2-5.0); Alkaline Phosphatase 30 U/L (45-117); Anion Gap 7 (5-15); BUN 37 mg/dL (7-18); BUN/Creat Ratio 40.3 RATIO (10-20); Calcium,Total 9.1 mg/dL (8.5-10.1); Chloride 108 mmol/L (98-107); Cholesterol 152 mg/dL (200); Creatinine, Serum 0.92 mg/dL (0.55-1.02); EST Glomerular Filtration Rate 62 mL/min (>60); Est Glom Filt Rate - Afr Amer 75 mL/min (>60); Globulin 3.4 g/dL (2.2-4.2); Glucose 104 mg/dL (74-106); High Density Lipoprotein 43 mg/dL; Potassium 4.1 mmol/L (3.5-5.1); Protein, Total 7.2 g/dL (6.4-8.2); Sodium Level 140 mmol/L (136-145); Thyroid Stim Hormone (TSH) 2.16 uIU/mL (0.358-3.74); Triglycerides 127 mg/dL; Very Low Density Lipoprotein 25 mg/dL (5-40)
== END | disposition home or self-care (01) ==
LOC: MTLAB 08:13
PROVIDERS: PCP Family Medicine Geriatric Medicine; Referring Provider Family Medicine Geriatric Medicine; Visit Provider Family Medicine Geriatric Medicine
DX: I10 Essential (primary) hypertension (principal); E55.9 Vitamin D deficiency, unspecified; E78.5 Hyperlipidemia, unspecified
CPT/HCPCS: 36415; 80053; 80061; 82306; 84443; 85025

== ENCOUNTER → 2024-02-24 | Outpatient (CLI) | payer MEDICARE, SELFPAY ==
[2019-05-17 09:04] VITALS: BMI 29.3
[2024-02-24 11:28] LABS: Absolute Lymphocyte Count 1.26 X10^3/uL (0.83-4.51); Absolute Neutrophil Count 4.8 X10^3/uL (2.0-7.7); Basophil# 0.03 X10^3/uL; Basophil% 0.4 % (0-1); Eosinophil# 0.15 X10^3/uL; Eosinophils% 2.2 % (0-5); Hematocrit 33.2 % (37-47); Lymphocyte # 1.26 X10^3/ul (0.83-4.51); Lymphocyte % 18.6 % (19-41); Mean Corp Hgb Conc 30.1 g/dL (32-36); Mean Corpuscular Hgb 25.1 pg (27.0-32.0); Mean Corpuscular Volume 83.2 fL (81-99); Mean Platelet Vol. 10.9 fl (6.2-12.0); Monocyte% 7.4 % (0-10); NRBC Flagged by Analyzer 0 % (0-5); Platelet Count 299 K/mm3 (150-450); RBC Distribution Width CV 17.4 % (11.6-14.6); RBC Distribution Width SD 52.5 fl (35.1-43.9); RET-HE 28.3 pg (30-35); Red Blood Count 3.99 M/mm3 (4.2-5.4); Reticulocyte Count 1.22 % (0.5-1.5); White Blood Count 6.8 K/mm3 (4.4-11.0)
[2024-02-24 12:27] LABS: Ferritin 7 ng/mL (8-252); Iron 41 ug/dL (50-170); Iron Binding Capacity,Total 530 ug/dL (250-450); PERCENT IRON SATURATION 7.7 % (15.0-55.0)
[2024-02-26 15:15] LABS: Vitamin B12 > 2000 pg/mL (211-911)
== END | disposition home or self-care (01) ==
LOC: POLAB3 10:47
PROVIDERS: PCP Family Medicine Geriatric Medicine; Visit Provider Family Medicine Geriatric Medicine
DX: D50.9 Iron deficiency anemia, unspecified (principal); D51.9 Vitamin B12 deficiency anemia, unspecified
CPT/HCPCS: 36415; 82607; 82728; 82746; 83540; 83550; 85025; 85045

== ENCOUNTER → 2024-02-25 | Outpatient (CLI) | payer MEDICARE, SELFPAY ==
[2019-05-17 09:04] VITALS: BMI 29.3
== END | disposition home or self-care (01) ==
LOC: LABSPEC 08:46
PROVIDERS: PCP Family Medicine Geriatric Medicine; Referring Provider Family Medicine Geriatric Medicine; Visit Provider Family Medicine Geriatric Medicine
DX: D64.9 Anemia, unspecified (principal); K25.9 Gastric ulcer, unspecified as acute or chronic, without hemorrhage or perforation
CPT/HCPCS: 82274

== ENCOUNTER → 2024-03-23 | Outpatient (CLI) | payer MEDICARE, SELFPAY ==
[2019-05-17 09:04] VITALS: BMI 29.3
[2024-03-23 10:24] LABS: Absolute Lymphocyte Count 1.45 X10^3/uL (0.83-4.51); Absolute Neutrophil Count 4.5 X10^3/uL (2.0-7.7); Basophil# 0.04 X10^3/uL; Basophil% 0.6 % (0-1); Eosinophil# 0.18 X10^3/uL; Eosinophils% 2.6 % (0-5); Hematocrit 30.8 % (37-47); Hemoglobin 9.3 g/dL (12.0-15.0); Lymphocyte # 1.45 X10^3/ul (0.83-4.51); Lymphocyte % 21.2 % (19-41); Mean Corp Hgb Conc 30.2 g/dL (32-36); Mean Corpuscular Hgb 24.6 pg (27.0-32.0); Mean Corpuscular Volume 81.5 fL (81-99); Mean Platelet Vol. 10.8 fl (6.2-12.0); Monocyte# 0.69 X10^3/uL; Monocyte% 10.1 % (0-10); NRBC Flagged by Analyzer 0 % (0-5); Neutrophil # 4.45 X10^3/uL (2.7-7.7); Neutrophil % 65.1 % (47-70); Platelet Count 303 K/mm3 (150-450); RBC Distribution Width CV 17.5 % (11.6-14.6); RBC Distribution Width SD 51.3 fl (35.1-43.9); Red Blood Count 3.78 M/mm3 (4.2-5.4); White Blood Count 6.8 K/mm3 (4.4-11.0)
== END | disposition home or self-care (01) ==
LOC: MTLAB 08:35
PROVIDERS: PCP Family Medicine Geriatric Medicine; Referring Provider Family Medicine Geriatric Medicine; Visit Provider Family Medicine Geriatric Medicine
DX: I10 Essential (primary) hypertension (principal)
CPT/HCPCS: 36415; 85025

== ENCOUNTER → 2024-05-03 | Outpatient (CLI) | payer MEDICARE, SELFPAY ==
[2019-05-17 09:04] VITALS: BMI 29.3
--- NOTE | 2024-05-03 11:40 | BI_ITS ---
MAMMOGRAPHY - BILATERAL SCREENING 3-D TOMOSYNTHESIS REASON FOR EXAM: Female, 83 years old. Z12.31 - Encounter for screening mammogram for malignant neopl... PERTINENT HISTORY: No significant family history. TECHNIQUE: 2-D mammograms and 3-D Tomosynthesis of the breast (s) were performed. CAD was performed. COMPARISON: 04/21/2023 FINDINGS: The breast composition is composed of scattered fibroglandular density. Scattered benign calcifications are seen. No dense spiculated masses or suspicious microcalcifications are identified. No architectural distortion is identified. There is no skin thickening or retraction. There has been no significant change since the prior study. BI/SCRN MAMM (CAD)W/CARLIE BILAT IMPRESSION: No mammographic signs of malignancy. Routine yearly mammograms recommended. ASSESSMENT CATEGORY: BIRADS Category 1: Negative. A letter regarding these results will be sent to the patient by the facility within 30 days. FOLLOW UP RECOMMENDATION: Yearly follow up mammogram recommended. (A) Approximately 10% of breast cancers are not detected by mammography. A normal mammogram should not delay biopsy of a clinically suspicious abnormality. Electronically Signed: Clement Shaikh MD at 14:49 EDT ,
== END | disposition home or self-care (01) ==
LOC: OPBI 11:38
PROVIDERS: PCP Family Medicine Geriatric Medicine; Referring Provider Internal Medicine Medical Oncology; Visit Provider Internal Medicine Medical Oncology
DX: Z12.31 Encounter for screening mammogram for malignant neoplasm of breast (principal)
CPT/HCPCS: 77063; 77067

== ENCOUNTER 2024-05-08 19:12 | Inpatient (IN) | payer MEDICARE, SELFPAY ==
[2019-05-17 09:04] VITALS: BMI 29.3
[2024-05-08 19:12] VITALS: BP 138/102; PULSE 57; RESP 16; O2SAT 96
[2024-05-08 19:13] VITALS: BP 137/68; PULSE 74; RESP 18; TEMP 36.5; O2SAT 98
--- NOTE | 2024-05-08 19:47 | CT_ITS ---
EXAM: CT ABDOMEN AND PELVIS WITH INTRAVENOUS CONTRAST CLINICAL INDICATION: upper abd pain, n/v TECHNIQUE: Helically acquired images were obtained of the abdomen and pelvis with intravenous contrast. CTDIvol = ( 19.99 ) mGy, DLP = ( 1273.65 ) mGycm This CT exam was performed using one or more of the following dose reduction techniques: automated exposure control, adjustment of the mA and/or kV according to patient size, and/or use of iterative reconstruction technique. CONTRAST: IV 100mL Isovue-370 COMPARISON: No relevant prior studies available. FINDINGS: LOWER THORAX: Unremarkable. Lung bases are clear. No cardiomegaly. No significant pericardial effusion. ABDOMEN: LIVER: Unremarkable. Homogeneous. No focal mass. GALLBLADDER AND BILE DUCTS: Unremarkable. No calcified gallstones. No gallbladder distention or wall edema. No intra- or extrahepatic biliary ductal dilation. PANCREAS: Unremarkable. No focal cystic or solid mass. SPLEEN: Unremarkable. Normal size without focal cystic or solid mass. ADRENALS: Unremarkable. No nodules. KIDNEYS AND URETERS: Renal sinus region cysts bilaterally. Too small to characterize renal hypodensities bilaterally statistically probably representing cysts. Normal renal size and position. No hydronephrosis. STOMACH AND BOWEL: Fluid distended small bowel loops measuring up to 3 cm with no bowel wall thickening. Consider a low-grade bowel obstruction versus gastroenteritis in the appropriate clinical setting. Stool and gas throughout the throughout the colon. No colitis or diverticulitis. Distal colonic diverticulosis. PELVIS: APPENDIX: Normal appendix. BLADDER: Unremarkable. REPRODUCTIVE: Unremarkable as visualized. No mass. ABDOMEN and PELVIS: INTRAPERITONEAL SPACE: Small perihepatic ascites. Ill-defined hypodense nodule involving the right lobe of liver measuring 2.6 x 1.7 cm. Stranding and tiny amount of fluid about the mesentery of the small bowel. No free air. BONES/JOINTS: Bilateral total hip arthroplasty with satisfactory alignment and no complications. No suspicious lytic or blastic abnormality. SOFT TISSUES: Unremarkable. No discrete abdominal or pelvic wall hernia. VASCULATURE: Unremarkable. Abdominal aorta is non-dilated. LYMPH NODES: Unremarkable. No enlarged lymph nodes. CT/Abdomen/Pelvis W IV Cont ONLY IMPRESSION: 1. Ill-defined hypodense nodule involving the right lobe of liver measuring 2.6 x 1.7 cm. Consider tumor versus abscess. 2. Fluid distended small bowel loops measuring up to 3 cm with no bowel wall thickening. Consider a low-grade bowel obstruction versus gastroenteritis in the appropriate clinical setting. Electronically Signed: Sly Conley MD at 23:14 EDT ,
--- NOTE | 2024-05-08 19:47 | EKG12_ITS ---
Test Reason : ABD PAIN Blood Pressure : / mmHG Vent. Rate : 064 BPM Atrial Rate : 064 BPM P-R Int : 196 ms QRS Dur : 090 ms QT Int : 430 ms P-R-T Axes : 042 -11 033 degrees QTc Int : 443 ms Normal sinus rhythm with sinus arrhythmia Minimal voltage criteria for LVH, may be normal variant ( R in aVL ) Possible Anterior infarct (cited on or before 23-MAY-2021) Abnormal ECG Confirmed by Juan Griffin ([id number]), senior editor KAMALJIT HEARD ([id number]) on 05/10/2024 10:23:17 AM Referred By: Confirmed By:Juan Griffin
--- NOTE | 2024-05-08 19:48 | EDS_ITS ---
HPI HPI - GI History of Present Illness Chief Complaint: Abd Pain Informant: patient Narrative Narrative: 83-year-old female gradual onset diffuse periumbilical abdominal discomfort yesterday getting worse, associated with nausea and vomiting. Started having the pain, then she had a meal and it was getting worse so she stopped and has not been eating very much since. Normal bowel movement last time was couple days ago, which is unusual for her she usually goes every day. No history of any abdominal surgeries in the past. Urinating normally. Subjective fever and diaphoresis earlier. No chest symptoms with dyspnea or chest discomfort. No hematemesis or coffee-ground emesis. Pain does not radiate to shoulders or back. Does not seem to be colicky, more steady. [facility] Medical History Wears glasses Wears dentures Cancer Diabetes Ambulates with cane Arthritis High cholesterol Back pain History of irregular heartbeat History of transesophageal echocardiography (HENRIQUE) History of echocardiogram Hypertension Cardiology follow-up encounter Hypertriglyceridemia Breast cancer, right Essential hypertension Breast cancer, left Cardiac murmur Pulmonary hypertension Abnormal findings on diagnostic imaging of heart and coronary circulation Aortic valve disease Paroxysmal supraventricular tachycardia by electrocardiogram (ECG) Supraventricular tachycardia Acquired left ventricular hypertrophy Hypertension Diabetes 1.5, managed as type 2 Home Medications ?Medication ?Instructions ?Recorded ?Last Taken ?Type timolol maleate 0.5 % eye gel 1 drp EACH EYE BID 06/13/16 06/05/21 21:00 History forming solution hydrochlorothiazide 12.5 mg tablet 12.5 mg PO DAILY 30 days ##30 12/12/17 06/05/21 08:00 History amlodipine 5 mg tablet 5 mg PO QHS 04/21/18 06/05/21 21:00 History cholecalciferol (vitamin D3) 25 25 mcg PO DAILY 03/30/20 06/05/21 08:00 History mcg (1,000 unit) capsule acetaminophen 650 mg 650 mg PO DAILY PRN 08/28/20 Unknown History tablet,extended release Pain/Inflammation losartan 100 mg tablet 100 mg PO DAILY 08/28/20 06/06/21 06:30 History metoprolol tartrate 25 mg tablet 25 mg PO BID 08/28/20 06/06/21 06:30 History potassium chloride 10 mEq 10 meq PO DAILY 08/28/20 06/05/21 08:00 History tablet,extended release(part/cryst) anastrozole 1 mg tablet See Rx Instructions .Route 11/25/23 Unknown Rx .COMPLEX #90 tabs meloxicam 7.5 mg tablet 7.5 mg PO BID PRN pain #180 tabs 02/23/24 Unknown Rx fenofibrate 160 mg tablet See Rx Instructions .Route 04/05/24 Unknown Rx .COMPLEX #90 tabs Allergy/AdvReac Type Severity Reaction Status Date / Time oxycodone (From Percocet) AdvReac Severe Itching Verified 05/08/24 19:13 Family History Brother CAD (coronary artery disease) Brother Diabetes Mother Diabetes Hypertension Father Hypertension CVA (cerebral vascular accident) Sister Breast cancer Surgical History H/O total knee replacement Status post total right knee replacement History of partial mastectomy of right breast (~05/07/19) History of aortic valve repair (~09/27/16) History of total left hip replacement History of total right hip replacement History of hysterectomy (~10/10/14) Status post left breast lumpectomy H/O aortic valve replacement Social History Smoking Status: Never smoker alcohol intake: never substance use type: does not use caffeine: Yes Type: coffee Number of servings: 1 what type of physical activity do you participate in: none seatbelt use: always do you feel safe at home: Yes ROS ROS ED Constitutional Constitutional ED: Reports fever(s), subjective and sweats; Denies chills Eyes Eyes: Denies change in vision or diplopia ENT ENT ED: Denies rhinorrhea or sore throat Cardiovascular Cardiovascular: Denies chest pain or palpitations Respiratory/Chest Respiratory/Chest: Denies cough or dyspnea Gastrointestinal Gastrointestinal: Reports abdominal pain, nausea and vomiting; Denies diarrhea, hematemesis or melena Genitourinary Genitourinary ED: Denies dysuria or hematuria Musculoskeletal Musculoskeletal: Denies back pain or neck pain Integumentary Denies abscess or rash Neurologic Neurologic: Denies headache(s), paresthesias or weakness Psychiatric Psychiatric: Denies anxiety or suicidal thoughts EXAM Physical Exam Const Vital Signs: 05/08/24 19:12 05/08/24 19:13 05/08/24 21:12 Temperature 97.7 F L Temperature Source Temporal Pulse Rate 57 L 74 74 Respiratory Rate 16 18 16 Blood Pressure 138/102 H 137/68 H 133/62 H Blood Pressure Mean 114 91 85 Pulse Ox 96 98 95 Oxygen Delivery Method Room Air Room Air Room Air Positive well nourished and well developed General Appearance ED: well developed and NAD HEENT Reports moist mucous membranes normocephalic and atraumatic Eyes PERRL and EOMs intact bilaterally Neck full ROM and supple Resp normal respiratory effort and clear to auscultation bilaterally Cardio regular rate, regular rhythm and no murmurs GI non-distended GI Narrative: Tender across upper abdomen without Winchester sign, guarding, rebound anywhere else. The mid and lower abdomen is benign and nontender. Abdomen soft. Auscultation: hypoactive bowel sounds Palpation: soft Back/Spine no CVA tenderness General Back: other FROM Extremity normal to inspection General Extremety ED: Negative for edema, pulses abnormal or tenderness General Extremity: Negative for edema or pulses abnormal Neuro oriented x3, CN's II-XII intact bilaterally and no sensory deficits noted Sensorium / Orientation: awake and alert Motor Exam: strength 5/5 throughout Skin no rashes or lesions noted and no wounds MDM MDM MDM Narrative Medical decision making narrative: Considering biliary colic, GI intraluminal disease, bowel obstruction, ileus, pancreatitis, hepatitis, cholangitis, labs and a CT were obtained. I reviewed the images and on my interpretation, it appears to show a lot of dilated bowel, suspicious for bowel obstruction versus an ileus. I did a bedside ultrasound of the gallbladder, and there appears to be a cholesterol stone in the neck. After morphine and Zofran she is pain-free and feeling much better. She has a negative sonographic Winchester for me. Gallbladder wall is within normal limits at 0.19 cm. I discussed all this with surgery, she recommends admitting her to the hospitalist she will consult. Lab Data Attestation: I reviewed the patient's lab results. Labs: Laboratory Results - last 24 hr 05/08/24 20:05 WBC 14.7 H RBC 4.35 Hgb 11.2 L Hct 37.2 MCV 85.5 MCH 25.7 L MCHC 30.1 L RDW Std Deviation 59.7 H RDW Coeff of Clara 19.4 H Plt Count 375 MPV 11.0 Immature Gran % (Auto) 0.300 Neut % (Auto) 85.3 H Lymph % (Auto) 8.7 L [place] % (Auto) 5.2 Eos % (Auto) 0.3 Baso % (Auto) 0.2 Absolute Neuts (auto) 12.5 H Absolute Lymphs (auto) 1.28 Nucleated RBC % 0 Sodium 138 Potassium 3.8 Chloride 104 Carbon Dioxide 21.0 Anion Gap 13 BUN 21 H Creatinine 0.93 Est GFR (MDRD) Af Amer 74 Est GFR (MDRD) Non-Af 61 BUN/Creatinine Ratio 22.5 H Glucose 178 H Calcium 10.5 H Total Bilirubin 0.60 AST 26 ALT 22 Alkaline Phosphatase 40 L Troponin I High Sens 7 Total Protein 7.8 Albumin 3.9 Globulin 3.9 Albumin/Globulin Ratio 1.0 Lipase 22 Rhythm Strip Rhythm Strip: Sinus Rhythm Rate: 65 Ectopy: None EKG Initial EKG: Attestation: I personally reviewed and interpreted this EKG as follows: Interpretation: Sinus Rhythm and No Acute Injury Pattern Management Discussion w/another healthcare provider: 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[facility]) Discharge Plan Triage Chief Complaint: Abd Pain ED Provider: Marcelino Knapp Dx/Rx/DC Orders Clinical Impression: Acute upper abdominal pain, Cholelithiasis, Leukocytosis Prescriptions: No Action hydrochlorothiazide 12.5 mg tablet 12.5 mg PO DAILY 30 Days Qty: 30 Patient Comments: TAKE 1 TABLET BY MOUTH EVERY DAY cholecalciferol (vitamin D3) 25 mcg (1,000 unit) capsule 25 mcg PO DAILY meloxicam 7.5 mg tablet 7.5 mg PO BID PRN (Reason: pain) Qty: 180 3RF amlodipine 5 mg tablet 5 mg PO QHS Patient Comments: BP timolol maleate 1 DROP gel forming solution 1 drp EACH EYE BID Patient Comments: EYE DROP acetaminophen 650 MG tablet extended release 650 mg PO DAILY PRN (Reason: Pain/Inflammation) losartan 100 MG tablet 100 mg PO DAILY potassium chloride 10 MEQ tablet 10 meq PO DAILY metoprolol tartrate 25 MG tablet 25 mg PO BID anastrozole 1 mg tablet See Rx Instructions .ROUTE .COMPLEX Qty: 90 3RF Dose Instruction: TAKE 1 TABLET EVERY DAY Rx Instructions: TAKE 1 TABLET EVERY DAY fenofibrate 160 mg tablet See Rx Instructions .ROUTE .COMPLEX Qty: 90 3RF Dose Instruction: TAKE 1 TABLET AT BEDTIME Rx Instructions: TAKE 1 TABLET AT BEDTIME Primary Care Provider: Marco Antonio Arevalo Chi Referrals: Marco Antonio Arevalo Chi, MD [Primary Care Provider] - Print Language: Italian
[2024-05-08] MEDS: Morphine 2 MG/ML Syringe IV (20:11)
[2024-05-08] MEDS: 0.9% Normal Saline (1000mL) 1,000 ML 999 ML IV (20:11)
[2024-05-08] MEDS: Ondansetron 4 MG/2 ML Vial IV (20:11)
[2024-05-08 20:39] LABS: Absolute Lymphocyte Count 1.28 X10^3/uL (0.83-4.51); Absolute Neutrophil Count 12.5 X10^3/uL (2.0-7.7); Basophil# 0.03 X10^3/uL; Basophil% 0.2 % (0-1); Eosinophil# 0.05 X10^3/uL; Eosinophils% 0.3 % (0-5); Hematocrit 37.2 % (37-47); Hemoglobin 11.2 g/dL (12.0-15.0); Lymphocyte # 1.28 X10^3/ul (0.83-4.51); Lymphocyte % 8.7 % (19-41); Mean Corp Hgb Conc 30.1 g/dL (32-36); Mean Corpuscular Hgb 25.7 pg (27.0-32.0); Mean Corpuscular Volume 85.5 fL (81-99); Monocyte# 0.77 X10^3/uL; Monocyte% 5.2 % (0-10); NRBC Flagged by Analyzer 0 % (0-5); Neutrophil # 12.52 X10^3/uL (2.7-7.7); Neutrophil % 85.3 % (47-70); Platelet Count 375 K/mm3 (150-450); RBC Distribution Width CV 19.4 % (11.6-14.6); RBC Distribution Width SD 59.7 fl (35.1-43.9); Red Blood Count 4.35 M/mm3 (4.2-5.4); White Blood Count 14.7 K/mm3 (4.4-11.0)
[2024-05-08 20:56] LABS: AST(SGOT) 26 U/L (15-37); Alanine Aminotransfer ALT/SGPT 22 U/L (13-56); Albumin, Serum 3.9 g/dL (3.2-5.0); Alkaline Phosphatase 40 U/L (45-117); Anion Gap 13 (5-15); BUN 21 mg/dL (7-18); BUN/Creat Ratio 22.5 RATIO (10-20); Calcium,Total 10.5 mg/dL (8.5-10.1); Chloride 104 mmol/L (98-107); Creatinine, Serum 0.93 mg/dL (0.55-1.02); EST Glomerular Filtration Rate 61 mL/min (>60); Est Glom Filt Rate - Afr Amer 74 mL/min (>60); Globulin 3.9 g/dL (2.2-4.2); Glucose 178 mg/dL (74-106); Lipase 22 U/L (13-75); Potassium 3.8 mmol/L (3.5-5.1); Protein, Total 7.8 g/dL (6.4-8.2); Sodium Level 138 mmol/L (136-145); Troponin-I HS 7 pg/mL (3.0-54.0)
[2024-05-08 21:12] VITALS: BP 133/62; PULSE 74; RESP 16; O2SAT 95
[2024-05-08 23:00] VITALS: BP 138/68; PULSE 78; RESP 16; O2SAT 96
[2024-05-08 23:43] VITALS: BP 126/65; PULSE 68; RESP 17; TEMP 36.8; O2SAT 96
[2024-05-09] VITALS (8 sets, daily range): BP systolic 124–146; BP diastolic 58–77; PULSE 70–89; RESP 16–18; TEMP 36.6–36.8; O2SAT 94–98; BMI 27.1
--- NOTE | 2024-05-09 00:40 | PCM.HP.STD ---
[facility] - General General Date of Admission: 05/09/24 Date of Service: 05/09/24 Chief Complaint: Abdominal Pain, Nausea and Vomiting. 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; managed medically as type 2 with unknown control, diabetic neuropathy, history of bilateral foot drop, history of aortic valve repair (2016), history of LVH, history of PSVT, history of pulmonary hypertension, chronic anemia, glaucoma, OA; s/p Right TKR, bilateral THR's plus chronic back pain causing patient to typically ambulate with a cane, history of hysterectomy (2014) and history of bilateral breast cancer s/p partial mastectomy of the Right breast (2018) and lumpectomy of Left breast (2017); on Anastrazole who presents to [facility] ER complaining of abdominal pain, nausea and vomiting. Ms. Camara reports her symptoms began approximately one day prior to admission with the gradual-onset of progressively worsening abdominal pain that was initially diffuse periumbilical pain that was cramping, moderate and intermittent with pain actually made worse after eating a meal and was improved after pain medication and Zofran were given shortly after arrival. She then developed subjective fever and diaphoresis followed by nausea with bilious emesis. She went to state her last normal BM was ~2 days ago - which is unusual for her as she usually has a bowel movement daily. She denies a history of abdominal surgery, similar previous episodes, blood in stools, dark stools or blood in emesis. She also denies dysuria, chest pain, palpitations, heart racing or SOB. In the ER her CT scan of the abdomen and pelvis revealed an ill-defined, hypodense ~2.6 cm x ~1.7 cm nodule of the Right lobe of the liver consistent with suspected tumor vs. abscess complicated by fluid distended small bowel loops up to ~3 cm with no bowel wall thickening suspicious for low-grade SBO vs. gastroenteritis along with Leukocytosis of 14.7K present on admission with laboratory evidence of mild dehydration with a BUN/creatinine ratio of 22.5 present on admission and she was then admitted to the general medical floor for ongoing care for a stay that is expected to extend beyond 2 midnights. [facility] Medical History Wears glasses Wears dentures Cancer Diabetes Ambulates with cane Arthritis High cholesterol Back pain History of irregular heartbeat History of transesophageal echocardiography (HENRIQUE) History of echocardiogram Hypertension Cardiology follow-up encounter Hypertriglyceridemia Breast cancer, right Essential hypertension Breast cancer, left Cardiac murmur Pulmonary hypertension Abnormal findings on diagnostic imaging of heart and coronary circulation Aortic valve disease Paroxysmal supraventricular tachycardia by electrocardiogram (ECG) Supraventricular tachycardia Acquired left ventricular hypertrophy Hypertension Diabetes 1.5, managed as type 2 Home Medications ?Medication ?Instructions ?Recorded ?Last Taken ?Type timolol maleate 0.5 % eye gel 1 drp EACH EYE BID 06/13/16 06/05/21 21:00 History forming solution hydrochlorothiazide 12.5 mg tablet 12.5 mg PO DAILY 30 days ##30 12/12/17 06/05/21 08:00 History amlodipine 5 mg tablet 5 mg PO QHS 04/21/18 06/05/21 21:00 History cholecalciferol (vitamin D3) 25 25 mcg PO DAILY 03/30/20 06/05/21 08:00 History mcg (1,000 unit) capsule acetaminophen 650 mg 650 mg PO DAILY PRN 08/28/20 Unknown History tablet,extended release Pain/Inflammation losartan 100 mg tablet 100 mg PO DAILY 08/28/20 06/06/21 06:30 History metoprolol tartrate 25 mg tablet 25 mg PO BID 08/28/20 06/06/21 06:30 History potassium chloride 10 mEq 10 meq PO DAILY 08/28/20 06/05/21 08:00 History tablet,extended release(part/cryst) anastrozole 1 mg tablet See Rx Instructions .Route 11/25/23 Unknown Rx .COMPLEX #90 tabs meloxicam 7.5 mg tablet 7.5 mg PO BID PRN pain #180 tabs 02/23/24 Unknown Rx fenofibrate 160 mg tablet See Rx Instructions .Route 04/05/24 Unknown Rx .COMPLEX #90 tabs Allergy/AdvReac Type Severity Reaction Status Date / Time oxycodone (From Percocet) AdvReac Severe Itching Verified 05/08/24 19:13 Family History Brother CAD (coronary artery disease) Brother Diabetes Mother Diabetes Hypertension Father Hypertension CVA (cerebral vascular accident) Sister Breast cancer Surgical History H/O total knee replacement Status post total right knee replacement History of partial mastectomy of right breast (~05/07/19) History of aortic valve repair (~09/27/16) History of total left hip replacement History of total right hip replacement History of hysterectomy (~10/10/14) Status post left breast lumpectomy H/O aortic valve replacement Social History Smoking Status: Never smoker alcohol intake: never substance use type: does not use caffeine: Yes Type: coffee Number of servings: 1 what type of physical activity do you participate in: none seatbelt use: always do you feel safe at home: Yes ROS ROS Narrative Review of Systems: Constitutional: Patient admits to subjective fever and sweats. Eyes: Patient denies changes in vision or discharge from eyes. ENT: Patient denies runny nose, sore throat or ear pain. Resp: Patient denies SOB or cough. CV: Patient denies chest pain, palpitations or heart racing. GI: Patient admits to abdominal pain, nausea and bilious emesis. She denies diarrhea or blood in stools/vomitus. : Patient denies dysuria or hematuria. MSK: Patient denies arthralgias or myalgias. Skin: Patient denies rash, abscess, wound or jaundice. Psych: Patient denies symptoms of uncontrolled depression or anxiety. Neuro: Patient denies headache, paresthesias or focal neurological deficits. Allergy: Patient denies lip swelling, tongue swelling or urticaria. Hematology: Patient denies easy bleeding or easy bruisability. Endocrinology: Patient denies polyuria, polydipsia or polyphagia and she is currently on no formal antidiabetic agents. 14 point ROS otherwise negative except for positives noted above in HPI. Vital Signs Vital Signs Vital Signs: 05/08/24 19:12 05/08/24 19:13 05/08/24 21:12 Temperature 97.7 F L Temperature Source Temporal Pulse Rate 57 L 74 74 Respiratory Rate 16 18 16 Blood Pressure 138/102 H 137/68 H 133/62 H Blood Pressure Mean 114 91 85 Pulse Ox 96 98 95 Oxygen Delivery Method Room Air Room Air Room Air 05/08/24 23:00 05/08/24 23:43 Temperature 98.3 F Temperature Source Pulse Rate 78 68 Respiratory Rate 16 17 Blood Pressure 138/68 H 126/65 H Blood Pressure Mean 91 85 Pulse Ox 96 96 Oxygen Delivery Method Room Air Physical Exam Const alert, oriented x3 and no apparent distress General Appearance: cooperative HEENT normocephalic, head/scalp atraumatic, hearing grossly normal bilaterally and moist oral mucous membranes Eyes PERRL and EOMs intact bilaterally Neck no lymphadenopathy and supple Resp normal respiratory effort, no retractions, no use of accessory muscles and clear to auscultation bilaterally Cardio regular rate and regular rhythm GI soft to palpation GI Narrative: Positive generalized TTP with negative Winchester's sign. Auscultation: hypoactive bowel sounds Palpation: tender Extremity normal to inspection and full ROM Skin Skin Narrative: Patient has no evidence of rash, abscess, wound or jaundice. Neuro oriented x3, CN's II-XII intact bilaterally, moves all extremities and no focal motor deficits Sensorium / Orientation: awake, alert, oriented to person, oriented to place and oriented to time Speech: speech normal Psych affect normal Results Medical Records Data Attestation: I reviewed the patient's medical records Lab / Micro Data Attestation: I reviewed the patient's lab results. 05/08/24 20:05 05/08/24 20:05 Labs: Laboratory Results - last 24 hr 05/08/24 20:05: WBC 14.7 H, RBC 4.35, Hgb 11.2 L, Hct 37.2, MCV 85.5, MCH 25.7 L, MCHC 30.1 L, RDW Std Deviation 59.7 H, RDW Coeff of Clara 19.4 H, Plt Count 375, MPV 11.0, Immature Gran % (Auto) 0.300, Neut % (Auto) 85.3 H, Lymph % (Auto) 8.7 L, [place] % (Auto) 5.2, Eos % (Auto) 0.3, Baso % (Auto) 0.2, Absolute Neuts (auto) 12.5 H, Absolute Lymphs (auto) 1.28, Nucleated RBC % 0, Sodium 138, Potassium 3.8, Chloride 104, Carbon Dioxide 21.0, Anion Gap 13, BUN 21 H, Creatinine 0.93, Est GFR (MDRD) Af Amer 74, Est GFR (MDRD) Non-Af 61, BUN/Creatinine Ratio 22.5 H, Glucose 178 H, Calcium 10.5 H, Total Bilirubin 0.60, AST 26, ALT 22, Alkaline Phosphatase 40 L, Troponin I High Sens 7, Total Protein 7.8, Albumin 3.9, Globulin 3.9, Albumin/Globulin Ratio 1.0, Lipase 22 Rhythm Strip Rhythm Strip: Sinus Rhythm Rate: 65 Ectopy: None Imaging Radiology Impression Abdomen/Pelvis CT 05/08/24 19:47 IMPRESSION: 1. Ill-defined hypodense nodule involving the right lobe of liver measuring 2.6 x 1.7 cm. Consider tumor versus abscess. 2. Fluid distended small bowel loops measuring up to 3 cm with no bowel wall thickening. Consider a low-grade bowel obstruction versus gastroenteritis in the appropriate clinical setting. Electronically Signed: Sly Conley MD at 23:14 EDT , Assessment & Plan Assessment/Plan (1) Acute upper abdominal pain: (2) Liver lesion, right lobe: (3) Leukocytosis: QUALIFIERS: Leukocytosis type: unspecified Qualified Code(s): D72.829 - Elevated white blood cell count, unspecified (4) Gastroenteritis: (5) Dehydration: (6) 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: QUALIFIERS: Breast location: upper outer quadrant of breast Estrogen receptor status: positive Laterality: right Qualified Code(s): C50.411 - Malignant neoplasm of upper-outer quadrant of right female breast; Z17.0 - Estrogen receptor positive status [ER+] (7) History of aortic valve repair: (8) Diabetes 1.5, managed as type 2: PLAN: Plan 1. Abdominal Pain with Nausea and Vomiting with CT suggestive of an ill-defined, hypodense ~2.6 cm x ~1.7 cm nodule of the Right lobe of the liver consistent with suspected tumor vs. abscess complicated by fluid distended small bowel loops up to ~3 cm with no bowel wall thickening suspicious for low-grade SBO vs. gastroenteritis along with Leukocytosis of 14.7K present on admission in the setting of a known history of breast cancer; on Anastrazole - Admit to general medical floor. Keep strict NPO for now and start Protonix 40 mg IV daily. Give Zofran IV prn nausea or vomiting. Give Morphine IV prn for severe (level 6-10/10) pain. We will check MRI of the abdomen with contrast to more clearly evaluate liver lesion noted on CT. Finally, we will consult Dr. Yan of general surgery to see this patient on-rounds in the AM for further guidance and recommendations with help appreciated in advance. 2. Mild Dehydration evidenced by BUN/creatinine ratio of 22.5 present on admission arising from #1 - Aggressively volume resuscitate and then recheck renal indices in AM to ensure improvement. 3. Essential hypertension - Hold scheduled oral hypertensives with patient NPO for #1 and give Hydralazine IV prn for systolic blood pressure > 160 mmHg. 4. Dyslipidemia and hypertriglyceridemia; on fenofibrate - Check Lipid Profile this admission and restart previous regimen when she is safely able to tolerate oral intake. 5. 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 FSBS q. 6 hours and cover with lowest intensity SSI. Check HgbA1c to objectively assess quality of diabetic control. 6. History of bilateral foot drop - Noted. 7. History of aortic valve repair (2016) - Noted. 8. History of LVH - Noted. 9. History of PSVT - Noted with patient currently in NSR. 10. History of pulmonary hypertension - Noted. 11. Chronic anemia - Stable with hemoglobin of 11.2 g/dL present on admission. 12. Glaucoma - Maintain Timolol eye drops as before. 13. OA; s/p Right TKR, bilateral THR's plus chronic back pain causing patient to typically ambulate with a cane - Noted. Give Tylenol prn. 14. History of hysterectomy (2014) - Noted. 15. History of bilateral breast cancer s/p partial mastectomy of the Right breast (2019) and lumpectomy of Left breast (2018); on Anastrazole - Noted. 16. DVT/GI prophylaxis - Lovenox 40 mg sq daily plus SCD's. Protonix 40 mg IV daily. Total time: Approximately 75 minutes. Charges/Coding Visit Charges Inpatient E&M: 41498 Init Hosp L3
[2024-05-09] MEDS: Piperacil/Tazobactam 3.375 GM in 0.9% Normal Saline (50mL MB+) 50 ML IV ×4 (01:09→22:15)
[2024-05-09 02:30] LABS: Cholesterol 190 mg/dL (200); High Density Lipoprotein 49 mg/dL; Triglycerides 171 mg/dL; Very Low Density Lipoprotein 34 mg/dL (5-40)
[2024-05-09] MEDS: Lactated Ringers 1,000 ML 100 ML IV (03:22)
[2024-05-09 07:32] LABS: Bedside Glucose 94 mg/dL (74-106)
[2024-05-09 07:41] LABS: Absolute Lymphocyte Count 1.49 X10^3/uL (0.83-4.51); Absolute Neutrophil Count 6.8 X10^3/uL (2.0-7.7); Eosinophil# 0.06 X10^3/uL; Eosinophils% 0.7 % (0-5); Hematocrit 30.9 % (37-47); Hemoglobin 9.4 g/dL (12.0-15.0); Lymphocyte # 1.49 X10^3/ul (0.83-4.51); Lymphocyte % 16.2 % (19-41); Mean Corp Hgb Conc 30.4 g/dL (32-36); Mean Corpuscular Hgb 25.8 pg (27.0-32.0); Mean Corpuscular Volume 84.9 fL (81-99); Mean Platelet Vol. 10.7 fl (6.2-12.0); Monocyte# 0.85 X10^3/uL; Monocyte% 9.2 % (0-10); NRBC Flagged by Analyzer 0 % (0-5); Neutrophil # 6.79 X10^3/uL (2.7-7.7); Neutrophil % 73.6 % (47-70); Platelet Count 305 K/mm3 (150-450); RBC Distribution Width CV 19.3 % (11.6-14.6); RBC Distribution Width SD 59.7 fl (35.1-43.9); Red Blood Count 3.64 M/mm3 (4.2-5.4); White Blood Count 9.2 K/mm3 (4.4-11.0)
--- NOTE | 2024-05-09 08:00 | RAD_ITS ---
INDICATION: Small bowel obstruction EXAMINATION/TECHNIQUE: X-RAY - XR Abdomen 1 View COMPARISON: CT scan of the abdomen and pelvis of 05/08/2024 FINDINGS: BOWEL GAS PATTERN: Non-obstructive. No bowel or stomach distention. FREE AIR: Not assessed on a single supine view. ORGANOMEGALY: Not seen. CALCIFICATIONS: No abnormal calcifications observed. LOWER CHEST: Not included on this exam. BONES AND SOFT TISSUES: Contrast in the bladder from previous contrast study. Bilateral hip arthroplasty. RAD/Abdomen Single View (Portable) IMPRESSION: Non-obstructive bowel gas pattern. Electronically Signed: Trever Ramirez MD at 15:49 EDT ,
[2024-05-09 08:26] LABS: ALB/GLOB Ratio 0.9 RATIO (0.9-2.4); AST(SGOT) 20 U/L (15-37); Alanine Aminotransfer ALT/SGPT 17 U/L (13-56); Alkaline Phosphatase 32 U/L (45-117); Anion Gap 8 (5-15); BUN 19 mg/dL (7-18); BUN/Creat Ratio 32.4 RATIO (10-20); Calcium,Total 8.8 mg/dL (8.5-10.1); Chloride 111 mmol/L (98-107); Creatinine, Serum 0.59 mg/dL (0.55-1.02); EST Glomerular Filtration Rate 104 mL/min (>60); Est Glom Filt Rate - Afr Amer 126 mL/min (>60); Estimated Creatinine Clearance 54.58 ml/min; Globulin 3.2 g/dL (2.2-4.2); Glucose 101 mg/dL (74-106); Magnesium 1.6 mg/dL (1.6-2.6); Phosphorus 3.3 mg/dL (2.5-4.9); Potassium 3.5 mmol/L (3.5-5.1); Protein, Total 6.2 g/dL (6.4-8.2); Sodium Level 141 mmol/L (136-145); Thyroid Stim Hormone (TSH) 0.988 uIU/mL (0.358-3.740)
--- NOTE | 2024-05-09 08:34 | EX.PCM.CON.S ---
Assessment & Plan Assessment/Plan (1) Gastroenteritis: PLAN: Plan Did review patient's CT abdomen pelvis. Patient does have dilated small bowel however there is no area of transition appears to be dilated until the cecum which appears to have a small amount of liquid stool as well. Patient did have normal bowel movement today that was black as patient did have Pepto-Bismol yesterday due to the abdominal cramping. Will start patient on clears. If patient is unable to tolerate then we will plan to do the Gastrografin small bowel follow-through. Liver lesion?unsure etiology. MRI are not done on Sundays will wait for Friday. Leukocytosis improved from 9.2 to 14.7 --- patient is on Zosyn. UA ordered Yudy Woodall M.D. Pager: [phone] [facility] [address] [place] [address], [facility], [address] [place] [id number] Office: [phone] HPI Consult Data Date of Consult: 05/09/24 HPI Narrative HPI Narrative: ANABELA CAMARA, is a 83 F who presents to the ER due to crampy abdominal pain. Patient states she had an episode on 05/03 and then again on Friday after eating about 5 PM. Patient denies any other sick contacts. Patient states she normally has bowel movements daily did not have 1 on Friday did have a normal 1 today patient states her abdominal pain did resolve after getting the morphine in the ER. Patient CT abdomen pelvis question small bowel obstruction versus gastroenteritis also right lobe liver lesion unable to characterize recommended MRI. Patient states that she did take some Pepto-Bismol yesterday and her stool today was black currently denies any nausea or vomiting. MRI is ordered but will not be done till tomorrow. Patient denies any previous abdominal surgeries. [facility] Medical History Wears glasses Wears dentures Cancer Diabetes Ambulates with cane Arthritis High cholesterol Back pain History of irregular heartbeat History of transesophageal echocardiography (HENRIQUE) History of echocardiogram Hypertension Cardiology follow-up encounter Hypertriglyceridemia Breast cancer, right Essential hypertension Breast cancer, left Cardiac murmur Pulmonary hypertension Abnormal findings on diagnostic imaging of heart and coronary circulation Aortic valve disease Paroxysmal supraventricular tachycardia by electrocardiogram (ECG) Supraventricular tachycardia Acquired left ventricular hypertrophy Hypertension Diabetes 1.5, managed as type 2 Home Medications ?Medication ?Instructions ?Recorded ?Last Taken ?Type timolol maleate 0.5 % eye gel 1 drp EACH EYE BID 06/13/16 06/05/21 21:00 History forming solution hydrochlorothiazide 12.5 mg tablet 12.5 mg PO DAILY 30 days ##30 12/12/17 06/05/21 08:00 History amlodipine 5 mg tablet 5 mg PO QHS 04/21/18 06/05/21 21:00 History cholecalciferol (vitamin D3) 25 25 mcg PO DAILY 03/30/20 06/05/21 08:00 History mcg (1,000 unit) capsule acetaminophen 650 mg 650 mg PO DAILY PRN 08/28/20 Unknown History tablet,extended release Pain/Inflammation losartan 100 mg tablet 100 mg PO DAILY 08/28/20 06/06/21 06:30 History metoprolol tartrate 25 mg tablet 25 mg PO BID 08/28/20 06/06/21 06:30 History potassium chloride 10 mEq 10 meq PO DAILY 08/28/20 06/05/21 08:00 History tablet,extended release(part/cryst) anastrozole 1 mg tablet See Rx Instructions .Route 11/25/23 Unknown Rx .COMPLEX #90 tabs meloxicam 7.5 mg tablet 7.5 mg PO BID PRN pain #180 tabs 02/23/24 Unknown Rx fenofibrate 160 mg tablet See Rx Instructions .Route 04/05/24 Unknown Rx .COMPLEX #90 tabs Allergy/AdvReac Type Severity Reaction Status Date / Time oxycodone (From Percocet) AdvReac Severe Itching Verified 05/08/24 19:13 Family History Brother CAD (coronary artery disease) Brother Diabetes Mother Diabetes Hypertension Father Hypertension CVA (cerebral vascular accident) Sister Breast cancer Surgical History H/O total knee replacement Status post total right knee replacement History of partial mastectomy of right breast (~05/07/19) History of aortic valve repair (~09/27/16) History of total left hip replacement History of total right hip replacement History of hysterectomy (~10/10/14) Status post left breast lumpectomy H/O aortic valve replacement Social History Smoking Status: Never smoker alcohol intake: never substance use type: does not use caffeine: Yes Type: coffee Number of servings: 1 what type of physical activity do you participate in: none seatbelt use: always do you feel safe at home: Yes ROS Constitutional Constitutional: Denies anorexia or fever(s) Eyes Eyes: Denies blurry vision ENT HEENT: Denies dysphagia Cardiovascular Cardiovascular: Denies chest pain Respiratory/Chest Respiratory/Chest: Denies cough Gastrointestinal Gastrointestinal: Reports abdominal pain, constipation and nausea; Denies diarrhea or vomiting Genitourinary Genitourinary: Denies dysuria Musculoskeletal Musculoskeletal: Denies joint swelling Integumentary Integumentary: Denies rash Neurologic Neurologic: Denies focal weakness Psychiatric Psychiatric: Denies depression Endocrine Endocrinology: Denies palpitations Hematologic/Lymphatic Hematologic/Lymphatic: Denies easy bleeding Physical Exam Const alert, oriented x3 and no apparent distress HEENT normocephalic and head/scalp atraumatic Resp normal respiratory effort Cardio regular rate GI soft to palpation and non-tender; Negative for non-distended Palpation: Negative for guarding Extremity no clubbing, cyanosis or edema Skin no rashes or lesions noted Neuro CN's II-XII intact bilaterally Psych mental status grossly normal Lab / Micro Data 05/09/24 07:32 05/09/24 07:32 Labs: Laboratory Results - last 24 hr 05/08/24 20:05: WBC 14.7 H, RBC 4.35, Hgb 11.2 L, Hct 37.2, MCV 85.5, MCH 25.7 L, MCHC 30.1 L, RDW Std Deviation 59.7 H, RDW Coeff of Clara 19.4 H, Plt Count 375, MPV 11.0, Immature Gran % (Auto) 0.300, Neut % (Auto) 85.3 H, Lymph % (Auto) 8.7 L, Swisher % (Auto) 5.2, Eos % (Auto) 0.3, Baso % (Auto) 0.2, Absolute Neuts (auto) 12.5 H, Absolute Lymphs (auto) 1.28, Nucleated RBC % 0, Sodium 138, Potassium 3.8, Chloride 104, Carbon Dioxide 21.0, Anion Gap 13, BUN 21 H, Creatinine 0.93, Est GFR (MDRD) Af Amer 74, Est GFR (MDRD) Non-Af 61, BUN/Creatinine Ratio 22.5 H, Glucose 178 H, Calcium 10.5 H, Total Bilirubin 0.60, AST 26, ALT 22, Alkaline Phosphatase 40 L, Troponin I High Sens 7, Total Protein 7.8, Albumin 3.9, Globulin 3.9, Albumin/Globulin Ratio 1.0, Triglycerides 171, Cholesterol 190, LDL Cholesterol 107, VLDL Cholesterol 34, HDL Cholesterol 49, Lipase 22 05/09/24 06:43: POC Glucose 94 05/09/24 07:32: WBC 9.2, RBC 3.64 L, Hgb 9.4 L, Hct 30.9 L, MCV 84.9, MCH 25.8 L, MCHC 30.4 L, RDW Std Deviation 59.7 H, RDW Coeff of Clara 19.3 H, Plt Count 305, MPV 10.7, Immature Gran % (Auto) 0.300, Neut % (Auto) 73.6 H, Lymph % (Auto) 16.2 L, Swisher % (Auto) 9.2, Eos % (Auto) 0.7, Baso % (Auto) 0.0, Absolute Neuts (auto) 6.8, Absolute Lymphs (auto) 1.49, Nucleated RBC % 0, Sodium 141, Potassium 3.5, Chloride 111 H, Carbon Dioxide 22.0, Anion Gap 8, BUN 19 H, Creatinine 0.59, Estim Creat Clear Calc 54.58, Est GFR (MDRD) Af Amer 126, Est GFR (MDRD) Non-Af 104, BUN/Creatinine Ratio 32.4 H, Glucose 101, Calcium 8.8, Phosphorus 3.3, Magnesium 1.6, Total Bilirubin 0.60, AST 20, ALT 17, Alkaline Phosphatase 32 L, Total Protein 6.2 L, Albumin 3.0 L, Globulin 3.2, Albumin/Globulin Ratio 0.9, TSH 0.988 Rhythm Strip Rhythm Strip: Sinus Rhythm Rate: 65 Ectopy: None Imaging Radiology Impression Abdomen/Pelvis CT 05/08/24 19:47 IMPRESSION: 1. Ill-defined hypodense nodule involving the right lobe of liver measuring 2.6 x 1.7 cm. Consider tumor versus abscess. 2. Fluid distended small bowel loops measuring up to 3 cm with no bowel wall thickening. Consider a low-grade bowel obstruction versus gastroenteritis in the appropriate clinical setting. Electronically Signed: Sly Conley MD at 23:14 EDT , Charges/Coding Visit Charges Inpatient E&M: 42106 Init Hosp L3
[2024-05-09] MEDS: Timolol 0.5% 5ML OPTH.BTL 1 DRP EACH EYE ×2 (09:08→22:15)
[2024-05-09] MEDS: Enoxaparin 40 MG/0.4 ML Syringe SC (09:09)
[2024-05-09 09:12] LABS: Hemoglobin A1c 5.4 % (3.8-5.6)
[2024-05-09 11:46] LABS: Bedside Glucose 111 mg/dL (74-106)
--- NOTE | 2024-05-09 11:52 | PN.HOSP_ITS ---
Reason for Visit Reason for Visit: Diagnoses Malignant neoplasm of upper-outer quadrant of right female breast (05/09/24) Malignant neoplasm of unspecified site of unspecified female breast (05/09/24) Elevated white blood cell count, unspecified (05/09/24) Other specified diabetes mellitus without complications (05/09/24) Dehydration (05/09/24) Noninfective gastroenteritis and colitis, unspecified (05/09/24) Liver disease, unspecified (05/09/24) Upper abdominal pain, unspecified (05/09/24) Estrogen receptor positive status [ER+] (05/09/24) Personal history of other diseases of the circulatory system (05/09/24) Other specified postprocedural states (05/09/24) Subjective Subjective Saw patient at bedside this morning, multiple family members present. Patient was sitting up comfortably in bed, conversing normally, no acute distress. She denied any abdominal pain. I spoke with Dr. Woodall over the phone this morning who had seen the patient and noted that patient was having bowel movements and tolerating clear liquid diet without issue, so there was no concern for small bowel distraction. Also no concern for acute cholecystitis. She recommended the patient get the MRI for her small liver lesion done tomorrow but if tolerating regular diet by then, would likely be okay for discharge. Patient and family were happy with this plan especially with the patient feeling improved and tolerating diet without issue. No other acute concerns morning. Objective Data Objective Data Vital Signs: Vital Signs Temp Pulse Resp BP Pulse Ox O2 Del Method 98.1 F 81 16 146/60 H 95 Room Air 05/09/24 09:44 05/09/24 10:28 05/09/24 09:44 05/09/24 09:44 05/09/24 09:44 05/09/24 09:44 Oxygen Delivery Method Room Air Weight: 73.936 kg Body Mass Index (BMI) 27.1 Intake & Output: Intake and Output for Last 24 Hours 05/07/24 05/08/24 05/09/24 23:59 23:59 23:59 Intake Total 1000 / 1000 100 / 100 Balance 1000 / 1000 100 / 100 Lab / Micro Data 05/09/24 07:32 05/09/24 07:32 Labs: Laboratory Results - last 24 hr 05/08/24 20:05: WBC 14.7 H, RBC 4.35, Hgb 11.2 L, Hct 37.2, MCV 85.5, MCH 25.7 L , MCHC 30.1 L, RDW Std Deviation 59.7 H, RDW Coeff of Clara 19.4 H, Plt Count 375, MPV 11.0, Immature Gran % (Auto) 0.300, Neut % (Auto) 85.3 H, Lymph % (Auto) 8.7 L, Maverick % (Auto) 5.2, Eos % (Auto) 0.3, Baso % (Auto) 0.2, Absolute Neuts (auto) 12.5 H, Absolute Lymphs (auto) 1.28, Nucleated RBC % 0, Sodium 138, Potassium 3.8, Chloride 104, Carbon Dioxide 21.0, Anion Gap 13, BUN 21 H, Creatinine 0.93, Est GFR (MDRD) Af Amer 74, Est GFR (MDRD) Non-Af 61, B UN/Creatinine Ratio 22.5 H, Glucose 178 H, Calcium 10.5 H, Total Bilirubin 0.60, AST 26, ALT 22, Alkaline Phosphatase 40 L, Troponin I High Sens 7, Total Protein 7.8, Albumin 3.9, Globulin 3.9, Albumin/Globulin Ratio 1.0, Triglycerides 171, Cholesterol 190, LDL Cholesterol 107, VLDL Cholesterol 34, HDL Cholesterol 49, Lipase 22 05/09/24 06:43: POC Glucose 94 05/09/24 07:32: WBC 9.2, RBC 3.64 L, Hgb 9.4 L, Hct 30.9 L, MCV 84.9, MCH 25.8 L , MCHC 30.4 L, RDW Std Deviation 59.7 H, RDW Coeff of Clara 19.3 H, Plt Count 305, MPV 10.7, Immature Gran % (Auto) 0.300, Neut % (Auto) 73.6 H, Lymph % (Auto) 16.2 L, Maverick % (Auto) 9.2, Eos % (Auto) 0.7, Baso % (Auto) 0.0, Absolute Neuts (auto) 6.8, Absolute Lymphs (auto) 1.49, Nucleated RBC % 0, Sodium 141, Potassium 3.5, Chloride 111 H, Carbon Dioxide 22.0, Anion Gap 8, BUN 19 H, Creatinine 0.59, Estim Creat Clear Calc 54.58, Est GFR (MDRD) Af Amer 126, Est GFR (MDRD) Non-Af 104, BUN/Creatinine Ratio 32.4 H, Glucose 101, Hemoglobin A1c 5.4, Calcium 8.8, Phosphorus 3.3, Magnesium 1.6, Total Bilirubin 0.60, AST 20, ALT 17, Alkaline Phosphatase 32 L, Total Protein 6.2 L, Albumin 3.0 L, Globulin 3.2, Albumin/Globulin Ratio 0.9, TSH 0.988 05/09/24 11:09: POC Glucose 111 H Radiography Diagnostic Testing: Radiology Impression Abdomen/Pelvis CT 05/08/24 19:47 IMPRESSION: 1. Ill-defined hypodense nodule involving the right lobe of liver measuring 2.6 x 1.7 cm. Consider tumor versus abscess. 2. Fluid distended small bowel loops measuring up to 3 cm with no bowel wall thickening. Consider a low-grade bowel obstruction versus gastroenteritis in the appropriate clinical setting. Electronically Signed: Sly Conley MD at 23:14 EDT , Rhythm Strip Rhythm Strip: Sinus Rhythm Rate: 65 Ectopy: None Physical Exam Const alert, oriented x3 and no apparent distress Constitutional Narrative: Elderly female, overweight, good energy level, sitting up comfortably in bed, conversing normally, in no acute distress. General Appearance: cooperative and comfortable HEENT normocephalic, head/scalp atraumatic, hearing grossly normal bilaterally, nasal mucous membranes and turbinates normal and moist oral mucous membranes Eyes PERRL, EOMs intact bilaterally and conjunctivae normal Neck full ROM Chest inspection of chest normal Resp normal respiratory effort, normal air movement, no use of accessory muscles and clear to auscultation bilaterally Cardio regular rate, regular rhythm, no murmurs and peripheral pulses 2+ throughout GI GI Narrative: Abdomen soft, nondistended and nontender to palpation with normal bowel sounds. Back/Spine normal ROM Extremity normal to inspection, full ROM and no pedal edema Skin no rashes or lesions noted Neuro no focal motor deficits and no sensory deficits noted Speech: speech normal Psych mental status grossly normal Assessment & Plan Assessment/Plan (1) Gastroenteritis: (2) Liver lesion, right lobe: PLAN: Plan Patient is an 83-year-old female who presented [facility] ED on 05/08/2024 with abdominal pain and nausea with vomiting. 1. Suspected gastroenteritis ? General Surgery following. Presented with abdominal pain and nausea with vomiting. CT abdomen pelvis showed fluid distended small bowel loops with no clear transition point concerning for low-grade bowel obstruction versus gastroenteritis. Patient's pain largely resolved in the ED so surgery determined no need for NG tube. KUB on 05/09 with no small bowel obstruction noted and patient passing gas and had small bowel movement and tolerating liquid diet without issue. Per surgery, findings are most consistent with gastroenteritis. Will advance diet per general surgery recs. Continue treatment with IV Zosyn for now, though leukocytosis improved by hospital day 2 and patient improving overall. Likely okay for discharge home in the next few days. 2. Liver lesion ? CT abdomen pelvis on admit showed ill-defined hypodense nodule involving right lobe of liver measuring 2.6 x 1.7 cm. MRI abdomen ordered for further evaluation. Per surgery, unlikely that this contributed to her abdominal pain on admission. Will follow-up on result of MRI tomorrow. Chronic medical conditions: ? Hypertension: Holding home meds for now, restart when able. ? Diabetes mellitus: A1c 5.4% on admit. Continue sliding scale insulin with meals as needed. ? Hyperlipidemia: Continue home fenofibrate. ? Chronic anemia: Hemoglobin 11.2 on admit, down trended to 9.4 on hospital day 2 but baseline is around 9-10 so suspect patient was hemoconcentrated on admission and hemoglobin down trended from IV fluid administration. Stable, no need for further CBC checks. ? History of bilateral breast cancer s/p partial mastectomy of right breast and lumpectomy of left breast: Continue home anastrozole. DVT prophylaxis: Lovenox CODE STATUS: Full code, unverified Expected disposition: Home, 1 to 2 days Total clinical time spent by myself addressing the patient's medical issues, reviewing all the data, and collaborating with patient's care team: 35 minutes. Charges/Coding Visit Charges Inpatient E&M: 46945 Subs Hosp L2
[2024-05-09 16:54] LABS: Bedside Glucose 88 mg/dL (74-106)
[2024-05-09 19:06] LABS: Bacteria 0 SEEN /hpf (None Seen); Mucous, Urine 0 SEEN /hpf (<or=2+); Red Blood Cells-Urine 0 SEEN /hpf (0-5); Squamous Epithelial Cells - UA 0 SEEN /hpf (5-10); White Blood Cells 0 SEEN /hpf (0-5)
[2024-05-09 19:18] LABS: Color, Urine Yellow (Yellow); Glucose, Dipstick Normal (Normal); Ketone-Dipstick Negative (Negative); Leukocyte Esterase-Dipstick Negative /ul (Negative); Nitrite-Dipstick Negative (Negative); Occult Blood-Urine Negative /ul (Negative); Protein-Dipstick Negative (Negative); Specific Gravity, Urine 1.015 (1.002-1.030); Urine Bilirubin Dipstick Negative (Negative); Urine Clarity Sl. Cloudy (Clear); Urine Urobilinogen Normal (Normal)
[2024-05-09 22:37] LABS: Bedside Glucose 98 mg/dL (74-106)
[2024-05-10] VITALS (8 sets, daily range): BP systolic 118–162; BP diastolic 64–71; PULSE 57–82; RESP 16–18; TEMP 36.4–36.8; O2SAT 96–98; BMI 27.1
[2024-05-10] MEDS: hydrALAZINE 20 MG/ML Vial 10 MG IV (02:58)
[2024-05-10] MEDS: Piperacil/Tazobactam 3.375 GM in 0.9% Normal Saline (50mL MB+) 50 ML IV ×3 (06:07→23:49)
[2024-05-10 06:30] LABS: Bedside Glucose 94 mg/dL (74-106)
--- NOTE | 2024-05-10 07:50 | PCM.PN.SRG ---
Subjective Subjective Patient evaluated resting comfortably in bed. She denies any further abdominal pain. She denies nausea, vomiting. She is tolerating clear liquid diet well. Patient notes loose stools yesterday. She is passing flatus. Objective Data Objective Data Vital Signs: Vital Signs Temp Pulse Resp BP Pulse Ox O2 Del Method 97.8 F 70 18 138/70 H 98 Room Air 05/10/24 02:47 05/10/24 02:58 05/10/24 02:47 05/10/24 03:31 05/10/24 02:47 05/10/24 02:58 Oxygen Delivery Method Room Air Weight: 162 lb 15.804 oz Body Mass Index (BMI) 27.1 Intake & Output: Intake and Output for Last 24 Hours 05/08/24 05/09/24 05/10/24 23:59 23:59 23:59 Intake Total 1000 / 1000 1800 / 1800 50 / 50 Balance 1000 / 1000 1800 / 1800 50 / 50 Lab / Micro Data 05/09/24 07:32 05/09/24 07:32 Labs: Laboratory Results - last 24 hr 05/09/24 07:32: Sodium 141, Potassium 3.5, Chloride 111 H, Carbon Dioxide 22.0, Anion Gap 8, BUN 19 H, Creatinine 0.59, Estim Creat Clear Calc 54.58, Est GFR (MDRD) Af Amer 126, Est GFR (MDRD) Non-Af 104, BUN/Creatinine Ratio 32.4 H, Glucose 101, Hemoglobin A1c 5.4, Calcium 8.8, Phosphorus 3.3, Magnesium 1.6, Total Bilirubin 0.60, AST 20, ALT 17, Alkaline Phosphatase 32 L, Total Protein 6.2 L, Albumin 3.0 L, Globulin 3.2, Albumin/Globulin Ratio 0.9, TSH 0.988 05/09/24 11:09: POC Glucose 111 H 05/09/24 14:42: Urine Color Yellow, Urine Clarity Sl. Cloudy, Urine pH 6.0, Ur Specific [place] 1.015, Urine Protein Negative, Urine Glucose (UA) Normal, Urine Ketones Negative, Urine Occult Blood Negative, Urine Nitrite Negative, Urine Bilirubin Negative, Urine Urobilinogen Normal, Ur Leukocyte Esterase Negative, Urine RBC 0 SEEN, Urine WBC 0 SEEN, Ur Squamous Epith Cells 0 SEEN, Urine Bacteria 0 SEEN, Urine Mucus 0 SEEN 05/09/24 16:36: POC Glucose 88 05/09/24 22:13: POC Glucose 98 05/10/24 06:00: POC Glucose 94 Radiography Diagnostic Testing: Radiology Impression KUB X-Ray 05/09/24 08:00 IMPRESSION: Non-obstructive bowel gas pattern. Electronically Signed: Trever Ramirez MD at 15:49 EDT , Rhythm Strip Rhythm Strip: Sinus Rhythm Rate: 65 Ectopy: None Physical Exam GI GI Narrative: Abdomen- soft, nontender to palpation. Positive bowel sounds. Assessment & Plan Assessment/Plan (1) Gastroenteritis: PLAN: I am following this patient in conjunction with Dr. Woodall. She will independently evaluate this patient. Patient scheduled for an MRI today Patient's symptoms have resolved She may increase diet to regular following her testing today No surgical intervention planned at this time If patient tolerates regular diet, she may be discharged No follow-up is needed with our office Charges/Coding Visit Charges Inpatient E&M: 76371 Subs Hosp L1
[2024-05-10] MEDS: Enoxaparin 40 MG/0.4 ML Syringe SC (08:12)
[2024-05-10] MEDS: Timolol 0.5% 5ML OPTH.BTL 1 DRP EACH EYE ×2 (08:12→23:49)
[2024-05-10] MEDS: LORazepam 0.5 MG Tablet PO (09:54)
--- NOTE | 2024-05-10 10:35 | CASEMGMT ---
ALBERTO GRANT Assessment: Face to Face with pt for initial transition planning/care coordination assessment. ALBERTO GRANT introduced self and role at [facility], pt voices understanding and consents to assessment. Pt is A&O x4 and answers all questions appropriately at this time. Pt sitting up in chair with son and dil at bedside. Pt agreeable to assessment with family present. Care providers, pharmacy, and demographics verified/updated. Admitting Dx: abd pain with N/V and liver lesion Strata Score: 2 PCP:Mickey Specialists:Gaby, cardio; Zuly, neuro; Viki and Joe duran onc Preferred Pharmacy: [facility] [place] Insurance: [employer] Prescription Benefit: yes LNOK: Chintan Mendez, son; Laura Mendez, dil Living Arrangements: Pt lives with in a single story home with 1 step to enter with a rail on both sides. Pt reports she is I in ADL and IADLs and denies concerns at home. Transportation: Pt drives self and denies concerns with transportation. Pt family also transports her to medical appts if need be. DME:walker, cane, BGM with sufficient supply of strips and lancets HHC/SNF: Pt has had a [facility] in [place] in the past, she cannot remember the name. Pt denies hx of SNF. Pt states no concerns with going home at time of dc. Pt denies any homegoing needs. She states she feels strong enough to go home. Pt states no further concerns/needs. CM to follow. Advised pt to ask CM if any further question/concerns/needs arise, voices understanding. Pt Goal: Home Plan: Home Reg DOMINGUEZ CM
--- NOTE | 2024-05-10 11:30 | MRI_ITS ---
STUDY: MRI ABDOMEN WITH AND WITHOUT CONTRAST REASON FOR EXAM: Female, 83 years old. Liver Lesion noted on CT with MRI recommended. TECHNIQUE: Standardized fat and water weighted pulse sequences were obtained in all 3 orthogonal planes post contrast administration. 15cc clariscan was administered for the contrast portion of the examination. COMPARISON: CT 05/08/2024 FINDINGS: Tiny bilateral pleural effusions. Cardiomegaly. MRI confirms a 2.5 cm round T2 hyperintense peripherally enhancing mass within the posterior segment right lobe of liver corresponding to the mass seen on CT which may represent solitary metastasis or hepatocellular carcinoma. Multiple small round hypointense filling defects within the gallbladder consistent with stones. Normal spleen. Normal pancreas. Normal bilateral adrenal glands. Normal right kidney. Normal left kidney. Parapelvic cysts of both kidneys. Normal visualized stomach. Normal small intestine. Normal colon. There is non-visualization of the appendix. Normal abdominal aorta. Normal inferior vena cava. Normal retroperitoneum. Normal abdominal wall. Normal osseous structures. MRI/MRI Abd WITH and W/O Contrast IMPRESSION: MRI confirms a 2.5 cm mass of the posterior segment of the right lobe of the liver possibly consistent with hepatocellular carcinoma or a solitary metastasis. Cholelithiasis. Cardiomegaly with tiny bilateral pleural effusions. Electronically Signed: Clement Shaikh MD at 14:42 EDT ,
[2024-05-10 11:51] LABS: Bedside Glucose 106 mg/dL (74-106)
[2024-05-10 16:13] LABS: Bedside Glucose 92 mg/dL (74-106)
--- NOTE | 2024-05-10 16:47 | PN.HOSP_ITS ---
Reason for Visit Reason for Visit: Diagnoses Malignant neoplasm of upper-outer quadrant of right female breast (05/09/24) Dehydration (05/09/24) Noninfective gastroenteritis and colitis, unspecified (05/09/24) Estrogen receptor positive status [ER+] (05/09/24) Subjective Subjective Saw patient at bedside this morning, family members present. Patient appeared similar to yesterday, was sitting up comfortably in bed, in no acute distress. She had tolerated a full liquid diet this morning without issue. No other new concerns today. Objective Data Objective Data Vital Signs: Vital Signs Temp Pulse Resp BP Pulse Ox O2 Del Method 97.5 F L 57 L 16 134/71 H 96 Room Air 05/10/24 16:03 05/10/24 16:03 05/10/24 16:03 05/10/24 16:03 05/10/24 16:03 05/10/24 16:03 Oxygen Delivery Method Room Air Weight: 73.93 kg Body Mass Index (BMI) 27.1 Intake & Output: Intake and Output for Last 24 Hours 05/08/24 05/09/24 05/10/24 23:59 23:59 23:59 Intake Total 1000 / 1000 1800 / 1800 350 / 350 Balance 1000 / 1000 1800 / 1800 350 / 350 Lab / Micro Data 05/09/24 07:32 05/09/24 07:32 Labs: Laboratory Results - last 24 hr 05/09/24 14:42: Urine Color Yellow, Urine Clarity Sl. Cloudy, Urine pH 6.0, Ur Specific [place] 1.015, Urine Protein Negative, Urine Glucose (UA) Normal, Urine Ketones Negative, Urine Occult Blood Negative, Urine Nitrite Negative, Urine Bilirubin Negative, Urine Urobilinogen Normal, Ur Leukocyte Esterase Negative, Urine RBC 0 SEEN, Urine WBC 0 SEEN, Ur Squamous Epith Cells 0 SEEN, Urine Bacteria 0 SEEN, Urine Mucus 0 SEEN 05/09/24 16:36: POC Glucose 88 05/09/24 22:13: POC Glucose 98 05/10/24 06:00: POC Glucose 94 05/10/24 10:47: POC Glucose 106 05/10/24 15:50: POC Glucose 92 Radiography Diagnostic Testing: Radiology Impression Abdomen MRI 05/10/24 11:30 IMPRESSION: MRI confirms a 2.5 cm mass of the posterior segment of the right lobe of the liver possibly consistent with hepatocellular carcinoma or a solitary metastasis. Cholelithiasis. Cardiomegaly with tiny bilateral pleural effusions. Electronically Signed: Clement Shaikh MD at 14:42 EDT , Rhythm Strip Rhythm Strip: Sinus Rhythm Rate: 65 Ectopy: None Physical Exam Const alert, oriented x3 and no apparent distress Constitutional Narrative: Elderly female, overweight, good energy level, sitting up comfortably in bed, conversing normally, in no acute distress. Stable. General Appearance: cooperative and comfortable HEENT normocephalic, head/scalp atraumatic, hearing grossly normal bilaterally, nasal mucous membranes and turbinates normal and moist oral mucous membranes Eyes PERRL, EOMs intact bilaterally and conjunctivae normal Neck full ROM Chest inspection of chest normal Resp normal respiratory effort, normal air movement, no use of accessory muscles and clear to auscultation bilaterally Cardio regular rate, regular rhythm, no murmurs and peripheral pulses 2+ throughout GI GI Narrative: Abdomen soft, nondistended and nontender to palpation with normal bowel sounds. Stable. Back/Spine normal ROM Extremity normal to inspection, full ROM and no pedal edema Skin no rashes or lesions noted Neuro no focal motor deficits and no sensory deficits noted Speech: speech normal Psych mental status grossly normal Assessment & Plan Assessment/Plan (1) Gastroenteritis: (2) Liver lesion, right lobe: PLAN: Plan Patient is an 83-year-old female who presented [facility] ED on 05/08/2024 with abdominal pain and nausea with vomiting. 1. Suspected gastroenteritis ? General Surgery following. Presented with abdominal pain and nausea with vomiting. CT abdomen pelvis showed fluid distended small bowel loops with no clear transition point concerning for low-grade bowel obstruction versus gastroenteritis. Patient's pain largely resolved in the ED so surgery determined no need for NG tube. KUB on 05/09 with no small bowel obstruction noted and patient passing gas and had small bowel movement and tolerated liquid diet without issue. Per surgery, findings are most consistent with gastroenteritis. Advancing diet per general surgery recs. Treated with IV Zosyn on admission, discontinued on 05/10 given low concern for active infection. 2. Liver lesion ? CT abdomen pelvis on admit showed ill-defined hypodense nodule involving right lobe of liver measuring 2.6 x 1.7 cm. MRI abdomen 05/10 showed 2.5 cm mass that may represent solitary metastasis versus hepatocellular carcinoma. Notably has history of breast cancer but with no concern for recurrence noted at recent visit as noted below. Tumor markers ordered. Radiology consulted for CT-guided biopsy. 3. Cholelithiasis ? MRI abdomen showed multiple small hypodense filling defects within the gallbladder consistent with stones but no concern for acute cholecystitis. CT abdomen pelvis on admit also with no concern for cholecystitis. No need for surgical intervention. 4. History of bilateral breast cancer ? Follows with Drs. Drew and Joe. 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 She was treated with radiation to both breasts during that timeframe. Recent mammogram in April was normal. Continue home anastrozole. Chronic medical conditions: ? Hypertension: Holding home meds for now, restart when able. ? Diabetes mellitus: A1c 5.4% on admit. Continue sliding scale insulin with meals as needed. ? Hyperlipidemia: Continue home fenofibrate. ? Chronic anemia: Hemoglobin 11.2 on admit, down trended to 9.4 on hospital day 2 but baseline is around 9-10 so suspect patient was hemoconcentrated on admission and hemoglobin down trended from IV fluid administration. Stable, no need for further CBC checks. DVT prophylaxis: Lovenox CODE STATUS: Full code, unverified Expected disposition: Home, 1 to 2 days Total clinical time spent by myself addressing the patient's medical issues, reviewing all the data, and collaborating with patient's care team: 35 minutes. Charges/Coding Visit Charges Inpatient E&M: 90555 Subs Hosp L2
[2024-05-10 17:45] LABS: BNP,B-Type NATRIURETIC PEPTIDE 230.3 pg/mL (0-100)
[2024-05-10] MEDS: 0.9% Saline Lock 10 ML Syringe IV (23:49)
[2024-05-11] VITALS (13 sets, daily range): BP systolic 108–167; BP diastolic 56–88; PULSE 78–97; RESP 16–18; TEMP 36.3–36.8; O2SAT 94–100; BMI 26.6
--- NOTE | 2024-05-11 | ASPIGT_PTH ---
PATIENT: ANABELA CAMARA LOC: MS3 U#:[id number] AGE/SX: 83/F ROOM[place] [facility] RE05/09/[address]: Dr. Ceferino Lopez DO : 1940 BED: 1 DIS: 05/11/2024 SPEC #: [id number] RECD: 05/11/24 14:05 STATUS: XIMENA REQ #: [id number] NIKA: 05/11/24 00:[address]: Rakan Rehman DEPT: SURGICAL PATHOLOGY RECD BY: Walker Lobo ENTERED: 05/11/24 14:06 SP TYPE: ASP RAD OTHR DR: DO Dr. Brayan Cobian DO Dr. Tai Chi Kwok, MD Tissues: Liver, NOS Procedures: FNA Specimen Adequacy Special Stain Group II Surgery Specimen Level IV Surgery Specimen Level V Imprint (control) Comments: @ Ordering doctor for SSII edited from to @ by KERRI at 05/11/24 1437 @ Ordering doctor for SUIV edited from to @ by KERRI at 05/11/24 143 @ Ordering doctor for SUV edited from to @ by KERRI at 05/11/24 1437 @ Ordering doctor for IMPRINT edited from to @ by KERRI at 05/11/24 143 @ Ordering doctor for FNASA edited from to @ by KERRI at 05/11/24 1437 @ Submitting doctor edited from to @ by KERRI at 05/11/24 1437 HEADER OPERATION: Liver biopsy PRE-OP DIAGNOSIS: Mass- lesion TISSUE SUBMITTED: 18 gauge x 5 cores MICROSCOPIC DIAGNOSIS Liver, CT guided core biopsy: Metastatic adenocarcinoma. See note. NOTE: Immunohistochemistry ([id number]) supports the above diagnosis and favors lower gastrointestinal tract primary. 05/12/2024 COMMENT The specimen is evaluated at the time of biopsy by Dr. Guzmán. Immediate Evaluation = Malignant cells present derived from non-small cell carcinoma. Correlation with clinical, radiologic findings and appropriate follow-up are necessary. Molecular studies on the tumor can be performed if clinically indicated. Please notify the laboratory if it is needed. Please make reference to previous specimen [id number] left breast, lumpectomy with diagnosis of invasive ductal carcinoma and [id number] right breast, lumpectomy with diagnosis of invasive ductal carcinoma. Case has been reviewed in consultation with Dr. Morse who concurs with the above diagnosis. IDC:AM MICROSCOPIC DESCRIPTION Slides are reviewed. GROSS DESCRIPTION Received in fixative is one container labeled with the patient's name and designated Liver biopsy. The specimen consists of multiple irregular fragments of light good soft tissue that in aggregate measure 1.5 x 0.2 x <0.1 cm. The specimen is totally submitted in one cassette. Two touch imprints are prepared at the time of core biopsy: 05/11/2024 TC:0 [facility]:[id number] ADDENDUM ADDENDUM ADDENDUM ADDENDUM ADDENDUM ADDENDUM 07/20/2024 15:18 ADDENDUM 07/20/2024 15:18 ADDENDUM 07/20/2024 15:18 ADDENDUM 07/20/2024 15:18 ADDENDUM 07/20/2024 15:18 ADDENDUM 07/23/2024 11:28 ADDENDUM 07/28/2024 08:30 PD-L1 (KEYTRUDA) IMMUNOHISTOCHEMICAL ANALYSIS FROM [employer] RESULTS: Tumor proportion score: <1% / NEGATIVE Please see complete report in e-chart or EMR [facility] NGS REPORT FROM [employer] RESULT SUMMARY: Abnormal TUMOR TYPE: Adenocarcinoma CLINICAL INFORMATION: Liver CT- guided core biopsy showed metastatic adenocarcinoma, favor lower gastrointestinal tract primary (Testing performed on E09-0725-8). HISTOPATHOLOGIC REVIEW: Tumor is present and is estimated to comprise 20-50% of nuclei in the sample. DETECTED GENOMIC ALTERATIONS: TIER II: Variants of potential clinical significance ERBB2 Amplification APC p. ([id number]) APC p. ([id number]) PIK3CA p. ([id number]) IMMUNOTHERPY BIOMARKERS: TUMOR MUTATION BURDEN : HIGH (10.2 mutations / MB) MICROSATELLITE INSTABILITY : MSI NEGATIVE (3.33%) Please see complete report in e-chart or EMR [facility] NEXT GENERATION SEQUENCING GENE FUSION REPORT FROM [employer] INTERPRETATION: NEGATIVE: No pathologic gene fusions detected involving ALK, KASANDRA, BRAF, CCND1, EGFR, FGFR1, FGFR2, FGFR3, MET, NRG1, NTRK1, NTRK2, NTRK3, PPARG, RAF1, RET, ROS1, or THADA. RESULTS Tumor cellularity: >50% Tumor type: Adenocarcinoma Please see complete report in e-chart or EMR
--- NOTE | 2024-05-11 | IMM_PTH ---
PATIENT: ANABELA CAMARA LOC: MS3 U#:[id number] AGE/SX: 83/F ROOM: [facility] RE05/09/[address]: Dr. Ceferino Lopez DO : 1940 BED: 1 DIS: 05/11/2024 SPEC #: [id number] RECD: 05/11/24 14:37 STATUS: SOUFidelina REQ #: [id number] NIKA: 05/11/24 00:[address]: Rakan Rehman DEPT: IMMUNOHISTOCHEMISTRY RECD BY: Bernard Ward ENTERED: 05/11/24 14:38 SP TYPE: IMMUNO OTHR DR: DO Dr. Brayan Cobian DO Dr. Tai Chi Kwok, MD Tissues: Liver, NOS Procedures: RCC (add) MSH2 (add) MLH-1 (add) MSH6 (add) Anti-PMS2 (add) NAPSIN A (add) CK20 (add) CK5-6 (add) CK7 (add) CK8 (add) E-CAD (add) HEP PAR (add) HER2 PARAG (add) KI-67 (add) MAMM (add) P53 (add) ME (add) TTF1 (add) Pankeratin (add) GATA3 (add) P40 (add) CDX2 (add) ER (initial) PHYSICIAN & INSTITUTION [place] [address] SPECIMEN INFORMATION: Tissue Source: Liver biopsy Clinical Info: Mass- lesion Specimen Number: [id number] CPT code: 92113,03883p14 METHODOLOGY: Deparaffinized sections of prefer/formalin-fixed tissue or PAP/DQ stained slides are incubated with monoclonal/polyclonal antibodies/oligonucleotide probes. Localization is made via biotin free immunoperoxidase method. Appropriate controls are performed and reacted as expected. Results on target cell population are indicated in the following table: RESULTS: ANTIBODY / CLONE RESULT ER (6F11) negative ME (1E2) negative Her-2neu (CB11) positive (2-3+) Mammaglobin (31A5) negative GATA3 (L50-823) negative AE1-3 (AE1/AE3/PCK26) positive, focal CK7 (OV-TL12/30) positive CK8 (17emsxK84) positive CK20 (KS20.8) positive TTF-1 (8G7G3/1) negative Napsin A (Rabbit Polyclonal) negative HepPar (OCh1E5) negative RCC (PN-15) negative CK5-6 (D5 & 1684) negative P40 (BC28) negative P53 (DO-7) negative, (null pattern) Ki-67 (30-9) positive high CDX2 ([id number]) positive MLH-1 (M1) positive MSH2 (25D12) positive MSH6 (44) positive PMS2 (VKG3860) positive These tests were developed and their performance characteristics determined by [facility]. They may not have been cleared or approved by the U.S. Food and Drug Administration. The FDA has determined that such clearance or approval is not necessary. The above immunohistochemical/dualISH markers are ordered and reviewed by the Pathologist. INTERPRETATION: Liver, CT guided core biopsy: Metastatic adenocarcinoma. See comment. Result of Microsatellite Instability Study: Negative (no loss of mismatch protein; no microsatellite instability detected). COMMENT: Morphology and IHC profile favor lower gastrointestinal tract. Clinical correlation is necessary. Case has been reviewed in consultation with Dr. Morse who concurs with the above diagnosis. IDC:TEENA BENTON/ 05/12/24
[2024-05-11 01:12] LABS: Bedside Glucose 101 mg/dL (74-106)
[2024-05-11] MEDS: Piperacil/Tazobactam 3.375 GM in 0.9% Normal Saline (50mL MB+) 50 ML IV (06:41)
[2024-05-11 07:41] LABS: Partial Thromboplast Time 35.4 Seconds (24.1-36.2)
[2024-05-11 07:44] LABS: International Normalized Ratio 1.2; Prothrombin Time (Protime)PT. 15.6 SECONDS (11.7-14.9)
[2024-05-11 08:25] LABS: Platelet Count 297 K/mm3 (150-450)
[2024-05-11] MEDS: 0.9% Normal Saline (250mL Bag) 250 ML 15 ML IV (10:32)
[2024-05-11] MEDS: Midazolam 2 MG/2 ML Syringe IV ×2 (10:34→10:37)
[2024-05-11] MEDS: fentaNYL 100 MCG/2 ML Ampul IV (10:37)
[2024-05-11] MEDS: Lidocaine 2% (20 ml mdv) 20 ML Vial INFILT (10:40)
--- NOTE | 2024-05-11 11:18 | PCM.OP.PRO ---
Procedure Report Date of Procedure: 05/11/24 Assessment & Plan Assessment/Plan (1) Liver lesion, right lobe: PLAN: PROCEDURE: CT DIRECTED CORE LIVER BIOPSY ORDERING PROVIDER: Dr. Lopez INDICATION: Female, 83 years old. Liver lesion, anterior superior. PROVIDER: MELISSA Collins CONSENT: Written informed consent was obtained having explained the risks, benefits and alternatives in detail with the patient who accepted the risks and agreed to proceed. Laboratory review and clinical assessment was performed. PRE-PROCEDURE SEDATION ASSESSMENT: Current history and physical dictated by referring provider and reviewed. No clinical changes since date of exam. Patient has a Mallampati Score of Class 1 and ASA Class of 3. PROCEDURAL SEDATION PROTOCOL: The Drugs used were: 2 mg Versed, IV, and 25 mcg Fentanyl, IV. The sedation time was: 21 minutes, starting at 1034 and terminated at 1053. The procedural sedation protocol was independently monitored by the department nurse. RADIATION DOSAGE (If Supplied By Facility): CTDIvol = 19.94 mGy, DLP = 1326.80 mGycm Individualized dose optimization techniques were used for this CT. TECHNIQUE The patient was placed in a supine position. Using CT image guidance with image documentation, the anterior superior liver lesion was identified. The skin surface was prepped with chlorhexidine and draped in a sterile fashion. 2% lidocaine was used for local anesthesia. Using an anterior approach, puncture of the liver was uneventful with an 18-gauge core needle system. 5, 18-gauge core samples were obtained, and submitted in formalin to the pathologist for further assessment. The needle was removed. An occlusive sterile dressing was applied. Patient tolerated the procedure well, and returned to the holding bay for nursing monitoring. IMPRESSION: CT directed core needle biopsy of the anterior superior liver, using CT image guidance with image documentation as described. Procedural Sedation protocol utilized with independent monitoring. Procedures Radiology Radiology US Procedures: 46189 Liver Biopsy Multi Select Codes Radiology Radiology CT Procedures: 12163-87 CT guidance parenchymal tissue
[2024-05-11] MEDS: Timolol 0.5% 5ML OPTH.BTL 1 DRP EACH EYE (11:33)
[2024-05-11 12:08] LABS: Bedside Glucose 88 mg/dL (74-106)
--- NOTE | 2024-05-11 14:31 | PCM.DC ---
Discharge Instructions Diet Discharge Diet: No restrictions Activity Discharge Activity: No Restrictions Follow Up Care Test Results: Test results from this visit will be discussed in further detail at your follow-up appointment, if applicable. Discharge Plan Admission Admit Date/Time: 05/09/24 01:25 Primary Reason for Your Visit: Abdominal pain with nausea and vomiting Attending Provider: Ceferino Lopez Primary Care Provider: Marco Antonio Arevalo [facility] [employer] Providers: Brayan Medina Instructions Patient Instructions: NIKOLAI DOMINGUEZ Biopsy Liver Dc, NIKOLAI DOMINGUEZ Procedural Sedation Additional Instructions / Restrictions: Please hold off on taking your home losartan for now as your blood pressures were slightly lower during this hospitalization; talk with your primary care doctor before restarting this. Continue all other home medications as normal. Either the hospital or your primary care doctor will call to follow-up on your biopsy and lab results in the next few days. Discharge Orders/Prescriptions Prescriptions: Continued hydrochlorothiazide 12.5 mg tablet 12.5 mg PO DAILY 30 Days Qty: 30 Patient Comments: TAKE 1 TABLET BY MOUTH EVERY DAY cholecalciferol (vitamin D3) 25 mcg (1,000 unit) capsule 25 mcg PO DAILY meloxicam 7.5 mg tablet 7.5 mg PO BID PRN (Reason: pain) Qty: 180 3RF amlodipine 5 mg tablet 5 mg PO QHS Patient Comments: BP timolol maleate 1 DROP gel forming solution 1 drp EACH EYE BID Patient Comments: EYE DROP acetaminophen 650 MG tablet extended release 650 mg PO DAILY PRN (Reason: Pain/Inflammation) potassium chloride 10 MEQ tablet 10 meq PO DAILY metoprolol tartrate 25 MG tablet 25 mg PO BID anastrozole 1 mg tablet See Rx Instructions .ROUTE .COMPLEX Qty: 90 3RF Dose Instruction: TAKE 1 TABLET EVERY DAY Rx Instructions: TAKE 1 TABLET EVERY DAY fenofibrate 160 mg tablet See Rx Instructions .ROUTE .COMPLEX Qty: 90 3RF Dose Instruction: TAKE 1 TABLET AT BEDTIME Rx Instructions: TAKE 1 TABLET AT BEDTIME Held losartan 100 MG tablet 100 mg PO DAILY Hold Instructions: Resume on 05/24/24. Talk with PCP prior to restarting. Referrals / Follow Up: Marco Antonio Arevalo Chi, MD [Primary Care Provider] - Disposition Disposition (needs filled in before D/C Order can be placed): Home, Self Care
--- NOTE | 2024-05-11 14:37 | PCM.DC.SUM ---
Providers Date of Admission: 05/09/24 Date of Discharge: 05/11/24 Primary Care Physician: Dr. Marco Antonio Arevalo MD Reason For Visit: ABDOMINAL PAIN WITH N/V & LIVER LESION Diagnosis Discharge Diagnosis (1) Liver lesion, right lobe: Status: Acute Code(s): K76.9 - Liver disease, unspecified Medications at Discharge Home Medications timolol maleate 0.5 % eye gel forming solution 1 drp EACH EYE BID 06/13/16 hydrochlorothiazide 12.5 mg tablet 12.5 mg PO DAILY 30 days ##30 12/12/17 amlodipine 5 mg tablet 5 mg PO QHS 04/21/18 cholecalciferol (vitamin D3) 25 mcg (1,000 unit) capsule 25 mcg PO DAILY 03/30/20 acetaminophen 650 mg tablet,extended release 650 mg PO DAILY PRN Pain/Inflammation 08/28/20 losartan 100 mg tablet 100 mg PO DAILY 08/28/20 metoprolol tartrate 25 mg tablet 25 mg PO BID 08/28/20 potassium chloride 10 mEq tablet,extended release(part/cryst) 10 meq PO DAILY 08/28/20 anastrozole 1 mg tablet See Rx Instructions .Route .COMPLEX #90 tabs 11/25/23 meloxicam 7.5 mg tablet 7.5 mg PO BID PRN pain #180 tabs 02/23/24 fenofibrate 160 mg tablet See Rx Instructions .Route .COMPLEX #90 tabs 04/05/24 Hospital Course Operations None Procedures EKG and - (CT-guided biopsy of liver lesion, CT abdomen pelvis, KUB, MRI abdomen) Summary of Care Provided Minutes Spent on Discharge: 35 Hospital Course: Patient is an 83-year-old female who presented [facility] ED on 05/08/2024 with abdominal pain and nausea with vomiting. Hospital course as noted below. Patient discharged home with no therapy needs in stable condition on 05/11. 1. Suspected gastroenteritis ? General Surgery followed. Presented with abdominal pain and nausea with vomiting. CT abdomen pelvis showed fluid distended small bowel loops with no clear transition point concerning for low-grade bowel obstruction versus gastroenteritis. Patient's pain largely resolved in the ED so surgery determined no need for NG tube. KUB on 05/09 with no small bowel obstruction noted and patient passing gas and had small bowel movement and tolerated liquid diet without issue. Per surgery, findings are most consistent with gastroenteritis. Advance to regular diet by day of discharge and tolerated this without issue. Treated with IV Zosyn on admission, discontinued on 05/10 given low concern for active infection, no need for antibiotics on discharge. 2. Liver lesion ? CT abdomen pelvis on admit showed ill-defined hypodense nodule involving right lobe of liver measuring 2.6 x 1.7 cm. MRI abdomen 05/10 showed 2.5 cm mass that may represent solitary metastasis versus hepatocellular carcinoma. Notably has history of breast cancer but with no concern for recurrence noted at recent visit as noted below. S/p CT-guided biopsy of lesion on 05/11. Patient tolerated biopsy without issue. Tumor markers pending on discharge. Will need close outpatient follow-up on discharge pending results of biopsy and tumor markers. 3. Cholelithiasis ? MRI abdomen showed multiple small hypodense filling defects within the gallbladder consistent with stones but no concern for acute cholecystitis. CT abdomen pelvis on admit also with no concern for cholecystitis. No need for surgical intervention. 4. History of bilateral breast cancer ? Follows with Drs. Drew and Joe. 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 She was treated with radiation to both breasts during that timeframe. Recent mammogram in April was normal. Continue home anastrozole. Chronic medical conditions: ? Hypertension: Home meds held during hospitalization. Okay to restart home amlodipine, hydrochlorothiazide and Lopressor on discharge but continue to hold losartan given blood pressures were normal to only mildly elevated during hospitalization. Recommend PCP follow-up to determine need to restart losartan in the future. ? Diabetes mellitus: A1c 5.4% on admit. Treated with sliding scale insulin with meals while inpatient. Not on any home medications on discharge. ? Hyperlipidemia: Continue home fenofibrate. ? Chronic anemia: Hemoglobin 11.2 on admit, down trended to 9.4 on hospital day 2 but baseline is around 9-10 so suspect patient was hemoconcentrated on admission and hemoglobin down trended from IV fluid administration. Stable, no need for further CBC checks. Total clinical time spent by myself addressing the patient's medical issues, reviewing all the data, and collaborating with patient's care team: 35 minutes. Physical Exam Const alert, oriented x3 and no apparent distress Constitutional Narrative: Elderly female, overweight, good energy level, sitting up comfortably in bed, conversing normally, in no acute distress. Stable. General Appearance: cooperative and comfortable HEENT normocephalic, head/scalp atraumatic, hearing grossly normal bilaterally, nasal mucous membranes and turbinates normal and moist oral mucous membranes Eyes PERRL, EOMs intact bilaterally and conjunctivae normal Neck full ROM Chest inspection of chest normal Resp normal respiratory effort, normal air movement, no use of accessory muscles and clear to auscultation bilaterally Cardio regular rate, regular rhythm, no murmurs and peripheral pulses 2+ throughout GI GI Narrative: Abdomen soft, nondistended and nontender to palpation with normal bowel sounds. Stable. Back/Spine normal ROM Extremity normal to inspection, full ROM and no pedal edema Skin no rashes or lesions noted Neuro no focal motor deficits and no sensory deficits noted Speech: speech normal Psych mental status grossly normal Weight / BMI Weight Weight: 72.6 kg Body Mass Index (BMI) 26.6 ABG / Lab / Microbiology Data 05/11/24 07:01 05/09/24 07:32 Laboratory: Laboratory Results - last 24 hr 05/10/24 15:50: POC Glucose 92 05/10/24 17:04: B-Natriuretic Peptide 230.3 H 05/10/24 23:54: POC Glucose 101 05/11/24 07:01: Plt Count 297, PT 15.6 H, INR 1.2, APTT 35.4 05/11/24 11:38: POC Glucose 88 Microbiology: Microbiology 05/09/24 14:42 Urine, Random Urine Culture - Final Mixed Gram Positive Organisms 05/09/24 01:00 Blood Culture (Wb) - Anticubital Right Blood Culture - Preliminary No growth in 48 hours. Radiography Diagnostic Testing: Radiology Impression Abdomen MRI 05/10/24 11:30 IMPRESSION: MRI confirms a 2.5 cm mass of the posterior segment of the right lobe of the liver possibly consistent with hepatocellular carcinoma or a solitary metastasis. Cholelithiasis. Cardiomegaly with tiny bilateral pleural effusions. Electronically Signed: Clement Shaikh MD at 14:42 EDT , D/C Instructions Discharge Diet: No restrictions Meaningful Use Info Meaningful Use Meaningful Use Diagnoses (Choose all that apply): None applicable Ischemic Stroke Statin Dosing Therapy Reference: STATIN DOSE THERAPY REFERENCE: * Patients > 75 years receive moderate or high dose statin therapy. * Patients 75 years or YOUNGER should receive HIGH intensity statin dose unless contraindicated. You will be required to document reason for non-treatment if statin daily dose does not meet guidelines. HIGH DOSE STATIN THERAPY DAILY Atorvastatin > than or = to 40 mg Rosuvastatin > than or = to 20 mg Amlodipine + Atorvastatin > than or = to 2.5/40 mg Ezetimibe + Simvastatin 10/80 mg Simvastatin 80mg Discharge Plan Admission Admit Date/Time: 05/09/24 01:25 Primary Reason for Your Visit: Abdominal pain with nausea and vomiting Attending Provider: Ceferino Lopez Primary Care Provider: Marco Antonio Arevalo [employer] Providers: Brayan Medina Instructions Patient Instructions: NIKOLAI DOMINGUEZ Biopsy Liver Dc, NIKOLAI DOMINGUEZ Procedural Sedation Additional Instructions / Restrictions: Please hold off on taking your home losartan for now as your blood pressures were slightly lower during this hospitalization; talk with your primary care doctor before restarting this. Continue all other home medications as normal. Either the hospital or your primary care doctor will call to follow-up on your biopsy and lab results in the next few days. Discharge Orders/Prescriptions Prescriptions: Continued hydrochlorothiazide 12.5 mg tablet 12.5 mg PO DAILY 30 Days Qty: 30 Patient Comments: TAKE 1 TABLET BY MOUTH EVERY DAY cholecalciferol (vitamin D3) 25 mcg (1,000 unit) capsule 25 mcg PO DAILY meloxicam 7.5 mg tablet 7.5 mg PO BID PRN (Reason: pain) Qty: 180 3RF amlodipine 5 mg tablet 5 mg PO QHS Patient Comments: BP timolol maleate 1 DROP gel forming solution 1 drp EACH EYE BID Patient Comments: EYE DROP acetaminophen 650 MG tablet extended release 650 mg PO DAILY PRN (Reason: Pain/Inflammation) potassium chloride 10 MEQ tablet 10 meq PO DAILY metoprolol tartrate 25 MG tablet 25 mg PO BID anastrozole 1 mg tablet See Rx Instructions .ROUTE .COMPLEX Qty: 90 3RF Dose Instruction: TAKE 1 TABLET EVERY DAY Rx Instructions: TAKE 1 TABLET EVERY DAY fenofibrate 160 mg tablet See Rx Instructions .ROUTE .COMPLEX Qty: 90 3RF Dose Instruction: TAKE 1 TABLET AT BEDTIME Rx Instructions: TAKE 1 TABLET AT BEDTIME Held losartan 100 MG tablet 100 mg PO DAILY Hold Instructions: Resume on 05/24/24. Talk with PCP prior to restarting. Referrals / Follow Up: Marco Antonio Arevalo Chi, MD [Primary Care Provider] - 05/12/24 3:20 pm Disposition Disposition (needs filled in before D/C Order can be placed): Home, Self Care Charges/Coding Visit Charges Inpatient E&M: 80665 Disch Hosp >30min
--- NOTE | 2024-05-11 15:56 | CHAPLAIN ---
Type of Pastoral Visit ___ Initial Visit ___ Follow-up Visit ___ On-call Visit ___ General Patient Visit ___ Spiritual Assessment ___ Family Conference ___ Bereavement ___ Rapid Response ___ Code Blue ___ Other (describe below) Pastoral Care Referral From ___ Patient ___ Family ___ Nurse ___ Physician ___ Laser Cutter ___ Battery Test Engineer ___ Other (describe below) Sacrament/Intervention ___ Active listening ___ Anointing ___ Methodist ___ Bereavement ___ Communion ___ Ai exploration ___ ___ Life review ___ Prayer ___ Reconciliation ___ Sacrament of Sick ___ Supportive presence ___ Wedding ___ Other (describe below) Pastoral Comments RN was in the room of this patient at time of attempted visit; pt is on the discharge list
[2024-05-12 04:08] LABS: Carcinoembryonic Antigen 18.8 ng/mL (0.0-4.7)
[2024-05-12 06:45] LABS: Bedside Glucose 92 mg/dL (74-106)
[2024-05-12 13:08] LABS: AFP, Tumor Marker < 1.8 ng/mL (0.0-8.7); Carbohydrate Ag 19-9 2261 14 U/mL (0-35)
== END 2024-05-11 17:08 | disposition home or self-care (01) | DRG 392 ==
LOC: ED 23:50 → MS3 05-09 00:59
PROVIDERS: Nurse Practitioner Acute Care; Surgery; Admitting Provider Internal Medicine; Emergency Provider Emergency Medicine; PCP Family Medicine Geriatric Medicine; Visit Provider Hospitalist
DX: K52.9 Noninfective gastroenteritis and colitis, unspecified (principal); C78.7 Secondary malignant neoplasm of liver and intrahepatic bile duct; K80.20 Calculus of gallbladder without cholecystitis without obstruction; C80.1 Malignant (primary) neoplasm, unspecified; E11.9 Type 2 diabetes mellitus without complications; D64.9 Anemia, unspecified; I10 Essential (primary) hypertension; Z95.2 Presence of prosthetic heart valve; E86.0 Dehydration; E78.5 Hyperlipidemia, unspecified; M17.0 Bilateral primary osteoarthritis of knee; E66.3 Overweight; Z79.891 Long term (current) use of opiate analgesic; Z17.0 Estrogen receptor positive status [ER+]; Z79.1 Long term (current) use of non-steroidal anti-inflammatories (NSAID); Z80.3 Family history of malignant neoplasm of breast; H40.9 Unspecified glaucoma; Z90.710 Acquired absence of both cervix and uterus; Z85.3 Personal history of malignant neoplasm of breast; Z68.26 Body mass index [BMI] 26.0-26.9, adult
CPT/HCPCS: 36415; 74018; 74177; 74183; 77012; 80053; 80061; 81001; 82105; 82378; 82962; 83036; 83690; 83735; 83880; 84100; 84443; 84484; 85025; 85049; 85610; 85730; 86301; 87040; 87086; 87088; 88172; 88305; 88307; 88313; 88341; 88342; 93005; 94668; 97110; 97161; 97166; 97535; 99156; 99284; A9575; J7030; J7050; J7120; Q9967; A4216; J2405

== ENCOUNTER → 2024-05-31 | Outpatient (CLI) | payer MEDICARE, SELFPAY ==
[2019-05-17 09:04] VITALS: BMI 29.3
--- NOTE | 2024-05-31 16:45 | CT_ITS ---
STUDY: CT CHEST, ABDOMEN T PELVIS WITH CONTRAST REASON FOR EXAM: Female, 83 years old. Metastatic adenocarcinoma, unknown primary RADIATION DOSAGE (If Supplied By Facility): CTDIvol = ( 18.99 ) mGy, DLP = ( 1852.84 ) mGycm TECHNIQUE: Transaxial imaging was performed following intravenous administration of Oral and amp; IV Gastrografin and amp; 100mL Isovue-300. Multiplanar coronal and sagittal images were reformatted. Individualized dose optimization techniques were used for this CT. COMPARISON: Comparison is made with prior CT scan of the chest dated March 16, [address] scan abdomen and pelvis of May 08, 2024. FINDINGS: CHEST Minimally enlarged left lobe of the thyroid gland. Stable small hypodensity in the inferior aspect of the left lobe of the thyroid. Stable minimal degree of increased linear markings at the lung bases suggestive of a linear scarring. There is no demonstrated pleural abnormality. Sternal cerclage wires and vascular clips are present from a prior sternotomy and coronary artery bypass graft procedure (CABG). No significant coronary artery calcification seen. Normal mediastinum. Normal hilar regions. Normal unenhanced pulmonary arteries. There is atherosclerotic calcification of the aortic arch. There are multi-level degenerative changes of the thoracic spine. Findings suggestive subchondral sclerosis in the lower thoracic spine. ABDOMEN There is decreased attenuation of the liver consistent with steatosis. There is a 1.9 cm x 1.5 cm hypodensity in the superior lateral aspect of the right lobe of the liver. A neoplastic process should be ruled out. Normal gallbladder and extrahepatic biliary system. Normal spleen. Normal pancreas. Normal bilateral adrenal glands. Bilateral parapelvic renal cysts. There is a small hiatal hernia. Normal small intestine. There are multiple colonic diverticula consistent with diverticulosis. The appendix is visualized and appears normal. There is diffuse atherosclerotic calcification of the abdominal aorta, without a demonstrated aneurysm. Normal inferior vena cava. Normal retroperitoneum. Normal abdominal wall. There are diffuse degenerative changes of the visualized lumbar spine. PELVIS Limited visualization of the pelvic structures due to beam hardening artifact from bilateral hip replacements. CT/CT Chest, Abd, Pel w/Contrast IMPRESSION: Fatty infiltration of the liver. 1.9 cm x 1.5 cm hypodensity in the superior right lobe of the liver laterally suggestive of possible neoplastic process. Electronically Signed: Bryce Graham MD at 15:15 EDT ,
== END | disposition home or self-care (01) ==
LOC: CT 14:09
PROVIDERS: PCP Family Medicine Geriatric Medicine; Referring Provider Physician Assistant; Visit Provider Physician Assistant
DX: R16.0 Hepatomegaly, not elsewhere classified (principal); C79.9 Secondary malignant neoplasm of unspecified site
CPT/HCPCS: 71260; 74177; Q9967

== ENCOUNTER 2024-06-16 06:14 | Day surgery (SDC) | payer MEDICARE, SELFPAY ==
[2019-05-17 09:04] VITALS: BMI 29.3
[2024-06-16] VITALS (7 sets, daily range): BP systolic 93–137; BP diastolic 53–75; PULSE 66–78; RESP 16–18; TEMP 36.3–36.7; O2SAT 95–97; BMI 25.7
--- OUTSIDE RECORDS SUMMARY | 2024-06-16 06:16 | XMS RPT_ITS | CCD ---
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 Role Phone Robyn Overton Unavailable Unavailable Medications Completed/Discontinued Medications Medication Drug Class(es) Dates Sig (Normalized) Sig (Original) acetaminophen 500 mg oral tablet (1 source) Start: 11-01-2016 ACETAMINOPHEN 500 MG TABS (Tylenol) Take as directed ACETAMINOPHEN [id number] Abena Banegas RN amLODIPine 2.5 mg oral tablet (4 sources) Dihydropyridine Calcium Channel Anila Start: 06-13-2017 take 1 tablet by mouth once daily AMLODIPINE BESYLATE 2.5 MG TABS One tablet by mouth daily AMLODIPINE BESYLATE [id number] Huan Mathis MD Start: 10-14-2014 take 1 tablet by marvin th once daily AMLODIPINE BESYLATE 5 MG TABS One tablet by mouth daily AMLODIPINE BESYLATE [id number] Tg Madera RN Start: 10-14-2014 End: 11-11-2016 take 1 tablet by mouth once daily AMLODIPINE BESYLATE 10 MG TABS One tablet by mouth daily AMLODIPINE BESYLATE [id number] Huan Mathis MD aspirin 81 mg oral tablet (2 sources) Nonsteroidal Anti-inflammatory Drug Start: 10-14-2014 take 2 tablets by mouth once daily ASPIRIN 81 MG TABS Two tablets by mouth daily ASPIRIN [id number] Tg Madera RN Start: 10-14-2014 take 1 tablet by marvin th once daily ASPIRIN EC 81 MG TBEC One tablet by mouth daily ASPIRIN [id number] Huan Mathis MD celecoxib 100 mg oral capsule (2 sources) Nonsteroidal Anti-inflammatory Drug Start: 07-25-2016 End: 06-13-2017 take 1 tablet by mouth once daily CELEBREX 100 MG CAPS One tablet by mouth daily CELECOXIB [id number] Abena Artis PA-C docusate sodium 100 mg oral capsule (2 sources) Start: 10-14-2014 End: 10-20-2014 take 1 tablet by mouth twice daily COLACE 100 MG CAPS One tablet by mouth twice daily DOCUSATE SODIUM [id number] Tg Madera RN estradiol 0.1 mg/ml vaginal cream (2 sources) Estrogen Start: 10-14-2014 End: 10-20-2014 ESTRACE 0.1 MG/GM CREA Take as directed ESTRADIOL [id number] Huan Mathis MD indapamide 2.5 mg oral tablet (5 sources) Thiazide-like Diuretic Start: 10-14-2014 INDAPAMIDE 2.5 MG TABS every other day INDAPAMIDE [id number] Abena Artis PA-C Start: 10-14-2014 End: 11-11-2016 take 1 tablet by mouth once daily INDAPAMIDE 2.5 MG TABS One tablet by mouth daily INDAPAMIDE [id number] Abena Banegas RN latanoprost 0.05 mg/ml ophthalmic solution (3 sources) Prostaglandin Analog Start: 11-01-[address] 0.005 % SOLN as directed LATANOPROST [id number] Abena Banegas RN Start: 10-20-2014 End: 08-07-2016 LATANOPROST 0.005 % SOLN as directed LATANOPROST [id number] Abena Banegas RN losartan potassium 50 mg oral tablet (3 sources) Angiotensin 2 Receptor Anila Start: 10-14-2014 take 1 tablet by mouth once daily LOSARTAN POTASSIUM 50 MG TABS One tablet by mouth daily LOSARTAN POTASSIUM [id number] Abena Banegas RN Start: 10-14-2014 take 1 tablet by marvin once daily LOSARTAN POTASSIUM 100 MG TABS One tablet by mouth daily LOSARTAN POTASSIUM [id number] Abena Banegas RN meloxicam 15 mg oral tablet (2 sources) Nonsteroidal Anti-inflammatory Drug Start: 05-15-2015 End: 07-25-2016 take 1 tablet by mouth once daily MOBIC 15 MG TABS One tablet by mouth daily MELOXICAM [id number] Huan Mathis MD metoprolol tartrate 25 mg oral tablet (1 source) beta-Adrenergic Anila Start: 11-01-2016 take 1 tablet by mouth twice daily METOPROLOL TARTRATE 25 MG TABS One tablet by mouth twice daily METOPROLOL TARTRATE [id number] Huan Mathis MD oxyCODONE hydrochloride 5 mg oral tablet (2 sources) Opioid Agonist Start: 10-14-2014 End: 10-20-2014 OXYCODONE HCL 5 MG TABS as needed OXYCODONE HCL [id number] Tg Madera RN pantoprazole 40 mg delayed release oral tablet (2 sources) Proton Pump Inhibitor Start: 11-01-2016 End: 02-14-2017 take 1 tablet by mouth once daily PANTOPRAZOLE SODIUM 40 MG TBEC One tablet by mouth daily PANTOPRAZOLE SODIUM [id number] Abena Artis PA-C POLYETHYLENE GLYCOL 3350 (2 sources) Start: 11-01-2016 MIRALAX PACK Take as directed POLYETHYLENE GLYCOL 3350 [id number] Abena Banegas RN Start: 11-01-2016 End: 11-11-2016 MIRALAX PACK Take as directe d POLYETHYLENE GLYCOL 3350 [id number] Abena Artis PA-C potassium chloride 10 meq extended release oral capsule (3 sources) Start: 10-14-2014 take 1 tablet by mouth once daily MICRO-K 10 MEQ CR-CAPS One tablet by mouth daily POTASSIUM CHLORIDE [id number] Abnea Banegas RN Start: 10-14-2014 take 1 tablet by [facility] twice daily MICRO-K 10 MEQ CR-CAPS One tablet by mouth twice daily POTASSIUM CHLORIDE [id number] Abena Banegas RN propranolol hydrochloride 40 mg oral tablet (5 sources) beta-Adrenergic Anila Start: 10-20-2014 take 1 tablet by mouth once daily PROPRANOLOL HCL 40 MG TABS One tablet by mouth daily PROPRANOLOL HCL [id number] Huan Mathis MD Start: 10-20-2014 End: 11-01-2016 take 1 tablet by mouth three times daily PROPRANOLOL HCL 40 MG TABS One tablet by mouth three times daily PROPRANOLOL HCL [id number] Abena Banegas RN Start: 10-14-2014 End: 10-20-2014 take 1 tablet by mouth once daily INDERAL LA 80 MG [id number] One half tablet by mouth daily PROPRANOLOL HCL [id number] Tg Madera RN TIMOLOL MALEATE (1 source) beta-Adrenergic Anila Start: 10-20-2014 TIMOPTIC 0.5 % SOLN drops to both eyes at night TIMOLOL MALEATE [id number] Huan Mathis MD traMADol hydrochloride 50 mg oral tablet (2 sources) Opioid Agonist Start: 06-13-2017 take 1-2 tablets by mouth once daily as needed TRAMADOL HCL 50 MG TABS 1-2 tablet by mouth daily as needed TRAMADOL HCL [id number] Huan Mathis MD Start: 07-25-2016 take 1-2 tablets by mouth every six hours as needed TRAMADOL HCL 50 MG TABS One to two tablets by mouth every 6 hours as needed TRAMADOL HCL [id number] Huan Mathis MD B COMPLEX VITAMINS (2 sources) Start: 10-14-2014 End: 11-11-2016 take 1 tablet by mouth once daily VITAMIN B COMPLEX TABS One tablet by mouth daily B COMPLEX VITAMINS [id number] CLAUDIO GreenC Start: 10-14-2014 take 1 tablet by marvin once daily VITAMIN B COMPLEX TABS One tablet by mouth daily B COMPLEX VITAMINS [id number] Tg Madera RN Problems Active Problems Problem Classification Problem Date Documented Date Episodic/Chronic Cardiac dysrhythmias (1 source) Paroxysmal supraventricular tachycardia; Translations: [Supraventricular tachycardia] Onset: 02-04-2017 02-04-2017 Chronic Diabetes mellitus without complication (1 source) Diabetes mellitus; Translations: [Type 2 diabetes mellitus without complications] Onset: 10-14-2014 10-14-2014 Chronic Essential hypertension (1 source) Hypertensive disorder; Translations: [Essential (primary) hypertension] Onset: 10-14-2014 10-14-2014 Chronic Heart valve disorders (1 source) Aortic valve disorder; Translations: [Other nonrheumatic aortic valve disorders] Onset: 11-11-2016 11-11-2016 Chronic Other and ill-defined heart disease (1 source) Left ventricular hypertrophy; Translations: [Cardiomegaly] Onset: 10-14-2014 10-14-2014 Chronic Pulmonary heart disease (1 source) Pulmonary hypertension; Translations: [Other secondary pulmonary hypertension] Onset: 10-20-2014 10-20-2014 Chronic Unclassified (2 sources) Body mass index (BMI) 31.0-31.9, adult; Translations: [Body mass index (BMI) 30.0-30.9, adult] Onset: 10-20-2014 05-15-2015 Chronic Past or Other Problems Problem Classification Problem Date Documented Da te Episodic/Chronic Heart valve disorders (1 source) Heart murmur; Translations: [Cardiac murmur, unspecified] Onset: 10-14-2014 10-14-2014 Episodic Unclassified (1 source) Abnormal findings on diagnostic imaging of heart and coronary circulation; Translations: [Abnormal findings on diagnostic imaging of heart and coronary circulation] Onset: 05-27-2016 05-27-2016 Episodic Unclassified (4 sources) FH: Hypertension; Translations: [Body mass index (BMI) 29.0-29.9, adult] Onset: 10-20-2014 10-20-2014 Episodic Results Test Name Value Interpretation Reference Range Facil ity Office Visiton 06-13-2017 Dietary management education, guidance, and counseling (procedure) yes Invalid Interpretation Code [employer] Work Phone: Documentation of current medications (procedure) Done Invalid Interpretation Code [employer] Work Phone: Fall risk assessment No Invalid Interpretation Code [employer] Work Phone: Tobacco use CPHS Never smoker Invalid Interpretation Code [employer] Work Phone: Replaced Document: Marsha Quintana CG Observationson 06-13-2017 EKG QRS axis -8 deg Invalid Interpretation Code [employer] Work Phone: Interpretation Sinus Rhythm -Anterior infarct -age undetermined. ABNORMAL Invalid Interpretation Code [employer] Work Phone: P [place] 51 deg Invalid Interpretation Code [employer] Work Phone: SD Interval 204 ms Invalid Interpretation Code [employer] Work Phone: Pulse (Heart Rate) 60 /min Invalid Interpretation Code [employer] Work Phone: QRS Duration 96 ms Invalid Interpretation Code [employer] Work Phone: QT Interval new path ms Invalid Interpretation Code [employer] Work Phone: QTc [place] 426 ms Invalid Interpretation Code [employer] Work Phone: T [place] 18 deg Invalid Interpretation Code [employer] Work Phone: Clinical Lists Update: Prelo deck mate 11-01-2016 Left ventricular Ejection fraction 78 % Invalid Interpretation Code [employer] Work Phone: Clinical Lists Update: Prelo deck mate 08-09-2015 Alanine aminotransferase (ALT) 32 U/L Invalid Interpretation Code [employer] Work Phone: Alkaline phosphatase (ALP) 57 U/L Invalid Interpretation Code [employer] Work Phone: Aspartate aminotransferase (AST) 20 U/L Invalid Interpretation Code [employer] Work Phone: Bilirubin (total) 0.60 mg/dL Invalid Interpretation Code [employer] Work Phone: BUN/Creatinine Ratio 21.7 mg/mg Invalid Interpretation Code [employer] Work Phone: Calcium 8.5 mg/dL Invalid Interpretation Code [employer] Work Phone: Chloride 103 mmol/L Invalid Interpretation Code [employer] Work Phone: Cholesterol 158 mg/dL Invalid Interpretation Code [employer] Work Phone: CO2 29.0 mmol/L Invalid Interpretation Code [employer] Work Phone: Creatinine 0.74 mg/dL Invalid Interpretation Code [employer] Work Phone: Glucose mass conc 118 mg/dL Invalid Interpretation Code [employer] Work Phone: HDL Cholesterol 35 mg/dL Invalid Interpretation Code [employer] Work Phone: LDL Cholesterol 44 mg/dL Invalid Interpretation Code [facility] Work Phone: Potassium molar conc 3.6 mmol/L Invalid Interpretation Code [facility] Work Phone: Protein 7.3 g/dL Invalid Interpretation Code [facility] Work Phone: Sodium 140 mmol/L Invalid Interpretation Code [facility] Work Phone: Triglyceride 395 mg/dL Invalid Interpretation Code [facility] Work Phone: Urea nitrogen 16 mg/dL Invalid Interpretation Code [facility] Work Phone: Office Visiton 05-15-2015 General cardiovascular disease 10Y risk [#] [place].D'Agostino 24 % Invalid Interpretation Code [facility] Work Phone: Office Visiton 10-20-2014 cardiac risk group C Invalid Interpretation Code [facility] Work Phone: Clinical Lists Update: Prelo deck mate 08-13-2014 Anion gap 6 mmol/L Invalid Interpretation Code [facility] Work Phone: Thyroid stimulating hormone (TSH) 2.75 u[iU]/mL Invalid Interpretation Code [facility] Work Phone: very low density lipoproteins 55 mg/dL Invalid Interpretation Code [facility] Work Phone: Vital Signs Date Time Vital Sign Value Performing Clinician Dimple yo 06-13-2017 09:50-0400 BMI (Body Mass Index) 27.8 kg/m2 [facility] Work Phone: 06-13-2017 09:50-0400 BP Diastolic 76 mm[Hg] [facility] Work Phone: 06-13-2017 09:50-0400 BP Systolic 164 mm[Hg] [facility] Work Phone: 06-13-2017 09:50-0400 Height 162.56 cm Robyn Brooklynn [facility] Work Phone: 06-13-2017 09:50-0400 Pulse (Heart Rate) 60 /min [facility] Work Phone: 06-13-2017 09:50-0400 Respiratory Rate 16 /min [facility] Work Phone: 06-13-2017 09:50-0400 Weight 73.48 kg [facility]yn [facility] Work Phone: 11-11-2016 10:45-0400 Body Temperature 98 [degF] [facility]yn [facility] Work Phone: 07-25-2016 14:49-0500 BSA (Body Surface Area) 1.85 m2 Robyn [facility] Work Phone: Procedures Date Procedure Procedure Detail Performing Clinician Start: 06-13-2017 End: 06-13-2017 Ecg routine ecg w/least 12 lds w/i&r Huan Mathis MD Start: 06-13-2017 End: 06-13-2017 Follow Up Appt 6 months Huan Mathis MD Start: 06-13-2017 End: 06-13-2017 MMM Huan Mathis MD Start: 02-14-2017 End: 02-14-2017 Follow Up Appt Other Abena bolton PA-C Work Phone: Start: 02-04-2017 End: 02-12-2017 24 hour holter monitor Huan Mathis MD Start: 11-11-2016 End: 11-11-2016 Follow Up Appt 3 months Abena woods PA-C Work Phone: Start: 11-11-2016 End: 11-11-2016 NEGRO Artis PA-C Work Phone: Start: 11-11-2016 End: 11-12-2016 Referral to machine pack assembler Abena sung PA-C Work Phone: Start: 07-25-2016 End: 07-25-2016 Follow Up Appt Other Huan Mathis MD Start: 07-25-2016 End: 07-25-2016 PFM Huan Mathis MD Start: 07-25-2016 End: 07-26-2016 Referral to thoracic surgeon Huan dunbar MD Start: 06-14-2016 End: 06-17-2016 Transesophageal echocardiogram (HENRIQUE) Huan Mathis MD Start: 05-20-2016 End: 05-27-2016 Echocardiography Huan Mathis MD Start: 05-20-2016 End: 05-20-2016 Follow Up Appt 1 year Huan Lopez Start: 05-20-2016 End: 05-20-2016 PFM Huan Mathis MD Start: 05-15-2015 End: 05-15-2015 Follow Up Appt 6 months Huan Mathis MD Start: 05-15-2015 End: 05-15-2015 PFM Huan Mathis MD Start: 10-20-2014 End: 05-20-2016 Chest x-ray Huan Mathis MD Start: 10-20-2014 End: 10-21-2014 Documentation of current medications Huan Mathis MD Start: 10-20-2014 End: 05-20-2016 Echocardiography Huan Mathis MD Start: 10-20-2014 End: 05-20-2016 Follow Up Appt 6 months Huan Mathis MD Start: 10-20-2014 End: 05-20-2016 PFM Huan Mathis MD Plan of Treatment Date Care Activity Detail Author Start: 12-12-2017 End: 12-12-2017 Appointment Appointment [facility] Work Phone: Start: 06-13-2017 End: 06-13-2017 Echocardiography Echocardiogram (complete) [facility] Work Phone: Start: 06-13-2017 End: 06-13-2017 Follow Up Appt 6 months Follow Up Appt 6 months [facility] Work Phone: Start: 06-13-2017 End: 06-13-2017 MMM MMM [facility] Work Phone: Start: 02-14-2017 End: 02-14-2017 Follow Up Appt Other Follow Up Appt Other [facility] Work Phone: Start: 02-04-2017 End: 02-04-2017 24 hour holter monitor 24 hour holter monitor [facility] Work Phone: Start: 11-11-2016 End: 01-24-2017 Cardiac Rehab Card[facility] [address] [place], [address] [facility] Work Phone: Start: 11-11-2016 End: 11-11-2016 Follow Up Appt 3 months Follow Up Appt 3 months [facility] Work Phone: Start: 11-11-2016 End: 11-11-2016 MMM MMM [facility] Work Phone: Start: 07-25-2016 End: 07-25-2016 Follow Up Appt Other Follow Up Appt Other [facility] Work Phone: Start: 07-25-2016 End: 07-25-2016 PFM PFM [facility] Work Phone: Start: 07-25-2016 End: 07-31-2016 Thoracic Surgery Referral Thoracic Surgery Referral Abdias Crabtree, [facility], [address] [place] [address], [address], [place], [address] [facility] Work Phone: Start: 05-27-2016 End: 05-28-2016 Transesophageal echocardiogram (HENRIQUE) Transesophageal echocardiogram (HENRIQUE) [facility] Work Phone: Start: 05-20-2016 End: 05-20-2016 Echocardiography Echocardiogram (complete) [facility] Work Phone: Start: 05-20-2016 End: 05-20-2016 Follow Up Appt 1 year Follow Up Appt 1 year [facility] Work Phone: Start: 05-20-2016 End: 05-20-2016 PFM PFM [facility] Work Phone: Start: 05-15-2015 End: 05-15-2015 Follow Up Appt 6 months Follow Up Appt 6 months [facility] Work Phone: Start: 05-15-2015 End: 05-15-2015 PFM PFM [facility] Work Phone: Start: 10-20-2014 End: 05-20-2016 Chest x-ray X-Ray, Chest, PA & Lateral [facility] Work Phone: Start: 10-20-2014 End: 10-20-2014 Echocardiography Echocardiogram (complete) [facility] Work Phone: Start: 10-20-2014 End: 05-20-2016 Follow Up Appt 6 months Follow Up Appt 6 months [facility] Work Phone: Start: 10-20-2014 End: 05-20-2016 PFM PFM [facility] Work Phone: Additional Source Comments FOR RECORDS PERTAINING TO PATIENTS WHO ARE OR HAVE BEEN ENROLLED IN A CHEMICAL DEPENDENCY/SUBSTANCEABUSE PROGRAM, SOME INFORMATION MAY BE OMITTED. This clinical summary was aggregated from multiple sources. Caution should be exercised in using it in the provision of clinical care. This summary normalizes information from multiple sources, and as a consequence, information in this document may materially change the coding, format and clinical context of patient data. In addition, data may be omitted in some cases. CLINICAL DECISIONS SHOULD BE BASED ON THE PRIMARY CLINICAL RECORDS. [employer] [facility]. provides no warranty or guarantee of the accuracy or completeness of information in this document.
--- NOTE | 2024-06-16 06:43 | PRE.ANES_ITS ---
ASA Classification* ASA Classification ASA Classification: 3 Assessment & Plan Anesthesia* Anesthesia Assessment Anesthesia Assessment: Discussed sedation and/or anesthesia options, risks, benefits, and alternatives with patient/parents/legal guardian/POA. Questions invited. The patient/parents/legal guardian/POA seems to understand and agrees to proceed with anesthesia plan. Reviewed the physical assessment, medical history, allergy history and patient home medications list prior to surgery/procedure/anesthetic and documented any changes. Performed airway and anesthesia risk assessments. Anesthesia Type Anesthesia Type: MAC Anesthesia Focused Assessment* Airway Assessment Mouth opens: >3 cm Mallampati Score: II Focused Labs Anesthesia Preop lab: CBC WBC 9.2 K/mm3 (4.4-11.0) 05/09/24 07:32 RBC 3.64 M/mm3 (4.2-5.4) L 05/09/24 07:32 Hgb 9.4 g/dL (12.0-15.0) L 05/09/24 07:32 Hct 30.9 % (37-47) L 05/09/24 07:32 Plt Count 297 K/mm3 (150-450) 05/11/24 07:01 CHEMISTRY Potassium 3.5 mmol/L (3.5-5.1) 05/09/24 07:32 Sodium 141 mmol/L (136-145) 05/09/24 07:32 Magnesium 1.6 mg/dL (1.6-2.6) 05/09/24 07:32 Phosphorus 3.3 mg/dL (2.5-4.9) 05/09/24 07:32 BUN 19 mg/dL (7-18) H 05/09/24 07:32 Creatinine 0.59 mg/dL (0.55-1.02) 05/09/24 07:32 Glucose 101 mg/dL (74-106) 05/09/24 07:32 POC Glucose 88 mg/dL (74-106) 05/11/24 11:38 TSH 0.988 uIU/mL (0.358-3.740) 05/09/24 07:32 COAG PT 15.6 SECONDS (11.7-14.9) H 05/11/24 07:01 Pre-Assessment Diagnosis/Proposed Procedure Planned Operative Procedure(s): COLONOSCOPY/EGD Anesthesia History Anesthesia History - [employer]: Anesthesia History - [employer] Hx Hospitalization Yes: 05/08/2024 06/11/24 11:40 Any Problems With Anesthesia No 06/11/24 11:40 Cholinesterase deficiency No 06/11/24 11:40 You/Your Family Experience No 06/11/24 11:40 fever (hyperthermia) with Relationship Recent Exposure to Contagious No 06/06/21 08:10 Disease Does patient have nerve No 06/11/24 11:40 stimulator Patient instructed to have device shut off --Does patient have Pacemaker or ICD? When Was Last Pacemaker Check QUESTION #4 FULL TEXT: You/Your Family Experience fever (hyperthermia) with Anesthesia Last Oral Intake Last Oral intake: Last Oral Intake NPO since Meds taken in AM with sips of water? Meds patient instructed to take am of surgery PONV PONV - [employer]: PONV - [employer] Female Yes 06/11/24 11:40 HX of Motion Sickness No 06/11/24 11:40 HX of N/V After Surgery No 06/11/24 11:40 Non-Smoker Yes 06/11/24 11:40 Duration of Surgery greater No 06/11/24 11:40 than 60 minutes Number of Risk Factors 2 06/11/24 11:40 PONV Score Moderate Risk 06/11/24 11:40 Height & Weight Height & Weight: Anesthesia: Height & Weight Height 5 ft 5 in 05/10/24 14:11 Respiratory Assessment Respiratory Assessment - [employer]: Respiratory Tract Infection Hx - [employer] Hx Respiratory Tract Infection No 06/11/24 11:40 STOP Sleep Apnea STOP Sleep Apnea - [employer]: STOP Sleep Apnea - [employer] Hx Hypertension Yes: CONTROLLED ON MED 06/11/24 11:40 Hx Sleep Apnea No 06/11/24 11:40 CPAP No 06/11/24 11:40 BIPAP No 06/11/24 11:40 Do you snore loudly (louder No 06/11/24 11:40 than talking or can be heard Do you often feel tired/ No 06/11/24 11:40 fatigued/ sleepy during daytime? Has anyone observed you stop No 06/11/24 11:40 breathing during sleep? STOP Results Negative 06/11/24 11:40 QUESTION #5 FULL TEXT : Do you snore loudly (louder than talking or can be heard through closed doors)? 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 Specify any problems Hx of Preganancy in last 3 No 06/11/24 11:40 Months Nurse Filling Out Transfusion VCHRISTIN 06/11/24 11:40 & Questions: Date: 06/11/24 06/11/24 11:40 Time: 11:41 06/11/24 11:40 Patient unable to answer at this time (ie. confused, unrespo /Reproduction History /Reproductive History - [employer]: /Reproductive Hx- [employer] Hx Now Gestational Age (in weeks): EDC: Hx Hx Para Hx Section SAB PFSH Medical History Post-menopausal History of steroid therapy Neuropathy Liver lesion, right lobe Cholelithiasis Wears glasses Wears dentures Cancer Diabetes Ambulates with cane Arthritis High cholesterol Back pain History of irregular heartbeat History of transesophageal echocardiography (HENRIQUE) History of echocardiogram Hypertension Cardiology follow-up encounter Hypertriglyceridemia 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 Breast cancer, right Essential hypertension Breast cancer, left Cardiac murmur Pulmonary hypertension Abnormal findings on diagnostic imaging of heart and coronary circulation Aortic valve disease Paroxysmal supraventricular tachycardia by electrocardiogram (ECG) Supraventricular tachycardia Acquired left ventricular hypertrophy Hypertension Diabetes 1.5, managed as type 2 Home Medications ?Medication ?Instructions ?Recorded ?Last Taken ?Type timolol maleate 0.5 % eye gel 1 drp EACH EYE BID 06/13/16 06/05/21 21:00 History forming solution hydrochlorothiazide 12.5 mg tablet 12.5 mg PO DAILY 30 days ##30 12/12/17 06/16/24 History amlodipine 5 mg tablet 5 mg PO QHS 04/21/18 06/05/21 21:00 History cholecalciferol (vitamin D3) 25 25 mcg PO DAILY 03/30/20 06/05/21 08:00 History mcg (1,000 unit) capsule acetaminophen 650 mg 650 mg PO DAILY PRN 08/28/20 Unknown History tablet,extended release Pain/Inflammation losartan 100 mg tablet 100 mg PO DAILY 08/28/20 06/06/21 06:30 History metoprolol tartrate 25 mg tablet 25 mg PO BID 08/28/20 06/16/24 History potassium chloride 10 mEq 10 meq PO DAILY 08/28/20 06/05/21 08:00 History tablet,extended release(part/cryst) meloxicam 7.5 mg tablet 7.5 mg PO BID PRN pain #180 tabs 02/23/24 Unknown Rx fenofibrate 160 mg tablet See Rx Instructions .Route 04/05/24 Unknown Rx .COMPLEX #90 tabs anastrozole 1 mg tablet 1 mg PO DAILY 06/11/24 Unknown History Allergy/AdvReac Type Severity Reaction Status Date / Time oxycodone (From Percocet) AdvReac Severe Itching Verified 06/16/24 06:35 Family History Brother CAD (coronary artery disease) Brother Diabetes Mother Diabetes Hypertension Father Hypertension CVA (cerebral vascular accident) Sister Breast cancer Surgical History History of lumpectomy of right breast H/O total knee replacement Status post total right knee replacement History of partial mastectomy of right breast (~05/07/19) History of aortic valve repair (~09/27/16) History of total left hip replacement History of total right hip replacement History of hysterectomy (~10/10/14) Status post left breast lumpectomy H/O aortic valve replacement Social History Smoking Status: Never smoker alcohol intake: never substance use type: does not use caffeine: Yes Type: coffee Number of servings: 1 what type of physical activity do you participate in: none seatbelt use: always do you feel safe at home: Yes Review of Systems (Anesthesia) ROS Narrative System reviewed and no additional complaints, except as documented.
--- NOTE | 2024-06-16 07:10 | HP.PCM_ITS ---
History and Physical Date of Admission: 06/16/24 Date of Service: 06/02/24 MR#: [id number] Acct: [id number] Name: ANABELA CAMARA Rep #: [id number] : 1940 Provider: Dr. Yudy Woodall MD Age/Sex: 83/F Location: [facility] Status: Signed Intake Vital Signs 05/10/2414:11 06/02/2412:46 Height 5 ft 5 in BP 164/66 H Blood Pressure Location Lt brachial Position Sitting Respiration 17 Pulse 61 Pulse Source Monitor Pulse Oximetry (%) 96 Oxygen Delivery Method room air Intake Visit Reasons: discuss ct results Chief Complaint: discuss ct results Is patient in pain?: No Allergies oxycodone (From Percocet) Adverse Reaction (Severe, Verified 06/02/24 12:47) Itching Medications ?Medication ?Instructions ?Recorded ?Confirmed ?Type timolol maleate 0.5 % eye gel 1 drp EACH EYE BID 06/13/16 06/02/24 History forming solution hydrochlorothiazide 12.5 mg tablet 12.5 mg PO DAILY 30 days ##30 12/12/17 06/02/24 History amlodipine 5 mg tablet 5 mg PO QHS 04/21/18 06/02/24 History cholecalciferol (vitamin D3) 25 25 mcg PO DAILY 03/30/20 06/02/24 History mcg (1,000 unit) capsule acetaminophen 650 mg 650 mg PO DAILY PRN 08/28/20 06/02/24 History tablet,extended release Pain/Inflammation losartan 100 mg tablet 100 mg PO DAILY 08/28/20 06/02/24 History metoprolol tartrate 25 mg tablet 25 mg PO BID 08/28/20 06/02/24 History potassium chloride 10 mEq 10 meq PO DAILY 08/28/20 06/02/24 History tablet,extended release(part/cryst) anastrozole 1 mg tablet See Rx Instructions .Route 11/25/23 06/02/24 Rx .COMPLEX #90 tabs meloxicam 7.5 mg tablet 7.5 mg PO BID PRN pain #180 tabs 02/23/24 06/02/24 Rx fenofibrate 160 mg tablet See Rx Instructions .Route 04/05/24 06/02/24 Rx .COMPLEX #90 tabs Have you fallen in the past year?: No PFSH Medical History Liver lesion, right lobe Cholelithiasis 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 Wears glasses Wears dentures Cancer Diabetes Ambulates with cane Arthritis High cholesterol Back pain History of irregular heartbeat History of transesophageal echocardiography (HENRIQUE) History of echocardiogram Hypertension Cardiology follow-up encounter Hypertriglyceridemia Breast cancer, right Essential hypertension Breast cancer, left Cardiac murmur Pulmonary hypertension Abnormal findings on diagnostic imaging of heart and coronary circulation Aortic valve disease Paroxysmal supraventricular tachycardia by electrocardiogram (ECG) Supraventricular tachycardia Acquired left ventricular hypertrophy Hypertension Diabetes 1.5, managed as type 2 Surgical History H/O total knee replacement Status post total right knee replacement History of partial mastectomy of right breast (~05/07/19) History of aortic valve repair (~09/27/16) History of total left hip replacement History of total right hip replacement History of hysterectomy (~10/10/14) Status post left breast lumpectomy H/O aortic valve replacement Family History Brother CAD (coronary artery disease)Brother DiabetesMother Diabetes HypertensionFather Hypertension CVA (cerebral vascular accident)Sister Breast cancer Social History Smoking Status: Never smoker alcohol intake: never substance use type: does not use caffeine: Yes Type: coffee Number of servings: 1 what type of physical activity do you participate in: none seatbelt use: always do you feel safe at home: Yes HPI HPI HPI: 83-year-old female presenting for follow-up from hospitalization due to new liver mass with pathology consistent with adenocarcinoma likely lower GI source. Patient had a CT chest abdomen pelvis did not show any other obvious areas of metastasis. On my read patient still has possibly some obstruction near the ileocecal valve which she had on her CT from admit for the hospitalization previously. Patient states her last colonoscopy was in [address] Echevarria. Patient states it was normal. Patient currently denies abdominal pain nausea vomiting or reflux. ROS General General: Yes breast cancer; No weight change, appetite, fatigue, colon cancer or weakness HEENT HEENT: Yes eye surgery; No difficulty swallowing, eye injury, swollen glands or hoarseness Endo Endocrine: Yes diabetes mellitus; No thyroid disease, thyroid cancer, Hair loss, heat intolerance or cold intolerance Skin Skin: No rash or changing moles Musc Musculoskeletal: Yes arthritis; No back problems, rheumatoid arthritis, gout or joint pain Cardio Cardiovascular: Yes heart disease and high blood pressure; No murmur, pacemaker, atrial fibrillation, heart attack, heart stent, palpitations, shortness of breat with exertion or chest pain Psych Psychiatric: No depression, anxiety or hearing voices Resp Respiratory: No shortness of breath, No sleep apnea, No cough, No COPD, No asthma, No emphysema and No wheezing Gastro Gastrointestinal: No abdominal pain, No nausea or vomiting, No diarrhea, No constipation, No blood in stool, No acid reflux, No hemorrhoids, No ulcers, No gallbladder problem and No black,tarry stools Jean Hematologic: No blood thinners, No blood disorders, No bleeding, No anemia and No blood clots Neuro Neurologic: No system reviewed and no additional complaints, except as documented, No as per HPI, No abnormal gait, No abnormal hearing, No abnormal movements, No abnormal speech, No behavioral changes, No burning sensations, No confusion, No convulsions, No disequilibrium, No dizziness, No localized weakness, No frequent falls, No headache(s), No lack of coordination, No loss of vision, No memory loss, Yes numbness, No other visual disturbances, No radicular pain, No restless legs, No sensory deficit, No syncope, Yes tingling, No tremor(s), No weakness and No other Exam Const General: cooperative, healthy appearing, comfortable and no acute distress [facility] Head: normocephalic and atraumatic Neck Neck: supple Resp Effort & Inspection: normal respiratory effort Cardio Rate: regular rate GI Inspection: non-distended Palpation: soft and nontender Skin General: no rashes or lesions noted Neuro General: CN's II-XI intact bilaterally Extrem General: normal to inspection Psych Mental Status: mental status grossly normal Attitude: cooperative Assessment and Plan Assessment and Plan (1) Metastatic adenocarcinoma of unknown origin: Status: Acute (2) Liver mass: Status: Acute Plan Did review CT abdomen pelvis personally as well as with the patient and her family. I have discussed the above with the patient. I have offered the patient esophagogastroduodenoscopy and colonoscopy for evaluation. I have explained the risks/benefits of the procedure and described the procedure. I have discussed the risks with the patient, including but not limited to: infection, bleeding, perforation of the GI tract requiring emergency surgery, inability to complete the procedure, injury to any internal organs, complications of anesthesia, etc. - the patient understands and agrees to proceed. I have answered all the patient's questions to the patient's satisfaction and the patient has no further questions. The patient has been given instructions for the colon cleansing preparation. 1 day of clears, MiraLAX Dulcolax split prep. Did let patient know if she does have increased abdominal pain again she may need to go to the ER as a questionable area at the ileocecal valve could be causing a partial obstruction. Yudy Woodall M.D. Pager: [phone] [facility] [address] [place] [address], [address] [place] [address] Office: [phone] Coding Level of Care Code Off vis,est,level 4 Diagnoses Metastatic adenocarcinoma of unknown origin C79.9 Liver mass R16.0 Clinical Quality Measures Falls Risk Screening/Assistive Devices Have you fallen in the past year?: No 06/03/24 0839 <Electronically signed by Yudy Woodall MD> Date Yudy Woodall MD
[2024-06-16 07:15] LABS: Bedside Glucose 122 mg/dL (74-106)
--- NOTE | 2024-06-16 07:30 | COLBX_PTH ---
PATHOLOGY RESULTS PATIENT: ANABELA CAMARA LOC: EN U#:[id number] AGE/SX: 83/F ROOM: RE06/16/[address]: Dr. Yudy Woodall MD : 1940 BED: DIS: 06/16/2024 SPEC #: [id number] RECD: 06/16/24 10:19 STATUS: XIMENA REDarion #: [id number] NIKA: 06/16/24 07:[address]: Yudy Woodall DEPT: SURGICAL PATHOLOGY RECD BY: Laurel Mitchell ENTERED: 06/16/24 12:03 SP TYPE: COLON BX OTHR DR: Dr. Marco Antonio Arevalo MD Tissues: Stomach, NOS Esophagus, NOS Cecum, NOS Ascending colon Transverse colon Procedures: Special Stain Group I Surgery Specimen Level IV Alcian Blue/PAS (control) HEADER OPERATION: Colonoscopy with biopsy and polypectomy, EGD with biopsy PRE-OP DIAGNOSIS: Metastatic adenocarcinoma of unknown origin, liver mass TISSUE SUBMITTED: A- Antrum biopsy, B- Gastroesophageal junction biopsy, C- Cecum biopsy, D- Ascending colon polyp x3, E- Transverse colon polyp MICROSCOPIC DIAGNOSIS A. Antrum, biopsy: Moderate chronic gastritis and minimal active gastritis. Focal intestinal metaplasia (goblet cell metaplasia). See comment B. Gastroesophageal junction, biopsy: A fragment of gastric mucosa with rare cells with intestinal metaplasia (goblet cell metaplasia) consistent with Encarnacion's esophagus. Moderate acute and chronic inflammation. See comment. C. Cecum, biopsy: Invasive moderately differentiated adenocarcinoma. D. Ascending colon polyp x3, biopsy: Fragments of tubular adenoma with focal hyperplastic polyp features. E. Transverse colon polyp, biopsy: Fragments of tubular adenoma. Fragments of fecal material. Noemi 06/17/2024 COMMENT A. The results of immunohistochemistry for Helicobacter pylori will be reported separately ([id number]). Alcian blue/PAS stain with matched control is also used in the evaluation of the specimen. B. Alcian blue/PAS stain with matched control is used in the evaluation of the specimen. Immunohistochemistry ([id number]) for P53 and Ki-67 is being performed and results will be reported separately. C. Focus of adenocarcinoma is very small. IHC for MSI (mismatched repair protein) will be performed on resection specimen. Case has been reviewed in consultation with Dr. Morse who concurs with the above diagnosis. IDC:AM MICROSCOPIC DESCRIPTION Slides are reviewed. GROSS DESCRIPTION A. Received in fixative is one container labeled with the patient's name and designated Antrum biopsy. The specimen consists of one irregular fragment of light good soft tissue that measures 0.4 x 0.4 x 0.1 cm. The specimen is totally submitted in one cassette. B. Received in fixative is one container labeled with the patient's name and designated GE junction biopsy. The specimen consists of one irregular fragment of light good soft tissue that measure 0.5 x 0.3 x 0.1 cm. The specimen is totally submitted in one cassette. C. Received in fixative is one container labeled with the patient's name and designated Cecum biopsy. The specimen consists of multiple irregular fragments of light good soft tissue that in aggregate measure 1.0 x 0.5 x 0.1 cm. The specimen is totally submitted in one cassette. D. Received in fixative is one container labeled with the patient's name and designated Ascending colon polyp x3. The specimen consists of multiple irregular fragments of light good soft tissue that in aggregate measure 1.5 x 0.4 x 0.1 cm. The specimen is totally submitted in one cassette. E. Received in fixative is one container labeled with the patient's name and designated Transverse colon polyp. The specimen consists of multiple irregular fragments of light good soft tissue mixed with fecal material that in aggregate measure 2.0 x 0.5 x 0.1 cm. The specimen is totally submitted in one cassette. SJNoemi 06/16/2024 TC:0 CPT:05333p9,07897t1
--- NOTE | 2024-06-16 07:30 | IMM_PTH ---
PATHOLOGY RESULTS PATIENT: ANABELA CAMARA LOC: EN U#:[id number] AGE/SX: 83/F ROOM: RE06/16/[address]: Dr. Yudy Woodall MD : 1940 BED: DIS: 06/16/2024 SPEC #: [id number] RECD: 06/16/24 11:44 STATUS: XIMENA REQ #: [id number] NIKA: 06/16/24 07:[address]: Yudy Woodall DEPT: IMMUNOHISTOCHEMISTRY RECD BY: Bernard Ward ENTERED: 06/16/24 11:45 SP TYPE: IMMUNO OTHR DR: Dr. Marco Antonio Arevalo MD Tissues: Gastric mucous membrane Esophagus, NOS Procedures: H Pylori (initial) P53 (initial) KI-67 (add) PHYSICIAN & INSTITUTION [place] [id number] SPECIMEN INFORMATION: Tissue Source: A- Antrum biopsy, B- Gastroesophageal junction Clinical Info: Metastatic adenocarcinoma of unknown origin, liver mass Specimen Number: [id number] A, B CPT code: [id number] METHODOLOGY: Deparaffinized sections of prefer/formalin-fixed tissue or PAP/DQ stained slides are incubated with monoclonal/polyclonal antibodies/oligonucleotide probes. Localization is made via biotin free immunoperoxidase method. Appropriate controls are performed and reacted as expected. Results on target cell population are indicated in the following table: RESULTS: ANTIBODY / CLONE RESULT Block A H Pylori (polyclonal) negative Block B P53 (DO-7) negative (null pattern) Ki-67 (30-9) positive (low) These tests were developed and their performance characteristics determined by [facility]. They may not have been cleared or approved by the U.S. Food and Drug Administration. The FDA has determined that such clearance or approval is not necessary. The above immunohistochemical/dualISH markers are ordered and reviewed by the Pathologist. INTERPRETATION: A. Antrum, biopsy: Negative for Helicobacter pylori organisms. B. Gastroesophageal junction, biopsy: Negative for dysplasia. 06/18/2024
--- NOTE | 2024-06-16 08:30 | PCM.POST.ANE ---
Anesthesia: Postop Eval I Current Vital Signs Temperature: 97.3 F Pulse Rate: 74 Blood Pressure: 93/53 Respiratory Rate: 16 Pulse Ox: 96 Oxygen Delivery Method: Room Air Assessment Airway patent: Yes Spontaneous unlabored respirations: Yes Mental status: Asleep nausea: No Vomiting: No Anesthesia Complication: No Fluid Hydration Crystalloid volume administer (ml): 60 Total IV fluid infused: 60 Progress Note Anesthesia document: Postop Eval 1 completed: Yes
--- NOTE | 2024-06-16 08:31 | OP.EGD_ITS ---
Patient Name: Yessenia Melgar Procedure Date: 06/16/2024 7:45 AM Date of : 1940 Age: 83 Procedure: Upper GI endoscopy Indications: + metastatic liver lesion unknown primary Providers: Yudy Woodall MD Referring MD: Marco Antonio Arevalo MD Medicines: Monitored Anesthesia Care Patient Profile: This is an 83 year old female. Complications: No immediate complications. Procedure: Pre-Anesthesia Assessment: - Prior to the procedure, a History and Physical was performed, and patient medications and allergies were reviewed. The patient's tolerance of previous anesthesia was also reviewed. The risks and benefits of the procedure and the sedation options and risks were discussed with the patient. All questions were answered, and informed consent was obtained. Prior Anticoagulants: The patient has taken no anticoagulant or antiplatelet agents. ASA Grade Assessment: Per anesthesia. After reviewing the risks and benefits, the patient was deemed in satisfactory condition to undergo the procedure. After obtaining informed consent, the endoscope was passed under direct vision. Throughout the procedure, the patient's blood pressure, pulse, and oxygen saturations were monitored continuously. The was introduced through the mouth, and advanced to the second part of duodenum. The upper GI endoscopy was accomplished without difficulty. The patient tolerated the procedure well. Scope In: 7:52:53 AM Scope Out: 7:57:19 AM Total Procedure Duration Time 0 hours 4 minutes 26 seconds Findings: The Z-line was irregular and was found 35 cm from the incisors. Biopsies were taken with a cold forceps for histology. Localized mildly erythematous mucosa without bleeding was found in the gastric antrum. Biopsies were taken with a cold forceps for histology. Biopsies were taken with a cold forceps for Helicobacter pylori cultures. The cardia and gastric fundus were normal on retroflexion. The examined duodenum was normal. The exam was otherwise without abnormality. Impression: - Z-line irregular, 35 cm from the incisors. Biopsied. - Erythematous mucosa in the antrum. Biopsied. - Normal examined duodenum. - The examination was otherwise normal. Recommendation: - Discharge patient to home. - Resume previous diet. - Continue present medications. - Await pathology results. Procedure Code(s): --- Professional --- 36639, Esophagogastroduodenoscopy, flexible, transoral; with biopsy, single or multiple Diagnosis Code(s): --- Professional --- K22.89, Other specified disease of esophagus K31.89, Other diseases of stomach and duodenum CPT copyright 2021 [employer]. All rights reserved. The codes documented in this report are preliminary and upon school cook review may be revised to meet current compliance requirements. MD Yudy Reyes MD 06/16/2024 8:30:33 AM This report has been signed electronically. Number of Addenda: 0 Note Initiated On: 06/16/2024 7:45 AM
--- NOTE | 2024-06-16 08:31 | OP.CCLET_ITS ---
06/16/2024 Marco Antonio Arevalo MD [address] [place] [address] Re : Upper GI endoscopy procedure for Yessenia Melgar Dear Dr. Arevalo This procedure was performed on Sunday, June 16, 2024. My impressions and recommendations are as follows: Impressions : - Z-line irregular, 35 cm from the incisors. Biopsied. - Erythematous mucosa in the antrum. Biopsied. - Normal examined duodenum. - The examination was otherwise normal. Recommendations : - Discharge patient to home. - Resume previous diet. - Continue present medications. - Await pathology results. My findings are described in the full procedure note, which is enclosed. If I can be of further assistance, please feel free to contact me at Doctor phone number(s): , Work: . Sincerely, MD Yudy Reyes MD 06/16/2024 8:30:33 AM This report has been signed electronically.
--- NOTE | 2024-06-16 08:37 | OP.CCLET_ITS ---
06/16/2024 Marco Antonio Arevalo MD [address] [place] [address] Re : Colonoscopy procedure for Yessenia Melgar Dear Dr. Arevalo This procedure was performed on Sunday, June 16, 2024. My impressions and recommendations are as follows: Impressions : - Likely malignant partially obstructing tumor in the cecum. Biopsied. - Three less than 5 mm polyps in the ascending colon, removed with a hot snare. Resected and retrieved. - One 7 mm polyp in the distal ascending colon. Resection not attempted. - Diverticulosis in the sigmoid colon and in the descending colon. Recommendations : - Discharge patient to home. - Resume previous diet. - Continue present medications. - Pt will need surgery for right hemicolectomy due to mass - Repeat colonoscopy is recommended. The colonoscopy date will be determined after pathology results from today's exam become available for review. My findings are described in the full procedure note, which is enclosed. If I can be of further assistance, please feel free to contact me at Doctor phone number(s): , Work: . Sincerely, MD Yudy Reyes MD 06/16/2024 8:36:54 AM This report has been signed electronically.
--- NOTE | 2024-06-16 08:37 | OP.COLON_ITS ---
Patient Name: Yessenia Melgar Procedure Date: 06/16/2024 7:57 AM Date of : 1940 Age: 83 Procedure: Colonoscopy Indications: Metastatic malignancy to liver Providers: Yudy Woodall MD Referring MD: Marco Antonio Arevalo MD Medicines: Monitored Anesthesia Care Patient Profile: This is an 83 year old female. Last Colonoscopy: none. The patient's first colonoscopy is today. Complications: No immediate complications. Procedure: Pre-Anesthesia Assessment: - Prior to the procedure, a History and Physical was performed, and patient medications and allergies were reviewed. The patient's tolerance of previous anesthesia was also reviewed. The risks and benefits of the procedure and the sedation options and risks were discussed with the patient. All questions were answered, and informed consent was obtained. Prior Anticoagulants: The patient has taken no anticoagulant or antiplatelet agents. ASA Grade Assessment: Per anesthesia. After reviewing the risks and benefits, the patient was deemed in satisfactory condition to undergo the procedure. - Prior to the procedure, a History and Physical was performed, and patient medications and allergies were reviewed. The patient's tolerance of previous anesthesia was also reviewed. The risks and benefits of the procedure and the sedation options and risks were discussed with the patient. All questions were answered, and informed consent was obtained. Prior Anticoagulants: The patient has taken no anticoagulant or antiplatelet agents. ASA Grade Assessment: Per anesthesia. After reviewing the risks and benefits, the patient was deemed in satisfactory condition to undergo the procedure. After I obtained informed consent, the scope was passed under direct vision. Throughout the procedure, the patient's blood pressure, pulse, and oxygen saturations were monitored continuously. The was introduced through the anus and advanced to the cecum, identified by the ileocecal valve. The colonoscopy was performed without difficulty. The patient tolerated the procedure well. The quality of the bowel preparation was good. Scope In: 7:59:33 AM Scope Withdrawal Time 0 hours 11 minutes 16 seconds Scope Out: 8:22:23 AM Total Procedure Duration Time 0 hours 22 minutes 50 seconds Findings: The perianal and digital rectal examinations were normal. A frond-like/villous partially obstructing medium-sized mass was found in the cecum. The mass was non-circumferential. With contact. Biopsies were taken with a cold forceps for histology. Three semi-pedunculated polyps were found in the ascending colon. The polyps were less than 5 mm in size. These polyps were removed with a hot snare. Resection and retrieval were complete. A 7 mm polyp was found in the distal ascending colon. The polyp was sessile. Polypectomy was not attempted due to previously identified malignancy???this area would be removed with the colon resection for the cecal tumor. Scattered small-mouthed diverticula were found in the sigmoid colon and descending colon. Impression: - Likely malignant partially obstructing tumor in the cecum. Biopsied. - Three less than 5 mm polyps in the ascending colon, removed with a hot snare. Resected and retrieved. - One 7 mm polyp in the distal ascending colon. Resection not attempted. - Diverticulosis in the sigmoid colon and in the descending colon. Recommendation: - Discharge patient to home. - Resume previous diet. - Continue present medications. - Pt will need surgery for right hemicolectomy due to mass - Repeat colonoscopy is recommended. The colonoscopy date will be determined after pathology results from today's exam become available for review. Procedure Code(s): --- Professional --- 01249, Colonoscopy, flexible; with removal of tumor(s), polyp(s), or other lesion(s) by snare technique 09741, 59, Colonoscopy, flexible; with biopsy, single or multiple Diagnosis Code(s): --- Professional --- K56.690, Other partial intestinal obstruction D49.0, Neoplasm of unspecified behavior of digestive system D12.2, Benign neoplasm of ascending colon C78.7, Secondary malignant neoplasm of liver and intrahepatic bile duct CPT copyright 2021 [employer]. All rights reserved. The codes documented in this report are preliminary and upon enchilada maker review may be revised to meet current compliance requirements. MD Yudy Reyes MD 06/16/2024 8:36:54 AM This report has been signed electronically. Number of Addenda: 0 Note Initiated On: 06/16/2024 7:57 AM
--- NOTE | 2024-06-16 13:39 | PCM.POSTANE2 ---
Anesthesia Postop Eval I Sum Postop Eval Completion status Anesthesia document: Postop Eval 1 completed: Yes Anesthesia Postop Eval I Summary Anesthesia Postop Eval I Summary: Anesthesia Postop Eval I: Assessment Summary Airway patent Yes 06/16/24 08:31 [email or web address] Spontaneous unlabored Yes 06/16/24 08:31 [email or web address] respirations Mental status Asleep 06/16/24 08:31 [email or web address] nausea No 06/16/24 08:31 [email or web address] Vomiting No 06/16/24 08:31 [email or web address] Anesthesia Postop Eval I: Fluid Summary Crystalloid volume administer 60 06/16/24 08:31 [email or web address] (ml) Colloids volume administered ( ml) Blood Product volume administered (ml) Total IV fluid infused 60 06/16/24 08:31 [email or web address] Anesthesia Postop Eval I: Summary Notes Anesthesia Complication No 06/16/24 08:31 [email or web address] Anesthesia Complication Comment: Post-operative progress note Anesthesia: Postop Eval II Evaluation Mental status: Awake and Calm Pain Level: 1 nausea: No Vomiting: No Complications Anesthesia Complication: No
== END 2024-06-16 09:32 | disposition home or self-care (01) ==
LOC: EN 06:14 → AC 06:16
PROVIDERS: PCP Family Medicine Geriatric Medicine; Referring Provider Family Medicine Geriatric Medicine; Visit Provider Surgery
PROC: 0DJD8ZZ Inspection of Lower Intestinal Tract, Via Natural or Artificial Opening Endoscopic (ICD-10-PCS; CPT 45378; principal; 2024-06-16 07:25)
DX: C78.7 Secondary malignant neoplasm of liver and intrahepatic bile duct (principal); K56.690 Other partial intestinal obstruction; E11.9 Type 2 diabetes mellitus without complications; R16.0 Hepatomegaly, not elsewhere classified; E78.00 Pure hypercholesterolemia, unspecified; Z90.710 Acquired absence of both cervix and uterus; K76.9 Liver disease, unspecified; K22.89 Other specified disease of esophagus; Z80.3 Family history of malignant neoplasm of breast; D12.2 Benign neoplasm of ascending colon; I10 Essential (primary) hypertension; K57.30 Diverticulosis of large intestine without perforation or abscess without bleeding; D49.0 Neoplasm of unspecified behavior of digestive system; K31.89 Other diseases of stomach and duodenum; Z95.2 Presence of prosthetic heart valve
CPT/HCPCS: 45385; 45380; 43239; 82962; 88305; 88312; 88341; 88342; A4216; J2405

== ENCOUNTER 2024-06-29 09:57 | Inpatient (IN) | payer MEDICARE, SELFPAY ==
[2019-05-17 09:04] VITALS: BMI 29.3
[2024-06-25 15:06] LABS: Hematocrit 31.3 % (37-47); Hemoglobin 9.6 g/dL (12.0-15.0); Mean Corp Hgb Conc 30.7 g/dL (32-36); Mean Corpuscular Hgb 25.1 pg (27.0-32.0); Mean Corpuscular Volume 81.9 fL (81-99); Mean Platelet Vol. 11.3 fl (6.2-12.0); Platelet Count 372 K/mm3 (150-450); RBC Distribution Width CV 16.6 % (11.6-14.6); RBC Distribution Width SD 49.2 fl (35.1-43.9); Red Blood Count 3.82 M/mm3 (4.2-5.4); White Blood Count 6.6 K/mm3 (4.4-11.0)
[2024-06-25 15:24] LABS: Magnesium 1.7 mg/dL (1.6-2.6)
[2024-06-25 15:32] LABS: Hemoglobin A1c 5.9 % (3.8-5.6)
[2024-06-29] VITALS (15 sets, daily range): BP systolic 121–147; BP diastolic 47–69; PULSE 58–78; RESP 16–19; TEMP 36.1–36.9; O2SAT 91–100; BMI 25.7
--- NOTE | 2024-06-29 | IMM_PTH ---
PATIENT: ANABELA CAMARA LOC: MS3 U#:[id number] AGE/SX: 83/F [place] [facility] [place]: Dr. Yudy Woodall MD : 1940 BED: 1 DIS: 07/01/2024 SPEC #: [id number] RECD: 07/01/24 14:39 STATUS: XIMENA REQ #: [id number] NIKA: 06/29/24 00:[address]: Yudy Woodall DEPT: IMMUNOHISTOCHEMISTRY RECD BY: Bernard Ward ENTERED: 07/01/24 14:40 SP TYPE: IMMUNO OTHR DR: MD Dr. Marco Antonio Cordova Chi, MD Tissues: Colon, NOS Procedures: MSH2 (add) MLH-1 (add) MSH6 (add) Anti-PMS2 (add) KI-67 (add) P53 (add) MOC-31 (add) HER-2-PARAG (initial) PHYSICIAN & [address] [address] SPECIMEN INFORMATION: Tissue Source: Right hemicolectomy Clinical Info: Metastatic adenocarcinoma of unknown origin, liver mass Specimen Number: [id number] CPT code: 05772,28843t8 METHODOLOGY: Deparaffinized sections of prefer/formalin-fixed tissue or PAP/DQ stained slides are incubated with monoclonal/polyclonal antibodies/oligonucleotide probes. Localization is made via biotin free immunoperoxidase method. Appropriate controls are performed and reacted as expected. Results on target cell population are indicated in the following table: RESULTS: ANTIBODY / CLONE RESULT Her-2neu (CB11) positive (3+) MOC-31 (4561) positive MLH-1 (M1) positive MSH2 (25D12) positive MSH6 (44) positive PMS2 ([id number]) positive Ki-67 (30-9) positive, high P53 (DO-7) negative (null pattern) Testing for Her2 by IHC if equivocal, recommend testing for Her2 by FISH(remove/not needed) These tests were developed and their performance characteristics determined by [facility]. They may not have been cleared or approved by the U.S. Food and Drug Administration. The FDA has determined that such clearance or approval is not necessary. The above immunohistochemical/dualISH markers are ordered and reviewed by the Pathologist. INTERPRETATION: Right hemicolectomy: Moderately differentiated invasive adenocarcinoma. Result of Microsatellite Instability Study: Negative (no loss of mismatch protein; no microsatellite instability detected). 07/02/2024
[2024-06-29] MEDS: Magnesium 2 GM for ERAS IV (06:26)
[2024-06-29] MEDS: Lactated Ringers 1,000 ML 40 ML IV ×3 (06:26→15:22)
[2024-06-29] MEDS: Acetaminophen 500 MG Tablet 1000 MG PO ×3 (06:26→18:26)
[2024-06-29] MEDS: Gabapentin 600 MG Tablet PO (06:26)
--- NOTE | 2024-06-29 06:48 | PRE.ANES_ITS ---
ASA Classification* ASA Classification ASA Classification: 2 Assessment & Plan Anesthesia* Anesthesia Assessment Anesthesia Assessment: Discussed sedation and/or anesthesia options, risks, benefits, and alternatives with patient/parents/legal guardian/POA. Questions invited. The patient/parents/legal guardian/POA seems to understand and agrees to proceed with anesthesia plan. Reviewed the physical assessment, medical history, allergy history and patient home medications list prior to surgery/procedure/anesthetic and documented any changes. Performed airway and anesthesia risk assessments. Anesthesia Type Anesthesia Type: General Anesthesia Focused Assessment* Temperature: 97.6 F Pulse Rate: 78 Blood Pressure: 122/68 Respiratory Rate: 17 Pulse Ox: 98 Airway Assessment Mouth opens: >3 cm Mallampati Score: II Focused Labs Anesthesia Preop lab: CBC WBC 6.6 K/mm3 (4.4-11.0) 06/25/24 11:56 RBC 3.82 M/mm3 (4.2-5.4) L 06/25/24 11:56 Hgb 9.6 g/dL (12.0-15.0) L 06/25/24 11:56 Hct 31.3 % (37-47) L 06/25/24 11:56 Plt Count 372 K/mm3 (150-450) 06/25/24 11:56 CHEMISTRY Potassium 3.5 mmol/L (3.5-5.1) 05/09/24 07:32 Sodium 141 mmol/L (136-145) 05/09/24 07:32 Magnesium 1.7 mg/dL (1.6-2.6) 06/25/24 11:56 Phosphorus 3.3 mg/dL (2.5-4.9) 05/09/24 07:32 BUN 19 mg/dL (7-18) H 05/09/24 07:32 Creatinine 0.59 mg/dL (0.55-1.02) 05/09/24 07:32 Glucose 101 mg/dL (74-106) 05/09/24 07:32 POC Glucose 122 mg/dL (74-106) H 06/16/24 06:55 TSH 0.988 uIU/mL (0.358-3.740) 05/09/24 07:32 COAG PT 15.6 SECONDS (11.7-14.9) H 05/11/24 07:01 Pre-Assessment Diagnosis/Proposed Procedure Planned Operative Procedure(s): ERAS, Laparoscopic, Right Liban Colectomy Anesthesia History 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 When Was Last Pacemaker Check QUESTION #4 FULL TEXT: You/Your Family Experience fever (hyperthermia) with Anesthesia Last Oral Intake Last Oral intake: Last Oral Intake NPO since 02:30 06/29/24 06:27 Meds taken in AM with sips of Yes 06/29/24 06:27 water? 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 Female Yes 06/24/24 14:44 HX of Motion Sickness No 06/24/24 14:44 HX of N/V After Surgery No 06/24/24 14:44 Non-Smoker Yes 06/24/24 14:44 Duration of Surgery greater Yes 06/24/24 14:44 than 60 minutes Number of Risk Factors 3 06/24/24 14:44 PONV Score Moderate Risk 06/24/24 14:44 Height & Weight Height & Weight: Anesthesia: Height & Weight Height 5 ft 5 in 06/29/24 06:27 Weight: 70 kg 06/29/24 06:27 Body Mass Index (BMI) 25.7 06/29/24 06:27 Respiratory Assessment Respiratory Assessment - trailhead construction worker: Respiratory Tract Infection Hx - trailhead construction worker Hx Respiratory Tract Infection No 06/24/24 14:44 STOP Sleep Apnea STOP Sleep Apnea - trailhead construction worker: STOP Sleep Apnea - trailhead construction worker Hx Hypertension Yes: CONTROLLED ON MED 06/24/24 14:44 Hx Sleep Apnea No 06/24/24 14:44 CPAP No 06/24/24 14:44 BIPAP No 06/24/24 14:44 Do you snore loudly (louder No 06/24/24 14:44 than talking or can be heard Do you often feel tired/ No 06/24/24 14:44 fatigued/ sleepy during daytime? Has anyone observed you stop No 06/24/24 14:44 breathing during sleep? STOP Results Negative 06/24/24 14:44 QUESTION #5 FULL TEXT : Do you snore loudly (louder than talking or can be heard through closed doors)? 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 Specify any problems Hx of Preganancy in last 3 No 06/24/24 14:44 Months Nurse Filling Out Transfusion VCHRISTIN 06/24/24 14:44 & Questions: Date: 06/24/24 06/24/24 14:44 Time: 14:45 06/24/24 14:44 Patient unable to answer at this time (ie. confused, unrespo /Reproduction History /Reproductive History - trailhead construction worker: /Reproductive Hx- trailhead construction worker Hx Now Gestational Age (in weeks): EDC: Hx Hx Para Hx Section SAB Active Medications Active Medications: Current Medications Generic Name Dose Route Start Last Admin Trade Name Freq PRN Reason Stop Dose Admin Acetaminophen 1,000 mg 06/29/24 07:30 06/29/24 06:26 Acetaminophen 500 Mg Tablet PO 06/29/24 07:31 1,000 mg PREOP ONE Administration Gabapentin 600 mg 06/29/24 07:30 06/29/24 06:26 Gabapentin 600 Mg Tablet PO 06/29/24 07:31 600 mg PREOP ONE Administration Cefotetan Disodium 2 gm/ 100 mls @ 200 mls/hr 06/29/24 07:30 Sodium Chloride IV 06/29/24 07:59 PREOP ONE Lactated Ringer's 1,000 mls @ 40 mls/hr 06/29/24 07:30 06/29/24 06:26 IV 40 mls/hr .Q25H LALO Administration Lactated Ringer's 1,000 mls @ 15 mls/hr 06/29/24 06:00 06/29/24 06:00 IV 07/04/24 19:19 Not Given .Q48H LALO Protocol Insulin Human Lispro 0 unit 06/29/24 07:30 Insulin Lispro 100 Unit/Ml Insuln.Pen SC Q4H PRN PRN BG >/= 180, SEE PROTOCOL Protocol PFSH Medical History Post-menopausal History of steroid therapy Neuropathy Liver lesion, right lobe Cholelithiasis Wears glasses Wears dentures Cancer Diabetes Ambulates with cane Arthritis High cholesterol Back pain History of irregular heartbeat History of transesophageal echocardiography (HENRIQUE) History of echocardiogram Hypertension Cardiology follow-up encounter Hypertriglyceridemia 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 Breast cancer, right Essential hypertension Breast cancer, left Cardiac murmur Pulmonary hypertension Abnormal findings on diagnostic imaging of heart and coronary circulation Aortic valve disease Paroxysmal supraventricular tachycardia by electrocardiogram (ECG) Supraventricular tachycardia Acquired left ventricular hypertrophy Hypertension Diabetes 1.5, managed as type 2 Home Medications ?Medication ?Instructions ?Recorded ?Last Taken ?Type timolol maleate 0.5 % eye gel 1 drp EACH EYE BID EYE 06/13/16 06/29/24 History forming solution hydrochlorothiazide 12.5 mg tablet 12.5 mg PO DAILY BP 30 days ##30 12/12/17 06/28/24 History amlodipine 5 mg tablet 5 mg PO QHS BP 04/21/18 06/28/24 History cholecalciferol (vitamin D3) 25 25 mcg PO DAILY SUPPLEMENT 03/30/20 06/28/24 History mcg (1,000 unit) capsule acetaminophen 650 mg 650 mg PO DAILY PRN 08/28/20 Unknown History tablet,extended release Pain/Inflammation losartan 100 mg tablet 100 mg PO DAILY BP 08/28/20 06/06/21 06:30 History metoprolol tartrate 25 mg tablet 25 mg PO BID BP 08/28/20 06/29/24 History potassium chloride 10 mEq 10 meq PO DAILY SUPPLEMENT 08/28/20 06/28/24 History tablet,extended release(part/cryst) meloxicam 7.5 mg tablet 7.5 mg PO BID PRN pain #180 tabs 02/23/24 Unknown Rx anastrozole 1 mg tablet 1 mg PO DAILY BREAST CANCER 06/11/24 06/28/24 History fenofibrate 160 mg tablet 160 mg PO QHS CHOLESTEROL 06/24/24 06/28/24 History metronidazole 500 mg tablet 500 mg PO .COMPLEX pre-op #6 tabs 06/28/24 06/28/24 Rx neomycin 500 mg tablet 500 mg PO .COMPLEX pre-op 06/28/24 06/28/24 Rx antibiotics #6 tabs Allergy/AdvReac Type Severity Reaction Status Date / Time oxycodone (From Percocet) AdvReac Severe Itching Verified 06/29/24 06:23 Family History Brother CAD (coronary artery disease) Brother Diabetes Mother Diabetes Hypertension Father Hypertension CVA (cerebral vascular accident) Sister Breast cancer Surgical History Hx of colonoscopy History of lumpectomy of right breast H/O total knee replacement Status post total right knee replacement History of partial mastectomy of right breast (~05/07/19) History of aortic valve repair (~09/27/16) History of total left hip replacement History of total right hip replacement History of hysterectomy (~10/10/14) Status post left breast lumpectomy H/O aortic valve replacement Social History Smoking Status: Never smoker alcohol intake: never substance use type: does not use caffeine: Yes Type: coffee Number of servings: 1 what type of physical activity do you participate in: none seatbelt use: always do you feel safe at home: Yes Review of Systems (Anesthesia) ROS Narrative System reviewed and no additional complaints, except as documented.
[2024-06-29 07:02] LABS: Bedside Glucose 120 mg/dL (74-106)
--- NOTE | 2024-06-29 07:05 | PCM.HP.BLA ---
History and Physical Date of Admission: 06/29/24 06/16/24 0710 MR#: [id number] Acct: [id number] Name: ANABELA CAMARA Rep #: [id number] : 1940 83 From: Yudy Woodall MD PCP: Dr. Marco Antonio Arevalo MD Status: REG [facility] [place] Location: [place] [address] History and Physical Date of Admission: 06/16/24 Date of Service: 06/02/24MR#: [id number] Acct: [id number] Name: ANABELA CAMARA Rep #: [id number] : 1940 Provider: Dr. Yudy Woodall MD Age/Sex: 83/F Location: [facility] Status: Signed Intake Vital Signs 05/10/2414:11 06/02/2412:46 Height 5 ft 5 in BP 164/66 H Blood Pressure Location Lt brachial Position Sitting Respiration 17 Pulse 61 Pulse Source Monitor Pulse Oximetry (%) 96 Oxygen Delivery Method room air Intake Visit Reasons: discuss ct results Chief Complaint: discuss ct results Is patient in pain?: No Allergies oxycodone (From Percocet) Adverse Reaction (Severe, Verified 06/02/24 12:47)Itching Medications ?Medication ?Instructions ?Recorded ?Confirmed ?Type timolol maleate 0.5 % eye gel 1 drp EACH EYE BID 06/13/16 06/02/24 History forming solution hydrochlorothiazide 12.5 mg tablet 12.5 mg PO DAILY 30 days ##30 12/12/17 06/02/24 History amlodipine 5 mg tablet 5 mg PO QHS 04/21/18 06/02/24 History cholecalciferol (vitamin D3) 25 25 mcg PO DAILY 03/30/20 06/02/24 History mcg (1,000 unit) capsule acetaminophen 650 mg 650 mg PO DAILY PRN 08/28/20 06/02/24 History tablet,extended release Pain/Inflammation losartan 100 mg tablet 100 mg PO DAILY 08/28/20 06/02/24 History metoprolol tartrate 25 mg tablet 25 mg PO BID 08/28/20 06/02/24 History potassium chloride 10 mEq 10 meq PO DAILY 08/28/20 06/02/24 History tablet,extended release(part/cryst) anastrozole 1 mg tablet See Rx Instructions .Route 11/25/23 06/02/24 Rx .COMPLEX #90 tabs meloxicam 7.5 mg tablet 7.5 mg PO BID PRN pain #180 tabs 02/23/24 06/02/24 Rx fenofibrate 160 mg tablet See Rx Instructions .Route 04/05/24 06/02/24 Rx .COMPLEX #90 tabs Have you fallen in the past year?: No PFSH Medical History Liver lesion, right lobe Cholelithiasis 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 Wears glasses Wears dentures Cancer Diabetes Ambulates with cane Arthritis High cholesterol Back pain History of irregular heartbeat History of transesophageal echocardiography (HENRIQUE) History of echocardiogram Hypertension Cardiology follow-up encounter Hypertriglyceridemia Breast cancer, right Essential hypertension Breast cancer, left Cardiac murmur Pulmonary hypertension Abnormal findings on diagnostic imaging of heart and coronary circulation Aortic valve disease Paroxysmal supraventricular tachycardia by electrocardiogram (ECG) Supraventricular tachycardia Acquired left ventricular hypertrophy Hypertension Diabetes 1.5, managed as type 2 Surgical History H/O total knee replacement Status post total right knee replacement History of partial mastectomy of right breast (~05/07/19) History of aortic valve repair (~09/27/16) History of total left hip replacement History of total right hip replacement History of hysterectomy (~10/10/14) Status post left breast lumpectomy H/O aortic valve replacement Family History Brother CAD (coronary artery disease)Brother DiabetesMother Diabetes HypertensionFather Hypertension CVA (cerebral vascular accident)Sister Breast cancer Social History Smoking Status: Never smoker alcohol intake: never substance use type: does not use caffeine: Yes Type: coffee Number of servings: 1 what type of physical activity do you participate in: none seatbelt use: always do you feel safe at home: Yes HPI HPI HPI: 83-year-old female presenting for follow-up from hospitalization due to new liver mass with pathology consistent with adenocarcinoma likely lower GI source. Patient had a CT chest abdomen pelvis did not show any other obvious areas of metastasis. On my read patient still has possibly some obstruction near the ileocecal valve which she had on her CT from admit for the hospitalization previously. Patient states her last colonoscopy was in [address] Echevarria. Patient states it was normal. Patient currently denies abdominal pain nausea vomiting or reflux. ROS General General: Yes breast cancer; No weight change, appetite, fatigue, colon cancer or weakness HEENT HEENT: Yes eye surgery; No difficulty swallowing, eye injury, swollen glands or hoarseness Endo Endocrine: Yes diabetes mellitus; No thyroid disease, thyroid cancer, Hair loss, heat intolerance or cold intolerance Skin Skin: No rash or changing moles Musc Musculoskeletal: Yes arthritis; No back problems, rheumatoid arthritis, gout or joint pain Cardio Cardiovascular: Yes heart disease and high blood pressure; No murmur, pacemaker, atrial fibrillation, heart attack, heart stent, palpitations, shortness of breat with exertion or chest pain Psych Psychiatric: No depression, anxiety or hearing voices Resp Respiratory: No shortness of breath, No sleep apnea, No cough, No COPD, No asthma, No emphysema and No wheezing Gastro Gastrointestinal: No abdominal pain, No nausea or vomiting, No diarrhea, No constipation, No blood in stool, No acid reflux, No hemorrhoids, No ulcers, No gallbladder problem and No black,tarry stools Jean Hematologic: No blood thinners, No blood disorders, No bleeding, No anemia and No blood clots Neuro Neurologic: No system reviewed and no additional complaints, except as documented, No as per HPI, No abnormal gait, No abnormal hearing, No abnormal movements, No abnormal speech, No behavioral changes, No burning sensations, No confusion, No convulsions, No disequilibrium, No dizziness, No localized weakness, No frequent falls, No headache(s), No lack of coordination, No loss of vision, No memory loss, Yes numbness, No other visual disturbances, No radicular pain, No restless legs, No sensory deficit, No syncope, Yes tingling, No tremor(s), No weakness and No other Exam Const General: cooperative, healthy appearing, comfortable and no acute distress [facility] Head: normocephalic and atraumatic Neck Neck: supple Resp Effort & Inspection: normal respiratory effort Cardio Rate: regular rate GI Inspection: non-distended Palpation: soft and nontender Skin General: no rashes or lesions noted Neuro General: CN's II-XI intact bilaterally Extrem General: normal to inspection Psych Mental Status: mental status grossly normal Attitude: cooperative Assessment and Plan Assessment and Plan (1) Metastatic adenocarcinoma of unknown origin: Status: Acute (2) Liver mass: Status: Acute Plan Did review CT abdomen pelvis personally as well as with the patient and her family. I have discussed the above with the patient. I have offered the patient esophagogastroduodenoscopy and colonoscopy for evaluation. I have explained the risks/benefits of the procedure and described the procedure. I have discussed the risks with the patient, including but not limited to: infection, bleeding, perforation of the GI tract requiring emergency surgery, inability to complete the procedure, injury to any internal organs, complications of anesthesia, etc. - the patient understands and agrees to proceed. I have answered all the patient's questions to the patient's satisfaction and the patient has no further questions. The patient has been given instructions for the colon cleansing preparation. 1 day of clears, MiraLAX Dulcolax split prep. Did let patient know if she does have increased abdominal pain again she may need to go to the ER as a questionable area at the ileocecal valve could be causing a partial obstruction. Yudy Woodall M.D. Pager: [phone] [facility] [address] [place] [address], [facility], [address] [place] [address] Office: [phone] Coding Level of Care Code Off vis,est,level 4 Diagnoses Metastatic adenocarcinoma of unknown origin C79.9 Liver mass R16.0 Clinical Quality Measures Falls Risk Screening/Assistive Devices Have you fallen in the past year?: No 06/03/24 0839 <Electronically signed by Yudy Woodall MD> Date Yudy Woodall MD 06/16/24 0710 <Electronically signed by Yudy Woodall MD> Cosigner Signature (if applicable): CC: Dr. Marco Antonio Arevalo MD; Dr. Yudy Woodall MD~ Signed ADDENDUM by Dr. Yudy Woodall MD on 06/16/24 at 0711 Addendum I have examined the patient and the H&P has been reviewed. There are no clinical changes since date of exam.
[2024-06-29] MEDS: Cefotetan 2 GM in 0.9% Normal Saline (100mL MB+) 100 ML IV (07:30)
--- NOTE | 2024-06-29 07:30 | COL._PTH ---
PATIENT: ANABELA CAMARA LOC: MS3 U#:[id number] AGE/SX: 83/F ROOM: [facility] RE06/29/[address]: Dr. Yudy Woodall MD : 1940 BED: 1 DIS: 07/01/2024 SPEC #: [id number] RECD: 06/29/24 10:59 STATUS: XIMENA LAI #: [id number] NIKA: 06/29/24 07:[address]: Yudy Woodall DEPT: SURGICAL PATHOLOGY RECD BY: Norma Prabhakar ENTERED: 06/29/24 11:58 SP TYPE: COLON OTHR DR: MD Dr. Marco Antonio Cordova Chi, MD Tissues: Colon, NOS Procedures: Surgery Specimen Level HEADER OPERATION: Laparoscopic, right kimberly colectomy PRE-OP DIAGNOSIS: Metastatic adenocarcinoma of unknown origin, liver mass TISSUE SUBMITTED: Right hemicolectomy MICROSCOPIC DIAGNOSIS Right hemicolectomy: Moderate differentiated invasive adenocarcinoma. See cancer summary in the comment section. 07/01/2024 COMMENT COLON CANCER SUMMARY: Procedure - Right hemicolectomy Tumor site - Ileocecal valve and ascending colon Tumor size - 3.0 x 2.0 x 0.5cm Macroscopic tumor perforation - Not identified Histologic type - Adenocarcinoma Histologic grade - Grade 2, moderately differentiated Microscopic tumor extension - Tumor invades through the muscularis propria into pericolonic tissue. The tumor is also present at the serosal surface and invasion through the visceral peritoneum is not seen. Margins: All margins are uninvolved by invasive carcinoma. The tumor is 9.0cm away from the distal resection margin. Treatment effect - No known presurgical therapy Lymphvascular invasion - Not identified Perineural invasion - Not identified Tumor deposits - Present Number of tumor deposits- 9 Type of polyp in which invasive carcinoma arose - None identified Lymph nodes: Number of lymph nodes examined - 21 Number of lymph nodes involved - 6 Largest lymph node measures 2.5cm in greatest dimension and completely replaced by metastatic tumor. Extranodal extension is noted and measures 0.6cm in greatest dimension. Distant metastasis - present. [id number], liver, CT guided core biopsy with diagnosis of metastatic adenocarcinoma. Additional pathologic findings - Tubular adenomas x11, ascending colon. Submucosal lipomas x3 (ileocecal valve and ascending colon) Ancillary studies: See microsatellite instability study by IHC ([id number]) for complete detail. Negative (no loss of mismatch protein; no microsatellite instability detected). PATHOLOGIC STAGE: pT3 pN2a pM1 The above summary is in compliance with [employer] (CAP) Cancer Protocols Checklist and [place] Joint Committee on Cancer (AJCC), Staging Manual, 8th Ed. Please make reference to previous specimen [id number] cecum, biopsy with diagnosis of invasive moderately differentiated adenocarcinoma and [id number] left breast, lumpectomy with diagnosis of invasive ductal carcinoma and [id number] right breast, lumpectomy with diagnosis of invasive ductal carcinoma. MICROSCOPIC DESCRIPTION Slides are reviewed. GROSS DESCRIPTION Received in fixative is one container labeled with the patient's name and designated Right hemicolectomy. The specimen consists of a right hemicolectomy specimen consisting of cecum with ascending colon with attached pericolonic adipose tissue and segment of small intestine with attached mesenteric tissue and appendix. Cecum with ascending colon measures 15.0cm in length and segment of small intestine measures 10.5cm in length and appendix measures 6.0cm in length and 0.6cm in diameter. Both resection margins are stapled. 9 cm away from distal resection margin an ulcerated tumor mass is noted measuring 3.0 x 2.0 x 0.5cm. The mass is present in the ascending colon and also involve ileocecal valve. Serosal surface overlying the mass is inked black. A polypoid fatty lesion is also noted at the ileocecal valve measuring 2.0 x 2.0 x 1.2cm. A few smaller senile polyps measuring 0.2 to 1.5cm in greatest dimension are also noted in the ascending colon. Pericolonic adipose tissue is fixed in lymph node revealing solution. Serosal surface overlying the tumor is inked black. Also present in the container is a detached piece of donut shaped piece of tissue measuring 4.0 x 2.0 x 1.0cm. Also present is a small piece of colonic bowel tissue with multiple bryson measuring 1.0 x 0.8 x 0.8cm. Also present in the container are two detached pieces of adipose tissue measuring 3.5 x 3.5 x 0.5cm. More dictation will follow after fixation. SJ. 06/29/2024 Sections of appendix reveal unremarkable cut surfaces. Two fatty lesions are also noted in the ascending colon measuring 1.0 and 1.5cm in greatest dimension. Section of the tumor reveal that tumor invade through the bowel wall into pericolonic adipose tissue. Section of pericolonic adipose tissue reveal multiple lymph nodes. Largest lymph node measures 2.5cm in greatest dimension. Sections of many of the lymph nodes reveal gross involvement by the tumor. Laundry Technician sections as follows: 1- donut shaped piece of tissue, 2- proximal and distal resection margins, 3- appendix, 4- lipomatous lesion ileocecal valve, 5&6- smaller senile polyps, ascending colon 7- lipomatous lesions in the ascending colon, 8- financial sales representative sections small and large bowel and ileocecal valve, 9-12- tumor, 13-27- lymph nodes (13&14- one serially sectioned lymph node, 15&16- one serially sectioned lymph node, 17-25- each cassette containing one lymph node, 26&27- each cassette containing multiple lymph nodes). SJ. 06/30/2024 TC:0 CPT:00093 ADDENDUM ADDENDUM ADDENDUM ADDENDUM ADDENDUM ADDENDUM 07/20/2024 15:18 ADDENDUM 07/23/2024 11:29 ADDENDUM 07/28/2024 08:33 ADDENDUM 07/20/2024 15:18 ADDENDUM 07/20/2024 15:18 ADDENDUM 07/20/2024 15:18 ADDENDUM 07/20/2024 15:18 PD-L1 (KEYTRUDA) IMMUNOHISTOCHEMICAL ANALYSIS FROM [employer] RESULTS: Tumor proportion score: <1% / NEGATIVE Please see complete report in e-chart or EMR ONKOSIT ADVANCED COLORECTAL CANCER NGS REPORT FROM [employer] RESULT SUMMARY: Abnormal TUMOR TYPE: Adenocarcinoma CLINICAL INFORMATION: Right hemicolectomy showed moderately differentiated invasive adenocarcinoma (Testing performed on [id number]) HISTOPATHOLOGIC REVIEW: Tumor is present and is estimated to comprise 20-50% of nuclei in the sample. DETECTED GENOMIC ALTERATIONS: TIER II: Variants of potential clinical significance ERBB2 Amplification APC p. ([id number]) APC p. ([id number]) PIK3CA p. ([id number]) IMMUNOTHERPY BIOMARKERS: TUMOR MUTATION BURDEN : HIGH (12.5 mutations / MB) MICROSATELLITE INSTABILITY : MSI NEGATIVE (4.1) Please see complete report in e-chart or EMR ONKOSIGHT NEXT GENERATION SEQUENCING GEN FUSION PANEL REPORT FROM [employer] INTERPREATATION: NEGATIVE: No pathologic gen fusions detected involving ALK, KASANDRA, BRAF, CCND1, EGFR, FGFR1, FGFR2, FGFR3, MET, NRG1, NTRK1, NTRK2, NTRK3, PPARG, RAF1, PET, ROS1, or THADA. RESULTS Tumor cellularity: >50% Tumor type: Adenocarcinoma Please see complete report in e-chart or EMR
[2024-06-29] MEDS: BUPIVACAINE LIPOSOME/PF 20 ML VIAL OPERA.SITE (07:53)
[2024-06-29] MEDS: Bupivacaine 0.25% 30 ML Vial (07:53)
[2024-06-29] MEDS: 0.9% Normal Saline (Pres. free 10 ML Vial (07:53)
--- NOTE | 2024-06-29 09:47 | PCM.OPRPT ---
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 Colonoscopy showed mass the ileocecal valve. Palliative right hemicolectomy was elected.. Description procedure: The patient was placed on operating table in supine position. General Anesthesia was induced. A timeout was completed verifying correct patient, procedure, site, position, social, and special equipment prior to beginning procedure. An orogastric tube was placed. The abdomen was prepped and draped in usual sterile fashion. An incision was made in the natural skin line above the umbilicus. The fascia was elevated and incised. The peritoneum was elevated and incised. Entry into the peritoneum was confirmed visually and no bowel was noted in the vicinity of the incision. Ochoa trocar was placed. The abdomen was insufflated with carbon dioxide to a pressure of 12-15 mmHg. Patient tolerated insufflation well. The laparoscope was then inserted and abdomen inspected. No injuries from initial trocar placement were noted. TAP block was placed with Exparel/Marcaine/saline for a total of 100 cc throughout the case. Additional trochars were then inserted in the following locations 5 mm trocars in superior midline, inferior midline and left mid abdomen the abdomen was inspected mass was noted to be at the area of the ileocecal valve. The table is placed in Trendelenburg position with the right side up. The cecum was grasped and the he lateral attachments of the ascending colon were then divided using Enseal. Right half transverse colon was also mobilized using the Enseal. The supraumbilical incision was enlarged in length. A wound protector was then placed into the peritoneal cavity to prevent port site implantation as well as minimize risk of wound infection. They ascending and transverse colon were then delivered and extracted. The small bowel and colon was then divided extracorporeally with the LANDON 75 and so was used to divide the mesentery. The specimen was removed. The 2 ends of the ileum and transverse colon were then aligned, ensuring that the mesentery was not twisted, and the staple negm-hz-mbka anastomosis using the LANDON 75 and TL 60. The anastomosis, alignment of the bowel, hemostasis were checked?no twisting on check. The trochars removed under direct visualization. Once the wound protector was removed, gowns and gloves were changed. The umbilical incision was closed with 1-0 PDS suture at the fascia and then the skin was closed with 4-0 Monocryl interrupted sutures. Dry sterile dressings were applied. The sponge and instrument count were correct. The patient was extubated. The patient tolerated procedure well and was taken to the postanesthesia care unit in stable condition. Surgical Findings: Colon mass at ileocecal valve Transformer Stock Clerk design quality engineer: Yes Marine Equipment Test Engineer: Aishwarya Julian Tasks completed by healthcare administrative assistant: Opening & closing Complications Complications: No Oncology: Yoly Requirements . Oncology surgical intervention performed: Colon resection for colon cancer performed Colon Resection - Colon Cancer: Synoptic Portion: Element Response Options Operation performed with curative intent. No Tumor location Cecum Extent of colon and vascular resection Right hemicolectomy ? ileocolic
[2024-06-29] MEDS: Anastrozole 1 MG TABLET PO (13:05)
[2024-06-29] MEDS: Docusate Sodium 100 MG Capsule PO ×2 (13:06→22:11)
[2024-06-29] MEDS: hydroCHLOROthiazide 12.5mg 12.5 MG PO (13:06)
--- NOTE | 2024-06-29 16:26 | PCM.POST.ANE ---
Anesthesia: Postop Eval I Current Vital Signs Temperature: 97 F Pulse Rate: 65 Blood Pressure: 132/67 Respiratory Rate: 18 Pulse Ox: 95 Assessment Airway patent: Yes Spontaneous unlabored respirations: Yes nausea: No Vomiting: No Anesthesia Complication: No Fluid Hydration Crystalloid volume administer (ml): 300 Total IV fluid infused: 300 Progress Note Anesthesia document: Postop Eval 1 completed: Yes
--- NOTE | 2024-06-29 16:27 | PCM.POSTANE2 ---
Anesthesia Postop Eval I Sum Postop Eval Completion status Anesthesia document: Postop Eval 1 completed: Yes Anesthesia Postop Eval I Summary Anesthesia Postop Eval I Summary: Anesthesia Postop Eval I: Assessment Summary Airway patent Yes 06/29/24 16:27 Spontaneous unlabored Yes 06/29/24 16:27 respirations Mental status nausea No 06/29/24 16:27 Vomiting No 06/29/24 16:27 Anesthesia Postop Eval I: Fluid Summary Crystalloid volume administer 300 06/29/24 16:27 (ml) Colloids volume administered ( ml) Blood Product volume administered (ml) Total IV fluid infused 300 06/29/24 16:27 Anesthesia Postop Eval I: Summary Notes Anesthesia Complication No 06/29/24 16:27 Anesthesia Complication Comment: Post-operative progress note Anesthesia: Postop Eval II Evaluation Mental status: Awake and Calm Pain Level: 2 nausea: No Vomiting: No
[2024-06-29] MEDS: Ensure Plus High Protein 120 ML LIQUID PO (22:11)
[2024-06-29] MEDS: Metoprolol Tartrate 25 MG Tablet PO (22:12)
[2024-06-29] MEDS: Timolol 0.5% 5ML OPTH.BTL 1 DRP EACH EYE (22:14)
[2024-06-30] VITALS (7 sets, daily range): BP systolic 110–140; BP diastolic 52–60; PULSE 52–75; RESP 16–18; TEMP 36.4–36.8; O2SAT 95–100
[2024-06-30] MEDS: Acetaminophen 500 MG Tablet 1000 MG PO ×4 (00:34→17:57)
[2024-06-30 07:08] LABS: Hematocrit 26.5 % (37-47); Hemoglobin 8.3 g/dL (12.0-15.0); Mean Corp Hgb Conc 31.3 g/dL (32-36); Mean Corpuscular Hgb 25.2 pg (27.0-32.0); Mean Corpuscular Volume 80.5 fL (81-99); Mean Platelet Vol. 11.2 fl (6.2-12.0); Platelet Count 313 K/mm3 (150-450); RBC Distribution Width CV 16.5 % (11.6-14.6); RBC Distribution Width SD 48.2 fl (35.1-43.9); Red Blood Count 3.29 M/mm3 (4.2-5.4); White Blood Count 10.4 K/mm3 (4.4-11.0)
[2024-06-30 07:28] LABS: Anion Gap 6 (5-15); BUN 14 mg/dL (7-18); BUN/Creat Ratio 24.1 RATIO (10-20); Calcium,Total 8.5 mg/dL (8.5-10.1); Chloride 107 mmol/L (98-107); Creatinine, Serum 0.58 mg/dL (0.55-1.02); EST Glomerular Filtration Rate 105 mL/min (>60); Est Glom Filt Rate - Afr Amer 127 mL/min (>60); Estimated Creatinine Clearance 53.24 ml/min; Glucose 88 mg/dL (74-106); Potassium 3.2 mmol/L (3.5-5.1); Sodium Level 139 mmol/L (136-145)
--- NOTE | 2024-06-30 07:46 | PCM.PN.SRG ---
Subjective Subjective Patient is evaluated resting comfortably in bed. She denies any nausea, vomiting, fever overnight. She notes she did not have pain until 0400 AM. She had 2 Tylenol, which helped with the pain. She currently notes only soreness in the RLQ. She denies flatus or BM overnight. She notes tolerating clear liquids. She states she is starting to feel hungry. She notes urinating well every 2 hours. Objective Data Objective Data Vital Signs: Vital Signs Temp Pulse Resp BP Pulse Ox O2 Del Method O2 Flow Rate 98.3 F 75 16 115/52 L 95 Room Air 4 06/30/24 04:45 06/30/24 04:45 06/30/24 04:45 06/30/24 04:45 06/30/24 04:45 06/30/24 04:45 06/29/24 11:20 Oxygen Flow Rate (L/min) 4 Oxygen Delivery Method Room Air Weight: 154 lb 5.177 oz Body Mass Index (BMI) 25.7 Intake & Output: Intake and Output for Last 24 Hours 06/28/24 06/29/24 06/30/24 23:59 23:59 23:59 Intake Total 2310.67 / 2510.67 400 / 400 Output Total 450 / 725 550 / 550 Balance 1860.67 / 1785.67 -150 / -150 Lab / Micro Data 06/30/24 06:06 06/30/24 06:06 Labs: Laboratory Results - last 24 hr 06/30/24 06:06: WBC 10.4, RBC 3.29 L, Hgb 8.3 L, Hct 26.5 L, MCV 80.5 L, MCH 25.2 L, MCHC 31.3 L, RDW Std Deviation 48.2 H, RDW Coeff of Clara 16.5 H, Plt Count 313, MPV 11.2, Sodium 139, Potassium 3.2 L, Chloride 107, Carbon Dioxide 26.0, Anion Gap 6, BUN 14, Creatinine 0.58, Estim Creat Clear Calc 53.24, Est GFR (MDRD) Af Amer 127, Est GFR (MDRD) Non-Af 105, BUN/Creatinine Ratio 24.1 H, Glucose 88, Calcium 8.5 Assessment & Plan Assessment/Plan (1) Colon cancer metastasized to liver: PLAN: I am following this patient in conjunction with Dr. Woodall. She will independently evaluate this patient. Labs reviewed. Potassium to be replaced Continue on clear liquids until improved bowel function Encourage ambulation and sitting in the chair today We will continue to monitor this patient Charges/Coding Visit Charges Inpatient E&M: 62650 Subs Hosp L1 (no charge)
[2024-06-30] MEDS: Metoprolol Tartrate 25 MG Tablet PO ×2 (08:21→20:23)
[2024-06-30] MEDS: FLU VACCINE **HIGH DOSE** TV 24-25 180 MCG/0.5 ML SYRINGE IM (08:21)
[2024-06-30] MEDS: Docusate Sodium 100 MG Capsule PO ×2 (08:21→20:23)
[2024-06-30] MEDS: Timolol 0.5% 5ML OPTH.BTL 1 DRP EACH EYE ×2 (08:22→20:23)
[2024-06-30] MEDS: hydroCHLOROthiazide 12.5mg 12.5 MG PO (08:23)
[2024-06-30] MEDS: Anastrozole 1 MG TABLET PO (08:23)
[2024-06-30] MEDS: Enoxaparin 40 MG/0.4 ML Syringe SC (09:34)
[2024-06-30] MEDS: Potassium Chloride 10mEq/100mL 10 MEQ/100 ML IV.SOLN. 50 MEQ IV BOLUS (09:34)
--- NOTE | 2024-06-30 10:45 | CASEMGMT ---
ALBERTO GRANT Assessment: RN JUANITA to room to meet with pt for initial transition planning/care coordination assessment. ALBERTO GRANT introduced self and role at [facility], pt voices understanding and consents to assessment. Pt is A&O and answers all questions appropriately at this time. Pt sitting up in chair in room in no distress. Care providers, pharmacy, and demographics verified/updated. Strata: 2 PCP:Mickey Specialists: Gaby, cardio; Zuly, neuro; Austin, onc; Talisha, surgeon Preferred Pharmacy: [facility] Retail @ discharge. Insurance: [employer] [facility] Prescription Benefit: yes LNOK: Chintan Mendez, son; Laura Mendez, dil, Pj Mendez, son. Pt also has another son. Living Arrangements: Pt lives with in a one-story home with 1 step to enter with a rail on both sides. Pt reports she is I in ADL and IADLs and denies concerns at home. DIL assists w/cleaning at times. Family assists w/taking pt to grocery store or getting her groceries, if needed. Transportation: Pt has not been driving recently d/t neuroptahy. Family assists w/transportation. DME: shower chair, walker, rollator, cane, functioning BGM with sufficient supplies- pt states she checks her BS's every day. HHC/SNF: Pt has had a ADMITTING OFFICER in [place] in the past, she cannot remember the name. Pt denies hx of SNF. Pt states she just recently finished w/OP therapy @ (February/Mar of this year) and she has home exercises she can work on. She states she also has [employer]ne[employer] @ and plans to start going there again through [facility]. She denies need for OP therapy again. Pt states no concerns with going home at time of dc. Pt denies any home-going needs. Pt states no further concerns/needs. CM to follow. Advised pt to ask CM if any further question/concerns/needs arise, voices understanding. Plan: Home Angela MILLER RN, CM
[2024-06-30] MEDS: Potassium Chloride 10mEq/100mL 10 MEQ/100 ML IV.SOLN. 40 MEQ IV BOLUS ×3 (12:09→17:57)
[2024-06-30] MEDS: 0.9% Normal Saline (500mL Bag) 500 ML 40 ML IV (17:58)
[2024-07-01 04:08] VITALS: BP 122/48; PULSE 65; RESP 18; TEMP 36.9; O2SAT 97
[2024-07-01] MEDS: Acetaminophen 500 MG Tablet 1000 MG PO ×3 (06:36→12:23)
[2024-07-01 07:27] LABS: Absolute Lymphocyte Count 1.17 X10^3/uL (0.83-4.51); Absolute Neutrophil Count 4.4 X10^3/uL (2.0-7.7); Basophil# 0.02 X10^3/uL; Basophil% 0.3 % (0-1); Eosinophil# 0.15 X10^3/uL; Eosinophils% 2.4 % (0-5); Hematocrit 27.7 % (37-47); Hemoglobin 8.3 g/dL (12.0-15.0); Lymphocyte # 1.17 X10^3/ul (0.83-4.51); Lymphocyte % 18.3 % (19-41); Mean Corpuscular Hgb 24.5 pg (27.0-32.0); Mean Corpuscular Volume 81.7 fL (81-99); Mean Platelet Vol. 10.7 fl (6.2-12.0); Monocyte# 0.59 X10^3/uL; Monocyte% 9.2 % (0-10); NRBC Flagged by Analyzer 0 % (0-5); Neutrophil # 4.43 X10^3/uL (2.7-7.7); Neutrophil % 69.5 % (47-70); Platelet Count 315 K/mm3 (150-450); RBC Distribution Width CV 16.5 % (11.6-14.6); RBC Distribution Width SD 49.1 fl (35.1-43.9); Red Blood Count 3.39 M/mm3 (4.2-5.4); White Blood Count 6.4 K/mm3 (4.4-11.0)
--- NOTE | 2024-07-01 07:36 | PCM.PN.SRG ---
Subjective Subjective Patient evaluated resting comfortably in bed. She denies nausea, vomiting, fever. She notes positive flatus and multiple bowel movements. She is tolerating a transitional diet well. She is noting incision discomfort. She is urinating well. Objective Data Objective Data Vital Signs: Vital Signs Temp Pulse Resp BP Pulse Ox O2 Del Method O2 Flow Rate 98.4 F 65 18 122/48 H 97 Room Air 4 07/01/24 04:08 07/01/24 04:08 07/01/24 04:08 07/01/24 04:08 07/01/24 04:08 07/01/24 04:10 06/29/24 11:20 Oxygen Flow Rate (L/min) 4 Oxygen Delivery Method Room Air Weight: 154 lb 5.177 oz Body Mass Index (BMI) 25.7 Intake & Output: Intake and Output for Last 24 Hours 06/29/24 06/30/24 07/01/24 23:59 23:59 23:59 Intake Total 2310.67 / 2510.67 2574.67 / 2574.67 Output Total 450 / 725 550 / 550 Balance 1860.67 / 1785.67 2024.67 / 2024.67 Lab / Micro Data 07/01/24 06:27 07/01/24 06:27 Labs: Laboratory Results - last 24 hr 07/01/24 06:27: WBC 6.4, RBC 3.39 L, Hgb 8.3 L, Hct 27.7 L, MCV 81.7, MCH 24.5 L, MCHC 30.0 L, RDW Std Deviation 49.1 H, RDW Coeff of Clara 16.5 H, Plt Count 315, MPV 10.7, Immature Gran % (Auto) 0.300, Neut % (Auto) 69.5, Lymph % (Auto) 18.3 L, [place] % (Auto) 9.2, Eos % (Auto) 2.4, Baso % (Auto) 0.3, Absolute Neuts (auto) 4.4, Absolute Lymphs (auto) 1.17, Nucleated RBC % 0 Physical Exam GI GI Narrative: Abdomen- soft, tenderness at the incision sites. Incisions c/d/i. No erythema or infections noted. Ecchymosis noted at the umbilicus. Positive bowel sounds. Assessment & Plan Assessment/Plan (1) Colon cancer metastasized to liver: PLAN: I am following this patient in conjunction with Dr. Woodall. She will independently evaluate this patient. Labs reviewed. No changes needed Patient progressing very well Continue ambulation and sitting in chair Continue with transitional diet Hopeful discharge later today Charges/Coding Visit Charges Inpatient E&M: 91698 Subs Hosp L1 (no charge; post-op)
[2024-07-01 07:49] LABS: Anion Gap 5 (5-15); BUN 13 mg/dL (7-18); Calcium,Total 8.3 mg/dL (8.5-10.1); Chloride 109 mmol/L (98-107); Creatinine, Serum 0.54 mg/dL (0.55-1.02); EST Glomerular Filtration Rate 115 mL/min (>60); Est Glom Filt Rate - Afr Amer 139 mL/min (>60); Estimated Creatinine Clearance 53.24 ml/min; Glucose 87 mg/dL (74-106); Potassium 3.7 mmol/L (3.5-5.1); Sodium Level 140 mmol/L (136-145)
[2024-07-01 09:01] VITALS: BP 153/57; PULSE 63; RESP 16; TEMP 36.6; O2SAT 96
[2024-07-01 09:18] VITALS: BP 153/57; PULSE 63
[2024-07-01] MEDS: Metoprolol Tartrate 25 MG Tablet PO (09:18)
[2024-07-01] MEDS: hydroCHLOROthiazide 12.5mg 12.5 MG PO (09:18)
[2024-07-01] MEDS: Anastrozole 1 MG TABLET PO (09:18)
[2024-07-01] MEDS: Docusate Sodium 100 MG Capsule PO (09:18)
[2024-07-01] MEDS: Timolol 0.5% 5ML OPTH.BTL 1 DRP EACH EYE (09:19)
[2024-07-01] MEDS: Enoxaparin 40 MG/0.4 ML Syringe SC (09:19)
--- NOTE | 2024-07-01 10:31 | PCM.DC.SUM ---
Providers Date of Admission: 06/29/24 Date of Discharge: 07/01/24 Primary Care Physician: Dr. Marco Antonio Arevalo MD Reason For Visit: ERAS, Laparoscopic, Right Liban Colectomy Diagnosis Discharge Diagnosis (1) Colon cancer metastasized to liver: Status: Acute Code(s): C18.9 - Malignant neoplasm of colon, unspecified; C78.7 - Secondary malignant neoplasm of liver and intrahepatic bile duct Plan: I am following this patient in conjunction with Dr. Woodall. She will independently evaluate this patient. Labs reviewed. No changes needed Patient progressing very well Continue ambulation and sitting in chair Continue with transitional diet Hopeful discharge later today Medications at Discharge Home Medications timolol maleate 0.5 % eye gel forming solution 1 drp EACH EYE BID EYE 06/13/16 hydrochlorothiazide 12.5 mg tablet 12.5 mg PO DAILY BP 30 days ##30 12/12/17 amlodipine 5 mg tablet 5 mg PO QHS BP 04/21/18 cholecalciferol (vitamin D3) 25 mcg (1,000 unit) capsule 25 mcg PO DAILY SUPPLEMENT 03/30/20 acetaminophen 650 mg tablet,extended release 650 mg PO DAILY PRN Pain/Inflammation 08/28/20 losartan 100 mg tablet 100 mg PO DAILY BP 08/28/20 metoprolol tartrate 25 mg tablet 25 mg PO BID BP 08/28/20 potassium chloride 10 mEq tablet,extended release(part/cryst) 10 meq PO DAILY SUPPLEMENT 08/28/20 meloxicam 7.5 mg tablet 7.5 mg PO BID PRN pain #180 tabs 02/23/24 anastrozole 1 mg tablet 1 mg PO DAILY BREAST CANCER 06/11/24 fenofibrate 160 mg tablet 160 mg PO QHS CHOLESTEROL 06/24/24 metronidazole 500 mg tablet 500 mg PO .COMPLEX pre-op #6 tabs 06/28/24 neomycin 500 mg tablet 500 mg PO .COMPLEX pre-op antibiotics #6 tabs 06/28/24 Hospital Course Operations colectomy (Cecal colon cancer metastasized to liver, partial small bowel obstruction) Summary of Care Provided Minutes Spent on Discharge: 35 Hospital Course: Patient is an 83 y/o F who presented for an elective colectomy with the diagnosis of colon cancer. Dr. Woodall performed a Right hemicolectomy on 06/29/2024. Patient tolerated the procedure well. She had an uneventful hospitalization. Upon discharge, patient was tolerating a transitional diet without nausea, vomiting. She is passing flatus and having bowel movements. She is urinating well. She notes incisional pain/discomfort which is controlled with Tylenol. Incisions c/d/i. Weight / BMI Weight Weight: 154 lb 5.177 oz Body Mass Index (BMI) 25.7 ABG / Lab / Microbiology Data 07/01/24 06:27 07/01/24 06:27 Laboratory: Laboratory Results - last 24 hr 07/01/24 06:27: WBC 6.4, RBC 3.39 L, Hgb 8.3 L, Hct 27.7 L, MCV 81.7, MCH 24.5 L, MCHC 30.0 L, RDW Std Deviation 49.1 H, RDW Coeff of Clara 16.5 H, Plt Count 315, MPV 10.7, Immature Gran % (Auto) 0.300, Neut % (Auto) 69.5, Lymph % (Auto) 18.3 L, [place] % (Auto) 9.2, Eos % (Auto) 2.4, Baso % (Auto) 0.3, Absolute Neuts (auto) 4.4, Absolute Lymphs (auto) 1.17, Nucleated RBC % 0, Sodium 140, Potassium 3.7, Chloride 109 H, Carbon Dioxide 26.0, Anion Gap 5, BUN 13, Creatinine 0.54 L, Estim Creat Clear Calc 53.24, Est GFR (MDRD) Af Amer 139, Est GFR (MDRD) Non-Af 115, BUN/Creatinine Ratio 24.0 H, Glucose 87, Calcium 8.3 L D/C Instructions Discharge Diet: - (Transitional diet; diet paper provided) Discharge Activity: May Not Drive (3-5 days) and May Shower Lifting Restrictions: No lifting greater than 20 pounds for 4 weeks Call your doctor if your incision/area has: Continuous Slow Oozing, Sudden Increased Bleeding, Increased Pain/ Swelling, Increased Redness, Foul Smelling Discharge and Swelling at the incision site Call your doctor if you observe: Fever of 101 or Higher Suture Line Care: Avoid Pulling/Pushing and Avoid Pinching/Bending Remove Dressing in: 2 days Cleanse incision/area with: Soap & Water Please Follow Up With: Yudy Woodall MD When: You are scheduled for a follow-up appointment with Dr. Woodall on 07/06/24 at 13:50 pm. Please contact our office at [phone], option #2, if any questions or concerns Meaningful Use Info Meaningful Use Meaningful Use Diagnoses (Choose all that apply): None applicable Ischemic Stroke Statin Dosing Therapy Reference: STATIN DOSE THERAPY REFERENCE: * Patients > 75 years receive moderate or high dose statin therapy. * Patients 75 years or YOUNGER should receive HIGH intensity statin dose unless contraindicated. You will be required to document reason for non-treatment if statin daily dose does not meet guidelines. HIGH DOSE STATIN THERAPY DAILY Atorvastatin > than or = to 40 mg Rosuvastatin > than or = to 20 mg Amlodipine + Atorvastatin > than or = to 2.5/40 mg Ezetimibe + Simvastatin 10/80 mg Simvastatin 80mg Discharge Plan Admission Admit Date/Time: 06/29/24 09:57 Primary Reason for Your Visit: colon cancer metastasized to the liver Attending Provider: Yudy Woodall Primary Care Provider: Marco Antonio Arevalo [employer] Providers: Oscar Rodriguez Instructions Additional Instructions / Restrictions: Colectomy Diet ? Start light with soups and soft bland foods. Refer to your transitional diet instruction sheet Activity ? You may drive in 3-5 days but not while taking narcotic pain medication. ? I encourage walking. You may go up steps, one at a time. ? Do not swim or use hot tubs for 2 weeks. Lifting ? You may lift up to 20 pounds for 4 weeks. Dressings/Incision ? You may shower OVER your plastic dressings ? Do NOT tub bathe for 1 week ? Leave plastic dressings on for 2 days. ? When plastic dressings are removed, you will find steri strips. It is okay to continue showering with them in place, pat them dry. ? You may remove steri-strips after 1 week. We recommend getting them soaking wet for easier removal. Medications ? Anesthesia used during surgery and pain medications may cause constipation. I recommend initiating on the day of surgery a fiber supplement like, Metamucil, Citrucel, FiberCon, Benefiber, or a generic form of these medications. 1 heaping tablespoon in water daily. You may continue to utilize any bowel regimen or oral laxatives that you routinely take. ? As long as you are not intolerant to Tylenol, acetaminophen, ibuprofen, Motrin, Advil, Aleve, or similar medications, I would recommend transitioning to these rilb-iam-obzzulo medicines as soon as possible instead of continued use of narcotic pain medication. Follow up ? You should call [facility] soon after surgery, at [phone] option 1 to make a follow up appointment for 7 days after your surgery Transitional Diet Beverages: ? Soda (cola, diet cola, lemon-asa'carsarmiut, diet lemon-asa'carsarmiut, anam andreia, diet anam andreia) ? Tea (hot or iced) ? Milk (low-fat, 2%, lactose free) ? Coffee ? Juice (without pulp) ? Oral Nutrition supplement Breakfast: ? Hot cereal (oatmeal or cream of wheat) ? Scrambled eggs ? Blueberry muffin ? Cold cereal (no whole grain cereals) ? [place] (white) Lunch or Dinner: Deli Items: Hot Items: [place] sandwich Roast [place] Tuna salad (sandwich or alone) Macaroni & Cheese Egg salad (sandwich or alone) Mashed potatoes & gravy Chicken salad (sandwich or alone) Carrots Green beans Cold Sides: Soups: Cottage cheese Vegetable soup Yogurt Chicken noodle Hardboiled egg Dessert: ? Gelatin, pudding, side kick (juice slushie) Discharge Orders/Prescriptions Prescriptions: Continued hydrochlorothiazide 12.5 mg tablet 12.5 mg PO DAILY 30 Days Qty: 30 Patient Comments: TAKE 1 TABLET BY MOUTH EVERY DAY cholecalciferol (vitamin D3) 25 mcg (1,000 unit) capsule 25 mcg PO DAILY meloxicam 7.5 mg tablet 7.5 mg PO BID PRN (Reason: pain) Qty: 180 3RF amlodipine 5 mg tablet 5 mg PO QHS Patient Comments: BP timolol maleate 1 DROP gel forming solution 1 drp EACH EYE BID Patient Comments: EYE DROP acetaminophen 650 MG tablet extended release 650 mg PO DAILY PRN (Reason: Pain/Inflammation) losartan 100 MG tablet 100 mg PO DAILY potassium chloride 10 MEQ tablet 10 meq PO DAILY metoprolol tartrate 25 MG tablet 25 mg PO BID anastrozole 1 mg tablet 1 mg PO DAILY Rx Instructions: TAKE 1 TABLET EVERY DAY fenofibrate 160 mg tablet 160 mg PO QHS Rx Instructions: TAKE 1 TABLET AT BEDTIME metronidazole 500 mg tablet 500 mg PO .COMPLEX Qty: 6 0RF Rx Instructions: 500 mg PO Take 2 (two) tablets at 1300, 1500, 2300 neomycin 500 mg tablet 500 mg PO .COMPLEX Qty: 6 0RF Rx Instructions: Take two (2) 500 mg tablets PO at 1300, 1500, 2300 Referrals / Follow Up: Marco Antonio Arevalo Chi, MD [Primary Care Provider] - Yudy Woodall MD [Med Staff - Active Staff] - 07/06/24 1:50 pm Disposition Disposition (needs filled in before D/C Order can be placed): Home, Self Care Charges/Coding Visit Charges Inpatient E&M: 19920 Disch Hosp >30min (no charge; post-op)
--- NOTE | 2024-07-01 11:35 | CASEMGMT ---
RN CM into pt room, pt denies any homegoing needs and feels ready to dc today.
--- NOTE | 2024-07-01 11:52 | PHA.DC.MR.R ---
Pharmacy IN Med Reconciliation Pharmacy Service has performed discharge medication reconciliation for this patient. The patient's discharge medication list was reviewed for discrepancies and discrepancies were resolved. Medications at Discharge Home Medications timolol maleate 0.5 % eye gel forming solution 1 drp EACH EYE BID EYE 06/13/16 hydrochlorothiazide 12.5 mg tablet 12.5 mg PO DAILY BP 30 days ##30 12/12/17 amlodipine 5 mg tablet 5 mg PO QHS BP 04/21/18 cholecalciferol (vitamin D3) 25 mcg (1,000 unit) capsule 25 mcg PO DAILY SUPPLEMENT 03/30/20 acetaminophen 650 mg tablet,extended release 650 mg PO DAILY PRN Pain/Inflammation 08/28/20 losartan 100 mg tablet 100 mg PO DAILY BP 08/28/20 metoprolol tartrate 25 mg tablet 25 mg PO BID BP 08/28/20 potassium chloride 10 mEq tablet,extended release(part/cryst) 10 meq PO DAILY SUPPLEMENT 08/28/20 meloxicam 7.5 mg tablet 7.5 mg PO BID PRN pain #180 tabs 02/23/24 anastrozole 1 mg tablet 1 mg PO DAILY BREAST CANCER 06/11/24 fenofibrate 160 mg tablet 160 mg PO QHS CHOLESTEROL 06/24/24 metronidazole 500 mg tablet 500 mg PO .COMPLEX pre-op #6 tabs 06/28/24 neomycin 500 mg tablet 500 mg PO .COMPLEX pre-op antibiotics #6 tabs 06/28/24
[2024-07-01 14:22] VITALS: BP 147/79; PULSE 64; RESP 16; TEMP 36.6; O2SAT 96
== END 2024-07-01 14:55 | disposition home or self-care (01) | DRG 330 ==
PROVIDERS: Anesthesiology; Physician Assistant; Admitting Provider Surgery; PCP Family Medicine Geriatric Medicine; Referring Provider Surgery; Visit Provider Surgery
PROC: 0DTF4ZZ Resection of Right Large Intestine, Percutaneous Endoscopic Approach (ICD-10-PCS; CPT 44205; principal; 2024-06-29 07:10)
DX: C18.0 Malignant neoplasm of cecum (principal); K56.699 Other intestinal obstruction unspecified as to partial versus complete obstruction; C78.7 Secondary malignant neoplasm of liver and intrahepatic bile duct; E11.9 Type 2 diabetes mellitus without complications; I10 Essential (primary) hypertension; E78.00 Pure hypercholesterolemia, unspecified; Z80.3 Family history of malignant neoplasm of breast; Z90.710 Acquired absence of both cervix and uterus; Z23 Encounter for immunization
CPT/HCPCS: 36415; 80048; 81002; 82962; 83036; 83735; 85025; 85027; 88309; 88341; 88342; 90662; 94668; 97162; 97166; J7040; J7120; C1760; J2405; J3490

== ENCOUNTER → 2024-08-12 | Outpatient (CLI) | payer MEDICARE, SELFPAY ==
[2019-05-17 09:04] VITALS: BMI 29.3
--- NOTE | 2024-08-12 12:22 | ECHOD_ITS ---
Version 2 Reason For Study: Murmur Procedure This was a 2D Doppler, Color Flow transthoracic echocardiogram. Exam performed in department. Left Ventricle Normal LV size. Left ventricular systolic function is normal. The left ventricular ejection fraction is 55 %. Stage 1 diastolic dysfunction. No regional wall motion abnormalities noted. Right Ventricle Normal RV size. Normal systolic function. Atria Normal left atrium. Normal right atrium. Mitral Valve Normal mitral valve. Mild (1+) eccentric mitral valve insufficiency. Tricuspid Valve Normal tricuspid valve. Mild (1+) tricuspid valve insufficiency. Pulmonary artery systolic pressure is 30 mmHg. Aortic Valve Bioprosthetic aortic valve. Pulmonic Valve Normal pulmonic valve. Great Vessels Normal aortic root. The pulmonary artery is normal size. Normal inferior vena cava. Pericardium/Pleural No pericardial effusion. MMode/2D Measurements & Calculations LVIDd: 4.5 cm IVSd: 1.2 cm Ao root diam: 3.4 cm LVIDs: 3.1 cm LVPWd: 1.1 cm RVDd: 3.7 cm FS: 30.5 % LAV(MOD-bp): 83.9 ml LVAd ap4: 28.0 cm2 SV(MOD-sp4): 54.6 ml LAV(MOD-bp) Indexed: 46.6 ml/m2 LVLd ap4: 7.7 cm SI(MOD-sp4): 30.4 ml/m2 LAV(MOD-sp2): 66.3 ml EDV(MOD-sp4): 83.8 ml LAV(MOD-sp4): 89.2 ml EDV(sp4-el): 86.5 ml LVAs ap4: 15.3 cm2 LVLs ap4: 6.7 cm ESV(MOD-sp4): 29.2 ml ESV(sp4-el): 29.7 ml EF(MOD-sp4): 65.1 % EF(sp4-el): 65.7 % SV(sp4-el): 56.8 ml LA A4 area: 27.0 cm2 LA dimension(2D): 4.8 cm RA A4 area: 26.1 cm2 TAPSE: 2.3 cm Time Measurements MV dec time: 0.14 sec Doppler Measurements & Calculations MV E max deniz: 96.7 cm/sec Lat Peak E' Deniz: 9.7 cm/sec Med Peak E' Deniz: 7.3 cm/sec MV A max deniz: 99.3 cm/sec E/E' lat: 10.0 E/E' med: 13.3 MV E/A: 0.97 MV V2 max: 130.9 cm/sec MV P1/2t max deniz: 109.5 cm/sec Ao V2 max: 143.6 cm/sec MV max P.9 mmHg MV P1/2t: 52.9 msec Ao max P.2 mmHg MV V2 mean: 71.6 cm/sec Ao V2 mean: 97.6 cm/sec MV mean P.4 mmHg MV dec slope: 606.3 cm/sec2 Ao mean P.3 mmHg MV V2 VTI: 40.3 cm MVA(P1/2t): 4.2 cm2 Ao V2 VTI: 40.7 cm AV (velocity ratio): 0.62 LV V1 max: 93.6 cm/sec PA V2 max: 72.8 cm/sec TR max deniz: 263.3 cm/sec LV V1 max P.5 mmHg TR max P.7 mmHg LV V1 mean P.1 mmHg LV V1 mean: 68.0 cm/sec LV V1 VTI: 25.4 cm ECHO/Echo Complete Interpretation Summary Normal LV size. Left ventricular systolic function is normal. The left ventricular ejection fraction is 55 %. Mild (1+) eccentric mitral valve insufficiency. Stage 1 diastolic dysfunction. Ordering Physician: Abena Artis Referring Physician: Abena Artis Performed By: Aime Marsh RCS
== END | disposition home or self-care (01) ==
LOC: CVS 12:20
PROVIDERS: PCP Family Medicine Geriatric Medicine; Referring Provider Physician Assistant Medical; Visit Provider Physician Assistant Medical
DX: Z98.890 Other specified postprocedural states (principal); Z86.79 Personal history of other diseases of the circulatory system
CPT/HCPCS: 93306

== ENCOUNTER → 2024-08-24 | Outpatient (CLI) | payer MEDICARE, SELFPAY ==
[2019-05-17 09:04] VITALS: BMI 29.3
[2024-08-24 11:07] LABS: Absolute Lymphocyte Count 1.59 X10^3/uL (0.83-4.51); Absolute Neutrophil Count 3.8 X10^3/uL (2.0-7.7); Basophil# 0.04 X10^3/uL; Basophil% 0.6 % (0-1); Eosinophil# 0.21 X10^3/uL; Eosinophils% 3.3 % (0-5); Hematocrit 31.6 % (37-47); Hemoglobin 9.3 g/dL (12.0-15.0); Lymphocyte # 1.59 X10^3/ul (0.83-4.51); Lymphocyte % 25.4 % (19-41); Mean Corp Hgb Conc 29.4 g/dL (32-36); Mean Platelet Vol. 10.7 fl (6.2-12.0); Monocyte# 0.63 X10^3/uL; NRBC Flagged by Analyzer 0 % (0-5); Neutrophil # 3.78 X10^3/uL (2.7-7.7); Neutrophil % 60.4 % (47-70); Platelet Count 353 K/mm3 (150-450); RBC Distribution Width CV 17.7 % (11.6-14.6); RBC Distribution Width SD 49.4 fl (35.1-43.9); Red Blood Count 4.05 M/mm3 (4.2-5.4); White Blood Count 6.3 K/mm3 (4.4-11.0)
[2024-08-24 11:36] LABS: Vitamin D,25 Hydroxy 26.3 ng/mL
[2024-08-24 11:43] LABS: ALB/GLOB Ratio 0.9 RATIO (0.9-2.4); AST(SGOT) 21 U/L (15-37); Alanine Aminotransfer ALT/SGPT 19 U/L (13-56); Albumin, Serum 3.7 g/dL (3.2-5.0); Alkaline Phosphatase 39 U/L (45-117); Anion Gap 7 (5-15); BUN 22 mg/dL (7-18); BUN/Creat Ratio 32.9 RATIO (10-20); Chloride 109 mmol/L (98-107); Cholesterol 164 mg/dL (200); Creatinine, Serum 0.67 mg/dL (0.55-1.02); EST Glomerular Filtration Rate 90 mL/min (>60); Est Glom Filt Rate - Afr Amer 108 mL/min (>60); Globulin 3.9 g/dL (2.2-4.2); Glucose 97 mg/dL (74-106); High Density Lipoprotein 55 mg/dL; Potassium 4.1 mmol/L (3.5-5.1); Protein, Total 7.6 g/dL (6.4-8.2); Sodium Level 141 mmol/L (136-145); Triglycerides 138 mg/dL; Very Low Density Lipoprotein 28 mg/dL (5-40)
== END | disposition home or self-care (01) ==
LOC: POLAB3 10:51
PROVIDERS: PCP Family Medicine Geriatric Medicine; Visit Provider Family Medicine Geriatric Medicine
DX: I10 Essential (primary) hypertension (principal); E78.5 Hyperlipidemia, unspecified; E55.9 Vitamin D deficiency, unspecified
CPT/HCPCS: 36415; 80053; 80061; 82306; 84443; 85025

== ENCOUNTER 2024-10-08 08:42 | Day surgery (SDC) | payer MEDICARE, SELFPAY ==
[2019-05-17 09:04] VITALS: BMI 29.3
--- NOTE | 2024-10-07 14:26 | PAT.ANESEVAL ---
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 When Was Last Pacemaker Check QUESTION #4 FULL TEXT: You/Your Family Experience fever (hyperthermia) with Anesthesia Last Oral Intake Last Oral intake: Last Oral Intake NPO since Meds taken in AM with sips of water? Meds patient instructed to take am of surgery PONV PONV - business technology architect: PONV - business technology architect Female Yes 10/07/24 08:12 HX of Motion Sickness No 10/07/24 08:12 HX of N/V After Surgery No 10/07/24 08:12 Non-Smoker Yes 10/07/24 08:12 Duration of Surgery greater Yes 10/07/24 08:12 than 60 minutes Number of Risk Factors 3 10/07/24 08:12 PONV Score Moderate Risk 10/07/24 08:12 Height & Weight Height & Weight: Anesthesia: Height & Weight Height 5 ft 5 in 10/07/24 11:35 Weight: 71.668 kg 10/07/24 11:35 Respiratory Assessment Respiratory Assessment - business technology architect: Respiratory Tract Infection Hx - business technology architect Hx Respiratory Tract Infection No 10/07/24 08:12 STOP Sleep Apnea STOP Sleep Apnea - business technology architect: STOP Sleep Apnea - business technology architect Hx Hypertension Yes: PER PT, CONTROLLED ON 10/07/24 08:12 MEDS Hx Sleep Apnea No 10/07/24 08:12 CPAP No 10/07/24 08:12 BIPAP No 10/07/24 08:12 Do you snore loudly (louder No 10/07/24 08:12 than talking or can be heard Do you often feel tired/ No 10/07/24 08:12 fatigued/ sleepy during daytime? Has anyone observed you stop No 10/07/24 08:12 breathing during sleep? STOP Results Negative 10/07/24 08:12 QUESTION #5 FULL TEXT : Do you snore loudly (louder than talking or can be heard through closed doors)? Tobacco Use History Tobacco Use History - business technology architect: Tobacco Use History - business technology architect Tobacco Use Smoking Status Never smoker 10/07/24 08:12 Hx Tobacco Use No 10/07/24 08:12 Years Smoking Packs Smoked per Day Smoking Cessation Date was within the last 15 years Hx Smoking Cessation Date Hx Smoking Cessation Counseling Hematologic Medial History Hematologic Hx - business technology architect: Hematologic Medical Hx - chef head Hx of Blood Transfusion No 10/07/24 08:12 Hx of Transfusion in last 3 No 10/07/24 08:12 Months Date of Last Transfusion (if within last 3 months) Ever experience any problems No 10/07/24 08:12 with transfusion(s)? Specify any problems Hx of Preganancy in last 3 No 10/07/24 08:12 Months Nurse Filling Out Transfusion MGRIFFITH 10/07/24 08:12 & Questions: Date: 10/07/24 10/07/24 08:12 Time: 08:15 10/07/24 08:12 Patient unable to answer at this time (ie. confused, unrespo /Reproduction History /Reproductive History - business technology architect: /Reproductive Hx- business technology architect Hx Now No 10/07/24 08:12 Gestational Age (in weeks): EDC: Hx Hx Para Hx Section SAB No 10/07/24 08:12 Active Medications Active Medications: Current Medications Generic Name Dose Route Start Last Admin Trade Name Freq PRN Reason Stop Dose Admin Cefazolin Sodium 2 gm/ N/A 20 mls @ 400 mls/hr 10/08/24 10:30 IV 10/08/24 10:32 PREOP ONE PFS Medical History (Updated 10/07/24 @ 09:[address] Yudy Woodall MD) History of neuropathy Walker as ambulation aid Easy bruising Non-smoker Post-menopausal History of steroid therapy Neuropathy Liver lesion, right lobe Cholelithiasis Wears glasses Wears dentures Cancer Ambulates with cane Arthritis High cholesterol Back pain History of irregular heartbeat History of transesophageal echocardiography ([place]ENRIQUE) History of echocardiogram Hypertension Cardiology follow-up encounter Hypertriglyceridemia 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 Breast cancer, right Essential hypertension Breast cancer, left Cardiac murmur Pulmonary hypertension Abnormal findings on diagnostic imaging of heart and coronary circulation Aortic valve disease Paroxysmal supraventricular tachycardia by electrocardiogram (ECG) Supraventricular tachycardia Acquired left ventricular hypertrophy Hypertension Diabetes 1.5, managed as type 2 Home Medications ?Medication ?Instructions ?Recorded ?Last Taken ?Type timolol maleate 0.5 % eye gel 1 drp EACH EYE BID EYE 06/13/16 06/29/24 History forming solution hydrochlorothiazide 12.5 mg tablet 12.5 mg PO DAILY BP 30 days ##30 12/12/17 06/28/24 History cholecalciferol (vitamin D3) 25 25 mcg PO DAILY SUPPLEMENT 03/30/20 06/28/24 History mcg (1,000 unit) capsule metoprolol tartrate 25 mg tablet 25 mg PO BID BP 08/28/20 06/29/24 History potassium chloride 10 mEq 10 meq PO DAILY SUPPLEMENT 08/28/20 06/28/24 History tablet,extended release(part/cryst) meloxicam 7.5 mg tablet 7.5 mg PO BID PRN pain #180 tabs 02/23/24 Unknown Rx fenofibrate 160 mg tablet 160 mg PO QHS CHOLESTEROL 06/24/24 06/28/24 History acetaminophen 500 mg capsule 1,000 mg PO Q6H PRN pain 10/07/24 Unknown History Allergy/AdvReac Type Severity Reaction Status Date / Time oxycodone (From Percocet) AdvReac Severe Itching Verified 10/07/24 08:09 Family History Brother CAD (coronary artery disease) Brother Diabetes Mother Diabetes Hypertension Father Hypertension CVA (cerebral vascular accident) Sister Breast cancer Surgical History (Updated 10/07/24 @ 08:23 by Deneen Sin) S/P colectomy Hx of colonoscopy History of lumpectomy of right breast H/O total knee replacement Status post total right knee replacement History of partial mastectomy of right breast (~05/07/19) History of aortic valve repair (~09/27/16) History of total left hip replacement History of total right hip replacement History of hysterectomy (~10/10/14) Status post left breast lumpectomy H/O aortic valve replacement Social History Smoking Status: Never smoker alcohol intake: never substance use type: does not use caffeine: Yes Type: coffee Number of servings: 1 what type of physical activity do you participate in: none seatbelt use: always do you feel safe at home: Yes Audit: Pertinent Findings Pertinent Findings EKG Perinent findings: May 08, 2024. Normal sinus rhythm with sinus arrhythmia. Minimal voltage criteria for LVH. Possible anterior infarct(Seen April 2021). Echo (EF%) pertinent findings: August 12, 2024. Ejection fraction is 55%. PA systolic pressure is 30 mmHg. Bioprosthetic aortic valve. No stenosis is noted. Consult pertinent findings: April 08, 2024. Chandra ZAPATA. 1. Supraventricular tachycardia-chronic problem currently stable. Continue current dose of metoprolol. 2. 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 Currently stable. Continue to monitor by serial echocardiograms as appropriate. Continue antibiotic prophylaxis. Check echo to evaluate stability. 3. Hypertension-blood pressure is controlled at home. Elevated in office. Continue current antihypertensives. Recommendation Anesthesia Recommendation Anesthesia recommendation: OPTIMIZED for anesthesia
[2024-10-08] VITALS (7 sets, daily range): BP systolic 114–175; BP diastolic 54–70; PULSE 58–69; RESP 14–16; TEMP 36.8–37; O2SAT 97–100; BMI 27.1
--- NOTE | 2024-10-08 09:17 | PCM.PRE.AN2 ---
ASA Classification* ASA Classification ASA Classification: 3 Assessment & Plan Anesthesia* Anesthesia Assessment Anesthesia Assessment: Discussed sedation and/or anesthesia options, risks, benefits, and alternatives with patient/parents/legal guardian/POA. Questions invited. The patient/parents/legal guardian/POA seems to understand and agrees to proceed with anesthesia plan. Reviewed the physical assessment, medical history, allergy history and patient home medications list prior to surgery/procedure/anesthetic and documented any changes. Performed airway and anesthesia risk assessments. Anesthesia Type Anesthesia Type: MAC Anesthesia Focused Assessment* Temperature: 98.6 F Pulse Rate: 69 Blood Pressure: 175/63 Respiratory Rate: 16 Pulse Ox: 98 Airway Assessment Mouth opens: >3 cm Mallampati Score: II Focused Labs Anesthesia Preop lab: CBC WBC 6.3 K/mm3 (4.4-11.0) 08/24/24 10:51 08/24/24 RBC 4.05 M/mm3 (4.2-5.4) L 08/24/24 10:51 08/24/24 Hgb 9.3 g/dL (12.0-15.0) L 08/24/24 10:51 08/24/24 Hct 31.6 % (37-47) L 08/24/24 10:51 08/24/24 Plt Count 353 K/mm3 (150-450) 08/24/24 10:51 08/24/24 CHEMISTRY Potassium 4.1 mmol/L (3.5-5.1) 08/24/24 10:51 08/24/24 Sodium 141 mmol/L (136-145) 08/24/24 10:51 08/24/24 Magnesium 1.7 mg/dL (1.6-2.6) 06/25/24 11:56 06/25/24 Phosphorus 3.3 mg/dL (2.5-4.9) 05/09/24 07:32 05/09/24 BUN 22 mg/dL (7-18) H 08/24/24 10:51 08/24/24 Creatinine 0.67 mg/dL (0.55-1.02) 08/24/24 10:51 08/24/24 Glucose 97 mg/dL (74-106) 08/24/24 10:51 08/24/24 POC Glucose 120 mg/dL (74-106) H 11/05/24 06:07 06/29/24 TSH 2.150 uIU/mL (0.358-3.740) 08/24/24 10:51 08/24/24 COAG PT 15.6 SECONDS (11.7-14.9) H 05/11/24 07:01 05/11/24 Pre-Assessment Diagnosis/Proposed Procedure Planned Operative Procedure(s): (R) Insertion, Vascular Port right poss left Anesthesia History Anesthesia History - ms sql developer: Anesthesia History - ms sql developer Hx Hospitalization Yes: 06/2024 COLECTOMY 10/07/24 08:12 Any Problems With Anesthesia No 10/07/24 08:12 Cholinesterase deficiency No 10/07/24 08:12 You/Your Family Experience No 10/07/24 08:12 fever (hyperthermia) with Relationship Recent Exposure to Contagious No 10/08/24 09:10 Disease Does patient have nerve No 10/07/24 08:12 stimulator Patient instructed to have device shut off --Does patient have Pacemaker No 10/08/24 09:10 or ICD? When Was Last Pacemaker Check QUESTION #4 FULL TEXT: You/Your Family Experience fever (hyperthermia) with Anesthesia Last Oral Intake Last Oral intake: Last Oral Intake NPO since 00:00 10/08/24 09:10 Meds taken in AM with sips of Yes 10/08/24 09:10 water? Meds patient instructed to take am of surgery PONV PONV - ms sql developer: PONV - ms sql developer Female Yes 10/07/24 08:12 HX of Motion Sickness No 10/07/24 08:12 HX of N/V After Surgery No 10/07/24 08:12 Non-Smoker Yes 10/07/24 08:12 Duration of Surgery greater Yes 10/07/24 08:12 than 60 minutes Number of Risk Factors 3 10/07/24 08:12 PONV Score Moderate Risk 10/07/24 08:12 Height & Weight Height & Weight: Anesthesia: Height & Weight Height 5 ft 4 in 10/08/24 09:10 Weight: 71.668 kg 10/08/24 09:10 Body Mass Index (BMI) 27.1 10/08/24 09:10 Respiratory Assessment Respiratory Assessment - ms sql developer: Respiratory Tract Infection Hx - ms sql developer Hx Respiratory Tract Infection No 10/07/24 08:12 STOP Sleep Apnea STOP Sleep Apnea - ms sql developer: STOP Sleep Apnea - ms sql developer Hx Hypertension Yes: PER PT, CONTROLLED ON 10/07/24 08:12 MEDS Hx Sleep Apnea No 10/07/24 08:12 CPAP No 10/07/24 08:12 BIPAP No 10/07/24 08:12 Do you snore loudly (louder No 10/07/24 08:12 than talking or can be heard Do you often feel tired/ No 10/07/24 08:12 fatigued/ sleepy during daytime? Has anyone observed you stop No 10/07/24 08:12 breathing during sleep? STOP Results Negative 10/07/24 08:12 QUESTION #5 FULL TEXT : Do you snore loudly (louder than talking or can be heard through closed doors)? 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 Specify any problems Hx of Preganancy in last 3 No 10/07/24 08:12 Months Nurse Filling Out Transfusion MGRIFFITH 10/07/24 08:12 & Questions: Date: 10/07/24 10/07/24 08:12 Time: 08:15 10/07/24 08:12 Patient unable to answer at this time (ie. confused, unrespo /Reproduction History /Reproductive History - ms sql developer: /Reproductive Hx- ms sql developer Hx Now No 10/07/24 08:12 Gestational Age (in weeks): EDC: Hx Hx Para Hx Section SAB No 10/07/24 08:12 Active Medications Active Medications: Current Medications Generic Name Dose Route Start Last Admin Trade Name Freq PRN Reason Stop Dose Admin Cefazolin Sodium 2 gm/ N/A 20 mls @ 400 mls/hr 10/08/24 10:30 IV 10/08/24 10:32 PREOP ONE PFSH Medical History History of neuropathy Walker as ambulation aid Easy bruising Non-smoker Post-menopausal History of steroid therapy Neuropathy Liver lesion, right lobe Cholelithiasis Wears glasses Wears dentures Cancer Ambulates with cane Arthritis High cholesterol Back pain History of irregular heartbeat History of transesophageal echocardiography (HENRIQUE) History of echocardiogram Hypertension Cardiology follow-up encounter Hypertriglyceridemia 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 Breast cancer, right Essential hypertension Breast cancer, left Cardiac murmur Pulmonary hypertension Abnormal findings on diagnostic imaging of heart and coronary circulation Aortic valve disease Paroxysmal supraventricular tachycardia by electrocardiogram (ECG) Supraventricular tachycardia Acquired left ventricular hypertrophy Hypertension Diabetes 1.5, managed as type 2 Home Medications ?Medication ?Instructions ?Recorded ?Last Taken ?Type timolol maleate 0.5 % eye gel 1 drp EACH EYE BID EYE 06/13/16 06/29/24 History forming solution hydrochlorothiazide 12.5 mg tablet 12.5 mg PO DAILY BP 30 days ##30 12/12/17 06/28/24 History cholecalciferol (vitamin D3) 25 25 mcg PO DAILY SUPPLEMENT 03/30/20 06/28/24 History mcg (1,000 unit) capsule metoprolol tartrate 25 mg tablet 25 mg PO BID BP 08/28/20 10/08/24 History potassium chloride 10 mEq 10 meq PO DAILY SUPPLEMENT 08/28/20 06/28/24 History tablet,extended release(part/cryst) meloxicam 7.5 mg tablet 7.5 mg PO BID PRN pain #180 tabs 02/23/24 Unknown Rx fenofibrate 160 mg tablet 160 mg PO QHS CHOLESTEROL 06/24/24 06/28/24 History acetaminophen 500 mg capsule 1,000 mg PO Q6H PRN pain 10/07/24 Unknown History Allergy/AdvReac Type Severity Reaction Status Date / Time oxycodone (From Percocet) AdvReac Severe Itching Verified 10/08/24 09:09 Family History Brother CAD (coronary artery disease) Brother Diabetes Mother Diabetes Hypertension Father Hypertension CVA (cerebral vascular accident) Sister Breast cancer Surgical History S/P colectomy Hx of colonoscopy History of lumpectomy of right breast H/O total knee replacement Status post total right knee replacement History of partial mastectomy of right breast (~05/07/19) History of aortic valve repair (~09/27/16) History of total left hip replacement History of total right hip replacement History of hysterectomy (~10/10/14) Status post left breast lumpectomy H/O aortic valve replacement Social History Smoking Status: Never smoker alcohol intake: never substance use type: does not use caffeine: Yes Type: coffee Number of servings: 1 what type of physical activity do you participate in: none seatbelt use: always do you feel safe at home: Yes Review of Systems (Anesthesia) ROS Narrative System reviewed and no additional complaints, except as documented.
--- NOTE | 2024-10-08 09:20 | PCM.HP.BLA ---
History and Physical Date of Admission: 10/08/24 Date of Service: 10/06/24 MR#: [id number] Acct: [id number] Name: ANABELA CAMARA Rep #: [id number] : 1940 Provider: Dr. Yuyd Woodall MD Age/Sex: 83/F Location: [facility] Status: Signed Intake Vital Signs 08/16/2410:59 10/06/2512:32 Height 5 ft 5 in 5 ft 5 in Weight: 157 lb 4 oz 158 lb 6 oz BMI 26.2 26.3 BP 153/73 H 158/81 H Blood Pressure Location Lt brachial Rt brachial Position Sitting Sitting Respiration 18 18 Pulse 65 72 Pulse Source Monitor Monitor Temp 97.6 F L 97.6 F L Temp Source Temporal Pulse Oximetry (%) 96 99 Oxygen Delivery Method room air room air Intake Visit Reasons: PORT PLACEMENT Chief Complaint: port placement Accompanied by: Daughter Is patient in pain?: No Allergies oxycodone (From Percocet) Adverse Reaction (Severe, Verified 10/07/24 08:09) Itching Medications ?Medication ?Instructions ?Recorded ?Confirmed ?Type timolol maleate 0.5 % eye gel 1 drp EACH EYE BID EYE 06/13/16 10/07/24 History forming solution hydrochlorothiazide 12.5 mg tablet 12.5 mg PO DAILY BP 30 days ##30 12/12/17 10/07/24 History cholecalciferol (vitamin D3) 25 25 mcg PO DAILY SUPPLEMENT 03/30/20 10/07/24 History mcg (1,000 unit) capsule metoprolol tartrate 25 mg tablet 25 mg PO BID BP 08/28/20 10/07/24 History potassium chloride 10 mEq 10 meq PO DAILY SUPPLEMENT 08/28/20 10/07/24 History tablet,extended release(part/cryst) meloxicam 7.5 mg tablet 7.5 mg PO BID PRN pain #180 tabs 02/23/24 10/07/24 Rx fenofibrate 160 mg tablet 160 mg PO QHS CHOLESTEROL 06/24/24 10/07/24 History acetaminophen 500 mg capsule 1,000 mg PO Q6H PRN pain 10/07/24 10/07/24 History Have you fallen in the past year?: No [facility] Medical History (Updated 10/07/24 @ 09:[address] Yudy Woodall MD) History of neuropathy Walker as ambulation aid Easy bruising Non-smoker Post-menopausal History of steroid therapy Neuropathy Liver lesion, right lobe Cholelithiasis Wears glasses Wears dentures Cancer Ambulates with cane Arthritis High cholesterol Back pain History of irregular heartbeat History of transesophageal echocardiography (HENRIQUE) History of echocardiogram Hypertension Cardiology follow-up encounter Hypertriglyceridemia 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 Breast cancer, right Essential hypertension Breast cancer, left Cardiac murmur Pulmonary hypertension Abnormal findings on diagnostic imaging of heart and coronary circulation Aortic valve disease Paroxysmal supraventricular tachycardia by electrocardiogram (ECG) Supraventricular tachycardia Acquired left ventricular hypertrophy Hypertension Diabetes 1.5, managed as type 2 Surgical History (Updated 10/07/24 @ 08:23 by Deneen Sin) S/P colectomy Hx of colonoscopy History of lumpectomy of right breast H/O total knee replacement Status post total right knee replacement History of partial mastectomy of right breast (~05/07/19) History of aortic valve repair (~09/27/16) History of total left hip replacement History of total right hip replacement History of hysterectomy (~10/10/14) Status post left breast lumpectomy H/O aortic valve replacement Family History Brother CAD (coronary artery disease)Brother DiabetesMother Diabetes HypertensionFather Hypertension CVA (cerebral vascular accident)Sister Breast cancer Social History Smoking Status: Never smoker alcohol intake: never substance use type: does not use caffeine: Yes Type: coffee Number of servings: 1 what type of physical activity do you participate in: none seatbelt use: always do you feel safe at home: Yes HPI HPI HPI: 83-year-old female presents for port placement due to metastatic colon cancer to the liver. Patient is seeing Dr. Chavis hoping to start next week. ROS General General: Yes breast cancer; No weight change, appetite, fatigue, colon cancer or weakness HEENT HEENT: Yes eye surgery; No difficulty swallowing, eye injury, swollen glands or hoarseness Endo Endocrine: Yes diabetes mellitus; No thyroid disease, thyroid cancer, Hair loss, heat intolerance or cold intolerance Skin Skin: No rash or changing moles Musc Musculoskeletal: Yes arthritis; No back problems, rheumatoid arthritis, gout or joint pain Cardio Cardiovascular: Yes heart disease and high blood pressure; No murmur, pacemaker, atrial fibrillation, heart attack, heart stent, palpitations, shortness of breat with exertion or chest pain Psych Psychiatric: No depression, anxiety or hearing voices Resp Respiratory: No shortness of breath, No sleep apnea, No cough, No COPD, No asthma, No emphysema and No wheezing Gastro Gastrointestinal: No abdominal pain, No nausea or vomiting, No diarrhea, No constipation, No blood in stool, No acid reflux, No hemorrhoids, No ulcers, No gallbladder problem and No black,tarry stools Jean Hematologic: No blood thinners, No blood disorders, No bleeding, No anemia and No blood clots Neuro Neurologic: No system reviewed and no additional complaints, except as documented, No as per HPI, No abnormal gait, No abnormal hearing, No abnormal movements, No abnormal speech, No behavioral changes, No burning sensations, No confusion, No convulsions, No disequilibrium, No dizziness, No localized weakness, No frequent falls, No headache(s), No lack of coordination, No loss of vision, No memory loss, Yes numbness, No other visual disturbances, No radicular pain, No restless legs, No sensory deficit, No syncope, Yes tingling, No tremor(s), No weakness and No other Exam Const General: cooperative, healthy appearing, comfortable and no acute distress [facility] Head: normocephalic and atraumatic Neck Neck: supple Chest Other: Palpation upper chest normal Resp Effort & Inspection: normal respiratory effort Cardio Rate: regular rate GI Inspection: non-distended Palpation: soft, no hernias and nontender Skin General: no rashes or lesions noted Neuro General: CN's II-XI intact bilaterally Extrem General: normal to inspection Psych Mental Status: mental status grossly normal Attitude: cooperative Assessment and Plan Assessment and Plan (1) Encounter for insertion of venous access port: Status: Acute (2) Colon cancer metastasized to liver: Status: Acute Comment: Stage IV colon cancer(pT3 pN2a pM1) with liver metastasis, TMB-high, MSI stable, ERBB2 positive, KRAS negative, POLE negative, POLD1 negative, BRAF negative. Has a solitary metastasis in Liver on PET/CT, activity in sternum is due to previous heart surgery. Discussed further management with Surgery, SBRT, chemoembolization/radio-embolization, vs chemotherapy again. Pt is interested in Localized therapy. If it works then she can consider adjuvant chemotherapy. (3) S/P colectomy: Status: Acute Plan I have discussed above with the patient- Port-a-Cath placement. Right possible left Patient has been counseled as to the risks/benefits of the procedure. I have explained the risks of the surgery, including but not limited to: infection, bleeding, injury to any blood vessels/nerves, injury to lungs (such as pneumothorax or hemothorax and need for chest tube), not having any access, nonfunctioning of port due to thrombosis, infection of port, etc. the patient understands and agrees to proceed. I have answered all the patient's questions to the patient?s satisfaction and the patient has no further questions. Yudy Woodall M.D. Pager: [phone] [facility] [address] [place] [address], [address] [place] [address] Office: [phone] Coding Level of Care Code Off vis,est,level 3 Diagnoses Encounter for insertion of venous access port Z45.2 Colon cancer metastasized to liver C18.9; C78.7 S/P colectomy Z90.49 Clinical Quality Measures Falls Risk Screening/Assistive Devices Have you fallen in the past year?: No 10/07/24 0922 <Electronically signed by Yudy Woodall MD> Date Yudy Woodall MD
[2024-10-08] MEDS: Cefazolin 2 GM in Syringe IV (10:09)
[2024-10-08] MEDS: Lidocaine 1% /Epi 1:100 (20ml) 20 ML Vial (10:30)
[2024-10-08] MEDS: Bupivacaine Mpf 0.5% 30 ML VIAL (10:30)
--- NOTE | 2024-10-08 10:42 | PCM.OPRPT ---
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 6Fr Lot [id number] [id number] Special Medications: ancef 2 grams IV x 1 Estimated Blood Loss: < 10 cc Specimen collected: No Description of surgery: After informed consent was given, the patient was brought to the operating room and placed in the supine position. Appropriate time out protocol was followed. Patient was then given IV conscious sedation for anesthesia. The patient's right upper chest and neck were then prepped with a surgical skin preparation and sterile surgical drapes were placed. After proper landmarks were ascertained, the skin at the upper right chest area was then infiltrated with 1:1 mixture of 1% lidocaine with epinephrine and 0.5% marcaine. A needle trocar was then inserted into the right internal jugular vein with ultrasound guidance-multiple vessels were viewed with u/s and the right IJ was chosen-- and there was good aspiration of venous blood. A wire was then threaded into the needle trocar and this was visualized under fluoroscopy to ensure that the wire was in the superior vena cava. Once this was done, then the needle trocar was removed. A small skin narinder was made with an 11 blade knife at the wire entrance site. The dilator with the introducer sheath attached was then placed over the wire into the right internal jugular vein via the Seldinger technique and this was visualized under fluoroscopy. The dilator and sheath were in proper position as visualized by fluoroscopy. A subcutaneous pocket was then created caudad to the catheter insertion site. A transverse skin incision was made after the skin and subcutaneous tissues were infiltrated with local anesthetic. Blunt dissection was then used to create a space large enough for placement of the subcutaneous port. The catheter was then tunneled into the subcutaneous pocket. The wire and dilator were then removed. The catheter was then threaded into the introducer sheath and was positioned with its tip at the junction of the superior vena cava and the right atrium as visualized under fluoroscopy. The excess catheter was transected. The catheter was then attached to the subcutaneous port using manufacturers guidelines. The catheter was flushed with a heparin saline mixture prior to placement. Hemostasis was carefully controlled with electrocautery. The port was sutured to the subcutaneous fascia using 2-0 Vicryl suture at two sites. The port was then placed in the subcutaneous pocket. The incision were reapproximated with interrupted subdermal 3-0 vicryl sutures. The skin was reapproximated with 3-0 nylon suture in a interrupted fashion. Steristrips were used for reinforcement of the skin closure at IJ insertion site and a sterile opsite dressings were applied. The patient tolerated the procedure well. Surgical Findings: see op note Complications Complications: No
--- NOTE | 2024-10-08 10:48 | PCM.POST.ANE ---
Anesthesia: Postop Eval I Current Vital Signs Temperature: 98.3 F Pulse Rate: 64 Blood Pressure: 114/54 Respiratory Rate: 16 Pulse Ox: 100 Oxygen Delivery Method: Room Air Assessment Airway patent: Yes Spontaneous unlabored respirations: Yes Mental status: Awake and Calm nausea: No Vomiting: No Anesthesia Complication: No Fluid Hydration Crystalloid volume administer (ml): 5 Total IV fluid infused: 5 Progress Note Anesthesia document: Postop Eval 1 completed: Yes
--- NOTE | 2024-10-08 10:49 | DCINST_ITS ---
Discharge Instructions Procedure Port-A-Cath Diet Discharge Diet: Light diet - advance as tolerated Activity May shower in (days): 5 (Keep port site clean and dry x5 days. Neck incision okay to get wet after 1 day. Okay to lower shower and upper sponge bath. OR okay to taper off port site with a Ziploc bag to shower) Lifting Restrictions: No lifting > 15 pounds for 3 days with the arm on the side of the port Dressing / Incision Call your doctor if your incision/area has: Continuous Slow Oozing, Sudden Increased Bleeding, Increased Pain/ Swelling, Increased Redness, Foul Smelling Discharge and Swelling at the incision site Call your doctor if you observe: Fever of 101 or Higher Change Dressing in: 2 days (2-3 days- port site; ok to remove neck opsite in 1 day) Follow Up Care Please Follow Up With: Yudy Woodall MD When: In 10 days for permanent suture removal?call office for appointment Test Results: Test results from this visit will be discussed in further detail at your follow- up appointment, if applicable. Discharge Plan Admission Attending Provider: Yudy Woodall Primary Care Provider: Marco Antonio Arevalo Chi Instructions Print Language: Syriac Discharge Orders/Prescriptions Prescriptions: New tramadol 50 mg tablet 50 mg PO Q6H PRN (Reason: pain) 2 Days Qty: 3 0RF Continued hydrochlorothiazide 12.5 mg tablet 12.5 mg PO DAILY 30 Days Qty: 30 Patient Comments: TAKE 1 TABLET BY MOUTH EVERY DAY cholecalciferol (vitamin D3) 25 mcg (1,000 unit) capsule 25 mcg PO DAILY meloxicam 7.5 mg tablet 7.5 mg PO BID PRN (Reason: pain) Qty: 180 3RF timolol maleate 1 DROP gel forming solution 1 drp EACH EYE BID Patient Comments: EYE DROP potassium chloride 10 MEQ tablet 10 meq PO DAILY metoprolol tartrate 25 MG tablet 25 mg PO BID fenofibrate 160 mg tablet 160 mg PO QHS Rx Instructions: TAKE 1 TABLET AT BEDTIME acetaminophen 500 mg capsule 1,000 mg PO Q6H PRN (Reason: pain) Referrals / Follow Up: Marco Antonio Arevalo Chi, MD [Primary Care Provider] - Disposition Disposition (needs filled in before D/C Order can be placed): Home, Self Care
--- NOTE | 2024-10-08 10:55 | RAD_ITS ---
PROCEDURE: CHEST 1 VIEW (PORTABLE) REASON FOR EXAM: Right-sided port placement. TECHNIQUE: Frontal view of the chest. COMPARISON: Comparison is made with prior study dated May 23, 2021. FINDINGS: A right-sided port a catheter has been placed with the tip in the right atrium. EKG electrodes are seen. Prior CABG. The lungs are clear. Calcification of the aortic arch. Degenerative changes of the dorsal spine in the right shoulder.
--- NOTE | 2024-10-08 11:27 | PCM.POSTANE2 ---
Anesthesia Postop Eval I Sum Postop Eval Completion status Anesthesia document: Postop Eval 1 completed: Yes Anesthesia Postop Eval I Summary Anesthesia Postop Eval I Summary: Anesthesia Postop Eval I: Assessment Summary Airway patent Yes 10/08/24 10:49 Spontaneous unlabored Yes 10/08/24 10:49 respirations Mental status Awake,Calm 10/08/24 10:49 nausea No 10/08/24 10:49 Vomiting No 10/08/24 10:49 Anesthesia Postop Eval I: Fluid Summary Crystalloid volume administer 5 10/08/24 10:49 (ml) Colloids volume administered ( ml) Blood Product volume administered (ml) Total IV fluid infused 5 10/08/24 10:49 Anesthesia Postop Eval I: Summary Notes Anesthesia Complication No 10/08/24 10:49 Anesthesia Complication Comment: Post-operative progress note Anesthesia: Postop Eval II Evaluation Mental status: Awake Pain Level: 0 nausea: No Vomiting: No
== END 2024-10-08 12:35 | disposition home or self-care (01) ==
LOC: SDC 08:42 → AC 08:44
PROVIDERS: PCP Family Medicine Geriatric Medicine; Referring Provider Surgery; Visit Provider Surgery
PROC: (CPT 36561; principal; 2024-10-08 10:15)
DX: Z45.2 Encounter for adjustment and management of vascular access device (principal); C78.7 Secondary malignant neoplasm of liver and intrahepatic bile duct; C18.9 Malignant neoplasm of colon, unspecified; E11.40 Type 2 diabetes mellitus with diabetic neuropathy, unspecified; Z80.3 Family history of malignant neoplasm of breast; I10 Essential (primary) hypertension; E78.00 Pure hypercholesterolemia, unspecified; Z90.710 Acquired absence of both cervix and uterus; Z85.3 Personal history of malignant neoplasm of breast; Z95.2 Presence of prosthetic heart valve; Z90.49 Acquired absence of other specified parts of digestive tract
CPT/HCPCS: 36561; 00532; 71045; 77001; A4216; J2405

== ENCOUNTER 2024-12-08 16:54 | Inpatient (IN) | payer MEDICARE, SELFPAY ==
[2024-11-23 11:46] VITALS: BMI 29.3
[2024-12-08] VITALS (9 sets, daily range): BP systolic 147–169; BP diastolic 52–74; PULSE 72–92; RESP 10–18; TEMP 36.6–37.6; O2SAT 90–94; BMI 26.4; BMI 26.2
--- NOTE | 2024-12-08 17:17 | EX.ED.DYSGE1 ---
HPI <HARITHA Faria - Last Filed: 12/08/24 21:58> History of Present Illness Chief Complaint: Nausea/Vomiting Narrative Narrative: Patient is an 84-year-old female with history of colon cancer, post right sided Heema colectomy, port to the right chest, hypertension who [facility] nausea and vomiting. Patient's last chemotherapy through her port was November 24, 2024. Patient was at home with her , she follows up with Dr. Lopez. Patient states that last evening, she developed some nausea and vomiting. She states she had vomited approximately 4 times, and per the son, when he went to help her she was weak and then he called the ambulance. Patient states she does have some discomfort in her epigastric area from vomiting however she does not have any abdominal pain. 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 Breast cancer, right Essential hypertension Breast cancer, left Cardiac murmur Pulmonary hypertension Abnormal findings on diagnostic imaging of heart and coronary circulation Aortic valve disease Paroxysmal supraventricular tachycardia by electrocardiogram (ECG) Supraventricular tachycardia Acquired left ventricular hypertrophy Hypertension Diabetes 1.5, managed as type 2 Home Medications ?Medication ?Instructions ?Recorded ?Last Taken ?Type timolol maleate 0.5 % eye gel 1 drp EACH EYE BID EYE 06/13/16 06/29/24 History forming solution hydrochlorothiazide 12.5 mg tablet 12.5 mg PO DAILY BP 30 days ##30 12/12/17 06/28/24 History metoprolol tartrate 25 mg tablet 25 mg PO BID BP 08/28/20 10/08/24 History potassium chloride 10 mEq 10 meq PO DAILY SUPPLEMENT 08/28/20 06/28/24 History tablet,extended release(part/cryst) meloxicam 7.5 mg tablet 7.5 mg PO BID PRN pain #180 tabs 02/23/24 Unknown Rx fenofibrate 160 mg tablet 160 mg PO QHS CHOLESTEROL 06/24/24 06/28/24 History acetaminophen 500 mg capsule 1,000 mg PO Q6H PRN pain 10/07/24 Unknown History tramadol 50 mg tablet 50 mg PO Q6H PRN pain 2 days #3 10/08/24 Unknown Rx tabs amlodipine 5 mg tablet 5 mg PO DAILY 12/08/24 Unknown History blood sugar diagnostic (True 12/08/24 Unknown History Metrix Glucose Test Strip) magnesium chloride 71.5 mg 71.5 mg PO BID 12/08/24 Unknown History (magnesium chloride) tablet,delayed release (Slow-Mag) prochlorperazine maleate 10 mg 10 mg PO Q6H PRN PRN 12/08/24 Unknown History tablet nausea/vomiting Allergy/AdvReac Type Severity Reaction Status Date / Time oxycodone (From Percocet) AdvReac Severe Itching Verified 12/08/24 17:01 Family History Brother CAD (coronary artery disease) Brother Diabetes Mother Diabetes Hypertension Father Hypertension CVA (cerebral vascular accident) Sister Breast cancer Surgical History S/P colectomy Hx of colonoscopy History of lumpectomy of right breast H/O total knee replacement Status post total right knee replacement History of partial mastectomy of right breast (~05/07/19) History of aortic valve repair (~09/27/16) History of total left hip replacement History of total right hip replacement History of hysterectomy (~10/10/14) Status post left breast lumpectomy H/O aortic valve replacement Social History Smoking Status: Never smoker alcohol intake: never substance use type: does not use caffeine: Yes Type: coffee Number of servings: 1 what type of physical activity do you participate in: none seatbelt use: always do you feel safe at home: Yes ROS <HARITHA Faria - Last Filed: 12/08/24 21:58> ROS ED ROS Narrative Constitutional: Negative for fever, chills, weight loss. Positive for weakness Eyes: Negative for vision loss, vision change, double vision ENT: Negative for any sore throat, ear pain, congestion Cardiovascular: Negative for any chest pain, tightness, palpitations Respiratory: Negative for any cough, sputum production, hemoptysis, dyspnea, dyspnea on exertion, orthopnea Gastrointestinal: Negative for any abdominal pain, diarrhea, constipation, blood in stool, blood in vomit. Positive for nausea and vomiting : Negative for any urinary frequency, dysuria, retention, blood in urine Muscle skeletal: Negative for any neck pain, back pain Neurological: Negative for any headache, syncope, dizziness Skin: Negative for any rashes, itching, abrasions, lacerations Psychiatric: Negative for any depression, anxiety, stress, suicidal ideation, homicidal ideation Hematologic: Negative for any excessive bruising, easy bleeding EXAM <HARITHA Faria - Last Filed: 12/08/24 21:58> Physical Exam Narrative Exam Narrative: Vital signs reviewed. HEET: Head normocephalic atraumatic, TMs clear bilaterally. Posterior pharynx is clear, dry mucous membranes. Nares clear bilaterally. Neck: Supple with no lymphadenopathy or tenderness. No signs of meningismus. Cardiac: Regular rate and rhythm no murmurs gallops or rubs, equal peripheral pulses bilaterally. Respiratory: Lungs clear to auscultation bilaterally. No chest tenderness. Abdomen: Soft, nontender, nondistended. No abdominal bruit or pulsatile masses. No hepatosplenomegaly Extremities: No peripheral edema, no signs of gross trauma or deformity. Active full range of motion of all extremities. Neuro: Cranial nerves II through XII intact, no focal neurological deficits. Skin: Clean dry and intact with no rash, purpura, petechiae, vesicles or pustules. Backs/flank: No CVA tenderness, no midline spinal tenderness, no deformity. Psych: Normal mood and affect. No SI, HI or acute psychosis. Const Vital Signs: 12/08/24 16:58 12/08/24 18:55 12/08/24 20:00 Temperature 97.8 F Temperature Source Oral Pulse Rate 79 92 Respiratory Rate 18 17 Blood Pressure 157/52 H 154/57 H 151/65 H Blood Pressure Mean 87 89 93 Pulse Ox 94 93 Oxygen Delivery Method Room Air Room Air Room Air 12/08/24 20:35 12/08/24 21:20 Temperature 99.7 F H Temperature Source Pulse Rate 86 Respiratory Rate 18 Blood Pressure 151/65 H 151/65 H Blood Pressure Mean 93 93 Pulse Ox 93 Oxygen Delivery Method Positive well nourished and well developed General Appearance ED: well developed <Sergey Torrez MD - Last Filed: 12/08/24 22:16> Physical Exam Const Vital Signs: 12/08/24 16:58 12/08/24 18:55 12/08/24 20:00 Temperature 97.8 F Temperature Source Oral Pulse Rate 79 92 Respiratory Rate 18 17 Blood Pressure 157/52 H 154/57 H 151/65 H Blood Pressure Mean 87 89 93 Pulse Ox 94 93 Oxygen Delivery Method Room Air Room Air Room Air 12/08/24 20:35 12/08/24 21:20 Temperature 99.7 F H Temperature Source Pulse Rate 86 Respiratory Rate 18 Blood Pressure 151/65 H 151/65 H Blood Pressure Mean 93 93 Pulse Ox 93 Oxygen Delivery Method MDM <HARITHA Faria - Last Filed: 12/08/24 21:58> [facility] Lab Data Labs: Laboratory Results - last 24 hr 12/08/24 12/08/24 17:30 19:24 WBC 6.5 RBC 4.48 Hgb 12.9 Hct 38.6 MCV 86.2 MCH 28.8 MCHC 33.4 RDW Std Deviation 78.2 H RDW Coeff of Clara 25.6 H Plt Count 174 MPV 9.8 Immature Gran % (Auto) 0.500 Neut % (Auto) 94.1 H Lymph % (Auto) 3.9 L [place] % (Auto) 1.2 Eos % (Auto) 0.0 Baso % (Auto) 0.3 Absolute Neuts (auto) 6.1 Absolute Lymphs (auto) 0.25 L Nucleated RBC % 0 Polychromasia 1+ Anisocytosis 1+ Sodium 134 Potassium 3.4 Chloride 99 Carbon Dioxide 18.7 L Anion Gap 16 H BUN 16 Creatinine 0.69 L Estim Creat Clear Calc 51.16 Est GFR (MDRD) Non-Af 86 BUN/Creatinine Ratio 23.4 H Glucose 161 H Calcium 9.7 Total Bilirubin 2.85 H Direct Bilirubin 2.09 H AST 546 H ALT 213 H Alkaline Phosphatase 78 Total Protein 7.3 Albumin 4.2 Globulin 3.1 Lipase 18 Urine Color Yellow Urine Clarity Cloudy Urine pH 6.5 Ur Specific [place] 1.010 Urine Protein 30 H Urine Glucose (UA) 50 H Urine Ketones Negative Urine Occult Blood 25 H Urine Nitrite Negative Urine Bilirubin Negative Urine Urobilinogen 1 H Ur Leukocyte Esterase 25 H Urine RBC 0-5 SEEN Urine WBC 0-5 SEEN Ur Squamous Epith Cells 0-5 SEEN Amorphous Sediment 1+ Urine Bacteria 2+ Urine Mucus RARE Radiography Diagnostic Testing: Clinical Impression(s) from Imaging Studies Abdomen/Pelvis CT 12/08/24 18:43 IMPRESSION: Interval increase in size of the right hepatic lobe low attenuating lesion, measuring 2.2 cm, previously measuring 1.2 cm. Mildly distended gallbladder with suspected gallstone and gallbladder wall edema, underlying acute cholecystitis can not be excluded. Right upper quadrant ultrasound is recommended for further characterization. Fluid-filled distal small bowel within the right lower quadrant, may represent focal area of enteritis versus ileus. Sigmoid diverticulosis without evidence of deficit colitis. Reading Location: [facility] Gallbladder Ultrasound 12/08/24 19:45 IMPRESSION: Cholelithiasis. Adenomyomatosis Reading Location: [id number] Treatment and Re-Evaluation :: Differential diagnosis includes however is not limited to: Electrolyte abnormality, UTI, chemotherapy reaction, dehydration, bowel obstruction Patient appears generally well, vital signs are stable, patient is nontoxic-appearing. Presenting to the emergency department for nausea and vomiting, weakness has been ongoing since last evening. Patient will receive some basic laboratory values including CBC BMP liver panel lipase, urinalysis. IV fluids Zofran will be ordered, patient will need to be reevaluated. Patient reevaluation is in no distress. Patient laboratory values showed normal CBC, patient's chemistries show a creatinine 0.69, glucose 161. Patient's liver panel did show some transaminitis, total bilirubin is 2.85, direct bilirubin is 2.09 with an AST of 546 and ALT of 213, this is abnormal from 4 months ago when the liver enzymes were normal. Lipase was negative. Patient did receive a CT scan of the abdomen pelvis with IV contrast, this did show an interval increase in size of the right hepatic lobe low-attenuation lesion, measuring 2.2 cm, previously was 1.2 cm. Mildly distended gallbladder with suspected gallstone and gallbladder wall edema, underlying acute cholecystitis cannot be excluded. Fluid-filled distal small bowel within the right lower quadrant, sigmoid diverticulosis without evidence of diverticulitis. Patient was made aware, right upper quadrant ultrasound was ordered. Patient's ultrasound showed cholelithiasis, adenomyomatosis with multiple echogenic gallstones that identified. I spoke with surgery, they will follow the patient however the prefer the patient be admitted to medicine. I also spoke with Dr. Malik he is also on board with this patient. Patient be admitted to medicine <Sergey Torrez MD - Last Filed: 12/08/24 22:16> MDM MDM Narrative Medical decision making narrative: Dr. Torrez: I have personally performed a face to face assessment of the patient and have reviewed the ZOYA Note. I performed a substantive portion of the visit including all aspects of the following. My oconnell findings include: History is nausea and vomiting with history of colon cancer. Exam is afebrile. Vital signs noted. Nontoxic-appearing. Cardiovascular examination regular rate and rhythm. Lungs are clear to auscultation bilaterally anteriorly. Abdomen is soft with minimal diffuse tenderness to palpation. Positive bowel sounds. Medical Decision Making: Check labs. Check UA. Check CT. CT of the abdomen pelvis radiology report reviewed. There is distended gallbladder with wall thickening. Also consistent with enteritis versus ileus. No obstruction. Ultrasound recommended. I reviewed the radiology report of the ultrasound which shows gallstone and adenomyomatosis. Discussed with surgery. Surgery wants admission to medicine. Medicine requests discussion with gastroenterology. Gastroenterology available tomorrow as well as surgery. Disposition is admit in stable condition. Other additions or changes: [None] History & Record Review Discussion w/independent historian: Patient and Family Lab Data Attestation: I reviewed the patient's lab results. Labs: Laboratory Results - last 24 hr 12/08/24 12/08/24 17:30 19:24 WBC 6.5 RBC 4.48 Hgb 12.9 Hct 38.6 MCV 86.2 MCH 28.8 MCHC 33.4 RDW Std Deviation 78.2 H RDW Coeff of [place] 25.6 H Plt Count 174 MPV 9.8 Immature Gran % (Auto) 0.500 Neut % (Auto) 94.1 H Lymph % (Auto) 3.9 L [place] % (Auto) 1.2 Eos % (Auto) 0.0 Baso % (Auto) 0.3 Absolute Neuts (auto) 6.1 Absolute Lymphs (auto) 0.25 L Nucleated RBC % 0 Polychromasia 1+ Anisocytosis 1+ Sodium 134 Potassium 3.4 Chloride 99 Carbon Dioxide 18.7 L Anion Gap 16 H BUN 16 Creatinine 0.69 L Estim Creat Clear Calc 51.16 Est GFR (MDRD) Non-Af 86 BUN/Creatinine Ratio 23.4 H Glucose 161 H Calcium 9.7 Total Bilirubin 2.85 H Direct Bilirubin 2.09 H AST 546 H ALT 213 H Alkaline Phosphatase 78 Total Protein 7.3 Albumin 4.2 Globulin 3.1 Lipase 18 Urine Color Yellow Urine Clarity Cloudy Urine pH 6.5 Ur Specific [place] 1.010 Urine Protein 30 H Urine Glucose (UA) 50 H Urine Ketones Negative Urine Occult Blood 25 H Urine Nitrite Negative Urine Bilirubin Negative Urine Urobilinogen 1 H Ur Leukocyte Esterase 25 H Urine RBC 0-5 SEEN Urine WBC 0-5 SEEN Ur Squamous Epith Cells 0-5 SEEN Amorphous Sediment 1+ Urine Bacteria 2+ Urine Mucus RARE Radiography Diagnostic Testing: Clinical Impression(s) from Imaging Studies Abdomen/Pelvis CT 12/08/24 18:43 IMPRESSION: Interval increase in size of the right hepatic lobe low attenuating lesion, measuring 2.2 cm, previously measuring 1.2 cm. Mildly distended gallbladder with suspected gallstone and gallbladder wall edema, underlying acute cholecystitis can not be excluded. Right upper quadrant ultrasound is recommended for further characterization. Fluid-filled distal small bowel within the right lower quadrant, may represent focal area of enteritis versus ileus. Sigmoid diverticulosis without evidence of deficit colitis. Reading Location: [facility] Gallbladder Ultrasound 12/08/24 19:45 IMPRESSION: Cholelithiasis. Adenomyomatosis Reading Location: [id number] Management Discussion w/another healthcare provider: Hospitalist and Transmission Mechanic (Dr. Nuno, Dr. Ordonez) Discharge Plan Dx/Rx/DC Orders Clinical Impression: Cholelithiasis, Nausea & vomiting, Transaminitis, History of colon cancer Disposition Disposition: Acute Care Hospital [facility]
[2024-12-08] MEDS: 0.9% Normal Saline (1000mL) 1,000 ML 999 ML IV (17:29)
[2024-12-08] MEDS: Ondansetron 4 MG/2 ML Vial IV (17:29)
[2024-12-08 17:45] LABS: Absolute Lymphocyte Count 0.25 X10^3/uL (0.83-4.51); Absolute Neutrophil Count 6.1 X10^3/uL (2.0-7.7); Basophil# 0.02 X10^3/uL; Basophil% 0.3 % (0-1); Hematocrit 38.6 % (37-47); Hemoglobin 12.9 g/dL (12.0-15.0); Lymphocyte # 0.25 X10^3/ul (0.83-4.51); Lymphocyte % 3.9 % (19-41); Mean Corp Hgb Conc 33.4 g/dL (32-36); Mean Corpuscular Hgb 28.8 pg (27.0-32.0); Mean Corpuscular Volume 86.2 fL (81-99); Mean Platelet Vol. 9.8 fl (6.2-12.0); Monocyte# 0.08 X10^3/uL; Monocyte% 1.2 % (0-10); NRBC Flagged by Analyzer 0 % (0-5); Neutrophil # 6.09 X10^3/uL (2.7-7.7); Neutrophil % 94.1 % (47-70); POSITIVE DIFFERENTIAL YES; POSITIVE MORPHOLOGY YES; Platelet Count 174 K/mm3 (150-450); RBC Distribution Width CV 25.6 % (11.6-14.6); RBC Distribution Width SD 78.2 fl (35.1-43.9); Red Blood Count 4.48 M/mm3 (4.2-5.4); White Blood Count 6.5 K/mm3 (4.4-11.0)
[2024-12-08 17:46] LABS: Differential Indicated SCAN CRITERIA MET
[2024-12-08 18:13] LABS: AST(SGOT) 546 U/L (<=31); Alanine Aminotransfer ALT/SGPT 213 U/L (<=34); Albumin, Serum 4.2 g/dL (3.4-4.8); Alkaline Phosphatase 78 U/L (35-104); Anion Gap 16 (5-15); BUN 16 mg/dL (4-19); BUN/Creat Ratio 23.4 RATIO (10-20); Bilirubin, Direct 2.09 mg/dL (0.00-0.30); Calcium,Total 9.7 mg/dL (7.6-11.0); Carbon Dioxide 18.7 mmol/L (21.0-32.0); Chloride 99 mmol/L (98-108); Creatinine, Serum 0.69 mg/dL (0.70-1.20); EST Glomerular Filtration Rate 86 (>60); Estimated Creatinine Clearance 51.16 ml/min (50-250); Globulin 3.1 g/dL (2.2-4.2); Glucose 161 mg/dL (70-99); Lipase 18 U/L (13-75); Potassium 3.4 mmol/L (3.3-5.1); Protein, Total 7.3 g/dL (5.9-8.4); Sodium Level 134 mmol/L (133-145); Total Bilirubin 2.85 mg/dL (0.00-1.30)
--- NOTE | 2024-12-08 18:43 | CT_ITS ---
PROCEDURE: ABDOMEN/PELVIS W IV CONT ONLY 12/08/2024 REASON FOR EXAM: NAUSEA AND VOMITING, PAIN TECHNIQUE: Abdomen and pelvis CT with intravenous contrast. Coronal and Sagittal reconstruction series were provided. PATIENT PREPARATION: Per protocol ORAL CONTRAST TYPE: None. AMOUNT: mL CONTRAST: Isovue 370 VOLUME: 98 mL Not Provided Gauge IV One or more dose reduction techniques were used (e.g., Automated exposure control, adjustment of the mA and/or kV according to patient size, use of iterative reconstruction technique. RADIATION DOSE SUMMARY: CTDlvol: 41 mGy DLP: 985 mGycm COMPARISON: CT chest abdomen and pelvis dated 05/31/2024. FINDINGS: Lung bases: Bibasilar atelectasis/scarring. Heart size is normal. No pericardial effusion. Liver: Periportal edema. Redemonstration of a low attenuating lesion within the hepatic dome measuring approximately 2.2 cm. This is larger in comparison to the prior study, previously measuring 1.2 cm. Gallbladder: Mildly distended gallbladder with suspected gallstone and gallbladder wall edema, underlying acute cholecystitis can not be excluded. Right upper quadrant ultrasound is recommended for further characterization. Spleen: Normal size. Pancreas: Diffuse fatty atrophy. Adrenals: Unremarkable Kidneys: Multiple bilateral parapelvic cysts. Bladder: Evaluation of the urinary bladder is limited due to streak artifacts from bilateral hip hardware. Reproductive Organs: Prior hysterectomy. Adnexal regions are unremarkable. Bowel: Evaluation of the bowel loops are limited due to lack of oral contrast. Extensive sigmoid diverticulosis without evidence of diverticulitis. Surgical sutures along the right colon consistent with prior resection. Fluid-filled distal small bowel within the right lower quadrant, no wall thickening or adjacent stranding. The stomach is decompressed limiting evaluation. Appendix: Partial appendectomy. Lymph nodes: Unremarkable. Vasculature: Mild diffuse atherosclerotic calcifications are noted. Peritoneum / Retroperitoneum: No evidence of free air or free fluid. Bones: Status post bilateral hip arthroplasties. Degenerative changes of the lumbar spine. CT/Abdomen/Pelvis W IV Cont ONLY IMPRESSION: Interval increase in size of the right hepatic lobe low attenuating lesion, tobin suring 2.2 cm, previously measuring 1.2 cm. Mildly distended gallbladder with suspected gallstone and gallbladder wall aurelia a, underlying acute cholecystitis can not be excluded. Right upper quadrant ultrasound is recommended for further character ization. Fluid-filled distal small bowel within the right lower quadrant, may represent focal area of enteritis versus ileus. Sigmoid diverticulosis without evidence of deficit colitis. [facility]
[2024-12-08 18:54] LABS: Anisocytosis 1+; Polychromasia 1+
[2024-12-08 19:32] LABS: Color, Urine Yellow (Yellow); Glucose, Dipstick 50 mg/dl (Normal); Ketone-Dipstick Negative (Negative); Leukocyte Esterase-Dipstick 25 /ul (Negative); Nitrite-Dipstick Negative (Negative); Occult Blood-Urine 25 /ul (Negative); Protein-Dipstick 30 mg/dl (Negative); Urine Bilirubin Dipstick Negative (Negative); Urine Clarity Cloudy (Clear); Urine Urobilinogen 1 mg/dl (Normal); Urine pH 6.5 (5.0 - 8.0)
--- NOTE | 2024-12-08 19:45 | US_ITS ---
PROCEDURE: GALLBLADDER 12/08/2024 REASON FOR EXAM: NAUSEA AND VOMITING, ELEVATED LFTS, POSITIVE CT COMPARISON: CT earlier today FINDINGS: Liver: Grossly normal size and echotexture. Gallbladder: Multiple echogenic gallstones are identified. Multiple echogenic foci along the nondependent wall with ring down artifact consistent with adenomyomatosis. Common bile duct: 8 mm . Pancreas: Visualized portions are sonographically unremarkable. Other: US/Gallbladder IMPRESSION: Cholelithiasis. Adenomyomatosis Reading Location: [id number]
[2024-12-08] MEDS: fentaNYL 100 MCG/2 ML Ampul 50 MCG IV (20:00)
[2024-12-08 20:16] LABS: White Blood Cells 0-5 SEEN /hpf (0-5)
[2024-12-08 20:17] LABS: Bacteria 2+ /hpf (None Seen); Red Blood Cells-Urine 0-5 SEEN /hpf (0-5); Squamous Epithelial Cells - UA 0-5 SEEN /hpf (5-10)
[2024-12-08 20:18] LABS: Amorphous Sediment 1+; Mucous, Urine RARE /hpf (<or=2+)
--- NOTE | 2024-12-08 21:43 | PCM.HP.STD ---
HPI - General General Date of Admission: 12/08/24 Date of Service: 12/08/24 Chief Complaint: Nausea with vomiting and upper abdominal discomfort HPI Narrative ANABELA CAMARA, is a 84 F who presented to [facility] ED on 12/08/2024 with nausea with vomiting and upper abdominal discomfort. Medical history is significant for colon cancer with liver mets s/p right-sided hemicolectomy and on active chemotherapy. Has completed 4 rounds of chemotherapy, last round on 11/24. Follows with Dr. Chavis. She lives at home with her , has decent functional status at baseline. Uses a walker for ambulation but has had no issues with this. She developed nausea with vomiting yesterday evening that extended into today. Also had upper abdominal discomfort with this. No prior symptoms like this for her. Her son went over to help her and noticed that she was weaker and dehydrated appearing, so EMS brought her in for further evaluation. In the ED she was mildly hypertensive and had a low-grade fever of 99.7F, was otherwise hemodynamically stable on room air. CBC and BMP unremarkable. However LFTs notable for T. bili 2.8, direct bili 2.0, AST 546, ALT 213, alk phos 78. LFTs were previously normal in July. CT abdomen pelvis showed mildly distended gallbladder with suspected gallstone and gallbladder wall edema, as well as fluid-filled distal small bowel within right lower quadrant concerning for enteritis versus ileus and interval increase in size of right hepatic lobe lesion to 2.2 cm from 1.2 cm. Right upper quadrant ultrasound showed multiple echogenic gallstones identified in the gallbladder, though no acute cholecystitis identified and common bile duct size normal. Was discussed with both general surgery and GI who recommended admission to medicine. Hospitalist was then contacted for admission. I saw the patient at bedside in the ED, son and [id number] were present. Patient was mildly fatigued appearing but otherwise sitting up comfortably in bed, conversing normally and in no acute distress. Noted that her nausea was much improved from previous and her abdominal discomfort had resolved after she was given IV medications for these things. She denies any fevers or chills. No other acute concerns at this time. [facility] Medical History History of neuropathy Walker as ambulation aid Easy bruising Non-smoker Post-menopausal History of steroid therapy Neuropathy Liver lesion, right lobe Cholelithiasis Wears glasses Wears dentures Cancer Ambulates with cane Arthritis High cholesterol Back pain History of irregular heartbeat History of transesophageal echocardiography (HENRIQUE) History of echocardiogram Hypertension Cardiology follow-up encounter Hypertriglyceridemia 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 Breast cancer, right Essential hypertension Breast cancer, left Cardiac murmur Pulmonary hypertension Abnormal findings on diagnostic imaging of heart and coronary circulation Aortic valve disease Paroxysmal supraventricular tachycardia by electrocardiogram (ECG) Supraventricular tachycardia Acquired left ventricular hypertrophy Hypertension Diabetes 1.5, managed as type 2 Home Medications ?Medication ?Instructions ?Recorded ?Last Taken ?Type timolol maleate 0.5 % eye gel 1 drp EACH EYE BID EYE 06/13/16 06/29/24 History forming solution hydrochlorothiazide 12.5 mg tablet 12.5 mg PO DAILY BP 30 days ##30 12/12/17 06/28/24 History metoprolol tartrate 25 mg tablet 25 mg PO BID BP 08/28/20 10/08/24 History potassium chloride 10 mEq 10 meq PO DAILY SUPPLEMENT 08/28/20 06/28/24 History tablet,extended release(part/cryst) meloxicam 7.5 mg tablet 7.5 mg PO BID PRN pain #180 tabs 02/23/24 Unknown Rx fenofibrate 160 mg tablet 160 mg PO QHS CHOLESTEROL 06/24/24 06/28/24 History acetaminophen 500 mg capsule 1,000 mg PO Q6H PRN pain 10/07/24 Unknown History tramadol 50 mg tablet 50 mg PO Q6H PRN pain 2 days #3 10/08/24 Unknown Rx tabs amlodipine 5 mg tablet 5 mg PO DAILY 12/08/24 Unknown History blood sugar diagnostic (True 12/08/24 Unknown History Metrix Glucose Test Strip) magnesium chloride 71.5 mg 71.5 mg PO BID 12/08/24 Unknown History (magnesium chloride) tablet,delayed release (Slow-Mag) prochlorperazine maleate 10 mg 10 mg PO Q6H PRN PRN 12/08/24 Unknown History tablet nausea/vomiting Allergy/AdvReac Type Severity Reaction Status Date / Time oxycodone (From Percocet) AdvReac Severe Itching Verified 12/08/24 17:01 Family History Brother CAD (coronary artery disease) Brother Diabetes Mother Diabetes Hypertension Father Hypertension CVA (cerebral vascular accident) Sister Breast cancer Surgical History S/P colectomy Hx of colonoscopy History of lumpectomy of right breast H/O total knee replacement Status post total right knee replacement History of partial mastectomy of right breast (~05/07/19) History of aortic valve repair (~09/27/16) History of total left hip replacement History of total right hip replacement History of hysterectomy (~10/10/14) Status post left breast lumpectomy H/O aortic valve replacement Social History Smoking Status: Never smoker alcohol intake: never substance use type: does not use caffeine: Yes Type: coffee Number of servings: 1 what type of physical activity do you participate in: none seatbelt use: always do you feel safe at home: Yes ROS Constitutional Constitutional: Reports fatigue and weakness; Denies chills or fever(s) Eyes Eyes: Denies change in vision Cardiovascular Cardiovascular: Denies chest pain Respiratory/Chest Respiratory/Chest: Denies shortness of breath at rest Gastrointestinal Gastrointestinal: Reports abdominal pain, nausea and vomiting; Denies constipation or diarrhea Genitourinary Genitourinary: Denies dysuria Musculoskeletal Musculoskeletal: Denies arthralgias or myalgias Neurologic Neurologic: Denies dizziness or headache(s) Vital Signs Vital Signs Vital Signs: 12/08/24 16:58 12/08/24 18:55 12/08/24 20:00 Temperature 97.8 F Temperature Source Oral Pulse Rate 79 92 Respiratory Rate 18 17 Blood Pressure 157/52 H 154/57 H 151/65 H Blood Pressure Mean 87 89 93 Pulse Ox 94 93 Oxygen Delivery Method Room Air Room Air Room Air 12/08/24 20:35 12/08/24 21:20 Temperature 99.7 F H Temperature Source Pulse Rate 86 Respiratory Rate 18 Blood Pressure 151/65 H 151/65 H Blood Pressure Mean 93 93 Pulse Ox 93 Oxygen Delivery Method Weight Weight: 70 kg Body Mass Index (BMI) 26.4 Physical Exam Const alert, oriented x3, no apparent distress and average body habitus Constitutional Narrative: Elderly female, fatigued and somewhat chronically ill-appearing, otherwise sitting up comfortably in bed, conversing normally and in no acute distress. General Appearance: cooperative and comfortable HEENT normocephalic, head/scalp atraumatic, hearing grossly normal bilaterally, nasal mucous membranes and turbinates normal and moist oral mucous membranes Eyes PERRL, EOMs intact bilaterally and conjunctivae normal Neck full ROM Chest inspection of chest normal Resp normal respiratory effort, normal air movement, no use of accessory muscles and clear to auscultation bilaterally Cardio regular rate, regular rhythm, no murmurs and peripheral pulses 2+ throughout GI normal to inspection, nondistended, normoactive bowel sounds, soft to palpation, non-tender and non-distended Back/Spine normal ROM Extremity normal to inspection, full ROM and no pedal edema Skin no rashes or lesions noted Psych mental status grossly normal Results Lab / Micro Data 12/08/24 17:30 12/08/24 17:30 Labs: Laboratory Results - last 24 hr 12/08/24 17:30: WBC 6.5, RBC 4.48, Hgb 12.9, Hct 38.6, MCV 86.2, MCH 28.8, MCHC 33.4, RDW Std Deviation 78.2 H, RDW Coeff of Clara 25.6 H, Plt Count 174, MPV 9.8, Immature Gran % (Auto) 0.500, Neut % (Auto) 94.1 H, Lymph % (Auto) 3.9 L, [place] % (Auto) 1.2, Eos % (Auto) 0.0, Baso % (Auto) 0.3, Absolute Neuts (auto) 6.1, Absolute Lymphs (auto) 0.25 L, Nucleated RBC % 0, Polychromasia 1+, Anisocytosis 1+, Sodium 134, Potassium 3.4, Chloride 99, Carbon Dioxide 18.7 L, Anion Gap 16 H, BUN 16, Creatinine 0.69 L, Estim Creat Clear Calc 51.16, Est GFR (MDRD) Non-Af 86, BUN/Creatinine Ratio 23.4 H, Glucose 161 H, Calcium 9.7, Total Bilirubin 2.85 H, Direct Bilirubin 2.09 H, AST 546 H, ALT 213 H, Alkaline Phosphatase 78, Total Protein 7.3, Albumin 4.2, Globulin 3.1, Lipase 18 12/08/24 19:24: Urine Color Yellow, Urine Clarity Cloudy, Urine pH 6.5, Ur Specific [place] 1.010, Urine Protein 30 H, Urine Glucose (UA) 50 H, Urine Ketones Negative, Urine Occult Blood 25 H, Urine Nitrite Negative, Urine Bilirubin Negative, Urine Urobilinogen 1 H, Ur Leukocyte Esterase 25 H, Urine RBC 0-5 SEEN, Urine WBC 0-5 SEEN, Ur Squamous Epith Cells 0-5 SEEN, Amorphous Sediment 1+, Urine Bacteria 2+, Urine Mucus RARE Imaging Radiology Impression Abdomen/Pelvis CT 12/08/24 18:43 IMPRESSION: Interval increase in size of the right hepatic lobe low attenuating lesion, measuring 2.2 cm, previously measuring 1.2 cm. Mildly distended gallbladder with suspected gallstone and gallbladder wall edema, underlying acute cholecystitis can not be excluded. Right upper quadrant ultrasound is recommended for further characterization. Fluid-filled distal small bowel within the right lower quadrant, may represent focal area of enteritis versus ileus. Sigmoid diverticulosis without evidence of deficit colitis. Reading Location: [facility] Gallbladder Ultrasound 12/08/24 19:45 IMPRESSION: Cholelithiasis. Adenomyomatosis Reading Location: [id number] Assessment & Plan Assessment/Plan (1) Transaminitis: (2) Nausea & vomiting: (3) Cholelithiasis: PLAN: Plan Patient is an 84-year-old female who presented [facility] ED on 12/08/2024 with nausea with vomiting and upper abdominal discomfort. 1. Elevated LFTs with cholelithiasis, concern for acute cholecystitis versus choledocholithiasis ? Admit under inpatient status to PCU. General surgery and GI consulted. Presented with nausea with vomiting and upper abdominal discomfort. LFTs with T. bili 2.8, direct bili 2.0, AST 546, ALT 213, alk phos 78. LFTs were previously normal. CT abdomen pelvis with mildly distended gallbladder with suspected gallstone and gallbladder wall edema, as well as increased size of metastatic liver lesion as noted below. Gallbladder ultrasound showed multiple echogenic gallstones and gallbladder but no gallbladder wall edema or common bile duct distention. Will keep n.p.o. at midnight with possible plan for ERCP tomorrow pending GI recommendation. Trend LFTs. Will treat with IV Zosyn for now. 2. Colon cancer with isolated liver metastasis ? Follows with Dr. Chavis, see office note from 10/26 for further details. 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 S/p palliative laparoscopic right hemicolectomy with Dr. Woodall on 06/29. Has now completed 4 rounds of chemotherapy with FOLFOX plus bevacizumab with apparent plan being to have radiofrequency ablation done to lesion in the near future. Unfortunately, CT abdomen pelvis on admit showed increased size of liver lesion from 1.2 cm to 2.2 cm. No inpatient needs, will need close outpatient follow-up with oncology. 3. Mild acute on chronic debility ? PT/OT/case management consulted. Lives at home with , uses walker for ambulation. Worsened weakness most likely due to mild dehydration in setting of nausea with vomiting. Will likely be okay for discharge home but appreciate therapy recommendations. 4. Mild iron deficiency anemia ? Hemoglobin 12.9 on admit, baseline around 10. Suspect some degree of hemoconcentration in setting of dehydration on admit. Follow-up a.m. CBC. Has received IV iron infusions in the past, not on home iron supplement. Continue close outpatient follow-up. 5. Hypertension ? Mildly hypertensive to the 150s systolic on admit. Continue home amlodipine, hydrochlorothiazide, and Lopressor. 6. Hyperlipidemia ? Holding home fenofibrate in setting of elevated LFTs as noted above. 7. History of breast cancer ? S/p left breast lumpectomy with adjuvant radiation therapy in 2018, followed by right breast lumpectomy with adjuvant radiation therapy in 2019. Was on tamoxifen and then switched to anastrozole and completed this therapy. DVT prophylaxis: Lovenox CODE STATUS: Full code, verified Expected disposition: Home, TBD Total clinical time spent by myself addressing the patient's medical issues, reviewing all the data, and collaborating with patient's care team: 75 minutes. Charges/Coding Visit Charges Inpatient E&M: 99953 Init Hosp L3
[2024-12-08] MEDS: Piperacil/Tazobactam 3.375 GM in 0.9% Normal Saline (50mL MB+) 50 ML IV (22:15)
[2024-12-08] MEDS: Metoprolol Tartrate 25 MG Tablet PO (23:26)
[2024-12-08] MEDS: Timolol 0.5% 5ML OPTH.BTL 1 DRP EACH EYE (23:27)
[2024-12-09] VITALS (7 sets, daily range): BP systolic 103–121; BP diastolic 47–68; PULSE 73–80; RESP 16–18; TEMP 36.4–37.8; O2SAT 92–96; BMI 26.2
[2024-12-09] MEDS: Piperacil/Tazobactam 3.375 GM in 0.9% Normal Saline (50mL MB+) 50 ML IV ×3 (05:14→23:20)
--- NOTE | 2024-12-09 05:55 | EKG12_ITS ---
Test Reason : PRE-OP Blood Pressure : */* mmHG Vent. Rate : 80 BPM Atrial Rate : 80 BPM P-R Int : 220 ms QRS Dur : 84 ms QT Int : 394 ms P-R-T Axes : 53 -2 9 degrees QTcB Int : 454 ms Sinus rhythm with 1st degree A-V block with Premature atrial complexes Borderline Confirmed by Juan Griffin ([id number]), material expeditor GORDY CARPENTER ([id number]) on 12/10/2024 7:07:49 AM Referred By: Confirmed By: Juan Griffin
[2024-12-09 06:19] LABS: Hematocrit 35.7 % (37-47); Hemoglobin 11.7 g/dL (12.0-15.0); Mean Corp Hgb Conc 32.8 g/dL (32-36); Mean Corpuscular Hgb 28.4 pg (27.0-32.0); Mean Corpuscular Volume 86.7 fL (81-99); Mean Platelet Vol. 10.6 fl (6.2-12.0); POSITIVE MORPHOLOGY YES; Platelet Count 130 K/mm3 (150-450); RBC Distribution Width CV 26.1 % (11.6-14.6); RBC Distribution Width SD 80.4 fl (35.1-43.9); Red Blood Count 4.12 M/mm3 (4.2-5.4); White Blood Count 7.2 K/mm3 (4.4-11.0)
[2024-12-09 06:41] LABS: ALB/GLOB Ratio 1.4 RATIO (0.9-2.4); AST(SGOT) 308 U/L (<=31); Alanine Aminotransfer ALT/SGPT 199 U/L (<=34); Albumin, Serum 3.5 g/dL (3.4-4.8); Alkaline Phosphatase 46 U/L (35-104); Anion Gap 16 (5-15); BUN 15 mg/dL (4-19); Calcium,Total 8.7 mg/dL (7.6-11.0); Carbon Dioxide 18.5 mmol/L (21.0-32.0); Chloride 101 mmol/L (98-108); Creatinine, Serum 0.75 mg/dL (0.70-1.20); EST Glomerular Filtration Rate 78 (>60); Estimated Creatinine Clearance 50.96 ml/min (50-250); Globulin 2.6 g/dL (2.2-4.2); Glucose 89 mg/dL (70-99); Potassium 2.8 mmol/L (3.3-5.1); Protein, Total 6.1 g/dL (5.9-8.4); Sodium Level 136 mmol/L (133-145); Total Bilirubin 4.29 mg/dL (0.00-1.30)
[2024-12-09 07:36] LABS: Scan Indicated on CBC? Y/N YES- FLAGS NOTED
--- NOTE | 2024-12-09 07:56 | MRI_ITS ---
PROCEDURE: MRCP ABDOMEN WITHOUT CONTRAST 12/09/2024 REASON FOR EXAM: OBSTRUCTIVE JAUNDICE TECHNIQUE: MRI of the upper abdomen without intravenous gadolinium-based contrast. Multiplanar and multisequence images were obtained. COMPARISON: CT and ultrasound 12/08/2024 FINDINGS: Liver: 4 cm T2 hyperintense mass within the anterior segment of the right lobe of the liver. Biliary: Layering stones and sludge within the gallbladder. Gallbladder wall thickening with hypointensities consistent with adenomyomatosis as seen on recent ultrasound. Examination of the common bile duct is normal without evidence of abnormal structural gel of dilatation, or filling defect to suggest choledocholithiasis. Pancreatic duct is normal. Pancreas: Unremarkable. Spleen: Unremarkable. Adrenals: Unremarkable. Kidneys: Parapelvic cysts of both kidneys. Peritoneum / Retroperitoneum: Unremarkable. Lymph Nodes: Unremarkable. Major Vessels: Unremarkable. Bones: Unremarkable. MRI/MRCP Abdomen without Contrast IMPRESSION: Cholelithiasis and adenomyomatosis. No biliary stricture, dilatation, or choledocholithiasis. Reading Location: [id number]
[2024-12-09 08:30] LABS: Hemoglobin A1c 5.5 % (<=5.6)
[2024-12-09] MEDS: LORazepam 1 MG Tablet PO (09:03)
[2024-12-09] MEDS: Potassium Chloride Oral Tablet 10 MEQ PO (11:34)
[2024-12-09] MEDS: hydroCHLOROthiazide 12.5mg 12.5 MG PO (11:34)
[2024-12-09] MEDS: amLODIPine 5 MG Tablet PO (11:34)
[2024-12-09] MEDS: Metoprolol Tartrate 25 MG Tablet PO ×2 (11:34→23:21)
[2024-12-09] MEDS: Enoxaparin 40 MG/0.4 ML Syringe SC (11:35)
[2024-12-09] MEDS: Timolol 0.5% 5ML OPTH.BTL 1 DRP EACH EYE ×2 (11:35→23:22)
--- NOTE | 2024-12-09 12:04 | CASEMGMT ---
ALBERTO GRANT Assessment: RN CM to room to meet with pt for initial transition planning/care coordination assessment. ALBERTO GRANT introduced self and role at [facility], pt voices understanding and consents to assessment. Pt is A&O and answers all questions appropriately at this time. Pt sitting up in chair in room in no distress. Care providers, pharmacy, and demographics verified/updated. Strata: 2 PCP: Dr Arevalo Specialists: Dr Griffin, cardio; Dr Caruso, neuro; Dr Diaz, radiation onc; Dr Chavis, onc; Dr Woodall, surgeon, Dr Yessi Whitlock, hep surgeon @ [facility] Preferred Pharmacy: [facility] @ discharge. Otherwise, goes to [facility]. Insurance: [employer] [facility] Prescription Benefit: yes HCPOA/LW: Pt states she has both LW and HCPOA. Her HCPOA is son, Chintan. 1st alternative is son, Pj. Both documents are on-file @ [facility]. LNOK: Chintan Mendez, son; Pj Mendez, son. Pt also has another son. Living Arrangements: Pt lives with in a one-story home with 1 step to enter with a rail on both sides. Pt reports she is I in ADL and IADLs and denies concerns at home. Family assists w/taking pt to grocery store or getting her groceries, if needed. Transportation: Pt has not been driving recently d/t neuroptahy. Family assists w/transportation to store and appts. DME: shower chair, walker, rollator, cane, functioning BGM with sufficient supplies- pt states she checks her BS's every day. HHC/SNF: Pt has had a HHC in [place] in the past, she cannot remember the name. Pt denies hx of SNF. Pt states she has done OP therapy @ [facility] in the past and she has home exercises she can work on. She states she also has [facility] @ [facility] [facility] and plans to start going there again through [facility]. She denies need for OP therapy again. Pt states no concerns with going home at time of dc. Pt denies any home-going needs. Pt states no further concerns/needs. CM to follow. Advised pt to ask CM if any further question/concerns/needs arise, voices understanding. Plan: Home Angela MILLER RN, CM
--- NOTE | 2024-12-09 13:48 | EX.PCM.CON.S ---
Assessment & Plan Assessment/Plan (1) Transaminitis: (2) Nausea & vomiting: (3) Cholelithiasis: PLAN: Plan The patient is an 84-year-old female who presented with nausea vomiting and abdominal discomfort. She was found to have elevated bilirubin as well as AST/ALT. However her alkaline phosphatase was normal. Her bilirubin has actually increased overnight raising concern about the possibility of hepatocellular injury possibly due to chemotherapy versus choledocholithiasis which would seem less likely given the fact that her alkaline phosphatase was normal. White count is also normal which seems to be contrary to the possibility of acute cholecystitis. I discussed with with Dr. Ordonez. He has ordered an MRCP to further evaluate her bile ducts as well as her liver parenchyma. At this point I have no surgical plans for cholecystectomy unless MRCP indicates a common bile duct stone. At which case ERCP would be warranted at that time. MRCP has been performed although results are still pending. Will await results of MRCP. Dr Rehman to cover tomorrow and weekend HPI Consult Data Date of Consult: 12/09/24 HPI Narrative Reason for Consultation: Gallstones/possible cholecystitis HPI Narrative: ANABELA CAMARA, is a 84 F who presented last night to the [facility] emergency department with chief complaints of nausea and vomiting. She started having the nausea and vomiting the morning of admission. She stated that she later developed upper abdominal discomfort that she attributes to multiple emesis. Her past medical history is notable for having a diagnosis of colon cancer with liver metastasis. She underwent a right sided hemicolectomy back in June 2024 and has been undergoing chemotherapy currently. She recently completed her fourth round of chemotherapy on November 24. She follows with Dr. Chavis. She also has a liver metastasis that has also been initially decreasing in size with chemotherapy with plans of resection or cryoablation at a later date. She was seen and evaluated by the ER staff. Initially she had a low-grade temperature of 99.7. She underwent laboratory testing and this revealed an elevated total bilirubin of 2.8. She had a direct bilirubin of 2.0. AST and ALT were 546 and 213 respectively. Alkaline phosphatase was normal. CT scan was initially ordered and showed a mildly distended gallbladder. There were gallstones. There was question of periportal edema. Ultrasound of the right upper quadrant was then performed and showed gallstones but no gallbladder wall thickening was commented upon. Her common bile duct was 8 mm in size. I was contacted by the ER to discuss this case. I suggested that the patient be admitted to medicine with consults to surgery and GI given her LFT elevation pattern. It was also noted that her right hepatic lobe lesion did increase in size from 1.2 cm to 2.2 cm. However this was up to 4 cm according to the patient's son. This morning her nausea and vomiting and abdominal discomfort seem to be greatly improved however her bilirubin was now greater than 4. [facility]LY [facility] Medical History History of neuropathy Walker as ambulation aid Easy bruising Non-smoker Post-menopausal History of steroid therapy Neuropathy Liver lesion, right lobe Cholelithiasis Wears glasses Wears dentures Cancer Ambulates with cane Arthritis High cholesterol Back pain History of irregular heartbeat History of transesophageal echocardiography (HENRIQUE) History of echocardiogram Hypertension Cardiology follow-up encounter Hypertriglyceridemia 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 Breast cancer, right Essential hypertension Breast cancer, left Cardiac murmur Pulmonary hypertension Abnormal findings on diagnostic imaging of heart and coronary circulation Aortic valve disease Paroxysmal supraventricular tachycardia by electrocardiogram (ECG) Supraventricular tachycardia Acquired left ventricular hypertrophy Hypertension Diabetes 1.5, managed as type 2 Home Medications ?Medication ?Instructions ?Recorded ?Last Taken ?Type timolol maleate 0.5 % eye gel 1 drp EACH EYE BID EYE 06/13/16 06/29/24 History forming solution hydrochlorothiazide 12.5 mg tablet 12.5 mg PO DAILY BP 30 days ##30 12/12/17 06/28/24 History metoprolol tartrate 25 mg tablet 25 mg PO BID BP 08/28/20 10/08/24 History potassium chloride 10 mEq 10 meq PO DAILY SUPPLEMENT 08/28/20 06/28/24 History tablet,extended release(part/cryst) meloxicam 7.5 mg tablet 7.5 mg PO BID PRN pain #180 tabs 02/23/24 Unknown Rx fenofibrate 160 mg tablet 160 mg PO QHS CHOLESTEROL 06/24/24 06/28/24 History acetaminophen 500 mg capsule 1,000 mg PO Q6H PRN pain 10/07/24 Unknown History tramadol 50 mg tablet 50 mg PO Q6H PRN pain 2 days #3 10/08/24 Unknown Rx tabs amlodipine 5 mg tablet 5 mg PO DAILY 12/08/24 Unknown History blood sugar diagnostic (True 12/08/24 Unknown History Metrix Glucose Test Strip) magnesium chloride 71.5 mg 71.5 mg PO BID 12/08/24 Unknown History (magnesium chloride) tablet,delayed release (Slow-Mag) prochlorperazine maleate 10 mg 10 mg PO Q6H PRN PRN 12/08/24 Unknown History tablet nausea/vomiting Allergy/AdvReac Type Severity Reaction Status Date / Time oxycodone (From Percocet) AdvReac Severe Itching Verified 12/08/24 17:01 Family History Brother CAD (coronary artery disease) Brother Diabetes Mother Diabetes Hypertension Father Hypertension CVA (cerebral vascular accident) Sister Breast cancer Surgical History S/P colectomy Hx of colonoscopy History of lumpectomy of right breast H/O total knee replacement Status post total right knee replacement History of partial mastectomy of right breast (~05/07/19) History of aortic valve repair (~09/27/16) History of total left hip replacement History of total right hip replacement History of hysterectomy (~10/10/14) Status post left breast lumpectomy H/O aortic valve replacement Social History Smoking Status: Never smoker alcohol intake: never substance use type: does not use caffeine: Yes Type: coffee Number of servings: 1 what type of physical activity do you participate in: none seatbelt use: always do you feel safe at home: Yes Physical Exam Narrative She is alert and oriented x 3. She is in no acute distress. She appears her stated age. Abdomen is soft and nondistended. Minimal discomfort in the right upper quadrant with palpation. No rebound or guarding. Lab / Micro Data 12/09/24 05:08 12/09/24 05:08 Labs: Laboratory Results - last 24 hr 12/08/24 17:30: WBC 6.5, RBC 4.48, Hgb 12.9, Hct 38.6, MCV 86.2, MCH 28.8, MCHC 33.4, RDW Std Deviation 78.2 H, RDW Coeff of Clara 25.6 H, Plt Count 174, MPV 9.8, Immature Gran % (Auto) 0.500, Neut % (Auto) 94.1 H, Lymph % (Auto) 3.9 L, [place] % (Auto) 1.2, Eos % (Auto) 0.0, Baso % (Auto) 0.3, Absolute Neuts (auto) 6.1, Absolute Lymphs (auto) 0.25 L, Nucleated RBC % 0, Polychromasia 1+, Anisocytosis 1+, Sodium 134, Potassium 3.4, Chloride 99, Carbon Dioxide 18.7 L, Anion Gap 16 H, BUN 16, Creatinine 0.69 L, Estim Creat Clear Calc 51.16, Est GFR (MDRD) Non-Af 86, BUN/Creatinine Ratio 23.4 H, Glucose 161 H, Calcium 9.7, Total Bilirubin 2.85 H, Direct Bilirubin 2.09 H, AST 546 H, ALT 213 H, Alkaline Phosphatase 78, Total Protein 7.3, Albumin 4.2, Globulin 3.1, Lipase 18 12/08/24 19:24: Urine Color Yellow, Urine Clarity Cloudy, Urine pH 6.5, Ur Specific [place] 1.010, Urine Protein 30 H, Urine Glucose (UA) 50 H, Urine Ketones Negative, Urine Occult Blood 25 H, Urine Nitrite Negative, Urine Bilirubin Negative, Urine Urobilinogen 1 H, Ur Leukocyte Esterase 25 H, Urine RBC 0-5 SEEN, Urine WBC 0-5 SEEN, Ur Squamous Epith Cells 0-5 SEEN, Amorphous Sediment 1+, Urine Bacteria 2+, Urine Mucus RARE 12/09/24 05:08: WBC 7.2, RBC 4.12 L, Hgb 11.7 L, Hct 35.7 L, MCV 86.7, MCH 28.4, MCHC 32.8, RDW Std Deviation 80.4 H, RDW Coeff of Clara 26.1 H, Plt Count 130 L, MPV 10.6, Sodium 136, Potassium 2.8 L, Chloride 101, Carbon Dioxide 18.5 L, Anion Gap 16 H, BUN 15, Creatinine 0.75, Estim Creat Clear Calc 50.96, Est GFR (MDRD) Non-Af 78, BUN/Creatinine Ratio 20.0, Glucose 89, Hemoglobin A1c 5.5, Calcium 8.7, Total Bilirubin 4.29 H, AST 308 H, ALT 199 H, Alkaline Phosphatase 46, Total Protein 6.1, Albumin 3.5, Globulin 2.6, Albumin/Globulin Ratio 1.4 Micro: Microbiology 12/08/24 19:24 Urine, Catheterized Urine Culture - Preliminary Presumptive E. coli Imaging Radiology Impression Abdomen/Pelvis CT 12/08/24 18:43 IMPRESSION: Interval increase in size of the right hepatic lobe low attenuating lesion, measuring 2.2 cm, previously measuring 1.2 cm. Mildly distended gallbladder with suspected gallstone and gallbladder wall edema, underlying acute cholecystitis can not be excluded. Right upper quadrant ultrasound is recommended for further characterization. Fluid-filled distal small bowel within the right lower quadrant, may represent focal area of enteritis versus ileus. Sigmoid diverticulosis without evidence of deficit colitis. Reading Location: [facility] Gallbladder Ultrasound 12/08/24 19:45 IMPRESSION: Cholelithiasis. Adenomyomatosis Reading Location: [id number] Charges/Coding Visit Charges Inpatient E&M: 24852 Init Hosp L3
--- NOTE | 2024-12-09 14:20 | PN_ITS ---
Subjective Subjective Patient seen and examined. Her son and grandson were by her bedside. She still complained of some abdominal pain, mainly in the right upper quadrant of her abdomen. She denied any nausea, vomiting, chest pain, shortness of breath or any other symptoms. Review of systems is otherwise negative. Objective Data Objective Data Vital Signs: Vital Signs Temp Pulse Resp BP Pulse Ox O2 Del Method 98.4 F 80 16 103/47 L 94 Room Air 12/09/24 08:18 12/09/24 11:34 12/09/24 08:18 12/09/24 08:18 12/09/24 08:18 12/09/24 08:18 Oxygen Delivery Method Room Air Weight: 153 lb 0.013 oz Body Mass Index (BMI) 26.2 Intake & Output: Intake and Output for Last 24 Hours 12/07/24 12/08/24 12/09/24 23:59 23:59 23:59 Intake Total 1050 / 1050 140.00 / 140.00 Output Total 200 / 200 Balance 1050 / 1050 -60.00 / -60.00 Lab / Micro Data 12/09/24 05:08 12/09/24 05:08 Labs: Laboratory Results - last 24 hr 12/08/24 17:30: WBC 6.5, RBC 4.48, Hgb 12.9, Hct 38.6, MCV 86.2, MCH 28.8, MCHC 33.4, RDW Std Deviation 78.2 H, RDW Coeff of Clara 25.6 H, Plt Count 174, MPV 9.8, Immature Gran % (Auto) 0.500, Neut % (Auto) 94.1 H, Lymph % (Auto) 3.9 L, [place] % (Auto) 1.2, Eos % (Auto) 0.0, Baso % (Auto) 0.3, Absolute Neuts (auto) 6.1, A bsolute Lymphs (auto) 0.25 L, Nucleated RBC % 0, Polychromasia 1+, Anisocytosis 1+, Sodium 134, Potassium 3.4, Chloride 99, Carbon Dioxide 18.7 L, Anion Gap 16 H, BUN 16, Creatinine 0.69 L, Estim Creat Clear Calc 51.16, Est GFR (MDRD) Non- Af 86, BUN/Creatinine Ratio 23.4 H, Glucose 161 H, Calcium 9.7, Total Bilirubin 2.85 H, Direct Bilirubin 2.09 H, AST 546 H, ALT 213 H, Alkaline Phosphatase 78, Total Protein 7.3, Albumin 4.2, Globulin 3.1, Lipase 18 12/08/24 19:24: Urine Color Yellow, Urine Clarity Cloudy, Urine pH 6.5, Ur Specific [place] 1.010, Urine Protein 30 H, Urine Glucose (UA) 50 H, Urine Ketones Negative, Urine Occult Blood 25 H, Urine Nitrite Negative, Urine Bilirubin Negative, Urine Urobilinogen 1 H, Ur Leukocyte Esterase 25 H, Urine RBC 0-5 SEEN, Urine WBC 0-5 SEEN, Ur Squamous Epith Cells 0-5 SEEN, Amorphous Sediment 1+, Urine Bacteria 2+, Urine Mucus RARE 12/09/24 05:08: WBC 7.2, RBC 4.12 L, Hgb 11.7 L, Hct 35.7 L, MCV 86.7, MCH 28.4, MCHC 32.8, RDW Std Deviation 80.4 H, RDW Coeff of Clara 26.1 H, Plt Count 130 L, MPV 10.6, Sodium 136, Potassium 2.8 L, Chloride 101, Carbon Dioxide 18.5 L, A nion Gap 16 H, BUN 15, Creatinine 0.75, Estim Creat Clear Calc 50.96, Est GFR (MDRD) Non-Af 78, BUN/Creatinine Ratio 20.0, Glucose 89, Hemoglobin A1c 5.5, Calcium 8.7, Total Bilirubin 4.29 H, AST 308 H, ALT 199 H, Alkaline Phosphatase 46, Total Protein 6.1, Albumin 3.5, Globulin 2.6, Albumin/Globulin Ratio 1.4 Micro: Microbiology 12/08/24 19:24 Urine, Catheterized Urine Culture - Preliminary Presumptive E. coli Radiography Diagnostic Testing: Radiology Impression Abdomen/Pelvis CT 12/08/24 18:43 IMPRESSION: Interval increase in size of the right hepatic lobe low attenuating lesion, measuring 2.2 cm, previously measuring 1.2 cm. Mildly distended gallbladder with suspected gallstone and gallbladder wall edema, underlying acute cholecystitis can not be excluded. Right upper quadrant ultrasound is recommended for further characterization. Fluid-filled distal small bowel within the right lower quadrant, may represent focal area of enteritis versus ileus. Sigmoid diverticulosis without evidence of deficit colitis. Reading Location: [facility] Gallbladder Ultrasound 12/08/24 19:45 IMPRESSION: Cholelithiasis. Adenomyomatosis Reading Location: [facility] Physical Exam Const alert, oriented x3 and no apparent distress General Appearance: cooperative HEENT normocephalic, head/scalp atraumatic, moist oral mucous membranes and oropharynx normal Eyes PERRL and EOMs intact bilaterally Neck no lymphadenopathy and supple Resp normal respiratory effort, normal air movement and clear to auscultation bilaterally Cardio regular rate, regular rhythm, S1 normal heart sound, S2 normal heart sound and no murmurs GI normal to inspection, nondistended, normoactive bowel sounds and soft to palpation GI Narrative: positive Winchester's sign Extremity normal capillary refill, no clubbing, cyanosis or edema and no calf tenderness General Extremity: no tenderness to palpation of joints or extremities Skin Skin Narrative: has a port in situ General Skin Exam: no breakdown Neuro CN's II-XII intact bilaterally, no focal motor deficits and no sensory deficits noted Motor Exam: general weakness Psych thought process normal and cooperative Appearance: appropriate Assessment & Plan Assessment/Plan (1) Cholelithiasis: PLAN: Plan #Acute symptomatic cholelithiasis with possible choledocholithiasis * Patient admitted with a complaint of right upper quadrant pain. CT of the abdomen showed gallstones and mildly distended gallbladder with gallbladder wall edema. Right upper quadrant ultrasound showed cholelithiasis and adenomyomatosis of the gallbladder with a common bile duct measuring 8 mmHg. * MRCP done, read is pending. General surgery also on board. * Currently on IV Zosyn. * Bilirubin remains elevated. ALP is however normal. WBC is also normal. General surgery says no plans for cholecystectomy unless MRCP indicates the common bile duct stone. Per general surgery in light of the normal ALP, they are concerned about possibility of hepatocellular injury possibly from chemotherapy. * IV morphine as needed for pain. #Elevated liver enzymes: as above #History of colon cancer with isolated liver mets * Follows with Dr. Pires. S/p palliative laparoscopic right hemicolectomy on 06/29/2024 and has completed 4 rounds of chemotherapy with FOLFOX plus bevacizumab. * CT of the abdomen and pelvis showed increased size of liver lesion from 1.2 cm to 2.2 cm. Will need to follow-up with oncology as outpatient * #Hyperlipidemia: on fenofibrate which was held on admission due to elevated LFTs #History of breast cancer * s/p left breast lumpectomy with adjuvant radiation therapy in 2018 followed by right breast lumpectomy with adjuvant radiation therapy in 2019. * Was on tamoxifen and then switched to anastrozole. DVT prophylaxis: Lovenox Charges/Coding Visit Charges Inpatient E&M: 31144 Subs Hosp L2
[2024-12-10] VITALS (7 sets, daily range): BP systolic 109–126; BP diastolic 52–69; PULSE 65–83; RESP 14–18; TEMP 36.8–37.1; O2SAT 95–98
[2024-12-10] MEDS: Piperacil/Tazobactam 3.375 GM in 0.9% Normal Saline (50mL MB+) 50 ML IV ×3 (05:13→21:54)
[2024-12-10 06:24] LABS: Hematocrit 33.2 % (37-47); Hemoglobin 11.3 g/dL (12.0-15.0); Mean Corpuscular Hgb 28.8 pg (27.0-32.0); Mean Corpuscular Volume 84.7 fL (81-99); Mean Platelet Vol. 10.7 fl (6.2-12.0); POSITIVE COUNT YES; POSITIVE MORPHOLOGY YES; Platelet Count 104 K/mm3 (150-450); Red Blood Count 3.92 M/mm3 (4.2-5.4); White Blood Count 5.5 K/mm3 (4.4-11.0)
[2024-12-10 06:28] LABS: Differential Indicated MANUAL DIFF
[2024-12-10 07:04] LABS: Basophil 1 % (0-1); Eosinophil 1 % (0-5); Lymphocyte 13 % (19-41); Monocyte 8 % (0-10); Neutrophil-Band 17 % (0-5); Neutrophil-Segmented 60 % (47-70); Total Cells Counted 100 (MANUAL DIFF)
[2024-12-10 07:05] LABS: Absolute Neutrophil Count 4.2 X10^3/uL (2.0-7.7); Anisocytosis 2+; Platelet Estimate MOD (ADEQ); Red Cell Morphology N CHROM NORMAL (NORM C&C)
[2024-12-10 07:06] LABS: Absolute Lymphocyte Count 0.72 X10^3/uL (0.83-4.51)
[2024-12-10 07:10] LABS: ALB/GLOB Ratio 1.1 RATIO (0.9-2.4); AST(SGOT) 112 U/L (<=31); Alanine Aminotransfer ALT/SGPT 120 U/L (<=34); Albumin, Serum 3.1 g/dL (3.4-4.8); Alkaline Phosphatase 49 U/L (35-104); Anion Gap 13 (5-15); BUN 28 mg/dL (4-19); Calcium,Total 8.2 mg/dL (7.6-11.0); Carbon Dioxide 19.4 mmol/L (21.0-32.0); Chloride 99 mmol/L (98-108); Creatinine, Serum 0.96 mg/dL (0.70-1.20); EST Glomerular Filtration Rate 59 (>60); Estimated Creatinine Clearance 42.46 ml/min (50-250); Globulin 2.7 g/dL (2.2-4.2); Glucose 93 mg/dL (70-99); Potassium 2.9 mmol/L (3.3-5.1); Protein, Total 5.8 g/dL (5.9-8.4); Sodium Level 132 mmol/L (133-145); Total Bilirubin 3.38 mg/dL (0.00-1.30)
--- NOTE | 2024-12-10 07:12 | PN.SURG_ITS ---
Subjective Subjective Patient is not having any abdominal pain. She tolerated liquids yesterday with no nausea or vomiting. Objective Data Objective Data Vital Signs: Vital Signs Temp Pulse Resp BP Pulse Ox O2 Del Method 98.3 F 75 18 125/62 H 95 Room Air 12/10/24 04:48 12/10/24 04:48 12/10/24 04:48 12/10/24 04:48 12/10/24 04:48 12/10/24 04:48 Oxygen Delivery Method Room Air Weight: 153 lb 0.013 oz Body Mass Index (BMI) 26.2 Intake & Output: Intake and Output for Last 24 Hours 12/08/24 12/09/24 12/10/24 23:59 23:59 23:59 Intake Total 1050 / 1050 610.00 / 610.00 50 / 50 Output Total 400 / 400 Balance 1050 / 1050 210.00 / 210.00 50 / 50 Lab / Micro Data 12/10/24 05:44 12/10/24 05:44 Labs: Laboratory Results - last 24 hr 12/09/24 05:08: WBC 7.2, RBC 4.12 L, Hgb 11.7 L, Hct 35.7 L, MCV 86.7, MCH 28.4, MCHC 32.8, RDW Std Deviation 80.4 H, RDW Coeff of Clara 26.1 H, Plt Count 130 L, MPV 10.6, Hemoglobin A1c 5.5 12/10/24 05:44: WBC 5.5, RBC 3.92 L, Hgb 11.3 L, Hct 33.2 L, MCV 84.7, MCH 28.8, MCHC 34.0, RDW Std Deviation TNP, RDW Coeff of Clara TNP, Plt Count 104 L, MPV 10.7, Neut % (Auto) Not Reportable, Absolute Neuts (auto) 4.2, Absolute Lymphs (auto) 0.72 L, Total Counted 100, Neutrophils % (Manual) 60, Band Neutrophils % 17 H, Lymphocytes % (Manual) 13 L, Monocytes % (Manual) 8, Eosinophils % (Manual) 1, Basophils % (Manual) 1, Platelet Estimate MOD, RBC Morphology N CHROM, Anisocytosis 2+, Sodium 132 L, Potassium 2.9 L, Chloride 99, Carbon Dioxide 19.4 L, Anion Gap 13, BUN 28 H, Creatinine 0.96, Estim Creat Clear Calc 42.46 L, Est GFR (MDRD) Non-Af 59 L, BUN/Creatinine Ratio 29.0 H, Glucose 93, Calcium 8.2, Total Bilirubin 3.38 H, AST 112 H, ALT 120 H, Alkaline Phosphatase 49, Total Protein 5.8 L, Albumin 3.1 L, Globulin 2.7, Albumin/Globulin Ratio 1.1 Micro: Microbiology 12/08/24 19:24 Urine, Catheterized Urine Culture - Preliminary Presumptive E. coli Radiography Diagnostic Testing: Radiology Impression MRCP 12/09/24 07:56 IMPRESSION: Cholelithiasis and adenomyomatosis. No biliary stricture, dilatation, or choledocholithiasis. Reading Location: [id number] Physical Exam Const oriented x3 and no apparent distress Resp normal respiratory effort GI soft to palpation and non-tender Assessment & Plan Assessment/Plan (1) Transaminitis: (2) Nausea & vomiting: (3) Cholelithiasis: PLAN: Plan The patient is having no abdominal pain today. She denies any nausea or vomiting. Her white count remains normal but she is having bandemia and I am unsure if this is due to her gallbladder or due to the chemotherapy. Clinically she seems improved. She had an MRCP yesterday that did not show choledocholithiasis or signs of acute cholecystitis. If she does not tolerate a regular diet I will order a HIDA. Rakan Rehman MD Pager: [facility] [address] [place] [address], [address] [place] [phone] Office:
[2024-12-10 09:14] LABS: Magnesium 1.6 mg/dL (1.5-2.2)
[2024-12-10] MEDS: Enoxaparin 40 MG/0.4 ML Syringe SC (09:31)
[2024-12-10] MEDS: Timolol 0.5% 5ML OPTH.BTL 1 DRP EACH EYE ×2 (09:31→21:55)
[2024-12-10] MEDS: Potassium Chloride Oral Tablet 10 MEQ PO (09:32)
[2024-12-10] MEDS: hydroCHLOROthiazide 12.5mg 12.5 MG PO (09:32)
[2024-12-10] MEDS: Metoprolol Tartrate 25 MG Tablet PO ×2 (09:32→21:56)
[2024-12-10] MEDS: Potassium Chloride 10mEq/100mL 10 MEQ/100 ML IV.SOLN. 100 MEQ IV BOLUS ×4 (10:22→13:51)
--- NOTE | 2024-12-10 10:25 | PN_ITS ---
Subjective Subjective Patient seen and examined. She had no complaints. Abdominal pain had improved. Review of systems otherwise negative. HEr liver enzymes are trending downwards. Objective Data Objective Data Vital Signs: Vital Signs Temp Pulse Resp BP Pulse Ox O2 Del Method 98.4 F 77 14 109/52 L 96 Room Air 12/10/24 09:28 12/10/24 09:32 12/10/24 09:28 12/10/24 09:28 12/10/24 09:28 12/10/24 09:28 Oxygen Delivery Method Room Air Weight: 153 lb 0.013 oz Body Mass Index (BMI) 26.2 Intake & Output: Intake and Output for Last 24 Hours 12/08/24 12/09/24 12/10/24 23:59 23:59 23:59 Intake Total 1050 / 1050 610.00 / 610.00 100 / 100 Output Total 400 / 400 Balance 1050 / 1050 210.00 / 210.00 100 / 100 Lab / Micro Data 12/10/24 05:44 12/10/24 05:44 Labs: Laboratory Results - last 24 hr 12/10/24 05:44: WBC 5.5, RBC 3.92 L, Hgb 11.3 L, Hct 33.2 L, MCV 84.7, MCH 28.8, MCHC 34.0, RDW Std Deviation TNP, RDW Coeff of Clara TNP, Plt Count 104 L, MPV 10.7, Neut % (Auto) Not Reportable, Absolute Neuts (auto) 4.2, Absolute Lymphs (auto) 0.72 L, Total Counted 100, Neutrophils % (Manual) 60, Band Neutrophils % 17 H, Lymphocytes % (Manual) 13 L, Monocytes % (Manual) 8, Eosinophils % (Manual) 1, Basophils % (Manual) 1, Platelet Estimate MOD, RBC Morphology N CHROM, Anisocytosis 2+, Sodium 132 L, Potassium 2.9 L, Chloride 99, Carbon Dioxide 19.4 L, Anion Gap 13, BUN 28 H, Creatinine 0.96, Estim Creat Clear Calc 42.46 L, Est GFR (MDRD) Non-Af 59 L, BUN/Creatinine Ratio 29.0 H, Glucose 93, Calcium 8.2, Total Bilirubin 3.38 H, AST 112 H, ALT 120 H, Alkaline Phosphatase 49, Total Protein 5.8 L, Albumin 3.1 L, Globulin 2.7, Albumin/Globulin Ratio 1.1 12/10/24 05:45: Magnesium 1.6 Micro: Microbiology 12/08/24 19:24 Urine, Catheterized Urine Culture - Final Presumptive E. coli Radiography Diagnostic Testing: Radiology Impression MRCP 12/09/24 07:56 IMPRESSION: Cholelithiasis and adenomyomatosis. No biliary stricture, dilatation, or choledocholithiasis. Reading Location: [facility] Physical Exam Const alert, oriented x3, no apparent distress and average body habitus General Appearance: cooperative and comfortable HEENT normocephalic, head/scalp atraumatic, hearing grossly normal bilaterally, nasal mucous membranes and turbinates normal, moist oral mucous membranes and oropharynx normal Eyes PERRL, EOMs intact bilaterally and conjunctivae normal Neck full ROM, no lymphadenopathy and supple Chest inspection of chest normal Resp normal respiratory effort, normal air movement, no use of accessory muscles and clear to auscultation bilaterally Cardio regular rate, regular rhythm, S1 normal heart sound, S2 normal heart sound, no murmurs and peripheral pulses 2+ throughout GI normal to inspection, nondistended, normoactive bowel sounds, soft to palpation, non-tender and non-distended Back/Spine normal ROM Extremity normal to inspection, full ROM, normal capillary refill, no clubbing, cyanosis or edema, no calf tenderness and no pedal edema General Extremity: no tenderness to palpation of joints or extremities Skin no rashes or lesions noted Skin Narrative: has a port in situ General Skin Exam: no breakdown Neuro CN's II-XII intact bilaterally, no focal motor deficits and no sensory deficits noted Motor Exam: general weakness Psych mental status grossly normal, thought process normal and cooperative Appearance: appropriate Assessment & Plan Assessment/Plan (1) Cholelithiasis: PLAN: Plan #Acute symptomatic cholelithiasis with possible choledocholithiasis * Patient admitted with a complaint of right upper quadrant pain. CT of the abdomen showed gallstones and mildly distended gallbladder with gallbladder wall edema. Right upper quadrant ultrasound showed cholelithiasis and adenomyomatosis of the gallbladder with a common bile duct measuring 8 mmHg. * MRCP done, read is pending. General surgery also on board. * Currently on IV Zosyn. * Bilirubin remains elevated. ALP is however normal. WBC is also normal. General surgery says no plans for cholecystectomy unless MRCP indicates the common bile duct stone. Per general surgery in light of the normal ALP, they are concerned about possibility of hepatocellular injury possibly from chemotherapy. * MRCP showed cholelithiasis and adenomyomatosis, but no evidence of choledocholithiais * bilirubin is trending downwards to 3.38 today. AST and ALT are also trending dowards. ALP is WNL * IV morphine as needed for pain. * per general surgery, if she does not tolerate a regular diet, will oder a HIDA scan. #Elevated liver enzymes: as above #Hypokalemia: potassium is 2.9. Will replace aggressively and trend. Mg is 1.6. #History of colon cancer with isolated liver mets * Follows with Dr. Chavis. S/p palliative laparoscopic right hemicolectomy on 06/29/2024 and has completed 4 rounds of chemotherapy with FOLFOX plus bevacizumab. * CT of the abdomen and pelvis showed increased size of liver lesion from 1.2 cm to 2.2 cm. Will need to follow-up with oncology as outpatient * #Hyperlipidemia: on fenofibrate which was held on admission due to elevated LFTs #History of breast cancer * s/p left breast lumpectomy with adjuvant radiation therapy in 2018 followed by right breast lumpectomy with adjuvant radiation therapy in 2019. * Was on tamoxifen and then switched to anastrozole. DVT prophylaxis: Lovenox Charges/Coding Visit Charges Inpatient E&M: 76213 Subs Hosp L2
[2024-12-10] MEDS: Magnesium Sulfate 4gm/100mL 4 GM/100 ML IV.SOLN. IV (10:35)
[2024-12-10] MEDS: 0.9% Saline Lock 10 ML Syringe IV (21:57)
[2024-12-11] VITALS (7 sets, daily range): BP systolic 116–139; BP diastolic 52–60; PULSE 59–71; RESP 14–16; TEMP 36.6–37.2; O2SAT 95–98
[2024-12-11] MEDS: Piperacil/Tazobactam 3.375 GM in 0.9% Normal Saline (50mL MB+) 50 ML IV ×2 (05:38→14:15)
[2024-12-11] MEDS: 0.9% Saline Lock 10 ML Syringe IV (05:38)
[2024-12-11 05:59] LABS: Absolute Lymphocyte Count 0.39 X10^3/uL (0.83-4.51); Absolute Neutrophil Count 4.1 X10^3/uL (2.0-7.7); Basophil# 0.02 X10^3/uL; Basophil% 0.4 % (0-1); Eosinophils% 1.9 % (0-5); Hemoglobin 10.7 g/dL (12.0-15.0); Lymphocyte # 0.39 X10^3/ul (0.83-4.51); Lymphocyte % 7.3 % (19-41); Mean Corp Hgb Conc 33.4 g/dL (32-36); Mean Corpuscular Hgb 28.5 pg (27.0-32.0); Mean Corpuscular Volume 85.3 fL (81-99); Mean Platelet Vol. 10.7 fl (6.2-12.0); Monocyte# 0.71 X10^3/uL; Monocyte% 13.2 % (0-10); NRBC Flagged by Analyzer 0 % (0-5); Neutrophil # 4.09 X10^3/uL (2.7-7.7); Neutrophil % 76.3 % (47-70); POSITIVE DIFFERENTIAL YES; POSITIVE MORPHOLOGY YES; Platelet Count 112 K/mm3 (150-450); Red Blood Count 3.75 M/mm3 (4.2-5.4); White Blood Count 5.4 K/mm3 (4.4-11.0)
[2024-12-11 06:33] LABS: ALB/GLOB Ratio 1.1 RATIO (0.9-2.4); AST(SGOT) 52 U/L (<=31); Alanine Aminotransfer ALT/SGPT 72 U/L (<=34); Albumin, Serum 2.9 g/dL (3.4-4.8); Alkaline Phosphatase 62 U/L (35-104); Anion Gap 10 (5-15); BUN 23 mg/dL (4-19); BUN/Creat Ratio 30.1 RATIO (10-20); Calcium,Total 8.2 mg/dL (7.6-11.0); Carbon Dioxide 21.5 mmol/L (21.0-32.0); Chloride 99 mmol/L (98-108); Creatinine, Serum 0.76 mg/dL (0.70-1.20); EST Glomerular Filtration Rate 77 (>60); Estimated Creatinine Clearance 50.96 ml/min (50-250); Globulin 2.8 g/dL (2.2-4.2); Glucose 102 mg/dL (70-99); Potassium 3.2 mmol/L (3.3-5.1); Protein, Total 5.7 g/dL (5.9-8.4); Sodium Level 131 mmol/L (133-145); Total Bilirubin 1.63 mg/dL (0.00-1.30)
[2024-12-11 07:21] LABS: Differential Indicated SCAN CRITERIA MET
[2024-12-11 07:30] LABS: Anisocytosis 2+
[2024-12-11] MEDS: Metoprolol Tartrate 25 MG Tablet PO (07:43)
[2024-12-11] MEDS: hydroCHLOROthiazide 12.5mg 12.5 MG PO (07:44)
[2024-12-11] MEDS: Potassium Chloride Oral Tablet 10 MEQ PO (07:44)
[2024-12-11] MEDS: Enoxaparin 40 MG/0.4 ML Syringe SC (07:44)
[2024-12-11] MEDS: Timolol 0.5% 5ML OPTH.BTL 1 DRP EACH EYE (07:45)
[2024-12-11] MEDS: amLODIPine 5 MG Tablet PO (07:45)
--- NOTE | 2024-12-11 09:28 | PN.SURG_ITS ---
Subjective Subjective Patient reports she is tolerating a regular diet and having no abdominal pain. Objective Data Objective Data Vital Signs: Vital Signs Temp Pulse Resp BP Pulse Ox O2 Del Method 98.0 F 68 16 139/52 H 95 Room Air 12/11/24 07:38 12/11/24 07:43 12/11/24 07:38 12/11/24 07:38 12/11/24 07:38 12/11/24 07:38 Oxygen Delivery Method Room Air Weight: 153 lb 0.013 oz Body Mass Index (BMI) 26.2 Intake & Output: Intake and Output for Last 24 Hours 12/09/24 12/10/24 12/11/24 23:59 23:59 23:59 Intake Total 610.00 / 610.00 1475 / 1475 50 / 50 Output Total 400 / 400 Balance 210.00 / 210.00 1475 / 1475 50 / 50 Lab / Micro Data 12/11/24 05:30 12/11/24 05:30 Labs: Laboratory Results - last 24 hr 12/11/24 05:30: WBC 5.4, RBC 3.75 L, Hgb 10.7 L, Hct 32.0 L, MCV 85.3, MCH 28.5, MCHC 33.4, RDW Std Deviation Not Reportable, RDW Coeff of Clara Not Reportable, P lt Count 112 L, MPV 10.7, Immature Gran % (Auto) 0.900, Neut % (Auto) 76.3 H, L ymph % (Auto) 7.3 L, [place] % (Auto) 13.2 H, Eos % (Auto) 1.9, Baso % (Auto) 0.4, Absolute Neuts (auto) 4.1, Absolute Lymphs (auto) 0.39 L, Nucleated RBC % 0, Anisocytosis 2+, Sodium 131 L, Potassium 3.2 L, Chloride 99, Carbon Dioxide 21.5, Anion Gap 10, BUN 23 H, Creatinine 0.76, Estim Creat Clear Calc 50.96, Est GFR (MDRD) Non-Af 77, BUN/Creatinine Ratio 30.1 H, Glucose 102 H, Calcium 8.2, T otal Bilirubin 1.63 H, AST 52 H, ALT 72 H, Alkaline Phosphatase 62, Total Protein 5.7 L, Albumin 2.9 L, Globulin 2.8, Albumin/Globulin Ratio 1.1 Micro: Microbiology 12/08/24 19:24 Urine, Catheterized Urine Culture - Final Presumptive E. coli Physical Exam Const oriented x3 and no apparent distress Resp normal respiratory effort GI soft to palpation and non-tender Assessment & Plan Assessment/Plan (1) Colon cancer metastasized to liver: (2) Transaminitis: PLAN: Plan The patient is tolerating a diet and her liver enzymes are going down. She is having no abdominal pain. She denies any nausea or vomiting. Okay for discharge from my standpoint. Rakan Rehman MD Pager: [facility] [address] [place] [address], [address] [place] [address] Office:
[2024-12-11] MEDS: Potassium Chloride Oral Tablet 20 MEQ 40 MEQ PO (10:11)
--- NOTE | 2024-12-11 13:18 | PCM.DC.SUM ---
Providers Date of Admission: 12/08/24 Date of Discharge: 12/11/24 Primary Care Physician: Dr. Marco Antonio Arevalo MD Consultations 12/08/24 22:41 Consult: Gastroenterology Routine Consulting Provider: [facility] Reason for Consult: acute cholecystitis vs choledoco, elevated LFTs, colon ca w/ liver mets EMERGENT Consult: No Notified: Yes Date Notified: 12/09/24 Time Notified: 06:27 Method of Notification: Answering Service Consult: General Surgery Routine Consulting Provider: Dillan Nuno Reason for Consult: concern for acute cholecystitis, elevated LFTs EMERGENT Consult: No Notified: Yes Date Notified: 12/08/24 Time Notified: 06:24 Method of Notification: Text Reason For Visit: RUQ PAIN WITH CONCERN FOR CHOLECYSTITIS Diagnosis Discharge Diagnosis (1) Colon cancer metastasized to liver: Status: Acute Code(s): C18.9 - Malignant neoplasm of colon, unspecified; C78.7 - Secondary malignant neoplasm of liver and intrahepatic bile duct (2) Transaminitis: Status: Acute Code(s): R74.01 - Elevation of levels of liver transaminase levels Plan #Acute symptomatic cholelithiasis with possible choledocholithiasis Patient admitted with a complaint of right upper quadrant pain. CT of the abdomen showed gallstones and mildly distended gallbladder with gallbladder wall edema. Right upper quadrant ultrasound showed cholelithiasis and adenomyomatosis of the gallbladder with a common bile duct measuring 8 mmHg. MRCP done, read is pending. General surgery also on board. Currently on IV Zosyn. Bilirubin remains elevated. ALP is however normal. WBC is also normal. General surgery says no plans for cholecystectomy unless MRCP indicates the common bile duct stone. Per general surgery in light of the normal ALP, they are concerned about possibility of hepatocellular injury possibly from chemotherapy. MRCP showed cholelithiasis and adenomyomatosis, but no evidence of choledocholithiais bilirubin is trending downwards to 3.38 today. AST and ALT are also trending dowards. ALP is WNL IV morphine as needed for pain. per general surgery, if she does not tolerate a regular diet, will oder a HIDA scan. #Elevated liver enzymes: as above #Hypokalemia: potassium is 2.9. Will replace aggressively and trend. Mg is 1.6. #History of colon cancer with isolated liver mets Follows with Dr. Chavis. S/p palliative laparoscopic right hemicolectomy on 06/29/2024 and has completed 4 rounds of chemotherapy with FOLFOX plus bevacizumab. CT of the abdomen and pelvis showed increased size of liver lesion from 1.2 cm to 2.2 cm. Will need to follow-up with oncology as outpatient #Hyperlipidemia: on fenofibrate which was held on admission due to elevated LFTs #History of breast cancer s/p left breast lumpectomy with adjuvant radiation therapy in 2018 followed by right breast lumpectomy with adjuvant radiation therapy in 2019. Was on tamoxifen and then switched to anastrozole. DVT prophylaxis: Lovenox Medications at Discharge Home Medications timolol maleate 0.5 % eye gel forming solution 1 drp EACH EYE BID EYE 06/13/16 hydrochlorothiazide 12.5 mg tablet 12.5 mg PO DAILY BP 30 days ##30 12/12/17 metoprolol tartrate 25 mg tablet 25 mg PO BID BP 08/28/20 potassium chloride 10 mEq tablet,extended release(part/cryst) 10 meq PO DAILY SUPPLEMENT 08/28/20 meloxicam 7.5 mg tablet 7.5 mg PO BID PRN pain #180 tabs 02/23/24 fenofibrate 160 mg tablet 160 mg PO QHS CHOLESTEROL 06/24/24 acetaminophen 500 mg capsule 1,000 mg PO Q6H PRN pain 10/07/24 tramadol 50 mg tablet 50 mg PO Q6H PRN pain 2 days #3 tabs 10/08/24 amlodipine 5 mg tablet 5 mg PO DAILY 12/08/24 blood sugar diagnostic (True Metrix Glucose Test Strip) 12/08/24 magnesium chloride 71.5 mg (magnesium chloride) tablet,delayed release (Slow-Mag) 71.5 mg PO BID 12/08/24 prochlorperazine maleate 10 mg tablet 10 mg PO Q6H PRN PRN nausea/vomiting 12/08/24 cefdinir 300 mg capsule 300 mg PO BID #10 caps 12/11/24 Hospital Course Operations None Procedures None Summary of Care Provided Minutes Spent on Discharge: 45 Hospital Course: Patient is an 84-year-old female with past medical history as outlined who was admitted via the ED on 12/08/2024 with a complaint of nauea, vomiting and upper abdominal pain. She had a history of colon cancer s/p right hemicolectomy with mets to the liver, and having chemothrapy. She had completed 4 rounds of chemotherapy with the last session being on 11/24/2024. She came in with the above mentioned symptoms and was also dehydrated. She had a mild fever also. Liver enzymes were significant for elevated bilirubin of 2.8, AST?ALT of 546/213. ALP was normal at 78. CT of the abdomen and pelvis showed mildly distended gallbladder with suspected gallstones and gallbladder wall edema, as well as fluid filled distal small bowel within the right lower quadrant for enteritis versus ileus and interval increase of right hepatic lobe . Right upper quadrant ultrasound showed multiple echogenic gallstones in the gallbladder with no evidence of acute cholecystitis and common bile duct size was normal. She was admitted to manage for symptomatic acute cholelithiasis with concern for choledocholithiasis. Gastroenterology and general surgery were consulted. She did have MRCP which showed no evidence of any choledocholithiasis and showed gallstones with no evidence of cholecystitis. Her liver enzymes trended downwards and she felt much better. Since the ALP had remained normal, general surgery felt that the elevated liver enzymes might be due to effect of her chemotherapy and also the mets to the liver. Her symptoms resolved and she felt much better. Urine culture was positive for presumptive E. coli. She was on IV Zosyn and on discharge she was placed on p.o. cefdinir for 5-day course. She was discharged home on 12/11/2024. 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 Patient seen and examined prior to discharge. She felt much better and had no complaints. She had an uneventful night. Review of systems otherwise negative. Labs and vitals reviewed. Medication reviewed and reconciled. Physical Exam Const alert, oriented x3, no apparent distress and average body habitus General Appearance: cooperative and comfortable Orientation / Consciousness: awake HEENT normocephalic, head/scalp atraumatic, hearing grossly normal bilaterally, nasal mucous membranes and turbinates normal, moist oral mucous membranes and oropharynx normal Mouth: oral and palatal mucosa normal Eyes PERRL, EOMs intact bilaterally and conjunctivae normal Neck full ROM, no lymphadenopathy and supple Chest inspection of chest normal Resp normal respiratory effort, normal air movement, no use of accessory muscles and clear to auscultation bilaterally Cardio regular rate, regular rhythm, S1 normal heart sound, S2 normal heart sound, no murmurs and peripheral pulses 2+ throughout GI normal to inspection, nondistended, normoactive bowel sounds, soft to palpation, non-tender and non-distended GI Narrative: positive Winchester's sign Back/Spine normal ROM Extremity normal to inspection, full ROM, normal capillary refill, no clubbing, cyanosis or edema, no calf tenderness and no pedal edema General Extremity: no tenderness to palpation of joints or extremities Skin no rashes or lesions noted Skin Narrative: has a port in situ General Skin Exam: no breakdown Neuro oriented x3, CN's II-XII intact bilaterally, moves all extremities, no focal motor deficits and no sensory deficits noted Motor Exam: strength 5/5 throughout and general weakness Psych mental status grossly normal, thought process normal and cooperative Appearance: appropriate Weight / BMI Weight Weight: 153 lb 0.013 oz Body Mass Index (BMI) 26.2 ABG / Lab / Microbiology Data 12/11/24 05:30 12/11/24 05:30 Laboratory: Laboratory Results - last 24 hr 12/11/24 05:30: WBC 5.4, RBC 3.75 L, Hgb 10.7 L, Hct 32.0 L, MCV 85.3, MCH 28.5, MCHC 33.4, RDW Std Deviation Not Reportable, RDW Coeff of Clara Not Reportable, Plt Count 112 L, MPV 10.7, Immature Gran % (Auto) 0.900, Neut % (Auto) 76.3 H, Lymph % (Auto) 7.3 L, [place] % (Auto) 13.2 H, Eos % (Auto) 1.9, Baso % (Auto) 0.4, Absolute Neuts (auto) 4.1, Absolute Lymphs (auto) 0.39 L, Nucleated RBC % 0, Anisocytosis 2+, Sodium 131 L, Potassium 3.2 L, Chloride 99, Carbon Dioxide 21.5, Anion Gap 10, BUN 23 H, Creatinine 0.76, Estim Creat Clear Calc 50.96, Est GFR (MDRD) Non-Af 77, BUN/Creatinine Ratio 30.1 H, Glucose 102 H, Calcium 8.2, Total Bilirubin 1.63 H, AST 52 H, ALT 72 H, Alkaline Phosphatase 62, Total Protein 5.7 L, Albumin 2.9 L, Globulin 2.8, Albumin/Globulin Ratio 1.1 Microbiology: Microbiology 12/08/24 19:24 Urine, Catheterized Urine Culture - Final Presumptive E. coli D/C Instructions Discharge Diet: Low fat / Low cholesterol Discharge Activity: Return to Normal Activity Weight Bearing Status: Weight bearing as tolerated Call your doctor if you observe: Fever of 101 or Higher, Shortness of breath, Dizziness, Swelling in the ankles and Chest pain DC O2, CPAP, BIPAP Needs Home O2 Discharge instructions: No DC home with Oxygen: No Meaningful Use Info Meaningful Use Meaningful Use Diagnoses (Choose all that apply): None applicable Ischemic Stroke Statin Dosing Therapy Reference: STATIN DOSE THERAPY REFERENCE: * Patients > 75 years receive moderate or high dose statin therapy. * Patients 75 years or YOUNGER should receive HIGH intensity statin dose unless contraindicated. You will be required to document reason for non-treatment if statin daily dose does not meet guidelines. HIGH DOSE STATIN THERAPY DAILY Atorvastatin > than or = to 40 mg Rosuvastatin > than or = to 20 mg Amlodipine + Atorvastatin > than or = to 2.5/40 mg Ezetimibe + Simvastatin 10/80 mg Simvastatin 80mg Discharge Plan Admission Admit Date/Time: 12/08/24 21:43 Primary Reason for Your Visit: cholelithiasis Attending Provider: Federica Lorenzana Primary Care Provider: Marco Antonio Arevalo Chi Consulting Providers: Dillan Nuno; Ceferino Lopez Instructions Patient Instructions: Gallstones Dc, ED Abdominal Pain Gallstone Poss Discharge Orders/Prescriptions Prescriptions: New cefdinir 300 mg capsule 300 mg PO BID Qty: 10 0RF Continued hydrochlorothiazide 12.5 mg tablet 12.5 mg PO DAILY 30 Days Qty: 30 Patient Comments: TAKE 1 TABLET BY MOUTH EVERY DAY meloxicam 7.5 mg tablet 7.5 mg PO BID PRN (Reason: pain) Qty: 180 3RF timolol maleate 1 DROP gel forming solution 1 drp EACH EYE BID Patient Comments: EYE DROP potassium chloride 10 MEQ tablet 10 meq PO DAILY metoprolol tartrate 25 MG tablet 25 mg PO BID fenofibrate 160 mg tablet 160 mg PO QHS Rx Instructions: TAKE 1 TABLET AT BEDTIME Slow-Mag 71.5 mg tablet,delayed release (DR/EC) 71.5 mg PO BID (DME) True Metrix Glucose Test Strip Strip MISCELLANEOUS Patient Comments: [NO ORIGINAL SIG] amlodipine 5 mg tablet 5 mg PO DAILY prochlorperazine maleate 10 mg tablet 10 mg PO Q6H PRN PRN (Reason: nausea/vomiting) acetaminophen 500 mg capsule 1,000 mg PO Q6H PRN (Reason: pain) tramadol 50 mg tablet 50 mg PO Q6H PRN (Reason: pain) 2 Days Qty: 3 0RF Referrals / Follow Up: Dillan Nuno MD [Med Staff - Active Staff] - Within 2 Weeks Marco Antonio Arevalo Chi, MD [Primary Care Provider] - Within 1 Week Disposition Disposition (needs filled in before D/C Order can be placed): Home, Self Care Charges/Coding Visit Charges Inpatient E&M: 98268 Disch Hosp >30min
== END 2024-12-11 16:34 | disposition home or self-care (01) | DRG 445 ==
LOC: ED 22:15 → PCU 23:30
PROVIDERS: Nurse Practitioner; Admitting Provider Hospitalist; Emergency Provider Emergency Medicine; PCP Family Medicine Geriatric Medicine; Visit Provider Student in an Organized Health Care Education/Training Program
DX: K80.50 Calculus of bile duct without cholangitis or cholecystitis without obstruction (principal); C78.7 Secondary malignant neoplasm of liver and intrahepatic bile duct; C18.0 Malignant neoplasm of cecum; E11.40 Type 2 diabetes mellitus with diabetic neuropathy, unspecified; D50.9 Iron deficiency anemia, unspecified; D72.825 Bandemia; I10 Essential (primary) hypertension; K76.9 Liver disease, unspecified; Z95.2 Presence of prosthetic heart valve; K82.8 Other specified diseases of gallbladder; E87.6 Hypokalemia; E86.0 Dehydration; E78.5 Hyperlipidemia, unspecified; R74.01 Elevation of levels of liver transaminase levels; Z90.710 Acquired absence of both cervix and uterus; Z92.21 Personal history of antineoplastic chemotherapy; Z85.3 Personal history of malignant neoplasm of breast
CPT/HCPCS: 36415; 36591; 74177; 74181; 76705; 80048; 80053; 80076; 81001; 83036; 83690; 83735; 85025; 85027; 87086; 87088; 87186; 93005; 94668; 97116; 97162; 97166; 97530; 97535; 99285; Q9967; A4216; J2405

== ENCOUNTER → 2025-03-11 | Outpatient (CLI) | payer MEDICARE, SELFPAY ==
[2024-11-23 11:46] VITALS: BMI 29.3
[2025-03-11 10:48] LABS: Hematocrit 39.1 % (37-47); Hemoglobin 13.1 g/dL (12.0-15.0); Immature Granulocytes Count 0.030 X10^3/uL (0.0-0.0); Mean Corp Hgb Conc 33.5 g/dL (32-36); Mean Corpuscular Volume 99.2 fL (81-99); Mean Platelet Vol. 10.3 fl (6.2-12.0); NRBC Flagged by Analyzer 0.4 % (0-5); Platelet Count 243 K/mm3 (150-450); RBC Distribution Width CV 16.9 % (11.6-14.6); RBC Distribution Width SD 61.1 fl (35.1-43.9); Red Blood Count 3.94 M/mm3 (4.2-5.4); White Blood Count 5.6 K/mm3 (4.4-11.0)
[2025-03-11 11:11] LABS: LDH 256 U/L (84-246)
[2025-03-11 12:19] LABS: Cholesterol 179 mg/dL (<=200); Low Density Lipoprotein Calc. 77 mg/dL; Triglycerides 144 mg/dL; Very Low Density Lipoprotein 29 mg/dL (5-40); Vitamin D,25 Hydroxy 33.6 ng/mL (30-100); cholesterol:hdl ratio screen 2.46
[2025-03-11 12:32] LABS: AST(SGOT) 36 U/L (<=31); Alanine Aminotransfer ALT/SGPT 24 U/L (<=34); Albumin, Serum 4.4 g/dL (3.4-4.8); Alkaline Phosphatase 42 U/L (35-104); Anion Gap 13 (5-15); BUN 14 mg/dL (4-19); BUN/Creat Ratio 22.3 RATIO (10-20); Calcium,Total 9.8 mg/dL (7.6-11.0); Carbon Dioxide 21.7 mmol/L (21.0-32.0); Chloride 106 mmol/L (98-108); Globulin 3.3 g/dL (2.2-4.2); Glucose 101 mg/dL (70-99); Potassium 4.2 mmol/L (3.3-5.1)
== END | disposition home or self-care (01) ==
LOC: POLAB3 10:27
PROVIDERS: Internal Medicine Medical Oncology; PCP Family Medicine Geriatric Medicine; Visit Provider Family Medicine Geriatric Medicine
DX: E55.9 Vitamin D deficiency, unspecified (principal); E78.5 Hyperlipidemia, unspecified; I10 Essential (primary) hypertension
CPT/HCPCS: 36415; 80053; 80061; 82306; 83615; 84443; 85025

== ENCOUNTER → 2025-05-06 | Outpatient (CLI) | payer MEDICARE, SELFPAY ==
[2024-11-23 11:46] VITALS: BMI 29.3
--- NOTE | 2025-05-06 12:15 | BI_ITS ---
EXAM: SCRN MAMM (CAD)W/CARLIE BILAT DATE: 05/06/2025 CLINICAL HISTORY: F, Age 84 y/o , ANNUAL SCREENING TECHNIQUE: Procedure Code: [id number] Modality: MG Procedure: SCRN MAMM (CAD)W/CARLIE BILAT COMPARISON: Prior exam(s) dated 05/03/2024, 04/13/2023, 04/19/2022. FINDINGS: TISSUE DENSITY: There are scattered areas of fibroglandular density. Bilateral Breast Mammographic Findings: No significant masses, calcifications or other abnormalities are identified. BI/SCRN MAMM (CAD)W/CARLIE BILAT IMPRESSION: There is no mammographic evidence of malignancy. OVERALL FINAL ASSESSMENT BI-RADS 1: NEGATIVE. RECOMMENDATION: Routine annual follow-up in 1 Year A letter with findings and recommendations will be mailed to the patient. Reading Location: [id number]
== END | disposition home or self-care (01) ==
LOC: OPBI 12:14
PROVIDERS: PCP Family Medicine Geriatric Medicine; Referring Provider Student in an Organized Health Care Education/Training Program; Visit Provider Student in an Organized Health Care Education/Training Program
DX: Z12.31 Encounter for screening mammogram for malignant neoplasm of breast (principal)
CPT/HCPCS: 77063; 77067